=== PATIENT | female | born 1945 | race Caucasian/White ===

== ENCOUNTER 2017-06-02 13:30 | Inpatient (IN) | payer MEDICARE, MEDICAID ==
[2017-06-02] MEDS ORDERED: Sodium Chloride 0.9% 1,000 ML IV ONE (13:46)
[2017-06-02 13:47] VITALS: BMI 29.5
--- NOTE | 2017-06-02 13:52 | C.PDOC ---
History Of Present Illness 71 year old female brought in by ambulance for complaints of chest pain and abdominal pain, onset today. Also reports difficulty breathing. Vital signs on arrival are stable. Patient is also complaining of diarrhea. No nausea, vomiting , fever, or chills. Patient is cooperative, but moaning in pain. PMD: [place] Time Seen by Provider: 06/02/17 13:37 Chief Complaint (Nursing): Abdominal Pain History Per: Patient History/Exam Limitations: no limitations Onset/Duration Of Symptoms: Days (x1) Current Symptoms Are (Timing): Still Present Past Medical History Reviewed: Historical Data, Nursing Documentation, Vital Signs Vital Signs: Last Vital Signs Temp Pulse 78 06/02/17 17:21 Resp 16 06/02/17 17:21 BP 134/55 L 06/02/17 17:21 Pulse Ox 100 06/02/17 17:21 - Medical History PMH: Arthritis, Diabetes, HTN, Hypothyroidism, Kidney Stones Surgical History: Hernia Repair - [facility] CYSTOSCOPY NEC (05/10/14) URETERAL CATHETERIZATION (05/10/14) Family History: States: No Known Family Hx - Social History Hx Tobacco Use: No Hx Alcohol Use: No Hx Substance Use: No - Immunization History Hx Influenza Vaccination: Yes Hx Pneumococcal Vaccination: No Review Of Systems Except As Marked, All Systems Reviewed And Found Negative. Constitutional: Negative for: Fever, Chills Cardiovascular: Positive for: Chest Pain Respiratory: Positive for: Shortness of Breath Gastrointestinal: Positive for: Abdominal Pain, Diarrhea. Negative for: Nausea , Vomiting Physical Exam - Physical Exam Appears: In Acute Distress (mild painful distress) Skin: Normal Color, Warm, Dry Head: Atraumatic, Normacephalic Eye(s): bilateral: Normal Inspection, PERRL, EOMI Nose: Normal Neck: Normal ROM, Supple Chest: Symmetrical, No Tenderness Cardiovascular: Rhythm Regular, No Murmur Respiratory: Normal Breath Sounds, No Rales, No Rhonchi, No Wheezing Gastrointestinal/Abdominal: Soft, Tenderness (diffuse abdominal tenderness), Distention, Other (tympanitic) Extremity: Bilateral: Atraumatic, Normal Color And Temperature, Normal ROM Neurological/Psych: Oriented x3, Normal Speech ED Course And Treatment - Laboratory Results Result Diagrams: 06/02/17 14:09 06/02/17 14:09 Lab Interpretation: No Acute Changes ECG: Interpreted By Me ECG Rhythm: Sinus Rhythm, Nonspecific Changes ECG Interpretation: No Acute Changes Rate From EC - Other Rad obstructive series X-Ray: Viewed By Me, Read By Radiologist Interpretation: FINDINGS: CHEST: Lungs: Clear. Cardiovascular: Cardiomegaly. No pulmonary vascular congestion. Pleura: No pleural fluid. No pneumothorax. Other findings: None. ABDOMEN AND PELVIS: Bowel: Unremarkable bowel gas pattern. No evidence of mechanical obstruction. Moderate fecal loading seen at the ascending colon segment a lengthy at the distal rectosigmoid. Free air: None. Bones: Unremarkable. Other findings: None. IMPRESSION: Cardiomegaly. No infiltrate bilaterally. Nonobstructive bowel gas pattern. Moderate fecal loading seen at the ascending colon segment a lengthy at the distal rectosigmoid. - CT Scan/US CT abdomen/pelvis Other Rad Studies (CT/US): Read By Radiologist, Radiology Report Reviewed CT/US Interpretation: FINDINGS: LOWER THORAX: Cardiomegaly is reiterated as well as limited bilateral basilar dependent atelectasis. LIVER: Unremarkable. No gross lesion or ductal dilatation. GALLBLADDER AND BILE DUCTS: Distended gallbladder with cholelithiasis is minimally identified at the dependent portion. No pericholecystic fluid collection or mural thickening is grossly evident. PANCREAS: Unremarkable. No gross lesion or ductal dilatation. SPLEEN : Unremarkable. ADRENALS: Unremarkable. No mass. KIDNEYS AND URETERS: Resolution of prior right-sided obstructive uropathy. Bilateral kidneys otherwise unremarkable appearance. VASCULATURE: Unremarkable. No aortic aneurysm. BOWEL: The stomach is rather distended with fluid and air as well as the majority of small bowel although collapsed small bowel loops in the right lower quadrant. Is status post prior segmental bowel resection in the right lower quadrant. At the anastomotic site, as well as including a segment distal to it, stool appears sequestered with loops proximal this segment appearing distended. This segment appears to extend into the ascending colon and it is difficult to identify the relationship between the collapsed and distended small bowel loops. The overall pattern is felt to represent a distal small bowel obstruction likely related to the anastomotic site or medially distal to it. There is no free intraperitoneal gas or ascites. Sigmoid diverticulosis again seen without diverticulitis. APPENDIX: The appendix is felt to be normal appearing and images 86 through 95 series 3. PERITONEUM: Status post prior ventral abdominal hernia repair again evident. Mesentery remains unremarkable. . LYMPH NODES: Unremarkable. No enlarged lymph nodes. BLADDER: Unremarkable. REPRODUCTIVE: Prior hysterectomy again evident. BONES : No acute fracture. OTHER FINDINGS: None. IMPRESSION: Findings suggestive of distal small bowel obstruction likely at or just distal to the site of prior segmental small bowel resection at the right lower quadrant. The appendix appears unremarkable as discussed above. Other lesser findings as discussed above. Progress Note: Ordered labs, x-ray obstructive series, and CT abdomen/pelvis. Treated with IVF NSS and morphine [address] shows small bowel obstruction. Paged surgery on-call, Dr. Vazquez, and residential manager. Treated with additional morphine 4 mg IV Reassessment Condition: Unchanged - Physician Consult Information Physician Contacted: Krystian Spears Outcome Of Conversation: admit Medical Decision Making Medical Decision Making: Case discussed with Dr Vazquez who request residential manager evaluate patient Case discussed and patient evaluated by residential manager who request admission to medical service Case discussed with Dr pSears who agrees to admit Disposition Discussed With Dr.: Krystian Spears Doctor Will See Patient In The: Hospital - Disposition Disposition: HOSPITALIZED Disposition Time: 18:30 Condition: STABLE Forms: [facility] (Ukrainian) - POA Present On Arrival: None - Clinical Impression Clinical Impression: SBO (small bowel obstruction) - PA / MONITOR AND ST[employer]AGE BIN TENDER / Resident Statement MD/DO has reviewed & agrees with the documentation as recorded. - Scribe Statement The provider has reviewed the documentation as recorded by the Scribe (Katiuska Lutz) All medical record entries made by the Scribe were at my direction and personally dictated by me. I have reviewed the chart and agree that the record accurately reflects my personal performance of the history, physical exam, medical decision making, and the department course for this patient. I have also personally directed, reviewed, and agree with the discharge instructions and disposition. Decision To Admit - Pt Status Changed To: Hospital Disposition Of: Inpatient - Admit Certification Admit to Inpatient:: After my assessment, the patient will require hospitalization for at least two midnights. This is because of the severity of symptoms shown, intensity of services needed, and/or the medical risk in this patient being treated as an outpatient. - InPatient: Physician Admission Certification:: SBO - . Bed Request Type: Regular Admitting Physician: Krystian Spears Patient Diagnosis: SBO (small bowel obstruction)
[2017-06-02] MEDS ORDERED: Morphine 4 MG/ML VIAL ONE ×2 (14:09→18:24)
--- NOTE | 2017-06-02 14:12 | RAD ---
PROCEDURE: Radiographs of the chest and abdomen (obstructive series) HISTORY: Abd Pain COMPARISON: No prior. TECHNIQUE: AP radiograph of the chest, with upright and supine radiographs of the abdomen. FINDINGS: CHEST: Lungs: Clear. Cardiovascular: Cardiomegaly. No pulmonary vascular congestion. Pleura: No pleural fluid. No pneumothorax. Other findings: None. ABDOMEN AND PELVIS: Bowel: Unremarkable bowel gas pattern. No evidence of mechanical obstruction. Moderate fecal loading seen at the ascending colon segment a lengthy at the distal rectosigmoid. Free air: None. Bones: Unremarkable. Other findings: None. IMPRESSION: Cardiomegaly. No infiltrate bilaterally. Nonobstructive bowel gas pattern. Moderate fecal loading seen at the ascending colon segment a lengthy at the distal rectosigmoid.
[2017-06-02 14:15] LABS: BASO % 0.4 % (0.0-2.0); EOS # 0.1 K/uL (0.0-0.7); EOS % 0.9 % (0.0-4.0); HEMOGLOBIN 12.8 g/dL (11.0-16.0); LYMPH # 1.3 K/uL (1.0-4.3); LYMPH % 19.3 % (20.0-40.0); MEAN CELL VOLUME 71.8 fL (81.0-99.0); MEAN CORPUSCULAR HEMOGLOBIN 24.3 pg (27.0-31.0); MEAN CORPUSCULAR HGB CONC 33.9 g/dL (33.0-37.0); MEAN PLATELET VOLUME 8.8 fL (7.2-11.7); MONO # 0.5 K/uL (0.0-0.8); NEUT % 72.4 % (50.0-75.0); RBC 5.27 Mil/uL (3.80-5.20); RED CELL DISTRIBUTION WIDTH 15.8 % (11.5-14.5); WHITE BLOOD COUNT 6.9 K/uL (4.8-10.8)
[2017-06-02 14:33] LABS: ALB/GLOB RATIO 1.1 (1.0-2.1); ALBUMIN 4.3 g/dL (3.5-5.0); ALT/SGPT 17 U/L (9-52); AST/SGOT 21 U/L (14-36); BLOOD UREA NITROGEN 15 mg/dL (7-17); GFR AFRICAN-AMERICAN > 60; GFR NON-AFRICAN AMERICAN 55; LIPASE 63 U/L (23-300)
[2017-06-02 17:35] LABS: SQUAMOUS EPITHIAL 1 /hpf (0-5); URINE BILIRUBIN NEGATIVE (NEGATIVE); URINE BLOOD NEGATIVE (NEGATIVE); URINE CLARITY Clear (Clear); URINE COLOR Yellow (YELLOW); URINE GLUCOSE (UA) NORMAL (Normal); URINE LEUKOCYTE ESTERASE NEG Leu/uL (Negative); URINE PROTEIN NEGATIVE (NEGATIVE); URINE UROBILINOGEN NORMAL mg/dL (0.2-1.0)
--- NOTE | 2017-06-02 17:49 | CT ---
PROCEDURE: CT Abdomen and Pelvis without intravenous contrast HISTORY: Pain COMPARISON: Enhanced abdomen and pelvis CT examination 05/10/2014 TECHNIQUE: Helical CT of the abdomen and pelvis was performed without oral or intravenous contrast as per referring physician request.. Contrast Dose: None Radiation dose: Total exam DLP = 783.78 mGy-cm. This CT exam was performed using one or more of the following dose reduction techniques: Automated exposure control, adjustment of the mA and/or kV according to patient size, and/or use of iterative reconstruction technique. FINDINGS: LOWER THORAX: Cardiomegaly is reiterated as well as limited bilateral basilar dependent atelectasis. LIVER: Unremarkable. No gross lesion or ductal dilatation. GALLBLADDER AND BILE DUCTS: Distended gallbladder with cholelithiasis is minimally identified at the dependent portion. No pericholecystic fluid collection or mural thickening is grossly evident. PANCREAS: Unremarkable. No gross lesion or ductal dilatation. SPLEEN: Unremarkable. ADRENALS: Unremarkable. No mass. KIDNEYS AND URETERS: Resolution of prior right-sided obstructive uropathy. Bilateral kidneys otherwise unremarkable appearance. VASCULATURE: Unremarkable. No aortic aneurysm. BOWEL: The stomach is rather distended with fluid and air as well as the majority of small bowel although collapsed small bowel loops in the right lower quadrant. Is status post prior segmental bowel resection in the right lower quadrant. At the anastomotic site, as well as including a segment distal to it, stool appears sequestered with loops proximal this segment appearing distended. This segment appears to extend into the ascending colon and it is difficult to identify the relationship between the collapsed and distended small bowel loops. The overall pattern is felt to represent a distal small bowel obstruction likely related to the anastomotic site or medially distal to it. There is no free intraperitoneal gas or ascites. Sigmoid diverticulosis again seen without diverticulitis. APPENDIX: The appendix is felt to be normal appearing and images 86 through 95 series 3. PERITONEUM: Status post prior ventral abdominal hernia repair again evident. Mesentery remains unremarkable. . LYMPH NODES: Unremarkable. No enlarged lymph nodes. BLADDER: Unremarkable. REPRODUCTIVE: Prior hysterectomy again evident. BONES: No acute fracture. OTHER FINDINGS: None. IMPRESSION: Findings suggestive of distal small bowel obstruction likely at or just distal to the site of prior segmental small bowel resection at the right lower quadrant. The appendix appears unremarkable as discussed above. Other lesser findings as discussed above.
--- NOTE | 2017-06-02 18:56 | CP.PCM.CON ---
History of Present Illness - History of Present Illness History of Present Illness: Surgery Consult: Dr. Vazquez Pt is a 71F with PMHx of HTN, renal calculi and multiple abdominal surgeries who presents to with complaints of abdominal pain that has been waxing and waning for the last 2 weeks. Pt states her pain worsened this morning and she noticed that her abdomen was distended. She also admits to having non-bloody diarrhea yesterday and states she does not remember the last time she passed gas. She admits to poor oral intake for the last week due to on/off abdominal pain. Admits to nausea but denies vomiting. Pt denies F/C, chest pain or SOB. Does not remember the last time she had colonoscopy. PMHx: HTN, hypothyroidism, renal calculi PSHx: multiple abdominal surgeries including hernia repair & bowel resection but pt can't recall exactly what surgeries SocialHx: denies smoking/EtOH/drugs Review of Systems - Review of Systems All systems: reviewed and no additional remarkable complaints except (as per HPI ) Past Patient History - Infectious Disease Hx of Infectious Diseases: None - Past Medical History & Family History Past Medical History?: Yes - Past Social History Smoking Status: Never Smoked - CARDIAC Hx Hypertension: Yes - RENAL Hx Kidney Stones: Yes - ENDOCRINE/METABOLIC Hx Hypothyroidism: Yes - MUSCULOSKELETAL/RHEUMATOLOGICAL Hx Arthritis: Yes - PSYCHIATRIC Hx Substance Use: No - SURGICAL HISTORY Hx Herniorrhaphy: Yes - ANESTHESIA Hx Anesthesia: Yes Hx Anesthesia Reactions: No Hx Malignant Hyperthermia: No Meds Allergies/Adverse Reactions: Allergies Allergy/AdvReac Type Severity Reaction Status Date / Time No Known Allergies Allergy Verified 06/02/17 13:46 - Medications Medications: Current Medications Enoxaparin Sodium (Lovenox) 40 mg SC DAILY [facility] Home Med (Levothyroxine) 125 mcg PO DAILY [facility] Metronidazole (Flagyl) 500 mg in 100 mls @ 100 mls/hr IVPB Q8 [facility] PRN Reason: Protocol Ceftriaxone Sodium 1 gm/ (Sodium Chloride) 100 mls @ 100 mls/hr IVPB DAILY [facility] PRN Reason: Protocol Metoclopramide HCl (Reglan) 5 mg IVP Q8H [facility] Stop: 06/04/17 19:01 Morphine Sulfate (Morphine) 2 mg IVP Q4 PRN PRN Reason: Pain, moderate (4-7) Ondansetron HCl (Zofran Inj) 4 mg IVP Q6 PRN PRN Reason: Nausea/Vomiting Physical Exam - Constitutional Appears: No Acute Distress - Head Exam Head Exam: ATRAUMATIC, NORMOCEPHALIC - Eye Exam Eye Exam: Normal appearance - ENT Exam ENT Exam: Mucous Membranes Moist - Respiratory Exam Respiratory Exam: NORMAL BREATHING PATTERN - Cardiovascular Exam Cardiovascular Exam: RRR - GI/Abdominal Exam GI & Abdominal Exam: Distended, Hypoactive Bowel Sounds, Soft, Tenderness ( generalized) - Neurological Exam Neurological exam: Alert, Oriented x3 - Skin Skin Exam: Dry, Warm Results - Vital Signs Recent Vital Signs: Last Vital Signs Temp Pulse 78 06/02/17 17:21 Resp 16 06/02/17 17:21 BP 134/55 L 06/02/17 17:21 Pulse Ox 100 06/02/17 17:21 - Labs Result Diagrams: 06/02/17 14:09 06/02/17 14:09 Labs: Laboratory Results - last 24 hr 06/02/17 06/02/17 06/02/17 14:09 14:09 14:09 WBC 6.9 RBC 5.27 H Hgb 12.8 Hct 37.8 MCV 71.8 L D MCH 24.3 L MCHC 33.9 RDW 15.8 H Plt Count 256 MPV 8.8 Neut % (Auto) 72.4 Lymph % (Auto) 19.3 L [place] % (Auto) 7.0 Eos % (Auto) 0.9 Baso % (Auto) 0.4 Neut # (Auto) 5.0 Lymph # (Auto) 1.3 [place] # (Auto) 0.5 Eos # (Auto) 0.1 Baso # (Auto) 0.0 Sodium 137 Potassium 4.4 Chloride 95 L Carbon Dioxide 23 Anion Gap 23 H BUN 15 Creatinine 1.0 Est GFR ( Amer) > 60 Est GFR (Non-Af Amer) 55 Random Glucose 129 H Lactic Acid 0.9 Calcium 10.0 Total Bilirubin 0.8 AST 21 ALT 17 Alkaline Phosphatase 101 CK-MB (Mass) 1.20 Troponin I < 0.0120 Total Protein 8.1 Albumin 4.3 Globulin 3.9 Albumin/Globulin Ratio 1.1 Lipase 63 Urine Color Urine Clarity Urine pH Ur Specific [place] Urine Protein Urine Glucose (UA) Urine Ketones Urine Blood Urine Nitrate Urine Bilirubin Urine Urobilinogen Ur Leukocyte Esterase Urine WBC (Auto) Urine RBC (Auto) Ur Squamous Epith Cells 06/02/17 17:21 WBC RBC Hgb Hct MCV MCH MCHC RDW Plt Count MPV Neut % (Auto) Lymph % (Auto) [place] % (Auto) Eos % (Auto) Baso % (Auto) Neut # (Auto) Lymph # (Auto) [place] # (Auto) Eos # (Auto) Baso # (Auto) Sodium Potassium Chloride Carbon Dioxide Anion Gap BUN Creatinine Est GFR ( Amer) Est GFR (Non-Af Amer) Random Glucose Lactic Acid Calcium Total Bilirubin AST ALT Alkaline Phosphatase CK-MB (Mass) Troponin I Total Protein Albumin Globulin Albumin/Globulin Ratio Lipase Urine Color Yellow Urine Clarity Clear Urine pH 5.0 Ur Specific [place] 1.012 Urine Protein Negative Urine Glucose (UA) Normal Urine Ketones Negative Urine Blood Negative Urine Nitrate Negative Urine Bilirubin Negative Urine Urobilinogen Normal Ur Leukocyte Esterase Neg Urine WBC (Auto) < 1 Urine RBC (Auto) < 1 Ur Squamous Epith Cells 1 - Imaging and Cardiology CT scan - abdomen Status: Image reviewed by me, Report reviewed by me Assessment & Plan - Assessment and Plan (Free Text) Assessment: 71F with SBO Plan: - Keep NPO with IVF - Insert NGT for decompression; low intermittent suction - serial abdominal exams - monitor bowel function - d/w Dr. Vazquez who agrees with above Ling, PGY-3
[2017-06-02] MEDS: Dextrose 5%/0.45% NS 1,000 ML IV SCH (19:27)
[2017-06-02] MEDS: metroNIDAZOLE IV 500 mg/100 ml 500 MG/100 ML BAG IVPB SCH (21:48)
--- NOTE | 2017-06-02 23:13 | CP.PCM.HP ---
History of Present Illness - History of Present Illness History of Present Illness: CC: abdominal pain Pt is a 71F with PMHx of HTN, renal calculi and multiple abdominal surgeries who presents to with complaints of abdominal pain that has been waxing and waning for the last 2 weeks, lack of bowel movement and no flatus. Pt states her pain worsened this morning and she noticed that her abdomen was distended. She also admits to having non-bloody diarrhea yesterday and states she does not remember the last time she passed gas. She admits to poor oral intake for the last week due to on/off abdominal pain. Admits to nausea but denies vomiting. Pt denies F/C, chest pain or SOB. Does not remember the last time she had colonoscopy. PMHx: HTN, hypothyroidism, renal calculi PSHx: multiple abdominal surgeries including hernia repair & bowel resection but pt can't recall exactly what surgeries SocialHx: denies smoking/EtOH/drugs Present on Admission - Present on Admission Any Indicators Present on Admission: Yes Review of Systems - Review of Systems Systems not reviewed;Unavailable: Acuity of Condition - Constitutional Constitutional: Fatigue, Lethargy, Malaise - EENT Eyes: absent: As Per HPI, Blind Spots, Blurred Vision, Change in Vision, Decreased Night Vision, Diplopia, Discharge, Dry Eye, Exophthalmos, Floaters, Irritation, Itchy Eyes, Loss of Peripheral Vision, Pain, Photophobia, Requires Corrective Lenses, Sees Flashes, Spots in Vision, Tunnel Vision, Other Visual Disturbances, Loss of Vision, Other - Cardiovascular Cardiovascular: absent: As Per HPI, Acrocyanosis, Chest Pain, Chest Pain at Rest , Chest Pain with Activity, Claudication, Diaphoresis, Dyspnea, Dyspnea on Exertion, Edema, Irregular Heart Rhythm, Pain Radiating to Arm/Neck/Jaw, Leg Edema, Leg Ulcers, Lightheadedness, Orthopnea, Palpitations, Paroxysmal Nocturnal Dyspnea, Pedal Edema, Radiating Pain, Rapid Heart Rate, Slow Heart Rate, Syncope, Other - Respiratory Respiratory: absent: As Per HPI, Cough, Dyspnea, Hemoptysis, Dyspnea on Exertion , Wheezing, Snoring, Stridor, Pain on Inspiration, Chest Congestion, Excessive Mucous Production, Change in Mucous Color, Pain with Coughing, Other - Gastrointestinal Gastrointestinal: Abdominal Pain - Genitourinary Genitourinary: absent: As Per HPI, Change in Urinary Stream, Difficulty Urinating, Dysuria, Flank Pain, Hematuria, Pyuria, Nocturia, Urinary Incontinence, Urinary Frequency, Urinary Hesitance, Urinary Urgency, Voiding Freq/Small Amts, Freq UTI, Hx Renal/Bladder Calculi, Hx /Renal Surgery, Bladder Distension, Other Past Patient History - Infectious Disease Hx of Infectious Diseases: None - Past Medical History & Family History Past Medical History?: Yes - Past Social History Smoking Status: Never Smoked - CARDIAC Hx Hypertension: Yes - RENAL Hx Kidney Stones: Yes - ENDOCRINE/METABOLIC Hx Hypothyroidism: Yes - MUSCULOSKELETAL/RHEUMATOLOGICAL Hx Arthritis: Yes Hx Falls: No - PSYCHIATRIC Hx Substance Use: No - SURGICAL HISTORY Hx Herniorrhaphy: Yes - ANESTHESIA Hx Anesthesia: Yes Hx Anesthesia Reactions: No Hx Malignant Hyperthermia: No Meds Allergies/Adverse Reactions: Allergies Allergy/AdvReac Type Severity Reaction Status Date / Time No Known Allergies Allergy Verified 06/02/17 13:46 Physical Exam - Constitutional Appears: No Acute Distress - Head Exam Head Exam: ATRAUMATIC, NORMAL INSPECTION, NORMOCEPHALIC - Eye Exam Eye Exam: EOMI, Normal appearance, PERRL Pupil Exam: NORMAL ACCOMODATION, PERRL - Respiratory Exam Respiratory Exam: Clear to Auscultation Bilateral, NORMAL BREATHING PATTERN - Cardiovascular Exam Cardiovascular Exam: REGULAR RHYTHM - GI/Abdominal Exam GI & Abdominal Exam: Diminished Bowel Sounds, Distended, Tenderness. absent: Bruit, Firm, Guarding, Hernia, Hyperactive Bowel Sounds, Hypoactive Bowel Sounds , Mass, Normal Bowel Sounds, Organomegaly, Pulsatile Mass, Rebound, Rigid, Soft - Rectal Exam Additional comments: empty vault - Neurological Exam Neurological exam: Alert, CN II-XII Intact, Normal Gait, Oriented x3, Reflexes Normal - Psychiatric Exam Psychiatric exam: Anxious - Skin Skin Exam: Pallor Results - Vital Signs Recent Vital Signs: Last Vital Signs Temp 98.8 F 06/02/17 20:41 Pulse 70 06/02/17 20:41 Resp 20 06/02/17 20:41 BP 132/61 06/02/17 20:41 Pulse Ox 99 06/02/17 20:41 - Labs Result Diagrams: 06/02/17 14:09 06/02/17 14:09 Labs: Laboratory Results - last 24 hr 03/28/18 03/28/18 03/28/18 14:09 14:09 14:09 WBC 6.9 RBC 5.27 H Hgb 12.8 Hct 37.8 MCV 71.8 L D MCH 24.3 L MCHC 33.9 RDW 15.8 H Plt Count 256 MPV 8.8 Neut % (Auto) 72.4 Lymph % (Auto) 19.3 L [place] % (Auto) 7.0 Eos % (Auto) 0.9 Baso % (Auto) 0.4 Neut # (Auto) 5.0 Lymph # (Auto) 1.3 [place] # (Auto) 0.5 Eos # (Auto) 0.1 Baso # (Auto) 0.0 Sodium 137 Potassium 4.4 Chloride 95 L Carbon Dioxide 23 Anion Gap 23 H BUN 15 Creatinine 1.0 Est GFR ( Amer) > 60 Est GFR (Non-Af Amer) 55 POC Glucose (mg/dL) Random Glucose 129 H Lactic Acid 0.9 Calcium 10.0 Total Bilirubin 0.8 AST 21 ALT 17 Alkaline Phosphatase 101 CK-MB (Mass) 1.20 Troponin I < 0.0120 Total Protein 8.1 Albumin 4.3 Globulin 3.9 Albumin/Globulin Ratio 1.1 Lipase 63 Urine Color Urine Clarity Urine pH Ur Specific [place] Urine Protein Urine Glucose (UA) Urine Ketones Urine Blood Urine Nitrate Urine Bilirubin Urine Urobilinogen Ur Leukocyte Esterase Urine WBC (Auto) Urine RBC (Auto) Ur Squamous Epith Cells 06/02/17 06/02/17 17:21 21:00 WBC RBC Hgb Hct MCV MCH MCHC RDW Plt Count MPV Neut % (Auto) Lymph % (Auto) [place] % (Auto) Eos % (Auto) Baso % (Auto) Neut # (Auto) Lymph # (Auto) [place] # (Auto) Eos # (Auto) Baso # (Auto) Sodium Potassium Chloride Carbon Dioxide Anion Gap BUN Creatinine Est GFR ( Amer) Est GFR (Non-Af Amer) POC Glucose (mg/dL) 126 H Random Glucose Lactic Acid Calcium Total Bilirubin AST ALT Alkaline Phosphatase CK-MB (Mass) Troponin I Total Protein Albumin Globulin Albumin/Globulin Ratio Lipase Urine Color Yellow Urine Clarity Clear Urine pH 5.0 Ur Specific [place] 1.012 Urine Protein Negative Urine Glucose (UA) Normal Urine Ketones Negative Urine Blood Negative Urine Nitrate Negative Urine Bilirubin Negative Urine Urobilinogen Normal Ur Leukocyte Esterase Neg Urine WBC (Auto) < 1 Urine RBC (Auto) < 1 Ur Squamous Epith Cells 1 Assessment & Plan (1) HTN (hypertension) Status: Acute (2) H/O partial resection of colon Status: Acute (3) SBO (small bowel obstruction) Assessment and Plan: Admit Ng tube sction'surgical consult protonix flagyl rocephin Status: Acute (4) Abdominal pain Status: Acute
[2017-06-03] MEDS: metroNIDAZOLE IV 500 mg/100 ml 500 MG/100 ML BAG IVPB SCH (05:27)
[2017-06-03] MEDS: Levothyroxine 125 MCG TAB PO SCH (06:00)
[2017-06-03] MEDS: Morphine 4 MG/ML VIAL IVP PRN ×2 (06:01→23:52)
[2017-06-03] MEDS: Dextrose 5%/0.45% NS 1,000 ML IV SCH ×2 (07:05→21:25)
--- NOTE | 2017-06-03 09:14 | CP.PCM.PN ---
Subjective - Date & Time of Evaluation Date of Evaluation: 06/03/17 Time of Evaluation: 07:00 - Subjective Subjective: Surgery Progress note. Dr. Vazquez Pt seen and examined at bedside. No acute events overnight. Still reports diffuse abdominal pain. Denies Flatus or BMs. Last BM two days ago. NGT to suction with bilious output. Objective - Vital Signs/Intake and Output Vital Signs (last 24 hours): Temp Pulse Resp BP Pulse Ox 99.0 F 74 20 135/72 97 06/03/17 08:09 06/03/17 08:09 06/03/17 08:09 06/03/17 08:09 06/03/17 08:09 Intake and Output: 06/03/17 06/03/17 06:59 18:59 Intake Total 990 Output Total 350 Balance 640 - Medications Medications: Current Medications Enoxaparin Sodium (Lovenox) 40 mg SC DAILY [facility] Metronidazole (Flagyl) 500 mg in 100 mls @ 100 mls/hr IVPB Q8H [facility] PRN Reason: Protocol Last Admin: 06/03/17 05:27 Dose: 100 mls/hr Ceftriaxone Sodium 1 gm/ (Sodium Chloride) 100 mls @ 100 mls/hr IVPB DAILY [facility] PRN Reason: Protocol Dextrose/Sodium Chloride (Dextrose 5%/0.45% Ns 1000 Ml) 1,000 mls @ 90 mls/hr IV .Q11H7M [facility] Last Admin: 06/02/17 19:27 Dose: 90 mls/hr Levothyroxine Sodium (Synthroid) 125 mcg PO 0630 [facility] Last Admin: 06/03/17 06:00 Dose: 125 mcg Metoclopramide HCl (Reglan) 5 mg IVP Q8H [facility] Stop: 06/04/17 19:01 Last Admin: 06/03/17 02:32 Dose: 5 mg Morphine Sulfate (Morphine) 2 mg IVP Q4 PRN PRN Reason: Pain, moderate (4-7) Last Admin: 06/03/17 06:01 Dose: 2 mg Ondansetron HCl (Zofran Inj) 4 mg IVP Q6 PRN PRN Reason: Nausea/Vomiting Pneumococcal Polyvalent Vaccine (Pneumovax 23 Vaccine) 0.5 ml IM .ONCE ONE Stop: 06/04/17 10:01 - Labs Labs: 06/02/17 14:09 06/02/17 14:09 - Constitutional Appears: No Acute Distress - Head Exam Head Exam: ATRAUMATIC, NORMAL INSPECTION, NORMOCEPHALIC - Eye Exam Eye Exam: EOMI, Normal appearance. absent: Scleral icterus - ENT Exam ENT Exam: Mucous Membranes Moist - Respiratory Exam Respiratory Exam: NORMAL BREATHING PATTERN. absent: Accessory Muscle Use, Respiratory Distress - Cardiovascular Exam Cardiovascular Exam: RRR. absent: JVD - GI/Abdominal Exam GI & Abdominal Exam: Distended (mild distention), Guarding (voluntary guarding) . absent: Firm, Rebound Additional comments: Diffuse tenderness to palpation. - Extremities Exam Extremities Exam: Normal Inspection. absent: Calf Tenderness - Neurological Exam Neurological Exam: Alert, Awake, Oriented x3 - Skin Skin Exam: Dry, Intact, Warm Assessment and Plan - Assessment and Plan (Free Text) Assessment: 71yo F with possible SBO Plan: - Continue NGT to suction - IVF - NPO - Anti-emetics; Pain management - We will follow patient's clinical course Further recs as per Dr. George Ward PGY1 surgery pager: [phone]
[2017-06-03] MEDS: Enoxaparin 40 mg Syringe SC SCH (10:07)
--- NOTE | 2017-06-03 14:44 | CARD ---
APPROVED REPORT EKG Measurement Heart [id number] 160P63 [id number] <Conclusion> Normal sinus rhythm Cannot rule out Anterior infarct, age undetermined Abnormal ECG
--- NOTE | 2017-06-03 23:06 | CP.PCM.PN ---
Subjective - Date & Time of Evaluation Date of Evaluation: 06/03/17 Time of Evaluation: 09:10 - Subjective Subjective: Pt seen and examined at bedside Objective - Vital Signs/Intake and Output Vital Signs (last 24 hours): Temp Pulse Resp BP Pulse Ox 98.1 F 73 20 148/81 97 06/03/17 15:55 06/03/17 15:55 06/03/17 15:55 06/03/17 15:55 06/03/17 15:55 Intake and Output: 06/03/17 06/04/17 18:59 06:59 Intake Total 730 770 Output Total 450 600 Balance 280 170 - Medications Medications: Current Medications Acetaminophen (Tylenol 650 Mg Supp) 650 mg [place] Q6 PRN PRN Reason: Headache Last Admin: 06/03/17 16:33 Dose: 650 mg Enoxaparin Sodium (Lovenox) 40 mg SC DAILY [facility] Last Admin: 06/03/17 10:07 Dose: 40 mg Dextrose/Sodium Chloride (Dextrose 5%/0.45% Ns 1000 Ml) 1,000 mls @ 90 mls/hr IV .Q11H7M [facility] Last Admin: 06/03/17 21:25 Dose: 90 mls/hr Levothyroxine Sodium (Synthroid) 125 mcg PO 0630 [facility] Last Admin: 06/03/17 06:00 Dose: 125 mcg Metoclopramide HCl (Reglan) 5 mg IVP Q8H [facility] Stop: 06/04/17 19:01 Last Admin: 06/03/17 19:00 Dose: Not Given Morphine Sulfate (Morphine) 2 mg IVP Q4 PRN PRN Reason: Pain, moderate (4-7) Last Admin: 06/03/17 06:01 Dose: 2 mg Ondansetron HCl (Zofran Inj) 4 mg IVP Q6 PRN PRN Reason: Nausea/Vomiting Pneumococcal Polyvalent Vaccine (Pneumovax 23 Vaccine) 0.5 ml IM .ONCE ONE Stop: 06/04/17 10:01 - Labs Labs: 06/02/17 14:09 06/02/17 14:09 Assessment and Plan (1) HTN (hypertension) Status: Acute (2) H/O partial resection of colon Status: Acute (3) SBO (small bowel obstruction) Status: Acute (4) Abdominal pain Status: Acute
[2017-06-04] MEDS ORDERED: Phenol Topical 1.4% Throat Spray (180 ml) MT PRN (00:16)
[2017-06-04] MEDS: Dextrose 5%/0.45% NS 1,000 ML IV SCH ×3 (04:20→15:35)
[2017-06-04] MEDS: Levothyroxine 125 MCG TAB PO SCH (05:48)
[2017-06-04 07:44] LABS: HEMOGLOBIN 10.9 g/dL (11.0-16.0); MEAN CELL VOLUME 71.9 fL (81.0-99.0); MEAN CORPUSCULAR HEMOGLOBIN 24.1 pg (27.0-31.0); MEAN CORPUSCULAR HGB CONC 33.6 g/dL (33.0-37.0); MEAN PLATELET VOLUME 8.5 fL (7.2-11.7); RBC 4.5 Mil/uL (3.80-5.20); RED CELL DISTRIBUTION WIDTH 15.4 % (11.5-14.5); WHITE BLOOD COUNT 4.1 K/uL (4.8-10.8)
[2017-06-04 08:06] LABS: BLOOD UREA NITROGEN 8 mg/dL (7-17); GFR AFRICAN-AMERICAN > 60; GFR NON-AFRICAN AMERICAN > 60
[2017-06-04] MEDS ORDERED: Pneumococcal 23-Valent Vaccine IM ONE (10:00)
--- NOTE | 2017-06-04 10:15 | CP.PCM.PN ---
Subjective - Date & Time of Evaluation Date of Evaluation: 06/04/17 Time of Evaluation: 10:15 Objective - Vital Signs/Intake and Output Vital Signs (last 24 hours): Temp Pulse Resp BP Pulse Ox 97.8 F 65 20 135/64 97 06/04/17 08:13 06/04/17 08:13 06/04/17 08:13 06/04/17 08:13 06/04/17 08:13 Intake and Output: 06/04/17 06/04/17 06:59 18:59 Intake Total 1490 Output Total 820 Balance 670 - Medications Medications: Current Medications Acetaminophen (Tylenol 650 Mg Supp) 650 mg [place] Q6 PRN PRN Reason: Headache Last Admin: 06/03/17 16:33 Dose: 650 mg Enoxaparin Sodium (Lovenox) 40 mg SC DAILY [facility] Last Admin: 06/03/17 10:07 Dose: 40 mg Dextrose/Sodium Chloride (Dextrose 5%/0.45% Ns 1000 Ml) 1,000 mls @ 90 mls/hr IV .Q11H7M [facility] Last Admin: 06/04/17 06:28 Dose: 90 mls/hr Levothyroxine Sodium (Synthroid) 125 mcg PO 0630 [facility] Last Admin: 06/04/17 05:48 Dose: 125 mcg Metoclopramide HCl (Reglan) 5 mg IVP Q8H [facility] Stop: 06/04/17 19:01 Last Admin: 06/04/17 03:00 Dose: Not Given Morphine Sulfate (Morphine) 2 mg IVP Q4 PRN PRN Reason: Pain, moderate (4-7) Last Admin: 06/03/17 23:52 Dose: 2 mg Ondansetron HCl (Zofran Inj) 4 mg IVP Q6 PRN PRN Reason: Nausea/Vomiting Pantoprazole Sodium (Protonix Inj) 40 mg IVP DAILY [facility] Phenol/Menthol (Phenaseptic 1.4% Throat [place]) 2 ml MT Q2H PRN PRN Reason: Sore Throat - Labs Labs: 06/04/17 07:30 06/04/17 07:30
[2017-06-04] MEDS: Enoxaparin 40 mg Syringe SC SCH (10:20)
[2017-06-04] MEDS ORDERED: Piperacill/Tazo 3.375gm in Dex 3.375 GM/50 ML BAG IVPB SCH (13:30)
[2017-06-04] MEDS ORDERED: metroNIDAZOLE IV 500 mg/100 ml 500 MG/100 ML BAG IVPB SCH (14:00)
--- NOTE | 2017-06-04 15:54 | RAD ---
HISTORY: SBO COMPARISON: No prior. FINDINGS: BOWEL: No evidence of bowel obstruction. Nasogastric tube extends to left upper quadrant of abdomen. There are surgical sutures seen in the right lower quadrant of the abdomen. There are no masses or abnormal intra-abdominal calcifications. BONES: Normal. OTHER FINDINGS: None. IMPRESSION: No evidence of mechanical bowel obstruction.
[2017-06-04] MEDS: metroNIDAZOLE IV 500 mg/100 ml 500 MG/100 ML BAG IVPB SCH (17:05)
[2017-06-04] MEDS: Piperacillin/Tazobact 3.375 GM in Sodium Chloride 100 ML IVPB SCH (18:01)
--- NOTE | 2017-06-04 23:12 | CP.PCM.PN ---
Subjective - Date & Time of Evaluation Date of Evaluation: 06/04/17 Time of Evaluation: 18:40 - Subjective Subjective: Pt was seen and evaluated at bedside Objective - Vital Signs/Intake and Output Vital Signs (last 24 hours): Temp Pulse Resp BP Pulse Ox 98 F 69 20 139/73 98 06/04/17 16:00 06/04/17 16:00 06/04/17 16:00 06/04/17 16:00 06/04/17 16:00 Intake and Output: 06/04/17 06/05/17 18:59 06:59 Intake Total 760 630 Output Total 280 210 Balance 480 420 - Medications Medications: Current Medications Acetaminophen (Tylenol 650 Mg Supp) 650 mg [place] Q6 PRN PRN Reason: Headache Last Admin: 06/03/17 16:33 Dose: 650 mg Enoxaparin Sodium (Lovenox) 40 mg SC DAILY [facility] Last Admin: 06/04/17 10:20 Dose: Not Given Dextrose/Sodium Chloride (Dextrose 5%/0.45% Ns 1000 Ml) 1,000 mls @ 90 mls/hr IV .Q11H7M [facility] Last Admin: 06/04/17 15:35 Dose: Not Given Metronidazole (Flagyl) 500 mg in 100 mls @ 100 mls/hr IVPB Q8H [facility] PRN Reason: Protocol Last Admin: 06/04/17 17:05 Dose: 100 mls/hr Piperacillin Sod/Tazobactam (Sod 3.375 gm/ Sodium Chloride) 100 mls @ 100 mls/ hr IVPB Q6H [facility] PRN Reason: Protocol Last Admin: 06/04/17 18:01 Dose: 100 mls/hr Levothyroxine Sodium (Synthroid) 125 mcg PO 0630 [facility] Last Admin: 06/04/17 05:48 Dose: 125 mcg Morphine Sulfate (Morphine) 2 mg IVP Q4 PRN PRN Reason: Pain, moderate (4-7) Last Admin: 06/03/17 23:52 Dose: 2 mg Ondansetron HCl (Zofran Inj) 4 mg IVP Q6 PRN PRN Reason: Nausea/Vomiting Pantoprazole Sodium (Protonix Inj) 40 mg IVP DAILY [facility] Last Admin: 06/04/17 13:00 Dose: 40 mg Phenol/Menthol (Phenaseptic 1.4% Throat [place]) 2 ml MT Q2H PRN PRN Reason: Sore Throat Sodium Phosphate (Fleet Enema) 135 ml [place] Q6H [facility] Stop: 06/05/17 13:16 Last Admin: 06/04/17 19:09 Dose: 135 ml - Labs Labs: 06/04/17 07:30 06/04/17 07:30 Assessment and Plan (1) HTN (hypertension) Status: Acute (2) H/O partial resection of colon Status: Acute (3) SBO (small bowel obstruction) Status: Acute (4) Abdominal pain Status: Acute
[2017-06-05] MEDS: Piperacillin/Tazobact 3.375 GM in Sodium Chloride 100 ML IVPB SCH ×2 (00:08→06:18)
[2017-06-05] MEDS: Morphine 4 MG/ML VIAL IVP PRN (00:13)
[2017-06-05] MEDS: metroNIDAZOLE IV 500 mg/100 ml 500 MG/100 ML BAG IVPB SCH ×2 (01:41→09:32)
[2017-06-05] MEDS: Dextrose 5%/0.45% NS 1,000 ML IV SCH ×3 (02:30→16:29)
[2017-06-05] MEDS: Levothyroxine 125 MCG TAB PO SCH (06:18)
[2017-06-05 06:47] LABS: BASO % 0.5 % (0.0-2.0); EOS # 0.2 K/uL (0.0-0.7); EOS % 3.9 % (0.0-4.0); HEMOGLOBIN 10.7 g/dL (11.0-16.0); LYMPH # 1.5 K/uL (1.0-4.3); LYMPH % 30.2 % (20.0-40.0); MEAN CELL VOLUME 71.9 fL (81.0-99.0); MEAN CORPUSCULAR HEMOGLOBIN 24.7 pg (27.0-31.0); MEAN CORPUSCULAR HGB CONC 34.3 g/dL (33.0-37.0); MEAN PLATELET VOLUME 8.3 fL (7.2-11.7); MONO # 0.3 K/uL (0.0-0.8); MONO % 6.2 % (0.0-10.0); NEUT # 2.9 K/uL (1.8-7.0); NEUT % 59.2 % (50.0-75.0); NRBC % 0.2 % (0.0-2.0); RBC 4.33 Mil/uL (3.80-5.20); RED CELL DISTRIBUTION WIDTH 15.6 % (11.5-14.5); WHITE BLOOD COUNT 4.9 K/uL (4.8-10.8)
[2017-06-05 07:09] LABS: ALBUMIN 3.1 g/dL (3.5-5.0); BLOOD UREA NITROGEN 5 mg/dL (7-17); CALCIUM 8.2 mg/dl (8.6-10.4); GFR AFRICAN-AMERICAN > 60; GFR NON-AFRICAN AMERICAN > 60
[2017-06-05 07:10] LABS: ALT/SGPT 12 U/L (9-52); AST/SGOT 20 U/L (14-36)
--- NOTE | 2017-06-05 07:24 | CP.PCM.PN ---
Subjective - Date & Time of Evaluation Date of Evaluation: 06/05/17 Time of Evaluation: 07:21 - Subjective Subjective: Surgery: Dr. Vazquez Pt seen and examined. No acute overnight events. States she feels better but abdominal pain is still not completely resolved. Admits to having multiple bowel movements yesterday s/p enema. Denies N/V, F/C. Objective - Vital Signs/Intake and Output Vital Signs (last 24 hours): Temp Pulse Resp BP Pulse Ox 98.1 F 71 20 142/66 98 06/05/17 00:00 06/05/17 00:00 06/05/17 00:00 06/05/17 00:00 06/05/17 00:00 Intake and Output: 06/05/17 06/05/17 06:59 18:59 Intake Total 630 Output Total 210 Balance 420 - Medications Medications: Current Medications Acetaminophen (Tylenol 650 Mg Supp) 650 mg [place] Q6 PRN PRN Reason: Headache Last Admin: 06/03/17 16:33 Dose: 650 mg Enoxaparin Sodium (Lovenox) 40 mg SC DAILY [facility] Last Admin: 06/04/17 10:20 Dose: Not Given Dextrose/Sodium Chloride (Dextrose 5%/0.45% Ns 1000 Ml) 1,000 mls @ 90 mls/hr IV .Q11H7M [facility] Last Admin: 06/05/17 02:30 Dose: 90 mls/hr Metronidazole (Flagyl) 500 mg in 100 mls @ 100 mls/hr IVPB Q8H [facility] PRN Reason: Protocol Last Admin: 06/05/17 01:41 Dose: 100 mls/hr Piperacillin Sod/Tazobactam (Sod 3.375 gm/ Sodium Chloride) 100 mls @ 100 mls/ hr IVPB Q6H [facility] PRN Reason: Protocol Last Admin: 06/05/17 06:18 Dose: 100 mls/hr Levothyroxine Sodium (Synthroid) 125 mcg PO 0630 [facility] Last Admin: 06/05/17 06:18 Dose: 125 mcg Morphine Sulfate (Morphine) 2 mg IVP Q4 PRN PRN Reason: Pain, moderate (4-7) Last Admin: 06/05/17 00:13 Dose: 2 mg Ondansetron HCl (Zofran Inj) 4 mg IVP Q6 PRN PRN Reason: Nausea/Vomiting Pantoprazole Sodium (Protonix Inj) 40 mg IVP DAILY [facility] Last Admin: 06/04/17 13:00 Dose: 40 mg Phenol/Menthol (Phenaseptic 1.4% Throat [place]) 2 ml MT Q2H PRN PRN Reason: Sore Throat Sodium Phosphate (Fleet Enema) 135 ml [place] Q6H [facility] Stop: 06/05/17 13:16 Last Admin: 06/05/17 07:21 Dose: Not Given - Labs Labs: 06/05/17 06:37 06/05/17 06:37 - Constitutional Appears: Well, No Acute Distress - Head Exam Head Exam: ATRAUMATIC, NORMOCEPHALIC - Eye Exam Eye Exam: Normal appearance - ENT Exam ENT Exam: Mucous Membranes Moist - Respiratory Exam Respiratory Exam: NORMAL BREATHING PATTERN - Cardiovascular Exam Cardiovascular Exam: RRR - GI/Abdominal Exam GI & Abdominal Exam: Distended, Soft, Tenderness (around RLQ ) - Neurological Exam Neurological Exam: Alert, Awake, Oriented x3 - Skin Skin Exam: Dry, Warm Assessment and Plan - Assessment and Plan (Free Text) Assessment: 71F with SBO Plan: - clamp NGT with trial of PO liquids - encourage ambulation with help - monitor bowel function - if pt tolerates trial of PO intake will DC NGT and advance diet - d/w Dr. George Dubon, PGY-3
[2017-06-05] MEDS: Enoxaparin 40 mg Syringe SC SCH (09:31)
[2017-06-05] MEDS ORDERED: Levothyroxine 100 mcg (0.1 mg) Inj IVP SCH (10:00)
--- NOTE | 2017-06-05 22:51 | CP.PCM.PN ---
Subjective - Date & Time of Evaluation Date of Evaluation: 06/05/17 Time of Evaluation: 14:00 - Subjective Subjective: Pt seen and evaluated, SBO resolving, NG tube suction on hold, started on clear liquid diet Objective - Vital Signs/Intake and Output Vital Signs (last 24 hours): Temp Pulse Resp BP Pulse Ox 97.8 F 68 20 152/80 H 99 06/05/17 15:00 06/05/17 15:00 06/05/17 15:00 06/05/17 15:00 06/05/17 15:00 Intake and Output: 06/05/17 06/06/17 18:59 06:59 Intake Total 1070 Balance 1070 - Medications Medications: Current Medications Acetaminophen (Tylenol 650 Mg Supp) 650 mg [place] Q6 PRN PRN Reason: Headache Last Admin: 06/03/17 16:33 Dose: 650 mg Enoxaparin Sodium (Lovenox) 40 mg SC DAILY [facility] Last Admin: 06/05/17 09:31 Dose: 40 mg Levothyroxine Sodium (Synthroid) 75 mcg IVP DAILY [facility] Metoclopramide HCl (Reglan) 5 mg IVP Q8 [facility] Last Admin: 06/05/17 22:14 Dose: 5 mg Morphine Sulfate (Morphine) 2 mg IVP Q4 PRN PRN Reason: Pain, moderate (4-7) Last Admin: 06/05/17 00:13 Dose: 2 mg Ondansetron HCl (Zofran Inj) 4 mg IVP Q6 PRN PRN Reason: Nausea/Vomiting Pantoprazole Sodium (Protonix Inj) 40 mg IVP DAILY [facility] Last Admin: 06/05/17 09:32 Dose: 40 mg Phenol/Menthol (Phenaseptic 1.4% Throat [place]) 2 ml MT Q2H PRN PRN Reason: Sore Throat - Labs Labs: 06/05/17 06:37 06/05/17 06:37 - Constitutional Appears: No Acute Distress - Head Exam Head Exam: ATRAUMATIC, NORMAL INSPECTION, NORMOCEPHALIC - Eye Exam Eye Exam: EOMI, Normal appearance, PERRL Pupil Exam: NORMAL ACCOMODATION, PERRL - Respiratory Exam Respiratory Exam: Clear to Ausculation Bilateral, NORMAL BREATHING PATTERN - Cardiovascular Exam Cardiovascular Exam: REGULAR RHYTHM, +S1, +S2. absent: Murmur - GI/Abdominal Exam GI & Abdominal Exam: Soft, Normal Bowel Sounds. absent: Tenderness Assessment and Plan (1) HTN (hypertension) Status: Acute (2) H/O partial resection of colon Status: Acute (3) SBO (small bowel obstruction) Assessment & Plan: resolving Clear liquid diet hold NG tube Status: Resolved (4) Abdominal pain Status: Acute
--- NOTE | 2017-06-06 07:49 | CP.PCM.PN ---
Subjective - Date & Time of Evaluation Date of Evaluation: 06/06/17 Time of Evaluation: 07:44 - Subjective Subjective: Surgery: Dr. Vazquez Pt seen and examined. No acute overnight events. States she's feeling better this morning and admits to passing a lot of gas. States pain comes and goes but has improved. Denies N/V, F/C. Objective - Vital Signs/Intake and Output Vital Signs (last 24 hours): Temp Pulse Resp BP Pulse Ox 98.6 F 68 20 151/80 H 100 06/06/17 00:09 06/06/17 00:09 06/06/17 00:09 06/06/17 00:09 06/06/17 00:09 - Medications Medications: Current Medications Acetaminophen (Tylenol 650 Mg Supp) 650 mg [place] Q6 PRN PRN Reason: Headache Last Admin: 06/03/17 16:33 Dose: 650 mg Enoxaparin Sodium (Lovenox) 40 mg SC DAILY [facility] Last Admin: 06/05/17 09:31 Dose: 40 mg Levothyroxine Sodium (Synthroid) 75 mcg IVP DAILY [facility] Metoclopramide HCl (Reglan) 5 mg IVP Q8 [facility] Last Admin: 06/06/17 05:45 Dose: 5 mg Morphine Sulfate (Morphine) 2 mg IVP Q4 PRN PRN Reason: Pain, moderate (4-7) Last Admin: 06/05/17 00:13 Dose: 2 mg Ondansetron HCl (Zofran Inj) 4 mg IVP Q6 PRN PRN Reason: Nausea/Vomiting Pantoprazole Sodium (Protonix Inj) 40 mg IVP DAILY [facility] Last Admin: 06/05/17 09:32 Dose: 40 mg Phenol/Menthol (Phenaseptic 1.4% Throat [place]) 2 ml MT Q2H PRN PRN Reason: Sore Throat - Labs Labs: 06/05/17 06:37 06/05/17 06:37 - Constitutional Appears: Well, No Acute Distress - ENT Exam ENT Exam: Mucous Membranes Moist - Respiratory Exam Respiratory Exam: NORMAL BREATHING PATTERN - Cardiovascular Exam Cardiovascular Exam: RRR - GI/Abdominal Exam GI & Abdominal Exam: Distended (might be pt's baseline ), Soft, Tenderness ( generalized ) - Neurological Exam Neurological Exam: Alert, Awake, Oriented x3 - Skin Skin Exam: Dry, Warm Assessment and Plan - Assessment and Plan (Free Text) Assessment: 71F with SBO; resolving Plan: - DC NGT - advance to FLD; pt states she wants to take it slow with the diet - encourage ambulation with assistance - d/w Dr. George Dubon, PGY-3
[2017-06-06 08:20] LABS: BASO % 0.5 % (0.0-2.0); EOS # 0.2 K/uL (0.0-0.7); EOS % 3.7 % (0.0-4.0); HEMOGLOBIN 11.6 g/dL (11.0-16.0); LYMPH # 1.5 K/uL (1.0-4.3); LYMPH % 28.6 % (20.0-40.0); MEAN CELL VOLUME 72.4 fL (81.0-99.0); MEAN CORPUSCULAR HEMOGLOBIN 24.5 pg (27.0-31.0); MEAN CORPUSCULAR HGB CONC 33.8 g/dL (33.0-37.0); MEAN PLATELET VOLUME 8.6 fL (7.2-11.7); MONO # 0.4 K/uL (0.0-0.8); MONO % 7.3 % (0.0-10.0); NEUT # 3.2 K/uL (1.8-7.0); NEUT % 59.9 % (50.0-75.0); RBC 4.74 Mil/uL (3.80-5.20); RED CELL DISTRIBUTION WIDTH 15.5 % (11.5-14.5); WHITE BLOOD COUNT 5.4 K/uL (4.8-10.8)
[2017-06-06 08:59] LABS: ALBUMIN 3.5 g/dL (3.5-5.0); ALT/SGPT 21 U/L (9-52); AST/SGOT 33 U/L (14-36); BLOOD UREA NITROGEN 3 mg/dL (7-17); CALCIUM 8.4 mg/dl (8.6-10.4); GFR AFRICAN-AMERICAN > 60; GFR NON-AFRICAN AMERICAN > 60
[2017-06-06] MEDS ORDERED: Potassium Chloride 20 mEq ER Tab PO ONE (10:00)
[2017-06-06] MEDS: Enoxaparin 40 mg Syringe SC SCH (10:20)
[2017-06-06] MEDS: Levothyroxine 100 mcg (0.1 mg) Inj IVP SCH (10:22)
--- NOTE | 2017-06-06 12:27 | PN ---
DATE: 06/05/2017 LOCATION: 364, Bed A. SUBJECTIVE: This 71-year- old female seen and examined initially for GI consultation on 06/05/2017 at the request of admitting medical staff with NG tube in place. No suction reported, and the patient appeared to be awake, alert, oriented but with mid epigastric pain with slight abdominal distention, passed gas yesterday as well as moderate-sized bowel movement post enema yesterday. The most recent lab results showed hemoglobin 10.7, hematocrit 31.1 with low indices highly suspicious for hypochromic microcytic anemia with blood glucose level 111, calcium 8.2, albumin 3.1, total protein 6.2. The most recent abdominal x-ray report seen 2 days ago indicative of no evidence of mechanical bowel obstruction. It has to be mentioned that the patient had NG tube suction before, with subsequent drop of hemoglobin and hematocrit. PHYSICAL EXAMINATION: GENERAL: A 71-year-old female seen and examined with the staff in the floor. VITAL SIGNS: Afebrile with pulse of 70, reported blood pressure of 130/82 during my physical examination with respiratory rate of 20 to 22. HEENT: Showed pale, dry mucous membrane. Nonicteric sclerae. LUNGS: Few scattered crepitations. Decreased air entry at bases. HEART: Positive S1 and S2. ABDOMEN: Soft with mild distention. NG tube is in place with mid epigastric tenderness. No mass or organomegaly. No rebound tenderness or guarding. EXTREMITIES: Slight lower extremities edematous changes. NEUROLOGIC: No reported new neurological deficits, sensory or motor. IMPRESSION: 1. Intermittent partial bowel obstruction, gradually improving. 2. Hematemesis by recent history with re-exacerbation of peptic ulcer disease, rule out gastric versus duodenal ulcer. 3. Known history of, but not limited to, diabetes mellitus, hypothyroidism, hypertension, osteoarthritis with status post abdominal hernia repair. 4. Anemia most likely secondary to above. 5. Known history of renal stones. SUGGESTIONS: 1. Agree with your plan. 2. The patient is tolerating somewhat clear liquid diet to full liquid. We will advance the diet post upper endoscopy at a.m. due to the patient's reported hematemesis with fresh blood in the NG tube as per her statement. 3. Further recommendations to follow. It has to be mentioned that the patient had normal cancer marker as it was ordered by myself. MD Moira Christensen, MD58:29
--- NOTE | 2017-06-06 21:56 | CP.PCM.PN ---
Subjective - Date & Time of Evaluation Date of Evaluation: 06/06/17 Time of Evaluation: 18:40 - Subjective Subjective: Pt is seen and examined today Objective - Vital Signs/Intake and Output Vital Signs (last 24 hours): Temp Pulse Resp BP Pulse Ox 98.4 F 70 20 136/72 96 06/06/17 15:10 06/06/17 15:10 06/06/17 15:10 06/06/17 15:10 06/06/17 15:10 Intake and Output: 06/06/17 06/07/17 18:59 06:59 Intake Total 360 Output Total 0 Balance 360 - Medications Medications: Current Medications Acetaminophen (Tylenol 650 Mg Supp) 650 mg [place] Q6 PRN PRN Reason: Headache Last Admin: 06/03/17 16:33 Dose: 650 mg Enoxaparin Sodium (Lovenox) 40 mg SC DAILY [facility] Last Admin: 06/06/17 10:20 Dose: 40 mg Levothyroxine Sodium (Synthroid) 75 mcg IVP DAILY [facility] Last Admin: 06/06/17 10:22 Dose: 75 mcg Metoclopramide HCl (Reglan) 5 mg IVP Q8 [facility] Last Admin: 06/06/17 13:14 Dose: 5 mg Ondansetron HCl (Zofran Inj) 4 mg IVP Q6 PRN PRN Reason: Nausea/Vomiting Pantoprazole Sodium (Protonix Inj) 40 mg IVP DAILY [facility] Last Admin: 06/06/17 10:19 Dose: 40 mg Phenol/Menthol (Phenaseptic 1.4% Throat [place]) 2 ml MT Q2H PRN PRN Reason: Sore Throat - Labs Labs: 06/06/17 07:56 06/06/17 07:56 Assessment and Plan (1) HTN (hypertension) Status: Acute (2) H/O partial resection of colon Status: Acute (3) SBO (small bowel obstruction) Status: Resolved (4) Abdominal pain Status: Acute
[2017-06-07 06:17] LABS: EOS # 0.2 K/uL (0.0-0.7); EOS % 3.2 % (0.0-4.0); HEMOGLOBIN 10.9 g/dL (11.0-16.0); LYMPH # 1.8 K/uL (1.0-4.3); LYMPH % 35.1 % (20.0-40.0); MEAN CORPUSCULAR HEMOGLOBIN 24.5 pg (27.0-31.0); MEAN PLATELET VOLUME 8.2 fL (7.2-11.7); MONO # 0.5 K/uL (0.0-0.8); MONO % 9.1 % (0.0-10.0); NEUT # 2.6 K/uL (1.8-7.0); NEUT % 51.6 % (50.0-75.0); RBC 4.46 Mil/uL (3.80-5.20); RED CELL DISTRIBUTION WIDTH 15.7 % (11.5-14.5); WHITE BLOOD COUNT 5.1 K/uL (4.8-10.8)
--- NOTE | 2017-06-07 07:26 | CON ---
DATE: 06/05/[address] Moira Julio to Dr. Krystian Spears. I was called for GI consultation by the admitting MD. The patient is seen and fully examined initially on 06/05/2017 for GI consultation as requested by the admitting medical staff. The entire chart is reviewed including, but not limited to, the most recent lab and radiology study results, current and previous medication list, current and previous medical events, allergies to medication list as well as all the available current and previous medical record. Case discussed with the staff at length. This is a 71-year-old female, known case for me, who was admitted to the hospital initially with a main complaint of abdominal and lower midsternal pain, some shortness of breath, postprandial abdominal distention with nausea and dyspepsia but no actual vomiting, no chills or fever, and last reported bowel movement was a day before admission. After being admitted to the hospital, the patient had NG tube in place, reported to have fresh and old blood and blood contents through the NG tube with subsequent drop of her hemoglobin and hematocrit. No recent reported chills or fever. PAST MEDICAL HISTORY: Including, but not limited to, 1. Hypertension. 2. Diabetes mellitus. 3. Hypothyroidism. 4. Peptic ulcer disease. 5. Renal stones. 6. Osteoarthritis. 7. Recent history of abdominal hernia repair after which the patient had intermittent period of crampy, severe abdominal pain with postprandial abdominal distention. SOCIAL HISTORY: No reported recent history of alcohol intake or cigarette smoking. ALLERGIES TO MEDICATION: List is reviewed. CURRENT MEDICATION: Medication list post admission reviewed. LABORATORY DATA: Initial blood workup showed normal CBC with elevated blood glucose level. Abdominal and pelvic CAT scan recently showed possible small-bowel obstruction; however, repeat abdominal x-ray did not reveal any evidence of obstruction post admission. PHYSICAL EXAMINATION: GENERAL: A 71-year-old female, awake, alert, oriented, complaining of generalized weakness, postprandial abdominal distention. VITAL SIGNS: Afebrile with pulse of 74, respiratory rate 20 to 22, blood pressure of 128/64. HEENT: Showed mildly dry, slightly pale oral mucous membrane. Nonicteric sclerae. NG tube is in place with traces of old and fresh blood. HEART: Positive S1 and S2. LUNGS: A few scattered mild crepitation, decreased air entry at bases. ABDOMEN: [id number] distention and generalized tenderness, but mainly in the mid epigastric, mid abdominal line and left lower quadrant area. Bowel sounds are exquisitely hypoactive. No masses or organomegaly. No rebound tenderness or guarding. RECTAL: The patient refused. EXTREMITIES: Without significant clubbing, cyanosis, or edema. NEURO: No reported new neurological deficits, sensory or motor. IMPRESSION: 1. Reported small-bowel obstruction, initially by CAT scan of the abdomen and pelvis, most likely resolved with the patient passing gas at the time of my physical examination. 2. Upper gastrointestinal blood loss, rule out gastric versus duodenal ulcer. 3. Multiple past medical history as reported above. 4. To rule out occult gastrointestinal malignancy. SUGGESTION: 1. Agree with your plan. 2. Proton pump inhibitors. 3. Reglan IV. 4. Cancer markers. 5. Clamp NG tube on and off, then subsequently to be discontinued. 6. Upper endoscopy when the patient is more stable clinically. 7. Further recommendation to follow and peripheral hyperalimentation is advised. Thank you for letting me participate in your patient's case management. MD Moira Christensen MD:17:33
[2017-06-07 07:46] LABS: ALBUMIN 3.3 g/dL (3.5-5.0); ALT/SGPT 19 U/L (9-52); AST/SGOT 36 U/L (14-36); BLOOD UREA NITROGEN 3 mg/dL (7-17); CALCIUM 8.6 mg/dl (8.6-10.4); GFR AFRICAN-AMERICAN > 60; GFR NON-AFRICAN AMERICAN > 60
--- NOTE | 2017-06-07 09:19 | CP.PCM.PN ---
Subjective - Date & Time of Evaluation Date of Evaluation: 06/07/17 Time of Evaluation: 06:45 - Subjective Subjective: Patient seen and examined this AM. Patient had worsened abdominal distension and pain with the full liquid diet yesterday and was put back on CLD. Patient had a small bowel movement yeseterday evening and her NGT fell out early this AM. Patient has had no nausea or vomiting, abdominal pain and distention are improved. Patient NPO for EGD today with GI Objective - Vital Signs/Intake and Output Vital Signs (last 24 hours): Temp Pulse Resp BP Pulse Ox 98.0 F 69 20 132/72 97 06/07/17 07:57 06/07/17 07:57 06/07/17 07:57 06/07/17 07:57 06/07/17 07:57 Intake and Output: 06/07/17 06/07/17 06:59 18:59 Intake Total 350 Balance 350 - Medications Medications: Current Medications Acetaminophen (Tylenol 650 Mg Supp) 650 mg AL Q6 PRN PRN Reason: Headache Last Admin: 06/03/17 16:33 Dose: 650 mg Enoxaparin Sodium (Lovenox) 40 mg SC DAILY [facility] Last Admin: 06/06/17 10:20 Dose: 40 mg Levothyroxine Sodium (Synthroid) 75 mcg IVP DAILY [facility] Last Admin: 06/06/17 10:22 Dose: 75 mcg Metoclopramide HCl (Reglan) 5 mg IVP Q8 [facility] Last Admin: 06/07/17 05:54 Dose: 5 mg Ondansetron HCl (Zofran Inj) 4 mg IVP Q6 PRN PRN Reason: Nausea/Vomiting Pantoprazole Sodium (Protonix Inj) 40 mg IVP DAILY [facility] Last Admin: 06/06/17 10:19 Dose: 40 mg Phenol/Menthol (Phenaseptic 1.4% Throat [place]) 2 ml MT Q2H PRN PRN Reason: Sore Throat - Labs Labs: 06/07/17 06:02 06/07/17 06:02 - Constitutional Appears: Non-toxic, No Acute Distress - Head Exam Head Exam: ATRAUMATIC, NORMOCEPHALIC - Eye Exam Eye Exam: Normal appearance. absent: Conjunctival injection, Scleral icterus - ENT Exam ENT Exam: Mucous Membranes Moist, Normal Oropharynx - Cardiovascular Exam Cardiovascular Exam: RRR - GI/Abdominal Exam GI & Abdominal Exam: Distended (mild), Soft, Tenderness. absent: Rebound - Extremities Exam Extremities Exam: absent: Calf Tenderness, Pedal Edema, Tenderness - Neurological Exam Neurological Exam: Alert, Awake, Oriented x3 - Psychiatric Exam Psychiatric exam: Normal Affect, Normal Mood - Skin Skin Exam: Dry, Intact, Normal Color, Warm Assessment and Plan - Assessment and Plan (Free Text) Assessment: 71F with SBO Plan: F/U results of EGD and GI recs Advance diet as tolerated Serial abdominal exams Continue to monitor for further bowel function PNR pain medication and nausea medication No surgical intervention indicated or planned Discussed with Dr. George Zee, PGY2
[2017-06-07] MEDS: Enoxaparin 40 mg Syringe SC SCH (10:29)
[2017-06-07] MEDS: Levothyroxine 100 mcg (0.1 mg) Inj IVP SCH (10:37)
[2017-06-07] MEDS ORDERED: Propofol 10 mg/ml Inj (20 ML) ONE (13:02)
[2017-06-07] MEDS: Sucralfate 1 gm/10 ml Oral Susp UD PO SCH ×2 (14:36→17:50)
[2017-06-07 16:01] VITALS: BP 138/83; PULSE 84; RESP 20; TEMP 98.3; O2SAT 97
--- NOTE | 2017-06-07 16:51 | CP.PCM.PN ---
Subjective - Date & Time of Evaluation Date of Evaluation: 06/07/17 Time of Evaluation: 16:51 - Subjective Subjective: Alert, awake, no acute pain, NAD. Objective - Vital Signs/Intake and Output Vital Signs (last 24 hours): Temp Pulse Resp BP Pulse Ox 98.3 F 84 20 138/83 97 06/07/17 15:00 06/07/17 15:00 06/07/17 15:00 06/07/17 15:00 06/07/17 15:00 Intake and Output: 06/07/17 06/07/17 06:59 18:59 Intake Total 350 575 Balance 350 575 - Medications Medications: Current Medications Acetaminophen (Tylenol 650 Mg Supp) 650 mg [place] Q6 PRN PRN Reason: Headache Last Admin: 06/03/17 16:33 Dose: 650 mg Enoxaparin Sodium (Lovenox) 40 mg SC DAILY ON LICENSE OF [facility] Last Admin: 06/07/17 10:29 Dose: Not Given Levothyroxine Sodium (Synthroid) 75 mcg IVP DAILY ON [facility] OF [facility] Last Admin: 06/07/17 10:37 Dose: 75 mcg Metoclopramide HCl (Reglan) 5 mg IVP Q8 ON LICENSE OF [facility] Last Admin: 06/07/17 14:36 Dose: 5 mg Ondansetron HCl (Zofran Inj) 4 mg IVP Q6 PRN PRN Reason: Nausea/Vomiting Pantoprazole Sodium (Protonix Inj) 40 mg IVP DAILY ON [facility] OF [facility] Last Admin: 06/07/17 10:37 Dose: 40 mg Phenol/Menthol (Phenaseptic 1.4% Throat [place]) 2 ml MT Q2H PRN PRN Reason: Sore Throat Sucralfate (Carafate Oral Susp) 1 gm PO TID ON LICENSE OF [facility] Last Admin: 06/07/17 14:36 Dose: 1 gm - Labs Labs: 06/07/17 06:02 06/07/17 06:02 Assessment and Plan - Assessment and Plan (Free Text) Assessment: Patient is seen and examined after EGD today. Alert, orientedx3, tolerating diet. Discussed with DR Spears, plan to discharge home on protonix and carafate. Advised to follow up in the office in 1 week. Advised to avoid citrus and spicy foods.
--- NOTE | 2017-06-07 21:10 | CARD ---
APPROVED REPORT EKG Measurement Heart [id number] <Conclusion> Normal sinus rhythm Normal ECG
--- NOTE | 2017-06-08 11:58 | CP.PCM.DIS ---
Provider - Provider Date of Admission: 06/02/17 18:28 Attending physician: Krystian Spears MD Diagnosis - Discharge Diagnosis (1) HTN (hypertension) Status: Acute (2) H/O partial resection of colon Status: Acute (3) SBO (small bowel obstruction) Status: Resolved (4) Abdominal pain Status: Acute Hospital Course - Lab Results Lab Results: Micro Results 06/05/17 12:15 Blood Blood Culture - Preliminary NO GROWTH AFTER 48 HOURS 06/05/17 12:15 Blood Blood Culture - Preliminary NO GROWTH AFTER 48 HOURS Most Recent Lab Values WBC 5.1 K/uL (4.8-10.8) 06/07/17 06:02 RBC 4.46 Mil/uL (3.80-5.20) 06/07/17 06:02 Hgb 10.9 g/dL (11.0-16.0) L 06/07/17 06:02 Hct 32.2 % (34.0-47.0) L 06/07/17 06:02 MCV 72.0 fL (81.0-99.0) L 06/07/17 06:02 MCH 24.5 pg (27.0-31.0) L 06/07/17 06:02 MCHC 34.0 g/dL (33.0-37.0) 06/07/17 06:02 RDW 15.7 % (11.5-14.5) H 06/07/17 06:02 Plt Count 258 K/uL (130-400) 06/07/17 06:02 MPV 8.2 fL (7.2-11.7) 06/07/17 06:02 Neut % (Auto) 51.6 % (50.0-75.0) 06/07/17 06:02 Lymph % (Auto) 35.1 % (20.0-40.0) 06/07/17 06:02 [place] % (Auto) 9.1 % (0.0-10.0) 06/07/17 06:02 Eos % (Auto) 3.2 % (0.0-4.0) 06/07/17 06:02 Baso % (Auto) 1.0 % (0.0-2.0) 06/07/17 06:02 Neut # (Auto) 2.6 K/uL (1.8-7.0) 06/07/17 06:02 Lymph # (Auto) 1.8 K/uL (1.0-4.3) 06/07/17 06:02 [place] # (Auto) 0.5 K/uL (0.0-0.8) 06/07/17 06:02 Eos # (Auto) 0.2 K/uL (0.0-0.7) 06/07/17 06:02 Baso # (Auto) 0.0 K/uL (0.0-0.2) 06/07/17 06:02 Sodium 140 mmol/L (132-148) 06/07/17 06:02 Potassium 4.3 mmol/L (3.6-5.2) 06/07/17 06:02 Chloride 108 mmol/L (98-107) H 06/07/17 06:02 Carbon Dioxide 20 mmol/L (22-30) L 06/07/17 06:02 Anion Gap 17 (10-20) 06/07/17 06:02 BUN 3 mg/dL (7-17) L 06/07/17 06:02 Creatinine 0.8 mg/dL (0.7-1.2) 06/07/17 06:02 Est GFR ( Amer) > 60 06/07/17 06:02 Est GFR (Non-Af Amer) > 60 06/07/17 06:02 POC Glucose (mg/dL) 87 mg/dL (65-110) 06/05/17 21:03 Random Glucose 100 mg/dL (65-105) 06/07/17 06:02 Lactic Acid 0.9 mmol/L (0.7-2.1) 06/02/17 14:09 Calcium 8.6 mg/dl (8.6-10.4) 06/07/17 06:02 Total Bilirubin 0.5 mg/dL (0.2-1.3) 06/07/17 06:02 AST 36 U/L (14-36) 06/07/17 06:02 ALT 19 U/L (9-52) 06/07/17 06:02 Alkaline Phosphatase 64 U/L (38-126) 06/07/17 06:02 CK-MB (Mass) 1.20 ng/mL (0.0-3.38) 06/02/17 14:09 Troponin I < 0.0120 ng/mL (0.00-0.120) 06/02/17 14:09 Total Protein 6.6 g/dL (6.3-8.3) 06/07/17 06:02 Albumin 3.3 g/dL (3.5-5.0) L 06/07/17 06:02 Globulin 3.3 gm/dL (2.2-3.9) 06/07/17 06:02 Albumin/Globulin Ratio 1.0 (1.0-2.1) 06/07/17 06:02 Lipase 63 U/L (23-300) 06/02/17 14:09 Carcinoembryonic Ag 4.2 ng/mL (0-3.0) H 06/05/17 12:40 Procalcitonin < 0.05 NG/ML (0.19-0.49) L 06/04/17 07:30 Urine Color Yellow (YELLOW) 06/02/17 17:21 Urine Clarity Clear (Clear) 06/02/17 17:21 Urine pH 5.0 (5.0-8.0) 06/02/17 17:21 Ur Specific [place] 1.012 (1.003-1.030) 06/02/17 17:21 Urine Protein Negative mg/dL (NEGATIVE) 06/02/17 17:21 Urine Glucose (UA) Normal mg/dL (Normal) 06/02/17 17:21 Urine Ketones Negative mg/dL (NEGATIVE) 06/02/17 17:21 Urine Blood Negative (NEGATIVE) 06/02/17 17:21 Urine Nitrate Negative (NEGATIVE) 06/02/17 17:21 Urine Bilirubin Negative (NEGATIVE) 06/02/17 17:21 Urine Urobilinogen Normal mg/dL (0.2-1.0) 06/02/17 17:21 Ur Leukocyte Esterase Neg [place]/uL (Negative) 06/02/17 17:21 Urine WBC (Auto) < 1 /hpf (0-5) 06/02/17 17:21 Urine RBC (Auto) < 1 /hpf (0-3) 06/02/17 17:21 Ur Squamous Epith Cells 1 /hpf (0-5) 06/02/17 17:21 - Hospital Course Hospital Course: Patient is seen and examined after EGD today. Alert, orientedx3, tolerating diet. Discussed with DR Spears, plan to discharge home on protonix and carafate. Advised to follow up in the office in 1 week. Advised to avoid citrus and spicy foods. Discharge Exam - Head Exam Head Exam: ATRAUMATIC, NORMOCEPHALIC Discharge Plan - Discharge Medications Prescriptions: Sucralfate [Carafate] 1 gm PO ACTID #60 tab Pantoprazole Sodium [Protonix] 40 mg PO DAILY #30 ect Metoclopramide [Reglan] 5 mg PO BID PRN #10 tab PRN Reason: Nausea/Vomiting - Follow Up Plan Condition: STABLE Disposition: HOME/ ROUTINE Instructions: Small Bowel Obstruction (DC)
== END 2017-06-07 19:50 | disposition home or self-care (01) | DRG 389 ==
LOC: C.ER 13:30 → C.9E 18:28 → C.3T 19:55
PROVIDERS: ADMIT Internal Medicine; ATTEND Internal Medicine
PROC: 0DB68ZX Excision of Stomach, Via Natural or Artificial Opening Endoscopic, Diagnostic (ICD-10-PCS; principal; 2017-06-07 13:06)
DX: K56.609 Unspecified intestinal obstruction, unspecified as to partial versus complete obstruction (principal); K25.3 Acute gastric ulcer without hemorrhage or perforation; K92.0 Hematemesis; K44.9 Diaphragmatic hernia without obstruction or gangrene; K20.8 Other esophagitis; D50.0 Iron deficiency anemia secondary to blood loss (chronic); E03.9 Hypothyroidism, unspecified; E11.9 Type 2 diabetes mellitus without complications; I10 Essential (primary) hypertension; Z87.442 Personal history of urinary calculi; Z98.0 Intestinal bypass and anastomosis status; R53.1 Weakness

== ENCOUNTER 2017-06-22 18:57 | Inpatient (IN) | payer MEDICARE, MEDICAID ==
[2017-06-22 18:58] VITALS: BMI 29.5
--- NOTE | 2017-06-22 19:26 | C.PDOC ---
Chief Complaint (Nursing): Shortness Of Breath Past Medical History Vital Signs: Last Vital Signs Temp 98.4 F 06/22/17 19:08 Pulse 73 06/22/17 19:08 Resp 25 H 06/22/17 19:08 BP 141/50 L 06/22/17 19:08 Pulse Ox 100 06/22/17 19:08 - Medical History PMH: Arthritis, Diabetes, HTN, Hypothyroidism, Kidney Stones Surgical History: Hernia Repair - [facility] Procedures CYSTOSCOPY NEC (05/10/14) EXCISION OF STOMACH, ENDO, DIAGN (06/02/17) URETERAL CATHETERIZATION (05/10/14) - Social History Hx Tobacco Use: No Hx Alcohol Use: No Hx Substance Use: No - Immunization History Hx Tetanus Toxoid Vaccination: No Hx Influenza Vaccination: Yes Hx Pneumococcal Vaccination: No ED Course And Treatment O2 Sat by Pulse Oximetry: 100 Disposition - Disposition
--- NOTE | 2017-06-22 19:28 | C.PDOC ---
History Of Present Illness 72 y/o female with a PMHx significant for HTN and diabetes, presents complaining of feeling short of breath on and off for 6 weeks, worsening over the past several days. She saw her PMD who told patient she had pneumonia and referred her to the ER. Patient denies any fever, chills, sputum production, underlying lung disease. Time Seen by Provider: 06/22/17 19:14 Chief Complaint (Nursing): Shortness Of Breath History Per: Patient History/Exam Limitations: no limitations Onset/Duration Of Symptoms: Days Current Symptoms Are (Timing): Still Present Reports Recently: Treated By A Physician Past Medical History Reviewed: Historical Data, Nursing Documentation, Vital Signs Vital Signs: Last Vital Signs Temp 98.4 F 06/22/17 19:08 Pulse 73 06/22/17 19:08 Resp 25 H 06/22/17 19:08 BP 141/50 L 06/22/17 19:08 Pulse Ox 100 06/22/17 20:57 - Medical History PMH: Arthritis, Diabetes, HTN, Hypothyroidism, Kidney Stones Surgical History: Hernia Repair - [facility] Procedures CYSTOSCOPY NEC (05/10/14) EXCISION OF STOMACH, ENDO, DIAGN (06/02/17) URETERAL CATHETERIZATION (05/10/14) Family History: States: No Known Family Hx - Social History Hx Tobacco Use: No Hx Alcohol Use: No Hx Substance Use: No - Immunization History Hx Tetanus Toxoid Vaccination: No Hx Influenza Vaccination: Yes Hx Pneumococcal Vaccination: No Review Of Systems Except As Marked, All Systems Reviewed And Found Negative. Constitutional: Negative for: Fever, Chills Cardiovascular: Negative for: Chest Pain Respiratory: Positive for: Cough, Shortness of Breath. Negative for: Sputum Gastrointestinal: Negative for: Nausea, Vomiting Physical Exam - Physical Exam Appears: Non-toxic, No Acute Distress, Other (Morbidly obese female) Skin: Normal Color, Warm, Dry Head: Atraumatic, Normacephalic Eye(s): bilateral: Normal Inspection, PERRL, EOMI Nose: Normal Oral Mucosa: Moist Neck: Normal ROM, Supple (with no JVD) Chest: Symmetrical, No Tenderness Cardiovascular: Rhythm Regular, No Murmur, Other (S1, S2 are wnl) Respiratory: No Accessory Muscle Use, No Rales, No Rhonchi, No Wheezing, Other ( Lungs CTA bilaterally) Gastrointestinal/Abdominal: Soft, No Tenderness, No Guarding, No Rebound, Other (obese abdomen, with midline laparotomy scar that is well healed) Extremity: Normal ROM, No Calf Tenderness, No Deformity, Swelling (non-pitting 2 + edema to the knees) Pulses: Left Dorsalis Pedis: Normal, Right Dorsalis Pedis: Normal Neurological/Psych: Oriented x3, Normal Speech, No Other (focal deficits) ED Course And Treatment - Laboratory Results Result Diagrams: 06/22/17 19:39 06/22/17 19:39 ECG: Interpreted By Me, Viewed By Me ECG Rhythm: Sinus Rhythm (at 63 bpm, no ectopy, intervals all wnl, ST segments all wnl) ECG Interpretation: Normal O2 Sat by Pulse Oximetry: 100 (RA) Pulse Ox Interpretation: Normal - Radiology CXR: Interpreted by Me, Viewed By Me CXR Interpretation: Yes: No Acute Disease. No: Infiltrates Medical Decision Making Medical Decision Making: Impression: R/o Pneumonia O2 sat is 99% on room air Time: 19:18 Initial Plan: * EKG * Chest x-ray * Routine labs Progress/Updates: CXR, viewed by me, negative infiltrates. Labs reviewed, and are grossly normal. Counseled patient regarding dx of bronchitis. Patient is stable for d/c home with thro. Advised to follow up with the clinic for further evaluation. Patient also requesting referral for ortho for chronic knee pain not mentioned before, provided with referral for ortho on-call, Dr. Aguilar. 20:51 Upon discharge, patient is refusing to go home. States she still feels short of breath. On reevaluation, patient has no respiratory distress. O2 sat remains 99-100% on room air. Case discussed with Dr. Spears, patient will be admitted for observation for bronchitis. Disposition Counseled Patient/Family Regarding: Studies Performed, Diagnosis - Disposition Referrals: [facility] [Outside] Sweta Aguilar MD [Staff Provider] - Disposition: HOSPITALIZED Disposition Time: 20:51 Condition: STABLE Prescriptions: Azithromycin 250 mg PO DAILY #6 tablet Instructions: Acute Bronchitis Forms: [facility] (Maltese) Print Language: SOUTH AFRICAN - POA Present On Arrival: None - Clinical Impression Clinical Impression: Bronchitis - Scribe Statement The provider has reviewed the documentation as recorded by the Scribe (Katiuska Lutz) Provider Attestation: All medical record entries made by the Scribe were at my direction and personally dictated by me. I have reviewed the chart and agree that the record accurately reflects my personal performance of the history, physical exam, medical decision making, and the department course for this patient. I have also personally directed, reviewed, and agree with the discharge instructions and disposition.
[2017-06-22 19:42] LABS: BASO # 0.1 K/uL (0.0-0.2); BASO % 0.9 % (0.0-2.0); EOS # 0.1 K/uL (0.0-0.7); EOS % 2.5 % (0.0-4.0); HEMOGLOBIN 10.8 g/dL (11.0-16.0); LYMPH # 1.6 K/uL (1.0-4.3); LYMPH % 27.3 % (20.0-40.0); MEAN CELL VOLUME 73.2 fL (81.0-99.0); MEAN CORPUSCULAR HEMOGLOBIN 24.3 pg (27.0-31.0); MEAN CORPUSCULAR HGB CONC 33.2 g/dL (33.0-37.0); MEAN PLATELET VOLUME 8.6 fL (7.2-11.7); MONO # 0.4 K/uL (0.0-0.8); NEUT # 3.6 K/uL (1.8-7.0); NEUT % 62.3 % (50.0-75.0); NRBC % 0.1 % (0.0-2.0); RBC 4.43 Mil/uL (3.80-5.20); RED CELL DISTRIBUTION WIDTH 16.6 % (11.5-14.5); WHITE BLOOD COUNT 5.8 K/uL (4.8-10.8)
[2017-06-22 19:55] LABS: ALB/GLOB RATIO 1.1 (1.0-2.1); ALBUMIN 3.8 g/dL (3.5-5.0); ALT/SGPT 14 U/L (9-52); AST/SGOT 18 U/L (14-36); BLOOD UREA NITROGEN 14 mg/dL (7-17); CALCIUM 8.5 mg/dl (8.6-10.4); GFR AFRICAN-AMERICAN > 60; GFR NON-AFRICAN AMERICAN > 60
[2017-06-22 20:06] LABS: B-TYPE NATRIURETIC PEPTIDE 303 pg/mL (0-900)
[2017-06-22 20:24] LABS: SQUAMOUS EPITHIAL 4 /hpf (0-5); URINE BACTERIA FEW (<OCC); URINE BILIRUBIN NEGATIVE (NEGATIVE); URINE BLOOD NEGATIVE (NEGATIVE); URINE CLARITY Hazy (Clear); URINE COLOR Yellow (YELLOW); URINE GLUCOSE (UA) NORMAL (Normal); URINE LEUKOCYTE ESTERASE NEG Leu/uL (Negative); URINE PROTEIN NEGATIVE (NEGATIVE); URINE UROBILINOGEN NORMAL mg/dL (0.2-1.0)
[2017-06-22 21:22] VITALS: RESP 20
--- NOTE | 2017-06-22 23:22 | CP.PCM.HP ---
History of Present Illness - History of Present Illness History of Present Illness: CC: shortness of breath HPI: 72 y/o [place] female with a PMHx significant for HTN and diabetes, GI surgery with SBO, she is complaint with diet, medication and follow up presents complaining of feeling short of breath on and off for 6 weeks, worsening over the past several days. was referred to the ER to rule out possibility of pnemonia. Patient denies any fever, chills, sputum production, underlying lung disease. Present on Admission - Present on Admission Any Indicators Present on Admission: Yes Review of Systems - Review of Systems Systems not reviewed;Unavailable: Acuity of Condition - Constitutional Constitutional: Fatigue, Lethargy - EENT Eyes: absent: As Per HPI, Blind Spots, Blurred Vision, Change in Vision, Decreased Night Vision, Diplopia, Discharge, Dry Eye, Exophthalmos, Floaters, Irritation, Itchy Eyes, Loss of Peripheral Vision, Pain, Photophobia, Requires Corrective Lenses, Sees Flashes, Spots in Vision, Tunnel Vision, Other Visual Disturbances, Loss of Vision, Other Nose/Mouth/Throat: absent: As Per HPI, Epistaxis, Nasal Congestion, Nasal Discharge, Nasal Obstruction, Nasal Trauma, Nose Pain, Post Nasal Drip, Sinus Pain, Sinus Pressure, Bleeding Gums, Change in Voice, Dental Pain, Dry Mouth, Dysphagia, Halitosis, Hoarsness, Lip Swelling, Mouth Lesions, Mouth Pain, Odynophagia, Sore Throat, Throat Swelling, Tongue Swelling, Facial Pain, Neck Pain, Neck Mass, Other - Cardiovascular Cardiovascular: Dyspnea - Gastrointestinal Gastrointestinal: Abdominal Pain - Genitourinary Genitourinary: absent: As Per HPI, Change in Urinary Stream, Difficulty Urinating, Dysuria, Flank Pain, Hematuria, Pyuria, Nocturia, Urinary Incontinence, Urinary Frequency, Urinary Hesitance, Urinary Urgency, Voiding Freq/Small Amts, Freq UTI, Hx Renal/Bladder Calculi, Hx /Renal Surgery, Bladder Distension, Other Past Patient History - Infectious Disease Hx of Infectious Diseases: None - Past Medical History & Family History Past Medical History?: Yes - Past Social History Smoking Status: Never Smoked - CARDIAC Hx Hypertension: Yes - RENAL Hx Kidney Stones: Yes - ENDOCRINE/METABOLIC Hx Hypothyroidism: Yes - MUSCULOSKELETAL/RHEUMATOLOGICAL Hx Arthritis: Yes - PSYCHIATRIC Hx Substance Use: No - SURGICAL HISTORY Hx Herniorrhaphy: Yes - ANESTHESIA Hx Anesthesia: Yes Hx Anesthesia Reactions: No Hx Malignant Hyperthermia: No Meds Home Medications: Home Medication List Medication Instructions Recorded Confirmed Type Albuterol/Ipratropium [Duoneb 3 3 ml INH RQ6 PRN #25 neb 06/25/17 Rx mg/0.5 mg (3 ml) UD] predniSONE [Prednisone] 10 mg PO DAILY #7 tab 06/25/17 Rx Allergies/Adverse Reactions: Allergies Allergy/AdvReac Type Severity Reaction Status Date / Time No Known Allergies Allergy Verified 06/22/17 19:13 Physical Exam - Constitutional Appears: Well, No Acute Distress - Eye Exam Eye Exam: EOMI, Normal appearance, PERRL Pupil Exam: NORMAL ACCOMODATION, PERRL - Respiratory Exam Respiratory Exam: Clear to Auscultation Bilateral, NORMAL BREATHING PATTERN - Cardiovascular Exam Cardiovascular Exam: REGULAR RHYTHM - GI/Abdominal Exam GI & Abdominal Exam: Normal Bowel Sounds, Soft. absent: Tenderness Additional comments: cleaned healed wound of previous surgery - Rectal Exam Rectal Exam: Deferred Results - Vital Signs Recent Vital Signs: Last Vital Signs Temp 99.0 F 06/22/17 21:46 Pulse 72 06/22/17 21:00 Resp 20 06/22/17 21:00 BP 148/62 06/22/17 21:00 Pulse Ox 100 06/22/17 21:11 - Labs Result Diagrams: 06/25/17 08:45 06/25/17 08:45 Labs: Laboratory Results - last 24 hr 06/22/17 06/22/17 06/22/17 19:39 19:39 19:42 WBC 5.8 RBC 4.43 Hgb 10.8 L Hct 32.4 L MCV 73.2 L MCH 24.3 L MCHC 33.2 RDW 16.6 H Plt Count 250 MPV 8.6 Neut % (Auto) 62.3 Lymph % (Auto) 27.3 [place] % (Auto) 7.0 Eos % (Auto) 2.5 Baso % (Auto) 0.9 Neut # (Auto) 3.6 Lymph # (Auto) 1.6 [place] # (Auto) 0.4 Eos # (Auto) 0.1 Baso # (Auto) 0.1 Sodium 140 Potassium 3.9 Chloride 103 Carbon Dioxide 22 Anion Gap 19 BUN 14 Creatinine 0.9 Est GFR ( Amer) > 60 Est GFR (Non-Af Amer) > 60 POC Glucose (mg/dL) Random Glucose 116 H Calcium 8.5 L Total Bilirubin 0.5 AST 18 ALT 14 Alkaline Phosphatase 65 Troponin I < 0.0120 NT-Pro-B Natriuret Pep 303 Total Protein 7.3 Albumin 3.8 Globulin 3.5 Albumin/Globulin Ratio 1.1 Urine Color Urine Clarity Urine pH Ur Specific [place] Urine Protein Urine Glucose (UA) Urine Ketones Urine Blood Urine Nitrate Urine Bilirubin Urine Urobilinogen Ur Leukocyte Esterase Urine WBC (Auto) Urine RBC (Auto) Ur Squamous Epith Cells Urine Bacteria Influenza Typ A,B (EIA) Negative for flu a/b 06/22/17 06/22/17 20:10 22:46 WBC RBC Hgb Hct MCV MCH MCHC RDW Plt Count MPV Neut % (Auto) Lymph % (Auto) [place] % (Auto) Eos % (Auto) Baso % (Auto) Neut # (Auto) Lymph # (Auto) [place] # (Auto) Eos # (Auto) Baso # (Auto) Sodium Potassium Chloride Carbon Dioxide Anion Gap BUN Creatinine Est GFR ( Amer) Est GFR (Non-Af Amer) POC Glucose (mg/dL) 110 Random Glucose Calcium Total Bilirubin AST ALT Alkaline Phosphatase Troponin I NT-Pro-B Natriuret Pep Total Protein Albumin Globulin Albumin/Globulin Ratio Urine Color Yellow Urine Clarity Hazy Urine pH 5.0 Ur Specific [place] 1.016 Urine Protein Negative Urine Glucose (UA) Normal Urine Ketones Negative Urine Blood Negative Urine Nitrate Negative Urine Bilirubin Negative Urine Urobilinogen Normal Ur Leukocyte Esterase Neg Urine WBC (Auto) 3 Urine RBC (Auto) 1 Ur Squamous Epith Cells 4 Urine Bacteria Few H Influenza Typ A,B (EIA) Assessment & Plan (1) Bronchitis Status: Acute (2) HTN (hypertension) Status: Acute (3) SOB (shortness of breath) Status: Acute
[2017-06-22] MEDS: (Novolin R) Insulin Human Regular 100 units/ml vial SC SCH (23:30)
[2017-06-23] MEDS: Azithromycin 500 MG in Sodium Chloride 0.9% 250 ML IVPB SCH ×2 (00:18→22:38)
[2017-06-23] MEDS: Albuterol-Ipratrop 3 mg / 0.5 (3 ml) UD INH SCH ×4 (01:38→19:37)
[2017-06-23] MEDS: Levothyroxine 125 MCG TAB PO SCH (05:57)
[2017-06-23] MEDS: (Novolin R) Insulin Human Regular 100 units/ml vial SC SCH ×4 (08:03→21:50)
--- NOTE | 2017-06-23 08:17 | RAD ---
PROCEDURE: CHEST RADIOGRAPH, 1 VIEW HISTORY: SOB COMPARISON: Chest radiograph dated 05/10/2014. FINDINGS: LUNGS: Stable left upper lobe calcified granuloma. Clear. PLEURA: No pneumothorax or pleural fluid seen. CARDIOVASCULAR: Atherosclerotic aortic calcifications. Cardiomediastinal silhouette stably enlarged. OSSEOUS STRUCTURES: Are unchanged. VISUALIZED UPPER ABDOMEN: Normal. OTHER FINDINGS: None. IMPRESSION: No active disease.
[2017-06-23] MEDS: Enoxaparin 40 mg Syringe SC SCH (09:35)
[2017-06-23] MEDS: diltiaZEM 300 mg/24 Hours CD Cap PO SCH (09:35)
[2017-06-23] MEDS ORDERED: Pneumococcal 23-Valent Vaccine IM ONE (10:00)
--- NOTE | 2017-06-23 18:02 | CT ---
PROCEDURE: CT Chest without contrast HISTORY: severe s o b / ABNORMAL CXR O P. COMPARISON: None. TECHNIQUE: Contiguous axial images were obtained through the chest without intravenous contrast enhancement. Sagittal and coronal reconstructions were performed. Radiation dose (DLP): 535.11 mGy-cm. This CT exam was performed using one or more of the following dose reduction techniques: Automated exposure control, adjustment of the mA and/or kV according to patient size, and/or use of iterative reconstruction technique. FINDINGS: LUNGS: Mild bilateral lower lobe linear scar/ atelectasis. No infiltrate. No pulmonary mass. MEDIASTINUM: Unremarkable thoracic aorta. No aneurysm. Normal sized heart. Main pulmonary artery unremarkable. No vascular congestion. No lymphadenopathy. PLEURA: No pleural fluid. No pneumothorax. BONES: No fracture. No destructive lesion. UPPER ABDOMEN: Grossly unremarkable. OTHER FINDINGS: None. IMPRESSION: Unremarkable non-contrast enhanced CT of the chest.
--- NOTE | 2017-06-23 22:35 | CP.PCM.PN ---
Subjective - Date & Time of Evaluation Date of Evaluation: 06/23/17 Time of Evaluation: 19:00 - Subjective Subjective: Pt seen and examined, less short of breath CT angiogram is neg sob most likely anxiety pt is comfortably echo cardiogram peding Objective - Vital Signs/Intake and Output Vital Signs (last 24 hours): Temp Pulse Resp BP Pulse Ox 97.4 F L 61 20 124/68 98 06/23/17 15:00 06/23/17 15:00 06/23/17 15:00 06/23/17 15:20 06/23/17 15:20 Intake and Output: 06/23/17 06/24/17 18:59 06:59 Intake Total 300 Balance 300 - Medications Medications: Current Medications Albuterol/Ipratropium (Duoneb 3 Mg/0.5 Mg (3 Ml) Ud) 3 ml INH RQ6 [facility] Last Admin: 06/23/17 19:37 Dose: 3 ml Carbidopa/Levodopa (Sinemet 10/100) 1 tab PO TID [facility] Last Admin: 06/23/17 18:40 Dose: 1 tab Diltiazem HCl (Cardizem Cd) 300 mg PO DAILY [facility] Last Admin: 06/23/17 09:35 Dose: 300 mg Docusate Sodium (Colace) 100 mg PO BID [facility] Last Admin: 06/23/17 18:28 Dose: 100 mg Enoxaparin Sodium (Lovenox) 40 mg SC DAILY [facility] Last Admin: 06/23/17 09:35 Dose: 40 mg Entacapone (Comtan) 200 mg PO DAILY [facility] Last Admin: 06/23/17 09:35 Dose: 200 mg Ergocalciferol (Drisdol 50,000 Intl Units Cap) 1 cap PO QWK [facility] Gabapentin (Neurontin) 300 mg PO DAILY [facility] Last Admin: 06/23/17 09:34 Dose: 300 mg Ceftriaxone Sodium 1 gm/ (Sodium Chloride) 100 mls @ 100 mls/hr IVPB DAILY [facility] PRN Reason: Protocol Last Admin: 06/23/17 09:33 Dose: 100 mls/hr Azithromycin 500 mg/ Sodium (Chloride) 250 mls @ 167 mls/hr IVPB Q24H [facility] PRN Reason: Protocol Last Admin: 06/23/17 00:18 Dose: 167 mls/hr Insulin Human Regular (Novolin R) 0 unit SC ACHS [facility] PRN Reason: Protocol Last Admin: 06/23/17 21:50 Dose: Not Given Levothyroxine Sodium (Synthroid) 125 mcg PO 0630 [facility] Last Admin: 06/23/17 05:57 Dose: 125 mcg Losartan Potassium (Cozaar) 100 mg PO DAILY [facility] Last Admin: 06/23/17 09:34 Dose: 100 mg Metformin HCl (Glucophage Xr) 500 mg PO DAILY [facility] Last Admin: 06/23/17 09:35 Dose: 500 mg Pantoprazole Sodium (Protonix Inj) 40 mg IVP DAILY [facility] Last Admin: 06/23/17 13:42 Dose: 40 mg - Labs Labs: 06/22/17 19:39 06/22/17 19:39 - Constitutional Appears: No Acute Distress - Head Exam Head Exam: ATRAUMATIC, NORMAL INSPECTION, NORMOCEPHALIC - Eye Exam Eye Exam: EOMI, Normal appearance, PERRL Pupil Exam: NORMAL ACCOMODATION, PERRL - Respiratory Exam Respiratory Exam: Clear to Ausculation Bilateral, NORMAL BREATHING PATTERN - Cardiovascular Exam Cardiovascular Exam: REGULAR RHYTHM, +S1, +S2. absent: Murmur - GI/Abdominal Exam GI & Abdominal Exam: Soft, Normal Bowel Sounds. absent: Tenderness Assessment and Plan (1) Bronchitis Status: Acute (2) HTN (hypertension) Status: Acute (3) H/O partial resection of colon Status: Acute (4) SOB (shortness of breath) Status: Acute
[2017-06-24] MEDS: Albuterol-Ipratrop 3 mg / 0.5 (3 ml) UD INH SCH ×4 (01:35→20:04)
[2017-06-24] MEDS: Levothyroxine 125 MCG TAB PO SCH (05:54)
--- NOTE | 2017-06-24 07:08 | CON ---
DATE: 06/23/[address] Moira Julio to Dr. Krystian Spears. HISTORY OF PRESENT ILLNESS: I was called for GI consultation by the admitting MD. The patient is seen and fully examined on 06/23/2017 as requested by the admitting medical staff. The entire chart is reviewed including but not limited to most recent lab and radiology study results, current and the previous medication list, current and the previous medical events, allergy to medication list as well as also available current and the previous medical record. Case discussed with the staff at length in the floor. This is a 72-year-old female, known case for me, from previous admissions as well as office visits who was seen in my office about 2 days ago with accompanying of severe shortness of breath especially on exertion, was sent initially for chest x-ray as outpatient, with reported possible pneumonia for which the patient was advised admission through the emergency room. The patient also complained of generalized weakness and malaise, possible abdominal distention with some change of bowel movement habit but no actual chest pain or palpitation. No reported active bleeding. After being admitted to the hospital, the patient apparently had a chest x-ray which was reported to be surprisingly normal, despite the abnormal chest x-ray done two days ago as occasion. PAST MEDICAL HISTORY: Including but not limited to 1. Peptic ulcer disease due to gastric ulcer. 2. Renal stones. 3. Hypothyroidism. 4. Hypertension. 5. Diabetes mellitus. 6. Diabetes gastroparesis. 7. Osteoarthritis. 8. Status post hiatus hernia repair several years ago. The patient had recent upper endoscopy with negative pathology report for Helicobacter pylori infection as per the record. ALLERGIES: ALLERGIC TO MEDICATION, UNCLEAR. SOCIAL HISTORY: No known history of cigarette smoking or alcohol intake. FAMILY HISTORY: Noncontributory. After being admitted to hospital, the patient was found to have low hemoglobin of 10.8, hematocrit 32.1, blood glucose level 116. PHYSICAL EXAMINATION: GENERAL: A 72-year-old female, somewhat anxious, awake, alert, oriented, afebrile, complaining of significant shortness of breath again with chest pressure. VITAL SIGNS: Afebrile with pulse of 78, respiratory rate 24 to 26. HEENT: Showed dry pale oral mucoid membrane. Nonicteric sclerae. LYMPH NODES: No lymphadenitis or lymphadenopathy. LUNGS: Few scattered crepitation with decreased air entry at bases bilaterally with mild to moderate wheezing and crepitation. HEART: Positive S1 and S2. ABDOMEN: Soft, mildly obese with mild generalized tenderness. No mass or organomegaly. No rebound tenderness or guarding. RECTAL: The patient refused. EXTREMITIES: Without significant clubbing or cyanosis, but lower extremities, mild edematous changes. It has to be mentioned that the patient had been complaining of bilateral knee pain and tenderness. NEUROLOGIC: No reported new neurological deficits, sensory, or motor. No reported new focal deficits. Peripheral pulses are present but weak bilaterally. IMPRESSION: 1. Re-exacerbation of peptic ulcer disease with diabetic gastroparesis. 2. Anemia, rule out gastrointestinal blood loss upper versus lower versus occult gastrointestinal malignancy. 3. Shortness of breath of unclear etiology, with abnormal chest x-ray as outpatient to rule out possible pneumonia. 4. Multiple past medical history as mentioned above. 5. Severe anxiety syndrome by history. SUGGESTION: 1. Agree with your plan. 2. Upper GI with small bowel follow through. 3. Cancer marker including CEA, PSA, CA 19-9. 4. Guaiac all the stools daily x3. 5. Endoscopic evaluation of the GI tract only after a subsequent drop of hemoglobin and hematocrit. 6. The patient will need full cardiac and pulmonary workup and evaluation, starting from pulmonary function test. 7. Further recommendation to follow and chest CAT scan to be scheduled. Thank you for letting me participate in your patient's case management. Moira Julio MD
[2017-06-24] MEDS: (Novolin R) Insulin Human Regular 100 units/ml vial SC SCH ×4 (07:34→22:11)
[2017-06-24] MEDS: diltiaZEM 300 mg/24 Hours CD Cap PO SCH (09:50)
[2017-06-24] MEDS: Enoxaparin 40 mg Syringe SC SCH (09:55)
--- NOTE | 2017-06-24 12:04 | CARD ---
APPROVED REPORT EKG Measurement Heart [id number] <Conclusion> Junctional rhythm Abnormal ECG
--- NOTE | 2017-06-24 14:02 | PN ---
DATE: 06/23/2017 LOCATION: 359, bed A. SUBJECTIVE: This is a 72-year-old female seen for GI consultation yesterday. Reexamined again today with a complaint of intermittent periods of shortness of breath on and off with mid abdominal pain and dyspepsia with postprandial abdominal distention. The patient has no actual chest pain, palpitations, or evidence of active bleeding. Chest CAT scan was ordered yesterday, showed an unremarkable noncontrast enhanced CAT scan of the chest. Today's lab showed blood glucose level of 109 with increased CEA level of 5.2. PHYSICAL EXAMINATION: GENERAL: A 72-year-old female awake, alert, oriented. VITAL SIGNS: Afebrile, with pulse of 60, respiratory rate 20 to 22, and blood pressure 136/60. HEENT: Showed pale, dry oral mucous membrane. Nonicteric sclerae. LUNGS: Few scattered crepitations. Decreased air entry at bases. HEART: Positive S1 and S2. ABDOMEN: Soft with mild generalized tenderness. No mass or organomegaly. No rebound tenderness or guarding. EXTREMITIES: Without significant clubbing, cyanosis, or edema. NEUROLOGIC: No reported new neurological symptoms, neurological deficits, sensory or motor. IMPRESSION: 1. Acute bronchitis with possible pneumonia as official report of an outpatient chest x-ray done recently. 2. Re-exacerbation of peptic ulcer disease. 3. Known history of hypertension. 4. Hypothyroidism. 5. Diabetes mellitus with diabetic gastroparesis. 6. Osteoarthritis by history. 7. Severe anxiety syndrome. 8. Status post hiatus hernia repair before, by history. SUGGESTION: 1. Agree with your plan. 2. The patient may need Cardiology evaluation, possibly stress test. 3. Due to the elevated CEA, colonoscopy to be kept in mind. 4. Further recommendations and evaluation to follow as per Dr. Julio. Moira Julio MD
[2017-06-24 14:05] LABS: HEMOGLOBIN 10.9 g/dL (11.0-16.0); MEAN CELL VOLUME 73.6 fL (81.0-99.0); MEAN CORPUSCULAR HEMOGLOBIN 24.3 pg (27.0-31.0); RBC 4.51 Mil/uL (3.80-5.20); RED CELL DISTRIBUTION WIDTH 16.4 % (11.5-14.5); WHITE BLOOD COUNT 6.3 K/uL (4.8-10.8)
[2017-06-24 14:18] LABS: BLOOD UREA NITROGEN 12 mg/dL (7-17); CALCIUM 8.9 mg/dl (8.6-10.4); GFR AFRICAN-AMERICAN > 60; GFR NON-AFRICAN AMERICAN > 60
--- NOTE | 2017-06-24 15:20 | CARD ---
APPROVED REPORT EXAM: Two-dimensional and M-mode echocardiogram with Doppler and color Doppler. INDICATION Dyspnea RISK FACTORS Hypertension Diabetes 2D DIMENSIONS IVSd0.9 (0.7-1.1cm)LVDd5.4 (3.9-5.9cm) PWd0.8 (0.7-1.1cm)LVDs3.1 (2.5-4.0cm) FS (%) 42.3 %LVEF (%)72.9 (>50%) M-Mode DIMENSIONS RVDd1.50 (2.1-3.2cm)Left Atrium (MM)2.94 (2.5-4.0cm) IVSd1.14 (0.7-1.1cm)Aortic Root2.94 (2.2-3.7cm) LVDd5.34 (4.0-5.6cm)Aortic Cusp Exc.1.75 (1.5-2.0cm) PWd1.04 (0.7-1.1cm)FS (%) 39 % LVDs3.25 (2.0-3.8cm)LVEF (%)69 (>50%) Mitral Valve MV E Easuqhhk51.0cm/sMV A Dtsngdxh99.2cm/sE/A ratio1.4 TDI E/Lateral E'0.0E/Medial E'0.0 Tricuspid Valve TR Peak Deoqzsyd092qx/sTR Peak Gr.[id number] <Conclusion> normal size la,lv & ra rv. mild concentric lvh with normal lvef of 65-70%. normal lv diastolic filling. sclerotic trileaflet aortic valve. normal mitral,tv & pv.trace ai,mr & pi,tr with upper normal pulmonary systolic pressures of 34 mm of hg. trivial posterior pericardial effusion. normal size ivc. normal size sclerotic aortic root.
[2017-06-24] MEDS: Azithromycin 500 MG in Sodium Chloride 0.9% 250 ML IVPB SCH (22:05)
--- NOTE | 2017-06-24 23:22 | CP.PCM.PN ---
Subjective - Date & Time of Evaluation Date of Evaluation: 06/24/17 Time of Evaluation: 19:00 - Subjective Subjective: pt is not short of breath, feeling beetr CTA and ECHO neg Objective - Vital Signs/Intake and Output Vital Signs (last 24 hours): Temp Pulse Resp BP Pulse Ox 98.5 F 66 20 112/55 L 97 06/24/17 16:00 06/24/17 16:00 06/24/17 16:00 06/24/17 16:00 06/24/17 16:00 Intake and Output: 06/24/17 06/25/17 18:59 06:59 Intake Total 100 650 Balance 100 650 - Medications Medications: Current Medications Albuterol/Ipratropium (Duoneb 3 Mg/0.5 Mg (3 Ml) Ud) 3 ml INH RQ6 [facility] Last Admin: 06/24/17 20:04 Dose: 3 ml Carbidopa/Levodopa (Sinemet 10/100) 1 tab PO TID [facility] Last Admin: 06/24/17 17:36 Dose: 1 tab Diltiazem HCl (Cardizem Cd) 300 mg PO DAILY [facility] Last Admin: 06/24/17 09:50 Dose: 300 mg Docusate Sodium (Colace) 100 mg PO BID [facility] Last Admin: 06/24/17 17:35 Dose: 100 mg Enoxaparin Sodium (Lovenox) 40 mg SC DAILY [facility] Last Admin: 06/24/17 09:55 Dose: 40 mg Entacapone (Comtan) 200 mg PO DAILY [facility] Last Admin: 06/24/17 09:50 Dose: 200 mg Ergocalciferol (Drisdol 50,000 Intl Units Cap) 1 cap PO QWK [facility] Gabapentin (Neurontin) 300 mg PO DAILY [facility] Last Admin: 06/24/17 09:48 Dose: 300 mg Ceftriaxone Sodium 1 gm/ (Sodium Chloride) 100 mls @ 100 mls/hr IVPB DAILY [facility] PRN Reason: Protocol Last Admin: 06/24/17 09:57 Dose: 100 mls/hr Azithromycin 500 mg/ Sodium (Chloride) 250 mls @ 167 mls/hr IVPB Q24H [facility] PRN Reason: Protocol Last Admin: 06/24/17 22:05 Dose: 167 mls/hr Insulin Human Regular (Novolin R) 0 unit SC ACHS [facility] PRN Reason: Protocol Last Admin: 06/24/17 22:11 Dose: Not Given Levothyroxine Sodium (Synthroid) 125 mcg PO 0630 [facility] Last Admin: 06/24/17 05:54 Dose: 125 mcg Losartan Potassium (Cozaar) 100 mg PO DAILY [facility] Last Admin: 06/24/17 09:48 Dose: 100 mg Metformin HCl (Glucophage Xr) 500 mg PO DAILY [facility] Last Admin: 06/24/17 09:49 Dose: 500 mg Pantoprazole Sodium (Protonix Inj) 40 mg IVP DAILY [facility] Last Admin: 06/24/17 09:56 Dose: 40 mg - Labs Labs: 06/24/17 14:00 06/24/17 14:00 - Constitutional Appears: No Acute Distress - Head Exam Head Exam: ATRAUMATIC, NORMAL INSPECTION, NORMOCEPHALIC - Eye Exam Eye Exam: EOMI, Normal appearance, PERRL Pupil Exam: NORMAL ACCOMODATION, PERRL - Respiratory Exam Respiratory Exam: Clear to Ausculation Bilateral, NORMAL BREATHING PATTERN - Cardiovascular Exam Cardiovascular Exam: REGULAR RHYTHM, +S1, +S2. absent: Murmur - GI/Abdominal Exam GI & Abdominal Exam: Soft, Normal Bowel Sounds. absent: Tenderness - Rectal Exam Rectal Exam: Deferred Assessment and Plan (1) Bronchitis Status: Acute (2) HTN (hypertension) Status: Acute (3) H/O partial resection of colon Status: Acute (4) SOB (shortness of breath) Status: Acute
[2017-06-25] MEDS: Levothyroxine 125 MCG TAB PO SCH (06:29)
[2017-06-25] MEDS: Albuterol-Ipratrop 3 mg / 0.5 (3 ml) UD INH SCH ×2 (07:34→13:37)
[2017-06-25] MEDS: (Novolin R) Insulin Human Regular 100 units/ml vial SC SCH ×3 (08:27→16:45)
[2017-06-25 08:30] VITALS: O2SAT 95
[2017-06-25 08:49] LABS: HEMOGLOBIN 10.7 g/dL (11.0-16.0); MEAN CELL VOLUME 73.1 fL (81.0-99.0); MEAN CORPUSCULAR HEMOGLOBIN 24.2 pg (27.0-31.0); MEAN CORPUSCULAR HGB CONC 33.1 g/dL (33.0-37.0); MEAN PLATELET VOLUME 8.7 fL (7.2-11.7); RBC 4.42 Mil/uL (3.80-5.20); RED CELL DISTRIBUTION WIDTH 16.7 % (11.5-14.5); WHITE BLOOD COUNT 5.8 K/uL (4.8-10.8)
[2017-06-25 09:05] LABS: BLOOD UREA NITROGEN 12 mg/dL (7-17); CALCIUM 9.3 mg/dl (8.6-10.4); GFR AFRICAN-AMERICAN > 60; GFR NON-AFRICAN AMERICAN > 60
[2017-06-25] MEDS: Enoxaparin 40 mg Syringe SC SCH (09:50)
[2017-06-25] MEDS: diltiaZEM 300 mg/24 Hours CD Cap PO SCH (09:52)
[2017-06-25 15:38] VITALS: BP 125/69; PULSE 64; TEMP 98.3
--- NOTE | 2017-06-25 16:19 | CP.PCM.PN ---
Objective - Vital Signs/Intake and Output Vital Signs (last 24 hours): Temp Pulse Resp BP Pulse Ox 98.3 F 64 20 125/69 95 06/25/17 15:37 06/25/17 15:37 06/25/17 15:37 06/25/17 15:37 06/25/17 15:37 Intake and Output: 06/25/17 06/25/17 06:59 18:59 Intake Total 650 450 Balance 650 450 - Medications Medications: Current Medications Albuterol/Ipratropium (Duoneb 3 Mg/0.5 Mg (3 Ml) Ud) 3 ml INH RQ6 [facility] Last Admin: 06/25/17 13:37 Dose: 3 ml Carbidopa/Levodopa (Sinemet 10/100) 1 tab PO TID [facility] Last Admin: 06/25/17 14:00 Dose: 1 tab Diltiazem HCl (Cardizem Cd) 300 mg PO DAILY [facility] Last Admin: 06/25/17 09:52 Dose: 300 mg Docusate Sodium (Colace) 100 mg PO BID [facility] Last Admin: 06/25/17 09:50 Dose: 100 mg Enoxaparin Sodium (Lovenox) 40 mg SC DAILY [facility] Last Admin: 06/25/17 09:50 Dose: 40 mg Entacapone (Comtan) 200 mg PO DAILY [facility] Last Admin: 06/25/17 09:51 Dose: 200 mg Ergocalciferol (Drisdol 50,000 Intl Units Cap) 1 cap PO QWK [facility] Gabapentin (Neurontin) 300 mg PO DAILY [facility] Last Admin: 06/25/17 09:50 Dose: 300 mg Ceftriaxone Sodium 1 gm/ (Sodium Chloride) 100 mls @ 100 mls/hr IVPB DAILY [facility] PRN Reason: Protocol Last Admin: 06/25/17 09:54 Dose: 100 mls/hr Azithromycin 500 mg/ Sodium (Chloride) 250 mls @ 167 mls/hr IVPB Q24H [facility] PRN Reason: Protocol Last Admin: 06/24/17 22:05 Dose: 167 mls/hr Insulin Human Regular (Novolin R) 0 unit SC ACHS [facility] PRN Reason: Protocol Last Admin: 06/25/17 12:36 Dose: Not Given Levothyroxine Sodium (Synthroid) 125 mcg PO 0630 [facility] Last Admin: 06/25/17 06:29 Dose: 125 mcg Losartan Potassium (Cozaar) 100 mg PO DAILY [facility] Last Admin: 06/25/17 09:50 Dose: 100 mg Metformin HCl (Glucophage Xr) 500 mg PO DAILY [facility] Last Admin: 06/25/17 09:52 Dose: 500 mg Pantoprazole Sodium (Protonix Ec Tab) 40 mg PO DAILY [facility] Fluticasone/Salmeterol (Advair Diskus 250/50) 1 puff INH RQ12 [facility] - Labs Labs: 06/25/17 08:45 06/25/17 08:45 Assessment and Plan - Assessment and Plan (Free Text) Assessment: Patient admitted with sob, cough, seen and examined. Alert, awake,no sob or chest pains today. Seen by DR Menchaca, advised home nebulizer and low dose prednisone to take home. Discussed with Dr Spears, plan to discharge home today. Advised to follow up in the office in 1 week.
[2017-06-25] MEDS ORDERED: Fluticasone-Salmeterol 250-50mcg Diskus INH SCH (20:00)
--- NOTE | 2017-06-25 21:31 | PN ---
DATE: 06/25/2017 LOCATION: 360 bed A. SUBJECTIVE: This is a 72 years old female seen and examined in rounds, early today with again intermittent period of some shortness of breath without reported active bleeding. The entire chart is reviewed including but not limited to the most recent lab and radiology study results, current and the previous medication list, current and previous medical events. It has to be mentioned that due to the patient's complaint of shortness of breath, especially exertion, Cardiology evaluation should be kept in mind and the patient may need cardiac cath. Most recent lab results showed hemoglobin of 10.7, hematocrit 32.3, with low indices, highly suggestive of hypochromic microcytic anemia, but normal SMA-18 with increased CEA level to 5.2 for which the patient may need colonoscopy that could be done as outpatient. PHYSICAL EXAMINATION: GENERAL: A 72 years old female, appears to be somewhat anxious. VITAL SIGNS: Afebrile with pulse of 66, respiratory rate of 20 to 22, blood pressure of 134/72. HEENT: Showed pale, dry oral mucous membranes. Nonicteric sclerae. LUNGS: Few scattered crepitation. Decreased air entry at bases. HEART: Positive S1 and S2. ABDOMEN: Soft, bowel sounds are present, with mild generalized tenderness and slight distention. No mass or organomegaly. No rebound tenderness or guarding. EXTREMITIES: Without edema, clubbing or cyanosis. NEUROLOGIC: No reported new neurological deficits, sensory or motor. No reported focal deficits. Peripheral pulses are present bilaterally. IMPRESSION: 1. Acute bronchitis. 2. Peptic ulcer disease. 3. Known history of hypothyroidism, hypertension. 4. Diabetes mellitus with diabetic gastroparesis. 5. Osteoarthritis by history. 6. Status post hiatus hernia repair before. 7. Severe anxiety syndrome. SUGGESTIONS: 1. Continue current management. 2. Cardiology evaluation. 3. Ativan 0.5 mg 1 tablet p.o. twice a day p.r.n. 4. Rest as per the admitting MD and the patient will need colonoscopy that could be done as outpatient due to the elevated CEA level. Moira Julio MD
--- NOTE | 2017-06-25 22:55 | CP.PCM.DIS ---
Provider - Provider Date of Admission: 06/23/17 15:40 Attending physician: Krystian Spears MD Time Spent in preparation of Discharge (in minutes): 45 Diagnosis - Discharge Diagnosis (1) Bronchitis Status: Acute (2) HTN (hypertension) Status: Acute Hospital Course - Lab Results Lab Results: Most Recent Lab Values WBC 5.8 K/uL (4.8-10.8) 06/25/17 08:45 RBC 4.42 Mil/uL (3.80-5.20) 06/25/17 08:45 Hgb 10.7 g/dL (11.0-16.0) L 06/25/17 08:45 Hct 32.3 % (34.0-47.0) L 06/25/17 08:45 MCV 73.1 fL (81.0-99.0) L 06/25/17 08:45 MCH 24.2 pg (27.0-31.0) L 06/25/17 08:45 MCHC 33.1 g/dL (33.0-37.0) 06/25/17 08:45 RDW 16.7 % (11.5-14.5) H 06/25/17 08:45 Plt Count 243 K/uL (130-400) 06/25/17 08:45 MPV 8.7 fL (7.2-11.7) 06/25/17 08:45 Neut % (Auto) 62.3 % (50.0-75.0) 06/22/17 19:39 Lymph % (Auto) 27.3 % (20.0-40.0) 06/22/17 19:39 Walton % (Auto) 7.0 % (0.0-10.0) 06/22/17 19:39 Eos % (Auto) 2.5 % (0.0-4.0) 06/22/17 19:39 Baso % (Auto) 0.9 % (0.0-2.0) 06/22/17 19:39 Neut # (Auto) 3.6 K/uL (1.8-7.0) 06/22/17 19:39 Lymph # (Auto) 1.6 K/uL (1.0-4.3) 06/22/17 19:39 Walton # (Auto) 0.4 K/uL (0.0-0.8) 06/22/17 19:39 Eos # (Auto) 0.1 K/uL (0.0-0.7) 06/22/17 19:39 Baso # (Auto) 0.1 K/uL (0.0-0.2) 06/22/17 19:39 Sodium 140 mmol/L (132-148) 06/25/17 08:45 Potassium 4.1 mmol/L (3.6-5.2) 06/25/17 08:45 Chloride 103 mmol/L (98-107) 06/25/17 08:45 Carbon Dioxide 24 mmol/L (22-30) 06/25/17 08:45 Anion Gap 16 (10-20) 06/25/17 08:45 BUN 12 mg/dL (7-17) 06/25/17 08:45 Creatinine 0.8 mg/dL (0.7-1.2) 06/25/17 08:45 Est GFR ( Amer) > 60 06/25/17 08:45 Est GFR (Non-Af Amer) > 60 06/25/17 08:45 POC Glucose (mg/dL) 92 mg/dL (65-110) 06/25/17 16:05 Random Glucose 105 mg/dL (65-105) 06/25/17 08:45 Calcium 9.3 mg/dl (8.6-10.4) 06/25/17 08:45 Total Bilirubin 0.5 mg/dL (0.2-1.3) 06/22/17 19:39 AST 18 U/L (14-36) 06/22/17 19:39 ALT 14 U/L (9-52) 06/22/17 19:39 Alkaline Phosphatase 65 U/L (38-126) 06/22/17 19:39 Troponin I < 0.0120 ng/mL (0.00-0.120) 06/22/17 19:39 NT-Pro-B Natriuret Pep 303 pg/mL (0-900) 06/22/17 19:39 Total Protein 7.3 g/dL (6.3-8.3) 06/22/17 19:39 Albumin 3.8 g/dL (3.5-5.0) 06/22/17 19:39 Globulin 3.5 gm/dL (2.2-3.9) 18 19:39 Albumin/Globulin Ratio 1.1 (1.0-2.1) 18 19:39 Amylase 43 U/L (30-110) 18 19:56 Lipase 115 U/L (23-300) 06/23/17 19:56 Carcinoembryonic Ag 5.2 ng/mL (0-3.0) H 06/23/17 19:56 CA 19-9 Antigen 15.1 U/mL (0-37) 1818 19:56 CA 125 Antigen 10.5 U/mL (0-35) 18 19:56 Urine Color Yellow (YELLOW) 06/22/17 20:10 Urine Clarity Hazy (Clear) 06/22/17 20:10 Urine pH 5.0 (5.0-8.0) 06/22/17 20:10 Ur Specific Pierce 1.016 (1.003-1.030) 06/22/17 20:10 Urine Protein Negative mg/dL (NEGATIVE) 06/22/17 20:10 Urine Glucose (UA) Normal mg/dL (Normal) 06/22/17 20:10 Urine Ketones Negative mg/dL (NEGATIVE) 06/22/17 20:10 Urine Blood Negative (NEGATIVE) 06/22/17 20:10 Urine Nitrate Negative (NEGATIVE) 06/22/17 20:10 Urine Bilirubin Negative (NEGATIVE) 06/22/17 20:10 Urine Urobilinogen Normal mg/dL (0.2-1.0) 06/22/17 20:10 Ur Leukocyte Esterase Neg Dana/uL (Negative) 06/22/17 20:10 Urine WBC (Auto) 3 /hpf (0-5) 06/22/17 20:10 Urine RBC (Auto) 1 /hpf (0-3) 06/22/17 20:10 Ur Squamous Epith Cells 4 /hpf (0-5) 06/22/17 20:10 Urine Bacteria Few (<OCC) H 06/22/17 20:10 Influenza Typ A,B (EIA) Negative for flu a/b (NEGATIVE) 06/22/17 19:42 - Hospital Course Hospital Course: Patient admitted with sob, cough, seen and examined. Alert, awake,no sob or chest pains today, advised home nebulizer and low dose prednisone to take home. Discussed with DR Menchaca, plan to discharge home today. Advised to follow up in the office in 1 week. Discharge Exam - Eye Exam Eye Exam: Normal appearance - ENT Exam ENT Exam: Mucous Membranes Moist - Respiratory Exam Respiratory Exam: Clear to PA & Lateral, NORMAL BREATHING PATTERN - Cardiovascular Exam Cardiovascular Exam: REGULAR RHYTHM, +S1, +S2 - GI/Abdominal Exam GI & Abdominal Exam: Normal Bowel Sounds Discharge Plan - Discharge Medications Prescriptions: Albuterol/Ipratropium [Duoneb 3 mg/0.5 mg (3 ml) UD] 3 ml INH RQ6 PRN #25 neb PRN Reason: Wheezing predniSONE [Prednisone] 10 mg PO DAILY #7 tab - Follow Up Plan Condition: STABLE Disposition: HOME/ ROUTINE Instructions: Azithromycin (Systemic), Acute Bronchitis Referrals: [facility] [Outside] Sweta Aguilar MD [Staff Provider] -
[2017-06-26] MEDS ORDERED: Pantoprazole 40 mg EC Tab PO SCH (10:00)
--- NOTE | 2017-06-28 08:43 | CON ---
DATE: 06/25/2017. HISTORY OF PRESENT ILLNESS: Ms. Richey is a 72-year-old female, and also complaining of shortness of breath, wheezing, cough, pain and fatigue, tiredness for the last three weeks. The patient was given antibiotics, extensive treatment, no improvement, came to the hospital short of breath, wheezing and admitted to the hospital. PAST MEDICAL HISTORY: The patient has history of diabetes, hypertension, neuropathy. SOCIAL HISTORY: The patient does not smoke or drink. MEDICATIONS: Metformin, gabapentin, insulin and Levoxyl. PHYSICAL EXAMINATION: GENERAL: The patient is awake, alert, and oriented. VITAL SIGNS: Temperature 98, pulse 90. HEENT: Within normal limits. NECK: Supple. CHEST: Symmetrical. HEART: Regular. ABDOMEN: Soft. EXTREMITIES: No edema. CAT scan scarring. ASSESSMENT AND PLAN: The patient suffers from asthmatic bronchitis, diabetes. The patient getting bed rest, supportive care, bronchodilators, peak flow. The patient can be followed as an outpatient for further management, treatment. Pollo Menchaca MD
[2017-06-29] MEDS ORDERED: Ergocalciferol 50,000 Intl Units Cap PO SCH (10:00)
== END 2017-06-25 18:45 | disposition home or self-care (01) | DRG 202 ==
LOC: C.ER 18:57 → C.9E 21:06 → C.3T 21:06 → OBSVTOIN 06-23 15:40 → C.3T 06-25 05:34
PROVIDERS: ADMIT Internal Medicine; ATTEND Internal Medicine
DX: J20.9 Acute bronchitis, unspecified (principal); K25.3 Acute gastric ulcer without hemorrhage or perforation; D50.0 Iron deficiency anemia secondary to blood loss (chronic); E11.43 Type 2 diabetes mellitus with diabetic autonomic (poly)neuropathy; K31.84 Gastroparesis; Z79.4 Long term (current) use of insulin; D64.9 Anemia, unspecified; E03.9 Hypothyroidism, unspecified; F41.9 Anxiety disorder, unspecified; I10 Essential (primary) hypertension; J45.909 Unspecified asthma, uncomplicated; R97.0 Elevated carcinoembryonic antigen [CEA]

== ENCOUNTER 2017-08-01 15:19 | Emergency (ER) | payer MEDICARE, MEDICAID ==
[2017-08-01 15:20] VITALS: BMI 29.5
[2017-08-01 15:24] VITALS: O2SAT 97
--- NOTE | 2017-08-01 17:29 | CT ---
PROCEDURE: CT Lumbar Spine without contrast HISTORY: Lower back pain s/p fall yesterday COMPARISON: None. TECHNIQUE: Axial computed tomography images were obtained of the lumbar spine without the use of intravenous contrast. Coronal and sagittal reformatted images were created and reviewed. Radiation dose: Total exam DLP = 1526.06 mGy-cm. This CT exam was performed using one or more of the following dose reduction techniques: Automated exposure control, adjustment of the mA and/or kV according to patient size, and/or use of iterative reconstruction technique. FINDINGS: VERTEBRAE: A limited grade 1 spondylolisthesis at L4-5 is appreciated on the basis of degenerative facet arthropathy. No spondylolysis. Lumbar curvature is otherwise normal. The spondylolisthesis is unchanged compared to prior CT of the abdomen pelvis 06/02/2017. No destructive bony mass is appreciated. Vertebral body and intervertebral disc heights are normal. Diffuse facet joint arthropathy appreciated increasing from upper lower levels. Prevertebral paraspinal soft tissues appear grossly unremarkable. DISCS/SPINAL CANAL/NEURAL FORAMINA: L1-2: Minimal disc bulging without stenosis. L2-3: Minimal disc bulging without stenosis. L3-4: A [id number] generalized circumferential disc bulge appreciate combined with facet arthropathy to cause mild central canal stenosis and borderline bilateral neural foraminal stenoses. L4-5: The severe degenerative central stenosis identified at L4-5 due to spondylolisthesis combining with disc bulge and gross facet joint degenerative arthropathy. Moderate bilateral neural foraminal stenoses are identified. L5-S1: Moderate facet joint arthropathy without significant stenosis. PARASPINAL SOFT TISSUES: Unremarkable. OTHER FINDINGS: None. IMPRESSION: Limited grade 1 spondylolisthesis L4-5 combines with gross facet arthropathy and limited disc bulging results in severe spinal stenosis and moderate bilateral neural foraminal stenosis. Mild degenerative L3-4 central stenosis.
--- NOTE | 2017-08-01 18:11 | C.PDOC ---
History Of Present Illness Pt c/o low back pain s/p fall yesterday. She states she lost balance. Denies LOC or head injury. Time Seen by Provider: 08/01/17 15:36 Chief Complaint (Nursing): Back Pain History Per: Patient Onset/Duration Of Symptoms: Days (1) Current Symptoms Are (Timing): Still Present Quality Of Discomfort: "Pain" Description Of Injury (Context): Fell at home yesterday Severity: Moderate Associated Symptoms: None Exacerbating Factor(s): Movement Additional History Per: Prior Records Past Medical History Reviewed: Historical Data, Nursing Documentation, Vital Signs Vital Signs: Last Vital Signs Temp 98.9 F 08/01/17 15:23 Pulse 76 08/01/17 15:23 Resp 18 08/01/17 15:23 BP 155/73 H 08/01/17 15:23 Pulse Ox 97 08/01/17 15:23 - Medical History PMH: Arthritis, Diabetes, HTN, Hypothyroidism, Kidney Stones Surgical History: Hernia Repair - [facility] Procedures CYSTOSCOPY NEC (05/10/14) EXCISION OF STOMACH, ENDO, DIAGN (06/02/17) URETERAL CATHETERIZATION (05/10/14) Family History: States: Unknown Family Hx - Social History Hx Tobacco Use: No Hx Alcohol Use: No Hx Substance Use: No - Immunization History Hx Tetanus Toxoid Vaccination: No Hx Influenza Vaccination: Yes (12/2016) Hx Pneumococcal Vaccination: No Review Of Systems Except As Marked, All Systems Reviewed And Found Negative. Constitutional: Negative for: Fever, Weakness Cardiovascular: Negative for: Chest Pain Respiratory: Negative for: Shortness of Breath Gastrointestinal: Negative for: Vomiting, Abdominal Pain Genitourinary: Negative for: Dysuria, Incontinence Musculoskeletal: Positive for: Back Pain Skin: Negative for: Rash Neurological: Negative for: Weakness, Numbness, Seizures, Altered Mental Status , Headache Physical Exam - Physical Exam Appears: Non-toxic, No Acute Distress, Other (Uncomfortable in pain) Skin: Normal Color, Warm, Dry Head: Atraumatic, Normacephalic Eye(s): bilateral: PERRL, EOMI Neck: Normal ROM, No Midline Cervical Tenderness, No Step Off Deformity, Supple Chest: Symmetrical, No Deformity Cardiovascular: Rhythm Regular Respiratory: Normal Breath Sounds, No Accessory Muscle Use Gastrointestinal/Abdominal: Soft, No Tenderness Back: No Vertebral Tenderness, Paraspinal Tenderness Extremity: Normal ROM, No Tenderness, No Deformity Extremity: Bilateral: Hips Non-Tender, Pelvis-Stable Neurological/Psych: Oriented x3, Normal Motor, Normal Sensation ED Course And Treatment O2 Sat by Pulse Oximetry: 97 Pulse Ox Interpretation: Normal - CT Scan/US Lumbar spine CT Other Rad Studies (CT/US): Read By Radiologist, Radiology Report Reviewed CT/US Interpretation: IMPRESSION: Limited grade 1 spondylolisthesis L4-5 combines with gross facet arthropathy and limited disc bulging results in severe spinal stenosis and moderate bilateral neural foraminal stenosis. Mild degenerative L3-4 central stenosis. Reassessment Condition: Improved Disposition Counseled Patient/Family Regarding: Studies Performed, Diagnosis, Need For Followup, Rx Given - Disposition Referrals: Page Tellez MD [Non-Staff] - Disposition: HOME/ ROUTINE Disposition Time: 18:13 Condition: IMPROVED Additional Instructions: Follow up with your doctor. Return to the ER if you develop weakness, numbness, trouble urinating, worsening of symptoms or if you have any other concerns. Prescriptions: Cyclobenzaprine [Cyclobenzaprine HCl] 10 mg PO TID PRN #15 tab PRN Reason: Muscle Spasm Naproxen 375 mg PO BID PRN #20 tablet PRN Reason: Pain, Moderate (4-7) Instructions: Spinal Stenosis (DC) Forms: [facility] ([place]), General Discharge Instructions - Clinical Impression Clinical Impression: Low back pain, Fall, Spinal stenosis at L4-L5 level
[2017-08-01 18:20] VITALS: BP 145/75; PULSE 73; RESP 16; TEMP 98
== END 2017-08-01 19:15 | disposition home or self-care (01) ==
LOC: C.ER 15:19
DX: M54.5 Low back pain (principal); M48.061 Spinal stenosis, lumbar region without neurogenic claudication; W01.0XXA Fall on same level from slipping, tripping and stumbling without subsequent striking against object, initial encounter; Y92.9 Unspecified place or not applicable
CPT/HCPCS: 72131; 96372; 99284; J1885

== ENCOUNTER 2017-08-25 14:19 | Inpatient (IN) | payer MEDICARE, MEDICAID ==
[2017-08-25 14:19] VITALS: BMI 29.5
--- NOTE | 2017-08-25 15:02 | C.PDOC ---
History Of Present Illness 72yo female, comes to ER for evaluation of persistent lower back pain. Patient states 3 weeks ago, she fell and injured her back, was evaluated in this ER and had CT L-spine which showed degenerative changes. She was discharged home with Flexeril and Naproxen, which she has been taking along with Tramadol and Celebrex (rx'd by someone else), with no relief of pain. Patient states she has been unable to get around her house. She denies any new falls, trauma, fever, chills, chest pain, abdominal pain. No other complaints. Time Seen by Provider: 08/25/17 14:30 Chief Complaint (Nursing): Back Pain History Per: Patient History/Exam Limitations: no limitations Onset/Duration Of Symptoms: Persistent Current Symptoms Are (Timing): Still Present Quality Of Discomfort: "Pain" Previous Symptoms: Back Pain Associated Symptoms: denies: Incontinence, New Weakness, New Numbness Additional History Per: Patient Past Medical History Reviewed: Historical Data, Nursing Documentation, Vital Signs Vital Signs: Last Vital Signs Temp 99.2 F 08/25/17 14:25 Pulse 79 08/25/17 15:11 Resp 20 08/25/17 15:11 BP 132/54 L 08/25/17 15:11 Pulse Ox 99 08/25/17 17:03 - Medical History PMH: Arthritis, Diabetes, HTN, Hypothyroidism, Kidney Stones Surgical History: Hernia Repair - [facility] Procedures CYSTOSCOPY NEC (05/10/14) EXCISION OF STOMACH, ENDO, DIAGN (06/02/17) URETERAL CATHETERIZATION (05/10/14) Family History: States: Unknown Family Hx - Social History Hx Tobacco Use: No Hx Alcohol Use: No Hx Substance Use: No - Immunization History Hx Tetanus Toxoid Vaccination: No Hx Influenza Vaccination: Yes (12/2016) Hx Pneumococcal Vaccination: No Review Of Systems Except As Marked, All Systems Reviewed And Found Negative. Constitutional: Negative for: Fever, Chills Cardiovascular: Negative for: Chest Pain Respiratory: Negative for: Shortness of Breath Gastrointestinal: Negative for: Abdominal Pain Musculoskeletal: Positive for: Back Pain Neurological: Negative for: Weakness, Numbness Physical Exam - Physical Exam Appears: Non-toxic, Other (histrionic) Skin: Warm, Dry Head: Atraumatic, Normacephalic Eye(s): bilateral: Normal Inspection Oral Mucosa: Moist Neck: Normal ROM, Supple Chest: Symmetrical Cardiovascular: Rhythm Regular Respiratory: Normal Breath Sounds Gastrointestinal/Abdominal: Normal Exam, Soft, No Tenderness Back: Paraspinal Tenderness (mild paralumbar tenderness), No Straight Leg Raising Extremity: Normal ROM, No Pedal Edema, No Deformity Neurological/Psych: Oriented x3, Normal Motor, Normal Sensation ED Course And Treatment - Laboratory Results Result Diagrams: 08/25/17 15:08 08/25/17 15:08 Lab Interpretation: Normal O2 Sat by Pulse Oximetry: 99 (RA) Pulse Ox Interpretation: Normal - CT Scan/US No standard instances Other Rad Studies (CT/US): Read By Radiologist, Radiology Report Reviewed CT/US Interpretation: FINDINGS: LOWER THORAX: Unremarkable. LIVER: Mild hepatomegaly. Smooth contour. No mass. No biliary dilatation. GALLBLADDER AND BILE DUCTS: Cholelithiasis. No mural thickening or pericholecystic fluid. PANCREAS: Unremarkable. No gross lesion or ductal dilatation. SPLEEN: Borderline splenomegaly. No mass. ADRENALS: Unremarkable. No mass. KIDNEYS AND URETERS: Unremarkable. No hydronephrosis. No solid mass. VASCULATURE: Unremarkable. No aortic aneurysm. BOWEL: Sigmoid diverticulosis without evidence of diverticulitis. There is evidence of an ileal anastomosis. Please correlate with history. No bowel obstruction. No other abnormal bowel loops are identified. Possible prior right partial hemicolectomy. APPENDIX: Not identified. PERITONEUM: Unremarkable. No free fluid. No free air. LYMPH NODES : Unremarkable. No enlarged lymph nodes. BLADDER: Suboptimally distended. Grossly normal. REPRODUCTIVE: Status post hysterectomy. BONES: Compression fracture of the T12 vertebra new since prior examination of 05/28/2017. Likely new since CT L-spine of 08/01/2017. There is bony retropulsion with mild spinal stenosis. There is questionable small epidural hematoma anterior to the thecal sac. Please correlate with neurologic examination. Grade 1 anterolisthesis at L4 -5 without spondylolysis. Unchanged from prior CT of 08/01/2017. OTHER FINDINGS : None. IMPRESSION: New compression fracture of the T12 vertebra with bony retropulsion and possible small epidural hematoma. Additional nonacute findings as above. Progress Note: Treated with IVF NSS and morphine IV. CT Abd/Pelvis ordered. Case discussed with Dr Spears who agrees teofilo admit. CT Results (+) T12 compression Fx, epidural hematoma. Case discussed with Dr Spears regarding CT findings and he will order neurosurgical consult Reassessment Condition: Improved - Physician Consult Information Physician Contacted: Krystian Spears Outcome Of Conversation: admit Medical Decision Making Medical Decision Making: Plan: -- Morphine 4mg IV -- Labs -- Urinalysis Disposition Discussed With : Krystian Spears Doctor Will See Patient In The: Hospital - Disposition Disposition: HOSPITALIZED Disposition Time: 15:30 Condition: STABLE - POA Present On Arrival: None - Clinical Impression Clinical Impression: Intractable back pain - PA / COMPLIANCE PARALEGAL / Resident Statement MD/DO has reviewed & agrees with the documentation as recorded. - Scribe Statement The provider has reviewed the documentation as recorded by the Scribe (Radha Moreira) Provider Attestation: All medical record entries made by the Scribe were at my direction and personally dictated by me. I have reviewed the chart and agree that the record accurately reflects my personal performance of the history, physical exam, medical decision making, and the department course for this patient. I have also personally directed, reviewed, and agree with the discharge instructions and disposition. Decision To Admit - Pt Status Changed To: Hospital Disposition Of: Inpatient - Admit Certification Admit to Inpatient:: After my assessment, the patient will require hospitalization for at least two midnights. This is because of the severity of symptoms shown, intensity of services needed, and/or the medical risk in this patient being treated as an outpatient. - InPatient: Physician Admission Certification:: Intractable Back Pain. Unable to ambulate - . Bed Request Type: Regular Admitting Physician: Krystian Spears Patient Diagnosis: Intractable back pain
[2017-08-25] MEDS ORDERED: Morphine 4 MG/ML VIAL ONE (15:17)
[2017-08-25 15:19] LABS: BASO % 0.8 % (0.0-2.0); EOS # 0.1 K/uL (0.0-0.7); HEMOGLOBIN 12.1 g/dL (11.0-16.0); LYMPH # 1.5 K/uL (1.0-4.3); LYMPH % 27.6 % (20.0-40.0); MEAN CELL VOLUME 72.2 fL (81.0-99.0); MEAN CORPUSCULAR HEMOGLOBIN 23.9 pg (27.0-31.0); MEAN CORPUSCULAR HGB CONC 33.2 g/dL (33.0-37.0); MEAN PLATELET VOLUME 8.2 fL (7.2-11.7); MONO # 0.3 K/uL (0.0-0.8); MONO % 5.7 % (0.0-10.0); NEUT # 3.6 K/uL (1.8-7.0); NEUT % 63.9 % (50.0-75.0); NRBC % 0.1 % (0.0-2.0); RBC 5.06 Mil/uL (3.80-5.20); RED CELL DISTRIBUTION WIDTH 15.6 % (11.5-14.5); WHITE BLOOD COUNT 5.6 K/uL (4.8-10.8)
[2017-08-25 15:43] LABS: ALB/GLOB RATIO 1.3 (1.0-2.1); ALBUMIN 4.1 g/dL (3.5-5.0); ALT/SGPT 16 U/L (9-52); AST/SGOT 22 U/L (14-36); BLOOD UREA NITROGEN 17 mg/dL (7-17); CALCIUM 9.4 mg/dl (8.6-10.4); GFR AFRICAN-AMERICAN > 60; GFR NON-AFRICAN AMERICAN > 60
--- NOTE | 2017-08-25 17:02 | CT ---
PROCEDURE: CT Abdomen and Pelvis without intravenous contrast HISTORY: Pain COMPARISON: 05/28/2017 TECHNIQUE: Without contrast.. Contrast dose: 0 Radiation dose: Total exam DLP = 953.35 mGy-cm. This CT exam was performed using one or more of the following dose reduction techniques: Automated exposure control, adjustment of the mA and/or kV according to patient size, and/or use of iterative reconstruction technique. FINDINGS: LOWER THORAX: Unremarkable. LIVER: Mild hepatomegaly. Smooth contour. No mass. No biliary dilatation. GALLBLADDER AND BILE DUCTS: Cholelithiasis. No mural thickening or pericholecystic fluid. PANCREAS: Unremarkable. No gross lesion or ductal dilatation. SPLEEN: Borderline splenomegaly. No mass. ADRENALS: Unremarkable. No mass. KIDNEYS AND URETERS: Unremarkable. No hydronephrosis. No solid mass. VASCULATURE: Unremarkable. No aortic aneurysm. BOWEL: Sigmoid diverticulosis without evidence of diverticulitis. There is evidence of an ileal anastomosis. Please correlate with history. No bowel obstruction. No other abnormal bowel loops are identified. Possible prior right partial hemicolectomy. APPENDIX: Not identified PERITONEUM: Unremarkable. No free fluid. No free air. LYMPH NODES: Unremarkable. No enlarged lymph nodes. BLADDER: Suboptimally distended. Grossly normal. REPRODUCTIVE: Status post hysterectomy. BONES: Compression fracture of the T12 vertebra new since prior examination of 05/28/2017. Likely new since CT L-spine of 08/01/2017. There is bony retropulsion with mild spinal stenosis. There is questionable small epidural hematoma anterior to the thecal sac. Please correlate with neurologic examination. Grade 1 anterolisthesis at L4-5 without spondylolysis. Unchanged from prior CT of 08/01/2017. OTHER FINDINGS: None. IMPRESSION: New compression fracture of the T12 vertebra with bony retropulsion and possible small epidural hematoma. Additional nonacute findings as above. Findings discussed by telephone with GOMEZ Ortiz, at 5 p.m. on 08/25/2017.
[2017-08-25] MEDS ORDERED: Oxycodone/Acetaminophen 5/325 mg Tab PO PRN (19:24)
[2017-08-25] MEDS: (Novolin R) Insulin Human Regular 100 units/ml vial SC SCH (21:13)
--- NOTE | 2017-08-25 23:49 | CP.PCM.HP ---
History of Present Illness - History of Present Illness History of Present Illness: History Of Present Illness 72yo female, comes to ER for evaluation of persistent lower back pain. Patient states 3 weeks ago, she fell and injured her back, was evaluated in this ER and had CT L-spine which showed degenerative changes. She was discharged home with Flexeril and Naproxen, which she has been taking along with Tramadol and Celebrex (rx'd by someone else), with no relief of pain. Patient states she has been unable to get around her house. She denies any new falls, trauma, fever, chills, chest pain, abdominal pain. No other complaints Past Patient History - Infectious Disease Hx of Infectious Diseases: None - Past Medical History & Family History Past Medical History?: Yes - Past Social History Smoking Status: Unknown If Ever Smoked - CARDIAC Hx Hypertension: Yes - RENAL Hx Kidney Stones: Yes - ENDOCRINE/METABOLIC Hx Hypothyroidism: Yes - MUSCULOSKELETAL/RHEUMATOLOGICAL Hx Arthritis: Yes - PSYCHIATRIC Hx Substance Use: No - SURGICAL HISTORY Hx Herniorrhaphy: Yes Hx Thyroidectomy: Yes - ANESTHESIA Hx Anesthesia: Yes Hx Anesthesia Reactions: No Hx Malignant Hyperthermia: No Has any member of the family had a problem w/ anesthesia?: No Meds Allergies/Adverse Reactions: Allergies Allergy/AdvReac Type Severity Reaction Status Date / Time No Known Allergies Allergy Verified 08/25/17 14:35 Results - Vital Signs Recent Vital Signs: Last Vital Signs Temp 97.9 F 08/25/17 16:55 Pulse 68 08/25/17 16:55 Resp 20 08/25/17 16:55 BP 120/73 08/25/17 16:55 Pulse Ox 99 08/25/17 17:16 - Labs Result Diagrams: 08/25/17 15:08 08/25/17 15:08 Labs: Laboratory Results - last 24 hr 08/25/17 08/25/17 08/25/17 15:08 15:08 18:06 WBC 5.6 RBC 5.06 Hgb 12.1 Hct 36.5 MCV 72.2 L MCH 23.9 L MCHC 33.2 RDW 15.6 H Plt Count 296 MPV 8.2 Neut % (Auto) 63.9 Lymph % (Auto) 27.6 [place] % (Auto) 5.7 Eos % (Auto) 2.0 Baso % (Auto) 0.8 Neut # (Auto) 3.6 Lymph # (Auto) 1.5 [place] # (Auto) 0.3 Eos # (Auto) 0.1 Baso # (Auto) 0.0 Sodium 141 Potassium 4.1 Chloride 106 Carbon Dioxide 25 Anion Gap 15 BUN 17 Creatinine 0.9 Est GFR ( Amer) > 60 Est GFR (Non-Af Amer) > 60 POC Glucose (mg/dL) 101 Random Glucose 108 H Calcium 9.4 Total Bilirubin 0.7 AST 22 ALT 16 Alkaline Phosphatase 79 Total Protein 7.1 Albumin 4.1 Globulin 3.1 Albumin/Globulin Ratio 1.3 08/25/17 21:24 WBC RBC Hgb Hct MCV MCH MCHC RDW Plt Count MPV Neut % (Auto) Lymph % (Auto) [place] % (Auto) Eos % (Auto) Baso % (Auto) Neut # (Auto) Lymph # (Auto) [place] # (Auto) Eos # (Auto) Baso # (Auto) Sodium Potassium Chloride Carbon Dioxide Anion Gap BUN Creatinine Est GFR ( Amer) Est GFR (Non-Af Amer) POC Glucose (mg/dL) 107 Random Glucose Calcium Total Bilirubin AST ALT Alkaline Phosphatase Total Protein Albumin Globulin Albumin/Globulin Ratio Assessment & Plan (1) Compression fracture of body of thoracic vertebra Assessment and Plan: neurosurgical consult Status: Acute (2) Intractable back pain Status: Acute (3) Fall Status: Acute (4) HTN (hypertension) Status: Acute (5) Spinal stenosis at L4-L5 level Status: Acute
[2017-08-26] MEDS: (Novolin R) Insulin Human Regular 100 units/ml vial SC SCH ×4 (08:05→21:21)
[2017-08-26] MEDS: Enoxaparin 40 mg Syringe SC SCH (10:05)
[2017-08-26] MEDS: diltiaZEM 300 mg/24 Hours CD Cap PO SCH (10:05)
[2017-08-26] MEDS ORDERED: Gadodiamide 287 mg/ml 20 ml IV ONE (12:52)
--- NOTE | 2017-08-26 16:17 | MRI ---
PROCEDURE: MRI lumbar spine HISTORY: Intractable back pain COMPARISON: Comparison made with CT scan and MRI of the lumbar spine dated 08/25/2017 and 08/01/2017. TECHNIQUE: Multi-echo multiplanar sequences were performed through the lumbar spine with and without the use of intravenous contrast. . 17 cc Omniscan injected for this exam FINDINGS: Re- demonstrated is a acute compression fracture of the T12 segment (presumably representing a osteoporotic compression fracture in the absence of a history of trauma). No evidence to suggest underlying lesion within this vertebral body segment. . There is resultant mild retropulsion of the posterior superior corner of this segment that results in very minor flattening of the ventral surface of the thecal sac. Central canal is quite capacious at this level. Facet joints are mildly hypertrophic. Exit foramina appear adequate. The remaining vertebral bodies exhibit normal stature with a normal. Marrow in the remaining segments. Multilevel degenerative spondylosis. At the L4-L5 level, there is minor anterior subluxation of L4 over L5 with mild posterior disc space narrowing. . There is slight uncovering of the posterior superior surface of the disc due to the aforementioned slight anterior subluxation. The facets are quite hypertrophic and flavum buckled at this level of. There is resultant very severe exit foramina appear adequate. Bilateral lateral recess and central canal stenosis. Additionally, there is a right-sided synovial cyst that compresses the right-sided post rule lateral margin of the thecal sac as well as the right L5 foraminal nerve root within the lateral recess. At the L5-S1 level, there is disc desiccation. Disc space height is relatively maintained. No disc herniation or significant disc bulge. The facets are hypertrophic. Central canal appears adequate. Exit foramina are also adequate. Mild disc desiccation changes and posterior disc space narrowing seen at the remaining levels. . Some minimal broad-based bulges of the posterior annulus seen at the L2-L3 and L1-L2 levels however the overall central canal adequate. Facets are mildly overgrown. Exit foramina are also adequate. Conus terminates at approximately L1 level. T12-L1 IMPRESSION: There is a acute and anterior wedge compression fracture of the T12 segment likely representing an osteoporotic compression deformity at in the absence of a history of trauma. No underlying lesion is seen. Minimal of retropulsion of the posterior superior corner with slight flattening the ventral surface of the thecal sac however the overall central canal is quite capacious. Multilevel degenerative spondylosis most severely affecting L4-L5 level where there is significant bilateral lateral recess and central canal stenosis as detailed above.
--- NOTE | 2017-08-26 23:09 | CP.PCM.CON ---
History of Present Illness - History of Present Illness History of Present Illness: 72yo female, comes to ER for evaluation of persistent lower back pain. Patient states 3 weeks ago, she fell and injured her back, was evaluated in this ER and had CT L-spine which showed degenerative changes. Patient states 3 weeks ago, she fell and injured her back, was evaluated in this ER and had CT L-spine which showed degenerative changes. She was discharged home with Flexeril and Naproxen, which she has been taking along with Tramadol and Celebrex (rx'd by someone else), with no relief of pain. Patient states she has been unable to get around her house. She denies any new falls, trauma, fever, chills, chest pain, abdominal pain. No other complaints She was discharged home with Flexeril and Naproxen, which she has been taking along with Tramadol and Celebrex (rx'd by someone else), with no relief of pain. Patient states she has been unable to get around her house. She denies any new falls, trauma, fever, chills, chest pain, abdominal pain. No other complaints. History Per: Patient History/Exam Limitations: no limitations Onset/Duration Of Symptoms: Persistent Current Symptoms Are (Timing): Still Present Quality Of Discomfort: "Pain" Previous Symptoms: Back Pain Associated Symptoms: denies: Incontinence, New Weakness, New Numbness Additional History Per: Patient Past Medical History Reviewed: Historical Data, Nursing Documentation, Vital Signs Vital Signs: Last Vital Signs Temp 99.2 F 08/25/17 14:25 Pulse 79 08/25/17 15:11 Resp 20 08/25/17 15:11 BP 132/54 L 08/25/17 15:11 Pulse Ox 99 08/25/17 17:03 - Medical History PMH: Arthritis, Diabetes, HTN, Hypothyroidism, Kidney Stones Surgical History: Hernia Repair - [facility] Procedures CYSTOSCOPY NEC (05/10/14) EXCISION OF STOMACH, ENDO, DIAGN (06/02/17) URETERAL CATHETERIZATION (05/10/14) - Infectious Disease Hx of Infectious Diseases: None - Past Medical History & Family History Past Medical History?: Yes - Past Social History Smoking Status: Unknown If Ever Smoked - CARDIAC Hx Hypertension: Yes - RENAL Hx Kidney Stones: Yes - ENDOCRINE/METABOLIC Hx Hypothyroidism: Yes - MUSCULOSKELETAL/RHEUMATOLOGICAL Hx Arthritis: Yes - PSYCHIATRIC Hx Substance Use: No - SURGICAL HISTORY Hx Herniorrhaphy: Yes Hx Thyroidectomy: Yes - ANESTHESIA Hx Anesthesia: Yes Hx Anesthesia Reactions: No Hx Malignant Hyperthermia: No Has any member of the family had a problem w/ anesthesia?: No Meds Allergies/Adverse Reactions: Allergies Allergy/AdvReac Type Severity Reaction Status Date / Time No Known Allergies Allergy Verified 08/25/17 14:35 Family History: States: Unknown Family Hx - Social History Hx Tobacco Use: No Hx Alcohol Use: No Hx Substance Use: No - Immunization History Hx Tetanus Toxoid Vaccination: No Hx Influenza Vaccination: Yes (12/2016) Hx Pneumococcal Vaccination: No Review Of Systems Except As Marked, All Systems Reviewed And Found Negative. Constitutional: Negative for: Fever, Chills Cardiovascular: Negative for: Chest Pain Respiratory: Negative for: Shortness of Breath Gastrointestinal: Negative for: Abdominal Pain Musculoskeletal: Positive for: Back Pain Neurological: Negative for: Weakness, Numbness - Infectious Disease Hx of Infectious Diseases: None - Past Medical History & Family History Past Medical History?: Yes - Past Social History Smoking Status: Unknown If Ever Smoked - CARDIAC Hx Hypertension: Yes - RENAL Hx Kidney Stones: Yes - ENDOCRINE/METABOLIC Hx Hypothyroidism: Yes - MUSCULOSKELETAL/RHEUMATOLOGICAL Hx Arthritis: Yes - PSYCHIATRIC Hx Substance Use: No - SURGICAL HISTORY Hx Herniorrhaphy: Yes Hx Thyroidectomy: Yes - ANESTHESIA Hx Anesthesia: Yes Hx Anesthesia Reactions: No Hx Malignant Hyperthermia: No Has any member of the family had a problem w/ anesthesia?: No Meds Allergies/Adverse Reactions: Allergies Allergy/AdvReac Type Severity Reaction Status Date / Time No Known Allergies Allergy Verified 08/25/17 14:35 Physical Exam - Physical Exam Appears: Non-toxic, Other (histrionic) Skin: Warm, Dry Head: Atraumatic, Normacephalic Eye(s): bilateral: Normal Inspection Oral Mucosa: Moist Neck: Normal ROM, Supple Chest: Symmetrical Cardiovascular: Rhythm Regular Respiratory: Normal Breath Sounds Gastrointestinal/Abdominal: Normal Exam, Soft, No Tenderness Back: Paraspinal Tenderness (mild paralumbar tenderness), No Straight Leg Raising Extremity: Normal ROM, No Pedal Edema, No Deformity Neurological/Psych: Oriented x3, Normal Motor, Normal Sensation Lab Interpretation: Normal O2 Sat by Pulse Oximetry: 99 (RA) Pulse Ox Interpretation: Normal IMPRESSION CT Abdomen and Pelvis without intravenous contrast: New compression fracture of the T12 vertebra with bony retropulsion and possible small epidural hematoma. Additional nonacute findings as above. Findings discussed by telephone with GOMEZ Ortiz, at 5 p.m. on 08/25/2017. IMPRESSION PROCEDURE: MRI lumbar spine HISTORY: Intractable back pain COMPARISON: Comparison made with CT scan and MRI of the lumbar spine dated 08/25/2017 and . : There is a acute and anterior wedge compression fracture of the T12 segment likely representing an osteoporotic compression deformity at in the absence of a history of trauma. No underlying lesion is seen. Minimal of retropulsion of the posterior superior corner with slight flattening the ventral surface of the thecal sac however the overall central canal is quite capacious. Multilevel degenerative spondylosis most severely affecting L4-L5 level where there is significant bilateral lateral recess and central canal stenosis as detailed above. Medical Decision Making Medical Decision Making: Plan: -- Morphine 4mg IV -- Labs -- Urinalysis Disposition Discussed With .: Krystian Spears Doctor Will See Patient In The: Hospital - Disposition Disposition: HOSPITALIZED Disposition Time: 15:30 Condition: STABLE - POA Present On Arrival: None - Clinical Impression Clinical Impression: Intractable back pain - PA / [employer] / Resident Statement MD/DO has reviewed & agrees with the documentation as recorded. - Scribe Statement The provider has reviewed the documentation as recorded by the Scribe (Radha Moreira) Provider Attestation: All medical record entries made by the Scribe were at my direction and personally dictated by me. I have reviewed the chart and agree that the record accurately reflects my personal performance of the history, physical exam, medical decision making, and the department course for this patient. I have also personally directed, reviewed, and agree with the discharge instructions and disposition. Decision To Admit - Pt Status Changed To: Hospital Disposition Of: Inpatient - Admit Certification Admit to Inpatient:: After my assessment, the patient will require hospitalization for at least two midnights. This is because of the severity of symptoms shown, intensity of services needed, and/or the medical risk in this patient being treated as an outpatient. - InPatient: Physician Admission Certification:: Intractable Back Pain. Unable to ambulate - . Bed Request Type: Regular Admitting Physician: Krystian Spears Patient Diagnosis: Intractable back pain Assessment & Plan (1) Compression fracture of body of thoracic vertebra Assessment and Plan: neurosurgical consult Status: Acute (2) Intractable back pain Status: Acute (3) Fall Status: Acute (4) HTN (hypertension) Status: Acute (5) Spinal stenosis at L4-L5 level Status: Acute Past Patient History - Infectious Disease Hx of Infectious Diseases: None - Past Medical History & Family History Past Medical History?: Yes - Past Social History Smoking Status: Unknown If Ever Smoked - CARDIAC Hx Hypertension: Yes - RENAL Hx Kidney Stones: Yes - ENDOCRINE/METABOLIC Hx Hypothyroidism: Yes - MUSCULOSKELETAL/RHEUMATOLOGICAL Hx Arthritis: Yes - PSYCHIATRIC Hx Substance Use: No - SURGICAL HISTORY Hx Herniorrhaphy: Yes Hx Thyroidectomy: Yes - ANESTHESIA Hx Anesthesia: Yes Hx Anesthesia Reactions: No Hx Malignant Hyperthermia: No Has any member of the family had a problem w/ anesthesia?: No Meds Allergies/Adverse Reactions: Allergies Allergy/AdvReac Type Severity Reaction Status Date / Time No Known Allergies Allergy Verified 08/25/17 14:35 - Medications Medications: Current Medications Cyclobenzaprine HCl (Flexeril) 10 mg PO TID [facility] Diltiazem HCl (Cardizem Cd) 300 mg PO DAILY [facility] Last Admin: 08/26/17 10:05 Dose: 300 mg Enoxaparin Sodium (Lovenox) 40 mg SC DAILY [facility] Last Admin: 08/26/17 10:05 Dose: 40 mg Insulin Human Regular (Novolin R) 0 unit SC ACHS [facility] PRN Reason: Protocol Last Admin: 08/26/17 21:21 Dose: Not Given Ketorolac Tromethamine (Toradol) 30 mg IVP Q6 PRN PRN Reason: Pain, moderate (4-7) Lidocaine (Lidoderm) 2 ea TD DAILY [facility] Losartan Potassium (Cozaar) 50 mg PO DAILY [facility] Oxycodone/Acetaminophen (Percocet 5/325 Mg Tab) 2 tab PO Q4H PRN PRN Reason: Pain, severe (8-10) Stop: 08/28/17 19:25 Last Admin: 08/25/17 21:09 Dose: 2 tab Pneumococcal Polyvalent Vaccine (Pneumovax 23 Vaccine) 0.5 ml SC .ONCE ONE Stop: 08/27/17 10:01 Physical Exam - Neurological Exam Additional comments: Mental Status: Awake, Alert , Oriented X 3, fluent coherent speech Normal cognition Cranial nerves II to XII: no deficits Motor: Normal Tone Normal Power in the UEs weakness of the LEs bilaterally due to her Pain and her Fracture T 12 DTR 0 to 1/4 in the UEs 0/4 in the LEs Toes are down going by plantar stimulation bilaterally tenderness of the middle back and of the Lower back which is limiting her movements. Sensory: Tenderness of the lower back, thoracic area and LEs Cerebellar: Normal FNT Unable to perform the HST and and Tandem walking Unable to stand up and walk. Results - Vital Signs Recent Vital Signs: Last Vital Signs Temp 98.6 F 08/26/17 15:11 Pulse 67 08/26/17 15:11 Resp 20 08/26/17 15:11 BP 107/61 08/26/17 15:11 Pulse Ox 98 08/26/17 15:11 - Labs Result Diagrams: 08/25/17 15:08 08/25/17 15:08 Labs: Laboratory Results - last 24 hr 08/26/17 08/26/17 08/26/17 07:16 10:50 16:11 POC Glucose (mg/dL) 101 121 H 112 H 08/26/17 21:16 POC Glucose (mg/dL) 110 Assessment & Plan (1) Compression fracture of body of thoracic vertebra Status: Acute Comment: Neurosurgery consult to repair her Thoracic Vertebral Fracture by special bone cement. and assess her L4-5 central spinal stenosis (2) Intractable back pain Assessment and Plan: Might need Pain management service and narcotics. Status: Acute (3) Abdominal pain Assessment and Plan: Due to her Fracture vertebra and her L4-5 central spinal stenosis Status: Acute (4) Bronchitis Assessment and Plan: needs care by Dr Spears Status: Acute (5) Fall Assessment and Plan: It caused her many problems of Fracture T 12 vertebra and L4-5 disc central spinal stenosis Status: Acute (6) H/O partial resection of colon Assessment and Plan: this problem is currently stable Status: Chronic (7) HTN (hypertension) Status: Chronic (8) Hydronephrosis of right kidney Status: Chronic
[2017-08-27] MEDS: (Novolin R) Insulin Human Regular 100 units/ml vial SC SCH ×4 (07:58→21:19)
--- NOTE | 2017-08-27 09:27 | CP.PCM.PN ---
Subjective - Date & Time of Evaluation Date of Evaluation: 08/27/17 Time of Evaluation: 09:25 - Subjective Subjective: 72 yo female fell 3 weeks ago c/o lbp came to ER after fall had CT but it did not go to t12 and fx was missed Would recommend TLSO brace(ordered) and analgsics Refer to office for follow up Objective - Vital Signs/Intake and Output Vital Signs (last 24 hours): Temp Pulse Resp BP Pulse Ox 98.1 F 78 20 151/65 H 97 08/27/17 08:00 08/27/17 08:00 08/27/17 08:00 08/27/17 08:00 08/27/17 08:00 Intake and Output: 08/27/17 08/27/17 06:59 18:59 Intake Total 600 Balance 600 - Medications Medications: Current Medications Cyclobenzaprine HCl (Flexeril) 10 mg PO TID [facility] Diltiazem HCl (Cardizem Cd) 300 mg PO DAILY [facility] Last Admin: 08/26/17 10:05 Dose: 300 mg Enoxaparin Sodium (Lovenox) 40 mg SC DAILY [facility] Last Admin: 08/26/17 10:05 Dose: 40 mg Insulin Human Regular (Novolin R) 0 unit SC ACHS [facility] PRN Reason: Protocol Last Admin: 08/27/17 07:58 Dose: Not Given Ketorolac Tromethamine (Toradol) 30 mg IVP Q6 PRN PRN Reason: Pain, moderate (4-7) Lidocaine (Lidoderm) 2 ea TD DAILY [facility] Losartan Potassium (Cozaar) 50 mg PO DAILY [facility] Oxycodone/Acetaminophen (Percocet 5/325 Mg Tab) 2 tab PO Q4H PRN PRN Reason: Pain, severe (8-10) Stop: 08/28/17 19:25 Last Admin: 08/25/17 21:09 Dose: 2 tab Pneumococcal Polyvalent Vaccine (Pneumovax 23 Vaccine) 0.5 ml SC .ONCE ONE Stop: 08/27/17 10:01 - Labs Labs: 08/25/17 15:08 08/25/17 15:08
[2017-08-27] MEDS ORDERED: Pneumococcal 23-Valent Vaccine SC ONE (10:00)
[2017-08-27] MEDS: diltiaZEM 300 mg/24 Hours CD Cap PO SCH (10:05)
[2017-08-27] MEDS ORDERED: Home Med 1 UNIT (Alendronate Sodium [Binosto] 1 TAB) PO SCH (10:15)
[2017-08-27] MEDS ORDERED: Levothyroxine 125 MCG TAB PO SCH (10:15)
--- NOTE | 2017-08-27 10:41 | CP.PCM.PN ---
Subjective - Date & Time of Evaluation Date of Evaluation: 08/26/17 Time of Evaluation: 19:35 - Subjective Subjective: Pt seen & evalauted at bedside, Objective - Vital Signs/Intake and Output Vital Signs (last 24 hours): Temp Pulse Resp BP Pulse Ox 98.1 F 78 20 151/65 H 97 08/27/17 08:00 08/27/17 08:00 08/27/17 08:00 08/27/17 08:00 08/27/17 08:00 Intake and Output: 08/27/17 08/27/17 06:59 18:59 Intake Total 600 Balance 600 - Medications Medications: Current Medications Carbidopa/Levodopa (Sinemet 10/100) 1 tab PO DAILY [facility] Cyclobenzaprine HCl (Flexeril) 10 mg PO TID [facility] Diltiazem HCl (Cardizem Cd) 300 mg PO DAILY [facility] Last Admin: 08/26/17 10:05 Dose: 300 mg Enoxaparin Sodium (Lovenox) 40 mg SC DAILY [facility] Last Admin: 08/26/17 10:05 Dose: 40 mg Home Med (Alendronate Sodium [Binosto]) 1 tab PO QD7 [facility] Insulin Human Regular (Novolin R) 0 unit SC ACHS [facility] PRN Reason: Protocol Last Admin: 08/27/17 07:58 Dose: Not Given Ketorolac Tromethamine (Toradol) 30 mg IVP Q6 PRN PRN Reason: Pain, moderate (4-7) Levothyroxine Sodium (Synthroid) 125 mcg PO DAILY [facility] Lidocaine (Lidoderm) 2 ea TD DAILY [facility] Losartan Potassium (Cozaar) 50 mg PO DAILY [facility] Oxycodone/Acetaminophen (Percocet 5/325 Mg Tab) 2 tab PO Q4H PRN PRN Reason: Pain, severe (8-10) Stop: 08/28/17 19:25 Last Admin: 08/25/17 21:09 Dose: 2 tab - Labs Labs: 08/25/17 15:08 08/25/17 15:08 Assessment and Plan (1) Compression fracture of body of thoracic vertebra Status: Acute (2) Intractable back pain Status: Acute (3) Fall Status: Acute (4) HTN (hypertension) Status: Chronic (5) Spinal stenosis at L4-L5 level Status: Acute
[2017-08-27] MEDS: Enoxaparin 40 mg Syringe SC SCH (10:57)
[2017-08-27] MEDS: Lidocaine 5% Patch TD SCH (10:58)
[2017-08-27] MEDS ORDERED: Bisacodyl 5mg EC Tab PO ONE (11:02)
--- NOTE | 2017-08-27 18:09 | CP.PCM.PN ---
Subjective - Date & Time of Evaluation Date of Evaluation: 08/27/17 Time of Evaluation: 19:00 - Subjective Subjective: Pt is seen and examined at bedside Objective - Vital Signs/Intake and Output Vital Signs (last 24 hours): Temp Pulse Resp BP Pulse Ox 98.5 F 73 18 102/56 L 95 08/27/17 16:00 08/27/17 16:00 08/27/17 16:00 08/27/17 16:00 08/27/17 16:00 Intake and Output: 08/27/17 08/27/17 06:59 18:59 Intake Total 600 300 Balance 600 300 - Medications Medications: Current Medications Carbidopa/Levodopa (Sinemet 10/100) 1 tab PO DAILY [facility] Last Admin: 08/27/17 11:08 Dose: Not Given Cyclobenzaprine HCl (Flexeril) 10 mg PO TID [facility] Last Admin: 08/27/17 17:29 Dose: 10 mg Diltiazem HCl (Cardizem Cd) 300 mg PO DAILY [facility] Last Admin: 08/27/17 10:05 Dose: 300 mg Docusate Sodium (Colace) 100 mg PO BID [facility] Last Admin: 08/27/17 17:29 Dose: 100 mg Enoxaparin Sodium (Lovenox) 40 mg SC DAILY [facility] Last Admin: 08/27/17 10:57 Dose: 40 mg Home Med (Alendronate Sodium [Binosto]) 1 tab PO QD7 [facility] Insulin Human Regular (Novolin R) 0 unit SC ACHS [facility] PRN Reason: Protocol Last Admin: 08/27/17 17:30 Dose: Not Given Ketorolac Tromethamine (Toradol) 30 mg IVP Q6 PRN PRN Reason: Pain, moderate (4-7) Last Admin: 08/27/17 15:48 Dose: 30 mg Levothyroxine Sodium (Synthroid) 125 mcg PO DAILY [facility] Lidocaine (Lidoderm) 2 ea TD DAILY [facility] Last Admin: 08/27/17 10:58 Dose: 2 ea Losartan Potassium (Cozaar) 50 mg PO DAILY [facility] Last Admin: 08/27/17 10:56 Dose: 50 mg Oxycodone/Acetaminophen (Percocet 5/325 Mg Tab) 2 tab PO Q4H PRN PRN Reason: Pain, severe (8-10) Stop: 08/28/17 19:25 Last Admin: 08/25/17 21:09 Dose: 2 tab - Labs Labs: 08/25/17 15:08 08/25/17 15:08 Assessment and Plan (1) Compression fracture of body of thoracic vertebra Status: Acute (2) Intractable back pain Status: Acute (3) Fall Status: Acute (4) HTN (hypertension) Status: Chronic (5) Spinal stenosis at L4-L5 level Status: Acute
[2017-08-28] MEDS: Levothyroxine 125 MCG TAB PO SCH ×2 (07:15→09:41)
[2017-08-28] MEDS: (Novolin R) Insulin Human Regular 100 units/ml vial SC SCH ×4 (07:30→21:22)
[2017-08-28] MEDS: Enoxaparin 40 mg Syringe SC SCH (09:40)
[2017-08-28] MEDS: diltiaZEM 300 mg/24 Hours CD Cap PO SCH (09:41)
[2017-08-28] MEDS: Lidocaine 5% Patch TD SCH (09:41)
[2017-08-28] MEDS ORDERED: Home Med 1 UNIT (Alendronate Sodium [Binosto] 1 TAB) PO SCH (10:00)
[2017-08-28 14:24] LABS: BASO # 0.1 K/uL (0.0-0.2); BASO % 1.2 % (0.0-2.0); EOS # 0.2 K/uL (0.0-0.7); EOS % 2.8 % (0.0-4.0); HEMOGLOBIN 12.2 g/dL (11.0-16.0); LYMPH # 1.6 K/uL (1.0-4.3); LYMPH % 26.9 % (20.0-40.0); MEAN CELL VOLUME 71.5 fL (81.0-99.0); MEAN CORPUSCULAR HEMOGLOBIN 23.6 pg (27.0-31.0); MEAN CORPUSCULAR HGB CONC 33.1 g/dL (33.0-37.0); MEAN PLATELET VOLUME 8.4 fL (7.2-11.7); MONO # 0.4 K/uL (0.0-0.8); MONO % 6.5 % (0.0-10.0); NEUT # 3.7 K/uL (1.8-7.0); NEUT % 62.6 % (50.0-75.0); RBC 5.17 Mil/uL (3.80-5.20)
[2017-08-28 15:16] LABS: BLOOD UREA NITROGEN 22 mg/dL (7-17); CALCIUM 9.4 mg/dl (8.6-10.4); GFR AFRICAN-AMERICAN > 60; GFR NON-AFRICAN AMERICAN 55
[2017-08-28 16:03] VITALS: RESP 20
--- NOTE | 2017-08-28 23:45 | CP.PCM.PN ---
Subjective - Date & Time of Evaluation Date of Evaluation: 08/28/17 Time of Evaluation: 21:00 - Subjective Subjective: She is doing the same, with thoracic back pain, low back pain, left loin pain left thigh pain and leg pain. She mentioned today that she is suffering from hypothyroidism due to thyroidectomy indicated at that time for hyperthyroidism 25 years ago.. She is receiving thyroid replacement 125 ug/day. and she has coarse tremor in her Right Upper Extremity more than the Left Upper Extremity and mild rigidity on both sides. She was diagnosed having Parkinsonism and was receiving medicine for Parkinsonism. She has a history of falling many stairs at her daughter's house in [place] 7 years ago and she hurt her lower back significantly at that time. She has L4-5 Lumbar stenosis seen on MRI Lumbar spine. She has a T12 compression Fracture of her Thoracic Vertebra. Neurosurgery was consulted by Dr Diez who ordered a TSLO Brace and Analgesics for her back and ruled out any surgical intervention. She will receive her brace on 08/30/2017 and will be discharged once she tries the brace and check if it is comfortable. Will adjust her medicine for Parkinsonism. Objective - Vital Signs/Intake and Output Vital Signs (last 24 hours): Temp Pulse Resp BP Pulse Ox 98.2 F 87 20 102/51 L 94 L 08/28/17 15:00 08/28/17 15:00 08/28/17 15:00 08/28/17 15:00 08/28/17 15:00 Intake and Output: 08/28/17 08/29/17 18:59 06:59 Intake Total 120 300 Balance 120 300 - Medications Medications: Current Medications Carbidopa/Levodopa (Sinemet 10/100) 1 tab PO DAILY [facility] Last Admin: 08/28/17 09:41 Dose: 1 tab Cyclobenzaprine HCl (Flexeril) 10 mg PO TID [facility] Last Admin: 08/28/17 17:40 Dose: 10 mg Diltiazem HCl (Cardizem Cd) 300 mg PO DAILY [facility] Last Admin: 08/28/17 09:41 Dose: 300 mg Docusate Sodium (Colace) 100 mg PO BID [facility] Last Admin: 08/28/17 17:40 Dose: 100 mg Enoxaparin Sodium (Lovenox) 40 mg SC DAILY [facility] Last Admin: 08/28/17 09:40 Dose: 40 mg Insulin Human Regular (Novolin R) 0 unit SC ACHS [facility] PRN Reason: Protocol Last Admin: 08/28/17 21:22 Dose: Not Given Levothyroxine Sodium (Synthroid) 125 mcg PO DAILY [facility] Last Admin: 08/28/17 09:41 Dose: 125 mcg Lidocaine (Lidoderm) 2 ea TD DAILY [facility] Last Admin: 08/28/17 09:41 Dose: 2 ea Losartan Potassium (Cozaar) 50 mg PO DAILY [facility] Last Admin: 08/28/17 09:40 Dose: 50 mg - Labs Labs: 08/28/17 14:17 08/28/17 14:17 Assessment and Plan (1) Compression fracture of body of thoracic vertebra Assessment & Plan: Surgical intervention is ruled out by Neurosurgery and she will have analgesics and TSLO Brace. Status: Acute (2) Intractable back pain Status: Acute (3) Abdominal pain Status: Acute (4) Bronchitis Status: Acute (5) Fall Status: Acute (6) H/O partial resection of colon Status: Chronic (7) HTN (hypertension) Status: Chronic (8) Hydronephrosis of right kidney Status: Chronic (9) Parkinsonism Assessment & Plan: Give Carbidopa-Levodopa 25-100 mg Q 8 Hours, 1 hour before meals or 2 hours after meals. Status: Chronic (10) H/O thyroidectomy Assessment & Plan: She is on Thyroxine Replacement 125 ug/day Status: Chronic (11) Hypoglycemia associated with diabetes Status: Chronic (12) Low back pain Assessment & Plan: L4-5 Stenosis She feels low back pain and will have a TSLO Brace, and analgesics as per Neurosurgery which will help her T12 fracture and L4-5 Stenosis. Her Low back Pain is acute on top of chronic. Status: Acute
[2017-08-29] MEDS: (Novolin R) Insulin Human Regular 100 units/ml vial SC SCH ×4 (07:32→21:13)
[2017-08-29] MEDS: Levothyroxine 125 MCG TAB PO SCH (09:00)
[2017-08-29] MEDS: Lidocaine 5% Patch TD SCH (10:26)
[2017-08-29] MEDS: diltiaZEM 300 mg/24 Hours CD Cap PO SCH (10:26)
[2017-08-29] MEDS: Enoxaparin 40 mg Syringe SC SCH (10:29)
--- NOTE | 2017-08-29 18:54 | CP.PCM.PN ---
Subjective - Date & Time of Evaluation Date of Evaluation: 08/29/17 Time of Evaluation: 18:44 - Subjective Subjective: She is ambulating going to the bathroom, but cries from pain on her way. She is more stable when walking and has less pain than before. She will have her back brace in AM and might go home if she feels comfortable with the brace. Her Parkinsonism is more stable after adjusting her dose of Anti Parkinson medicine. Her tone has improved and her tremors are not seen as before. Her serum Uric acid is normal and the Rheumatoid Factor and FERNANDO levels are pending, as she mentioned that she has rheumatism since she was younger. Objective - Vital Signs/Intake and Output Vital Signs (last 24 hours): Temp Pulse Resp BP Pulse Ox 98.2 F 79 20 114/67 96 08/29/17 15:30 08/29/17 15:30 08/29/17 15:30 08/29/17 15:30 08/29/17 15:30 Intake and Output: 08/29/17 08/29/17 06:59 18:59 Intake Total 300 700 Balance 300 700 - Medications Medications: Current Medications Carbidopa/Levodopa (Sinemet) 1 tab PO TID [facility] Last Admin: 08/29/17 17:34 Dose: 1 tab Cyclobenzaprine HCl (Flexeril) 10 mg PO TID [facility] Last Admin: 08/29/17 17:33 Dose: 10 mg Diltiazem HCl (Cardizem Cd) 300 mg PO DAILY [facility] Last Admin: 08/29/17 10:26 Dose: 300 mg Docusate Sodium (Colace) 100 mg PO BID [facility] Last Admin: 08/29/17 17:34 Dose: 100 mg Enoxaparin Sodium (Lovenox) 40 mg SC DAILY [facility] Last Admin: 08/29/17 10:29 Dose: 40 mg Insulin Human Regular (Novolin R) 0 unit SC [facility] PRN Reason: Protocol Last Admin: 08/29/17 17:34 Dose: Not Given Levothyroxine Sodium (Synthroid) 125 mcg PO DAILY [facility] Last Admin: 08/29/17 09:00 Dose: 125 mcg Lidocaine (Lidoderm) 2 ea TD DAILY [facility] Last Admin: 08/29/17 10:26 Dose: 2 ea Losartan Potassium (Cozaar) 50 mg PO DAILY [facility] Last Admin: 08/29/17 10:26 Dose: 50 mg - Labs Labs: 08/28/17 14:17 08/28/17 14:17 Assessment and Plan (1) Compression fracture of body of thoracic vertebra Status: Acute (2) Intractable back pain Status: Acute (3) Abdominal pain Status: Acute (4) Bronchitis Status: Acute (5) Fall Status: Acute (6) H/O partial resection of colon Status: Chronic (7) HTN (hypertension) Status: Chronic (8) Hydronephrosis of right kidney Status: Chronic (9) Parkinsonism Status: Chronic (10) H/O thyroidectomy Status: Chronic (11) Hypoglycemia associated with diabetes Status: Chronic (12) Low back pain Status: Chronic
--- NOTE | 2017-08-29 22:51 | CP.PCM.PN ---
Subjective - Date & Time of Evaluation Date of Evaluation: 08/28/17 Time of Evaluation: 18:35 - Subjective Subjective: She is doing the same, with thoracic back pain, low back pain, left loin pain left thigh pain and leg pain. She mentioned today that she is suffering from hypothyroidism due to thyroidectomy indicated at that time for hyperthyroidism 25 years ago.. She is receiving thyroid replacement 125 ug/day. and she has coarse tremor in her Right Upper Extremity more than the Left Upper Extremity and mild rigidity on both sides. She was diagnosed having Parkinsonism and was receiving medicine for Parkinsonism. She has a history of falling many stairs at her daughter's house in [place] 7 years ago and she hurt her lower back significantly at that time. She has L4-5 Lumbar stenosis seen on MRI Lumbar spine. She has a T12 compression Fracture of her Thoracic Vertebra. Neurosurgery was consulted by Dr Diez who ordered a TSLO Brace and Analgesics for her back and ruled out any surgical intervention. She will receive her brace on 08/30/2017 and will be discharged once she tries the brace and check if it is comfortable. Will adjust her medicine for Parkinsonism. Objective - Vital Signs/Intake and Output Vital Signs (last 24 hours): Temp Pulse Resp BP Pulse Ox 98.2 F 79 20 114/67 96 08/29/17 15:30 08/29/17 15:30 08/29/17 15:30 08/29/17 15:30 08/29/17 15:30 Intake and Output: 08/29/17 08/30/17 18:59 06:59 Intake Total 700 300 Balance 700 300 - Medications Medications: Current Medications Carbidopa/Levodopa (Sinemet) 1 tab PO 0800,1530,2200 [facility] Last Admin: 08/29/17 21:13 Dose: Not Given Cyclobenzaprine HCl (Flexeril) 10 mg PO TID [facility] Last Admin: 08/29/17 17:33 Dose: 10 mg Diltiazem HCl (Cardizem Cd) 300 mg PO DAILY [facility] Last Admin: 08/29/17 10:26 Dose: 300 mg Docusate Sodium (Colace) 100 mg PO BID [facility] Last Admin: 08/29/17 17:34 Dose: 100 mg Enoxaparin Sodium (Lovenox) 40 mg SC DAILY [facility] Last Admin: 08/29/17 10:29 Dose: 40 mg Insulin Human Regular (Novolin R) 0 unit SC ACHS [facility] PRN Reason: Protocol Last Admin: 08/29/17 21:13 Dose: Not Given Levothyroxine Sodium (Synthroid) 125 mcg PO DAILY [facility] Last Admin: 08/29/17 09:00 Dose: 125 mcg Lidocaine (Lidoderm) 2 ea TD DAILY [facility] Last Admin: 08/29/17 10:26 Dose: 2 ea Losartan Potassium (Cozaar) 50 mg PO DAILY [facility] Last Admin: 08/29/17 10:26 Dose: 50 mg - Labs Labs: 08/28/17 14:17 08/28/17 14:17 Assessment and Plan (1) Compression fracture of body of thoracic vertebra Status: Acute (2) Intractable back pain Status: Acute (3) Fall Status: Acute (4) HTN (hypertension) Status: Chronic (5) Spinal stenosis at L4-L5 level Status: Acute
--- NOTE | 2017-08-29 22:52 | CP.PCM.PN ---
Subjective - Date & Time of Evaluation Date of Evaluation: 08/29/17 Time of Evaluation: 18:40 - Subjective Subjective: She is ambulating going to the bathroom, but cries from pain on her way. She is more stable when walking and has less pain than before. She will have her back brace in AM and might go home if she feels comfortable with the brace. Her Parkinsonism is more stable after adjusting her dose of Anti Parkinson medicine. Her tone has improved and her tremors are not seen as before. Her serum Uric acid is normal and the Rheumatoid Factor and FERNANDO levels are pending, as she mentioned that she has rheumatism since she was younger. Objective - Vital Signs/Intake and Output Vital Signs (last 24 hours): Temp Pulse Resp BP Pulse Ox 98.2 F 79 20 114/67 96 08/29/17 15:30 08/29/17 15:30 08/29/17 15:30 08/29/17 15:30 08/29/17 15:30 Intake and Output: 08/29/17 08/30/17 18:59 06:59 Intake Total 700 300 Balance 700 300 - Medications Medications: Current Medications Carbidopa/Levodopa (Sinemet) 1 tab PO 0800,1530,2200 [facility] Last Admin: 08/29/17 21:13 Dose: Not Given Cyclobenzaprine HCl (Flexeril) 10 mg PO TID [facility] Last Admin: 08/29/17 17:33 Dose: 10 mg Diltiazem HCl (Cardizem Cd) 300 mg PO DAILY [facility] Last Admin: 08/29/17 10:26 Dose: 300 mg Docusate Sodium (Colace) 100 mg PO BID [facility] Last Admin: 08/29/17 17:34 Dose: 100 mg Enoxaparin Sodium (Lovenox) 40 mg SC DAILY [facility] Last Admin: 08/29/17 10:29 Dose: 40 mg Insulin Human Regular (Novolin R) 0 unit SC ACHS [facility] PRN Reason: Protocol Last Admin: 08/29/17 21:13 Dose: Not Given Levothyroxine Sodium (Synthroid) 125 mcg PO DAILY [facility] Last Admin: 08/29/17 09:00 Dose: 125 mcg Lidocaine (Lidoderm) 2 ea TD DAILY [facility] Last Admin: 08/29/17 10:26 Dose: 2 ea Losartan Potassium (Cozaar) 50 mg PO DAILY [facility] Last Admin: 08/29/17 10:26 Dose: 50 mg - Labs Labs: 08/28/17 14:17 08/28/17 14:17 Assessment and Plan (1) Compression fracture of body of thoracic vertebra Status: Acute (2) Intractable back pain Status: Acute (3) Fall Status: Acute (4) HTN (hypertension) Status: Chronic (5) Spinal stenosis at L4-L5 level Status: Acute
[2017-08-30] MEDS: (Novolin R) Insulin Human Regular 100 units/ml vial SC SCH ×4 (08:17→22:14)
[2017-08-30 08:38] LABS: FOLATE 13.5 ng/mL
[2017-08-30] MEDS: Levothyroxine 125 MCG TAB PO SCH (10:59)
[2017-08-30] MEDS: diltiaZEM 300 mg/24 Hours CD Cap PO SCH (10:59)
[2017-08-30] MEDS: Lidocaine 5% Patch TD SCH (11:00)
[2017-08-30] MEDS: Enoxaparin 40 mg Syringe SC SCH (11:00)
[2017-08-30 15:39] LABS: ANA PATTERN SPECKLED
--- NOTE | 2017-08-31 05:57 | CP.PCM.PN ---
Subjective - Date & Time of Evaluation Date of Evaluation: 08/30/17 Time of Evaluation: 20:00 - Subjective Subjective: Pt seen and examined at bedside Objective - Vital Signs/Intake and Output Vital Signs (last 24 hours): Temp Pulse Resp BP Pulse Ox 98.8 F 75 20 125/57 L 98 08/31/17 00:00 08/31/17 00:00 08/31/17 00:00 08/31/17 00:00 08/31/17 00:00 Intake and Output: 08/30/17 08/31/17 18:59 06:59 Intake Total 500 300 Balance 500 300 - Medications Medications: Current Medications Carbidopa/Levodopa (Sinemet) 1 tab PO 0800,1530,2200 [facility] Last Admin: 08/30/17 22:13 Dose: 1 tab Cyclobenzaprine HCl (Flexeril) 10 mg PO TID [facility] Last Admin: 08/30/17 17:52 Dose: 10 mg Diltiazem HCl (Cardizem Cd) 300 mg PO DAILY [facility] Last Admin: 08/30/17 10:59 Dose: 300 mg Docusate Sodium (Colace) 100 mg PO BID [facility] Last Admin: 08/30/17 17:51 Dose: 100 mg Enoxaparin Sodium (Lovenox) 40 mg SC DAILY [facility] Last Admin: 08/30/17 11:00 Dose: 40 mg Insulin Human Regular (Novolin R) 0 unit SC [facility] PRN Reason: Protocol Last Admin: 08/30/17 22:14 Dose: Not Given Levothyroxine Sodium (Synthroid) 125 mcg PO DAILY [facility] Last Admin: 08/30/17 10:59 Dose: 125 mcg Lidocaine (Lidoderm) 2 ea TD DAILY [facility] Last Admin: 08/30/17 11:00 Dose: 2 ea Losartan Potassium (Cozaar) 50 mg PO DAILY [facility] Last Admin: 08/30/17 10:58 Dose: 50 mg - Labs Labs: 08/28/17 14:17 08/28/17 14:17 Assessment and Plan (1) Compression fracture of body of thoracic vertebra Status: Acute (2) Intractable back pain Status: Acute (3) Fall Status: Acute (4) HTN (hypertension) Status: Chronic (5) Spinal stenosis at L4-L5 level Status: Acute
[2017-08-31] MEDS: (Novolin R) Insulin Human Regular 100 units/ml vial SC SCH ×4 (08:01→21:36)
[2017-08-31] MEDS: Levothyroxine 125 MCG TAB PO SCH (09:11)
[2017-08-31] MEDS: diltiaZEM 300 mg/24 Hours CD Cap PO SCH (09:12)
[2017-08-31] MEDS: Enoxaparin 40 mg Syringe SC SCH (09:12)
[2017-08-31] MEDS: Lidocaine 5% Patch TD SCH (09:13)
[2017-08-31] MEDS ORDERED: Oxycodone/Acetaminophen 5/325 mg Tab PO STA (14:45)
[2017-08-31] MEDS: Naproxen 550 mg Tab PO SCH (21:00)
--- NOTE | 2017-08-31 22:01 | CP.PCM.PN ---
Subjective - Date & Time of Evaluation Date of Evaluation: 08/31/17 Time of Evaluation: 17:00 - Subjective Subjective: Pt seen and examined at bedside, She is more stable when walking and has less pain than before. She will have her back brace in AM and might go home if she feels comfortable with the brace. Her Parkinsonism is more stable after adjusting her dose of Anti Parkinson medicine. Her tone has improved and her tremors are not seen as before. Objective - Vital Signs/Intake and Output Vital Signs (last 24 hours): Temp Pulse Resp BP Pulse Ox 97.8 F 89 20 180/70 H 97 08/31/17 15:30 08/31/17 15:30 08/31/17 15:30 08/31/17 15:30 08/31/17 15:30 Intake and Output: 08/31/17 09/01/17 18:59 06:59 Intake Total 500 250 Balance 500 250 - Medications Medications: Current Medications Carbidopa/Levodopa (Sinemet) 1 tab PO 0800,1530,2200 [facility] Last Admin: 08/31/17 21:00 Dose: 1 tab Cyclobenzaprine HCl (Flexeril) 10 mg PO TID [facility] Last Admin: 08/31/17 17:20 Dose: 10 mg Diltiazem HCl (Cardizem Cd) 300 mg PO DAILY [facility] Last Admin: 08/31/17 09:12 Dose: 300 mg Docusate Sodium (Colace) 100 mg PO BID [facility] Last Admin: 08/31/17 17:20 Dose: 100 mg Enoxaparin Sodium (Lovenox) 40 mg SC DAILY [facility] Last Admin: 08/31/17 09:12 Dose: 40 mg Insulin Human Regular (Novolin R) 0 unit SC [facility] PRN Reason: Protocol Last Admin: 08/31/17 21:36 Dose: Not Given Levothyroxine Sodium (Synthroid) 125 mcg PO 0630 [facility] Lidocaine (Lidoderm) 2 ea TD DAILY [facility] Last Admin: 08/31/17 09:13 Dose: 2 ea Losartan Potassium (Cozaar) 50 mg PO DAILY [facility] Last Admin: 08/31/17 09:11 Dose: 50 mg Naproxen (Anaprox Ds) 550 mg PO BID [facility] Last Admin: 08/31/17 21:00 Dose: 550 mg - Labs Labs: 08/28/17 14:17 08/28/17 14:17 - Constitutional Appears: No Acute Distress - Eye Exam Eye Exam: EOMI, Normal appearance, PERRL Pupil Exam: NORMAL ACCOMODATION, PERRL - Cardiovascular Exam Cardiovascular Exam: REGULAR RHYTHM, +S1, +S2. absent: Murmur - GI/Abdominal Exam GI & Abdominal Exam: Soft, Normal Bowel Sounds. absent: Tenderness Assessment and Plan (1) Compression fracture of body of thoracic vertebra Status: Acute (2) Intractable back pain Status: Acute (3) Fall Status: Acute (4) HTN (hypertension) Status: Chronic (5) Spinal stenosis at L4-L5 level Status: Acute
[2017-09-01 01:35] VITALS: O2SAT 96
[2017-09-01] MEDS ORDERED: Levothyroxine 125 MCG TAB PO SCH (06:30)
[2017-09-01] MEDS: (Novolin R) Insulin Human Regular 100 units/ml vial SC SCH ×2 (07:30→12:13)
[2017-09-01 09:48] VITALS: BP 129/71; PULSE 74; TEMP 98.2
[2017-09-01] MEDS: Enoxaparin 40 mg Syringe SC SCH (09:52)
[2017-09-01] MEDS: Naproxen 550 mg Tab PO SCH (09:52)
[2017-09-01] MEDS: Lidocaine 5% Patch TD SCH (09:52)
[2017-09-01] MEDS: diltiaZEM 300 mg/24 Hours CD Cap PO SCH (10:20)
--- NOTE | 2017-09-01 16:00 | CP.PCM.PN ---
Subjective - Date & Time of Evaluation Date of Evaluation: 09/01/17 Time of Evaluation: 19:00 - Subjective Subjective: Pt is for sub acute rehab, persistent low back pain, no fever, chills, seen by neurology, neuro surgery Objective - Vital Signs/Intake and Output Vital Signs (last 24 hours): Temp Pulse Resp BP Pulse Ox 98.2 F 74 20 129/71 96 09/01/17 09:00 09/01/17 09:00 09/01/17 09:00 09/01/17 09:00 09/01/17 09:00 Intake and Output: 09/01/17 09/01/17 06:59 18:59 Intake Total 490 300 Balance 490 300 - Medications Medications: Current Medications Carbidopa/Levodopa (Sinemet) 1 tab PO 0800,1530,2200 [facility] Last Admin: 09/01/17 14:32 Dose: 1 tab Cyclobenzaprine HCl (Flexeril) 10 mg PO TID [facility] Last Admin: 09/01/17 14:32 Dose: 10 mg Diltiazem HCl (Cardizem Cd) 300 mg PO DAILY [facility] Last Admin: 09/01/17 10:20 Dose: 300 mg Docusate Sodium (Colace) 100 mg PO BID [facility] Last Admin: 09/01/17 09:52 Dose: 100 mg Enoxaparin Sodium (Lovenox) 40 mg SC DAILY [facility] Last Admin: 09/01/17 09:52 Dose: 40 mg Insulin Human Regular (Novolin R) 0 unit SC ACHS [facility] PRN Reason: Protocol Last Admin: 09/01/17 12:13 Dose: Not Given Levothyroxine Sodium (Synthroid) 125 mcg PO 0630 [facility] Last Admin: 09/01/17 06:25 Dose: 125 mcg Lidocaine (Lidoderm) 2 ea TD DAILY [facility] Last Admin: 09/01/17 09:52 Dose: 2 ea Losartan Potassium (Cozaar) 50 mg PO DAILY [facility] Last Admin: 09/01/17 09:52 Dose: 50 mg Naproxen (Anaprox Ds) 550 mg PO BID [facility] Last Admin: 09/01/17 09:52 Dose: 550 mg - Labs Labs: 08/28/17 14:17 08/28/17 14:17 - Constitutional Appears: No Acute Distress - Head Exam Head Exam: ATRAUMATIC, NORMAL INSPECTION, NORMOCEPHALIC - Eye Exam Eye Exam: EOMI, Normal appearance, PERRL Pupil Exam: NORMAL ACCOMODATION, PERRL - Respiratory Exam Respiratory Exam: Clear to Ausculation Bilateral, NORMAL BREATHING PATTERN - Cardiovascular Exam Cardiovascular Exam: REGULAR RHYTHM, +S1, +S2. absent: Murmur - GI/Abdominal Exam GI & Abdominal Exam: Soft, Normal Bowel Sounds. absent: Tenderness - Back Exam Back Exam: paraspinal tenderness, vertebral tenderness - Neurological Exam Neurological Exam: Abnormal Gait Assessment and Plan (1) Compression fracture of body of thoracic vertebra Status: Acute (2) Intractable back pain Status: Acute (3) Fall Status: Acute (4) HTN (hypertension) Status: Chronic (5) Spinal stenosis at L4-L5 level Status: Acute
--- NOTE | 2017-09-01 17:43 | CP.PCM.PN ---
Subjective - Date & Time of Evaluation Date of Evaluation: 09/01/17 Time of Evaluation: 17:43 - Subjective Subjective: Alert and oriented x3, no acute pain or distress. Objective - Vital Signs/Intake and Output Vital Signs (last 24 hours): Temp Pulse Resp BP Pulse Ox 98.2 F 74 20 129/71 96 09/01/17 09:00 09/01/17 09:00 09/01/17 09:00 09/01/17 09:00 09/01/17 09:00 Intake and Output: 09/01/17 09/01/17 06:59 18:59 Intake Total 490 300 Balance 490 300 - Labs Labs: 08/28/17 14:17 08/28/17 14:17 Assessment and Plan - Assessment and Plan (Free Text) Assessment: 72 year old female admitted with back pain, compression fracture seen and examined. Alert and orientedx3, no acute pain. PT trained with TLSO brace, plan to discharge home on home PT. Discussed with DR Spears, advised to follow up with PMD in 1 week.
--- NOTE | 2017-09-16 16:33 | CP.PCM.DIS ---
Provider - Provider Date of Admission: 08/25/17 15:25 Attending physician: Krystian Spears MD Time Spent in preparation of Discharge (in minutes): 45 Diagnosis - Discharge Diagnosis (1) Compression fracture of body of thoracic vertebra Status: Acute (2) Intractable back pain Status: Acute (3) Fall Status: Acute (4) HTN (hypertension) Status: Chronic (5) Spinal stenosis at L4-L5 level Status: Acute Hospital Course - Lab Results Lab Results: Most Recent Lab Values WBC 6.0 K/uL (4.8-10.8) 08/28/17 14:17 RBC 5.17 Mil/uL (3.80-5.20) 08/28/17 14:17 Hgb 12.2 g/dL (11.0-16.0) 08/28/17 14:17 Hct 37.0 % (34.0-47.0) 08/28/17 14:17 MCV 71.5 fL (81.0-99.0) L 08/28/17 14:17 MCH 23.6 pg (27.0-31.0) L 08/28/17 14:17 MCHC 33.1 g/dL (33.0-37.0) 08/28/17 14:17 RDW 16.0 % (11.5-14.5) H 08/28/17 14:17 Plt Count 283 K/uL (130-400) 08/28/17 14:17 MPV 8.4 fL (7.2-11.7) 08/28/17 14:17 Neut % (Auto) 62.6 % (50.0-75.0) 08/28/17 14:17 Lymph % (Auto) 26.9 % (20.0-40.0) 08/28/17 14:17 [place] % (Auto) 6.5 % (0.0-10.0) 08/28/17 14:17 Eos % (Auto) 2.8 % (0.0-4.0) 08/28/17 14:17 Baso % (Auto) 1.2 % (0.0-2.0) 08/28/17 14:17 Neut # (Auto) 3.7 K/uL (1.8-7.0) 08/28/17 14:17 Lymph # (Auto) 1.6 K/uL (1.0-4.3) 08/28/17 14:17 [place] # (Auto) 0.4 K/uL (0.0-0.8) 08/28/17 14:17 Eos # (Auto) 0.2 K/uL (0.0-0.7) 08/28/17 14:17 Baso # (Auto) 0.1 K/uL (0.0-0.2) 08/28/17 14:17 Sodium 139 mmol/L (132-148) 08/28/17 14:17 Potassium 4.2 mmol/L (3.6-5.2) 08/28/17 14:17 Chloride 105 mmol/L (98-107) 08/28/17 14:17 Carbon Dioxide 25 mmol/L (22-30) 08/28/17 14:17 Anion Gap 14 (10-20) 08/28/17 14:17 BUN 22 mg/dL (7-17) H 08/28/17 14:17 Creatinine 1.0 mg/dL (0.7-1.2) 08/28/17 14:17 Est GFR ( Amer) > 60 08/28/17 14:17 Est GFR (Non-Af Amer) 55 08/28/17 14:17 POC Glucose (mg/dL) 119 mg/dL (65-110) H 09/01/17 11:19 Random Glucose 105 mg/dL (65-105) 08/28/17 14:17 Uric Acid 6.8 mg/dL (2.2-7.5) 08/29/17 08:40 Calcium 9.4 mg/dl (8.6-10.4) 08/28/17 14:17 Total Bilirubin 0.7 mg/dL (0.2-1.3) 08/25/17 15:08 AST 22 U/L (14-36) 08/25/17 15:08 ALT 16 U/L (9-52) 08/25/17 15:08 Alkaline Phosphatase 79 U/L (38-126) 08/25/17 15:08 Total Protein 7.1 g/dL (6.3-8.3) 08/25/17 15:08 Albumin 4.1 g/dL (3.5-5.0) 06/20/18 15:08 Globulin 3.1 gm/dL (2.2-3.9) 08/25/17 15:08 Albumin/Globulin Ratio 1.3 (1.0-2.1) 08/25/17 15:08 Vitamin B12 402 pg/mL (239-931) 08/30/17 06:35 25-OH Vitamin D Total 46.1 NG/ML (30.0-100.0) 08/30/17 06:35 Folate 13.5 ng/mL 08/30/17 06:35 Rheumatoid Factor IgG <5 U (<=6) 08/29/17 08:40 Rheumatoid Factor IgA <5 U (<=6) 08/29/17 08:40 Rheumatoid Factor IgM 5 U (<=6) 08/29/17 08:40 FERNANDO 6 Profile Positive (NEGATIVE) H 08/29/17 08:40 FERNANDO Titer 1:40 H 08/29/17 08:40 FERNANDO Pattern Speckled H 08/29/17 08:40 - Hospital Course Hospital Course: 72 year old female admitted with back pain, compression fracture seen and examined. Alert and orientedx3, no acute pain. PT trained with TLSO brace, plan to discharge home on home PT. Discharge Exam - Head Exam Head Exam: ATRAUMATIC, NORMAL INSPECTION, NORMOCEPHALIC - Eye Exam Eye Exam: EOMI, Normal appearance, PERRL Pupil Exam: NORMAL ACCOMODATION, PERRL - ENT Exam ENT Exam: Mucous Membranes Moist - Respiratory Exam Respiratory Exam: Decreased Breath Sounds, Rales, Rhonchi - Cardiovascular Exam Cardiovascular Exam: REGULAR RHYTHM, +S1, +S2 - GI/Abdominal Exam GI & Abdominal Exam: Normal Bowel Sounds - Back Exam Back exam: muscle spasm, paraspinal tenderness - Neurological Exam Neurological exam: CN II-XII Intact, Oriented x3 Discharge Plan - Discharge Medications Prescriptions: Gabapentin 300 mg PO BID #60 capsule Baclofen [Lioresal] 10 mg PO BID #60 tab oxyCODONE/Acetaminophen [Percocet 5/325 mg Tab] 1 ea PO Q6H PRN #60 tab PRN Reason: Pain, Severe (8-10) - Follow Up Plan Condition: STABLE Disposition: HOME/ ROUTINE Instructions: Upper Back Pain (DC), Baclofen, Gabapentin, Oxycodone and Acetaminophen, TLSO and LSO Additional Instructions: Follow-up visit w/ Jack Rogers to set appointment Follow up with Dr. Spears in the office in 1 week TLSO Brace to use on for 2 hours then off for 2 hours, also to use with activities and walking. Home PT/home care arranged for back pain and unsteady gait. Referrals: Jack Diez MD [Staff Provider] - Krystian Spears MD [Staff Provider] -
== END 2017-09-01 16:12 | disposition home or self-care (01) | DRG 543 ==
LOC: C.ER 14:19 → C.9E 15:25 → C.3T 16:26
PROVIDERS: ADMIT Internal Medicine; ATTEND Internal Medicine
DX: M80.08XA Age-related osteoporosis with current pathological fracture, vertebra(e), initial encounter for fracture (principal); N13.30 Unspecified hydronephrosis; M51.36 Other intervertebral disc degeneration, lumbar region; M48.061 Spinal stenosis, lumbar region without neurogenic claudication; G20 Parkinson's disease; E89.0 Postprocedural hypothyroidism; E11.649 Type 2 diabetes mellitus with hypoglycemia without coma; I10 Essential (primary) hypertension; J40 Bronchitis, not specified as acute or chronic; M79.0 Rheumatism, unspecified; Z87.442 Personal history of urinary calculi; Z91.81 History of falling

== ENCOUNTER 2018-02-08 19:34 | Inpatient (IN) | payer MEDICARE, MEDICAID ==
[2018-02-08 19:35] VITALS: BMI 29.5
[2018-02-08 21:58] LABS: BASO # 0.1 K/uL (0.0-0.2); BASO % 1.1 % (0.0-2.0); EOS # 0.2 K/uL (0.0-0.7); EOS % 2.8 % (0.0-4.0); HEMOGLOBIN 12.2 g/dL (11.0-16.0); LYMPH # 2.6 K/uL (1.0-4.3); LYMPH % 32.2 % (20.0-40.0); MEAN CELL VOLUME 70.4 fL (81.0-99.0); MEAN CORPUSCULAR HEMOGLOBIN 22.9 pg (27.0-31.0); MEAN CORPUSCULAR HGB CONC 32.6 g/dL (33.0-37.0); MEAN PLATELET VOLUME 8.5 fL (7.2-11.7); MONO # 0.4 K/uL (0.0-0.8); MONO % 5.2 % (0.0-10.0); NEUT # 4.7 K/uL (1.8-7.0); NEUT % 58.7 % (50.0-75.0); RBC 5.32 Mil/uL (3.80-5.20); WHITE BLOOD COUNT 8.1 K/uL (4.8-10.8)
[2018-02-08 22:11] LABS: ALB/GLOB RATIO 1.3 (1.0-2.1); ALBUMIN 4.2 g/dL (3.5-5.0); ALT/SGPT 16 U/L (9-52); AST/SGOT 21 U/L (14-36); BLOOD UREA NITROGEN 16 mg/dL (7-17); CALCIUM 9.5 mg/dl (8.6-10.4); GFR NON-AFRICAN AMERICAN > 60
--- NOTE | 2018-02-08 23:08 | C.PDOC ---
History Of Present Illness 72 year old female with a Hx of osteoporosis, past T12 fracture, and diabetes presents to the ER with a complaint of generalized back, neck, and leg pain after she fell 4 days ago. Patient states she has been unable to ambulate secon jt to the pain, she takes gabapentin normally but states it does not help. She has not gone to see her PMD because she "cannot walk". Denies weakness, numbness, incontinence of dysuria, or hematuria. Time Seen by Provider: 02/08/18 19:52 Chief Complaint (Nursing): Back Pain History Per: Patient History/Exam Limitations: no limitations Onset/Duration Of Symptoms: Days (4) Current Symptoms Are (Timing): Still Present Quality Of Discomfort: Unable To Describe Associated Symptoms: None Recent travel outside of the [place]: No Past Medical History Reviewed: Historical Data, Nursing Documentation, Vital Signs Vital Signs: Last Vital Signs Temp 98.1 F 02/08/18 22:55 Pulse 62 02/08/18 22:55 Resp 16 02/08/18 22:55 BP 150/81 02/08/18 22:55 Pulse Ox 100 02/08/18 22:55 - Medical History PMH: Arthritis, Diabetes, HTN, Hypothyroidism, Kidney Stones Surgical History: Hernia Repair - [facility] Procedures CYSTOSCOPY NEC (05/10/14) EXCISION OF STOMACH, ENDO, DIAGN (06/02/17) URETERAL CATHETERIZATION (05/10/14) Family History: States: Unknown Family Hx - Social History Hx Tobacco Use: No Hx Alcohol Use: No Hx Substance Use: No - Immunization History Hx Tetanus Toxoid Vaccination: No Hx Influenza Vaccination: Yes (12/2016) Hx Pneumococcal Vaccination: No Review Of Systems Constitutional: Negative for: Fever, Chills Gastrointestinal: Negative for: Nausea, Vomiting, Abdominal Pain Genitourinary: Negative for: Dysuria, Incontinence, Hematuria Musculoskeletal: Positive for: Back Pain Neurological: Negative for: Weakness, Numbness Physical Exam - Physical Exam Appears: Non-toxic Skin: Normal Color, Warm, Dry Head: Atraumatic, Normacephalic Eye(s): bilateral: Normal Inspection Oral Mucosa: Moist Neck: No Midline Cervical Tenderness, Paracervical Tenderness, Supple Chest: Symmetrical, No Tenderness Cardiovascular: Rhythm Regular Respiratory: Normal Breath Sounds, No Rales, No Rhonchi, No Wheezing Gastrointestinal/Abdominal: Soft, No Tenderness Back: Other (Diffuse tenderness from upper to lower back) Extremity: Other (Chronic pedel edema, boggy knees, no erythema or warmth, normal ROMx4) Pulses: Left Dorsalis Pedis: Normal, Right Dorsalis Pedis: Normal Neurological/Psych: Oriented x3, Normal Speech, Normal Motor, Normal Sensation Gait: Unable To Assess ED Course And Treatment - Laboratory Results Result Diagrams: 02/08/18 21:53 02/08/18 21:53 O2 Sat by Pulse Oximetry: 100 (room air) Pulse Ox Interpretation: Normal Progress Note: Tramadol administered. Patient offered T spine and LS spine CT but refuses, states she wants to be admitted and have MRI done. Case discussed with Dr. Spears who will place patient for observation admission for pain management and will see pt in AM for possible MRI. Disposition - Disposition Disposition: HOSPITALIZED Disposition Time: 22:31 Condition: STABLE - Clinical Impression Clinical Impression: Low back pain, Thoracic back pain, Fall - PA / MUSEUM ATTENDANT / Resident Statement MD/DO has reviewed & agrees with the documentation as recorded. - Scribe Statement The provider has reviewed the documentation as recorded by the Scribjamee Nunn All medical record entries made by the Arthuribjamee were at my direction and personally dictated by me. I have reviewed the chart and agree that the record accurately reflects my personal performance of the history, physical exam, medical decision making, and the department course for this patient. I have also personally directed, reviewed, and agree with the discharge instructions and disposition.
[2018-02-09] MEDS ORDERED: Oxycodone/Acetaminophen 5/325 mg Tab PO PRN (00:11)
[2018-02-09 00:54] VITALS: RESP 20
[2018-02-09] MEDS: (Novolin R) Insulin Human Regular 100 units/ml vial SC SCH ×4 (07:32→22:15)
[2018-02-09] MEDS ORDERED: Levothyroxine 125 MCG TAB PO SCH (10:00)
[2018-02-09] MEDS: diltiaZEM 300 mg/24 Hours CD Cap PO SCH (10:19)
[2018-02-09] MEDS: Enoxaparin 40 mg Syringe SC SCH (10:34)
[2018-02-09] MEDS: Aluminum Hydroxide/Magnesium Hydroxide Susp (30 mL) PO SCH ×2 (18:22→22:14)
[2018-02-09] MEDS: Pantoprazole 40 mg EC Tab PO SCH (18:23)
--- NOTE | 2018-02-09 21:47 | CP.PCM.HP ---
Past Patient History - Infectious Disease Hx of Infectious Diseases: None - Past Medical History & Family History Past Medical History?: Yes - Past Social History Smoking Status: Unknown If Ever Smoked - CARDIAC Hx Hypertension: Yes - RENAL Hx Kidney Stones: Yes - ENDOCRINE/METABOLIC Hx Hypothyroidism: Yes - MUSCULOSKELETAL/RHEUMATOLOGICAL Hx Arthritis: Yes - PSYCHIATRIC Hx Substance Use: No - SURGICAL HISTORY Hx Herniorrhaphy: Yes Hx Thyroidectomy: Yes - ANESTHESIA Hx Anesthesia: Yes Hx Anesthesia Reactions: No Hx Malignant Hyperthermia: No Meds Allergies/Adverse Reactions: Allergies Allergy/AdvReac Type Severity Reaction Status Date / Time No Known Allergies Allergy Verified 08/25/17 14:35 Results - Vital Signs Recent Vital Signs: Last Vital Signs Temp 98 F 02/09/18 16:00 Pulse 64 02/09/18 16:00 Resp 20 02/09/18 16:00 BP 128/71 02/09/18 16:00 Pulse Ox 96 02/09/18 16:00 - Labs Result Diagrams: 02/08/18 21:53 02/08/18 21:53 Labs: Laboratory Results - last 24 hr 02/08/18 02/08/18 02/09/18 21:53 21:53 07:13 WBC 8.1 RBC 5.32 H Hgb 12.2 Hct 37.5 MCV 70.4 L MCH 22.9 L MCHC 32.6 L RDW 16.0 H Plt Count 272 MPV 8.5 Neut % (Auto) 58.7 Lymph % (Auto) 32.2 [place] % (Auto) 5.2 Eos % (Auto) 2.8 Baso % (Auto) 1.1 Neut # (Auto) 4.7 Lymph # (Auto) 2.6 [place] # (Auto) 0.4 Eos # (Auto) 0.2 Baso # (Auto) 0.1 Sodium 136 Potassium 3.9 Chloride 98 Carbon Dioxide 25 Anion Gap 17 BUN 16 Creatinine 0.8 Est GFR ( Amer) > 60 Est GFR (Non-Af Amer) > 60 POC Glucose (mg/dL) 96 Random Glucose 127 H Calcium 9.5 Total Bilirubin 0.5 AST 21 ALT 16 Alkaline Phosphatase 81 Total Protein 7.6 Albumin 4.2 Globulin 3.4 Albumin/Globulin Ratio 1.3 02/09/18 02/09/18 02/09/18 11:08 16:22 21:20 WBC RBC Hgb Hct MCV MCH MCHC RDW Plt Count MPV Neut % (Auto) Lymph % (Auto) [place] % (Auto) Eos % (Auto) Baso % (Auto) Neut # (Auto) Lymph # (Auto) [place] # (Auto) Eos # (Auto) Baso # (Auto) Sodium Potassium Chloride Carbon Dioxide Anion Gap BUN Creatinine Est GFR ( Amer) Est GFR (Non-Af Amer) POC Glucose (mg/dL) 98 99 128 H Random Glucose Calcium Total Bilirubin AST ALT Alkaline Phosphatase Total Protein Albumin Globulin Albumin/Globulin Ratio
[2018-02-10] MEDS ORDERED: Gadodiamide 287 mg/ml 20 ml IV ONE (01:39)
--- NOTE | 2018-02-10 06:23 | HP ---
CHIEF COMPLAINT: Fall. HISTORY OF PRESENT ILLNESS: The patient is a 72-year-old [place] female with a history of osteoporosis, and in the past, she has T4 fracture,diabetes, hypertension, anxiety, depression, osteoarthritis, and osteoporosis. The patient is compliant with her diet, medications, and followup, and she has a history of hospitalization in the past and she came because 3 days ago, she had a fall at home, and as a result of that, she has back pain, and back pain starts from the neck all the way down to the low back, and the patient is not able to ambulate due to pain. She took some gabapentin at home, which did not help. According to her, she did not seek any medical attention until the day of admission. She is having difficulty walking. She denies any tingling, numbness, or paresthesia of her legs. She denies any polyuria, polydipsia, or polyphagia. She denies any hematuria or pyuria. She denies any sneezing, itchy eyes, or itchy nose. There is back pain, and she also has chronic joint pain, knee pain, and hip pain. There is incontinence of urine at times. She denies any polyuria, polydipsia, or polyphagia. PAST MEDICAL HISTORY: Hypertension, osteoarthritis, diabetes, hyperthyroidism, kidney disease, and hernia repair. SOCIAL HISTORY: Nonsmoker, non-EtOH user. CURRENT MEDICATIONS: At home are Percocet, Cardizem, Diovan, Glucophage XR, Synthroid, gabapentin, Sinemet, multivitamin, and Binosto. FAMILY HISTORY: Not obtainable. PHYSICAL EXAMINATION: GENERAL: An elderly female who is anxious and somewhat worried and restless. VITAL SIGNS: Blood pressure 123/61, pulse 67, respiratory rate 20, and temperature 98.1. SKIN: Warm. Senile turgor. No bruises. No purpura. No petechia. HEENT: Atraumatic and normocephalic. Negative pallor. Negative jaundice. Extraocular moments are intact. NECK: Supple. Flat neck veins. No JVD. No lymph node. No thyromegaly. CHEST: Chest wall, bilateral symmetrical expansion. LUNGS: Bilaterally clear. No rales. No rhonchi. CARDIOVASCULAR SYSTEM: . ABDOMEN: Soft and nontender. Bowel sounds are positive. RECTAL: Refused. PELVIC: Refused. EXTREMITIES: No clubbing, cyanosis, or edema. CENTRAL NERVOUS SYSTEM: Awake, alert, and oriented x3. Cranial nerves II through XII are normal. Power 5/5 x4. Plantars are downgoing. The patient has limited range of movement and unable to check due to nonambulatory. ASSESSMENT: 1. Back pain due to fall, unlikely to be any new fracture, however, we will obtain an MRI, physical therapy, pain medications. 2. Anxiety. 3. Gastritis. 4. Osteoporosis. PLAN: Medical management. Krystian Spears MD
[2018-02-10] MEDS: (Novolin R) Insulin Human Regular 100 units/ml vial SC SCH ×4 (07:35→21:37)
[2018-02-10] MEDS ORDERED: Pneumococcal 23-Valent Vaccine IM ONE (10:00)
[2018-02-10] MEDS: Pantoprazole 40 mg EC Tab PO SCH (10:48)
[2018-02-10] MEDS: Levothyroxine 100 MCG TAB PO SCH (10:48)
[2018-02-10] MEDS: Enoxaparin 40 mg Syringe SC SCH (10:49)
[2018-02-10] MEDS: Aluminum Hydroxide/Magnesium Hydroxide Susp (30 mL) PO SCH ×4 (10:49→21:37)
[2018-02-10] MEDS: diltiaZEM 300 mg/24 Hours CD Cap PO SCH (10:49)
[2018-02-10] MEDS: Belladonna-Phenobarbital PO SCH ×2 (14:08→17:31)
--- NOTE | 2018-02-10 14:18 | PN ---
DATE: 02/10/2018 LOCATION: 350, Bed B. SUBJECTIVE: This is a 72-year-old female seen initially for GI consultation on 02/09/2018, reexamined again today with intermittent period of abdominal pain, generalized weakness and malaise, walking with a walker with less oral intake. The entire chart is reviewed including but not limited to the most recent lab and radiology study results, current and the previous medication list, current and the previous medical events. The patient still has intermittent period of lower back pain, neck pain with bilateral lower extremities weakness and pain again. Most recent lab results showed initially normal CBC and today's blood glucose level of 100. PHYSICAL EXAMINATION: GENERAL: A 72-year-old female, appeared to be awake, alert, oriented. VITAL SIGNS: Respiratory rate of 20 to 22, blood pressure of 132/60, pulse of 64. HEENT: Showed mildly dry oral mucous membrane. Nonicteric sclerae. LUNGS: Mild crepitation bilaterally. Breathing sounds are present. HEART: Positive S1 and S2. ABDOMEN: Soft with mild generalized tenderness. No mass or organomegaly. No rebound tenderness or guarding. RECTAL: The patient refused. EXTREMITIES: Without significant clubbing, cyanosis or edema, but joint tenderness. NEUROLOGICAL: No reported new neurological deficit, sensory or motor. No focal deficits. IMPRESSION: 1. Re-exacerbation of peptic ulcer disease. 2. Osteoarthritis. 3. Known history of but not limited to hypertension, diabetes mellitus, renal stone with hypothyroidism as well as status post abdominal hernia repair. SUGGESTIONS: 1. Agree with your plan. 2. Cancer markers. 3. Proton pump inhibitors. 4. Repeat CBC with serum lipase, amylase level. 5. Keeping in mind that the patient is to have colonoscopy, never had it before and was initially scheduled before, but never performed as per the patient's history and statement. We will follow up closely with you Moira Julio MD
--- NOTE | 2018-02-10 16:14 | MRI ---
Date of service: 02/10/2018 PROCEDURE: MR LUMBAR SPINE WITH AND WITHOUT CONTRAST HISTORY: s/p fall COMPARISON: 08/26/2017. TECHNIQUE: Multiecho multiplanar sequences were performed through the lumbar spine with and without the use of intravenous contrast. 20 mL Omniscan was injected intravenously. FINDINGS: There is degenerative 3 mm anterior listhesis of L4 on L5. There is exaggerated lumbar lordosis. There is an old severe compression deformity (vertebra plana) at T12 with mild retropulsion of the posterior superior segment which indents the ventral thecal sac without central spinal canal stenosis. There is mild enhancement and residual edema in the T12 vertebral body. There is no acute fracture in the lumbar spine or spondylolysis. There is mild endplate marrow changes in the anterior inferior T11 vertebral body with corresponding enhancement. Otherwise, bone marrow signal is within normal limits. The conus medullaris terminates at a normal level. There undulation of the nerve roots of cauda equina at L4-5 due to spinal canal stenosis. There is no abnormal intramedullary or leptomeningeal enhancement. T12-L1: No disc herniation, spinal canal stenosis or neural foraminal narrowing. L1-2: Mild posterior disc bulge. No disc herniation, spinal canal stenosis or neural foraminal narrowing. L2-3: Mild posterior disc bulge. No disc herniation, spinal canal stenosis or neural foraminal narrowing. L3-4: Mild posterior disc bulge. No disc herniation, spinal canal stenosis or neural foraminal narrowing. Mild bilateral facet arthropathy. L4-5: Diffuse posterior disc bulge in conjunction with moderate ligamentum flavum infolding result in moderate spinal canal stenosis. Severe bilateral facet arthropathy contribute to moderate neural foraminal narrowing, worse on the right. L5-S1: No disc herniation, spinal canal stenosis or neural foraminal narrowing. Moderate bilateral facet arthropathy. OTHER FINDINGS: There is fatty atrophy of the paraspinous muscles. Imaged portion of the retroperitoneum is within normal limits. IMPRESSION: 1. No acute fracture. 2. Old severe compression fracture deformity (vertebra plana) at T12 with mild retropulsion of posterior superior fragment without spinal canal stenosis. 3. Mild multilevel degenerative disc disease, worse at L4-5 with moderate spinal canal stenosis and moderate neural foraminal narrowing, worse on the right. Exaggerated lumbar lordosis and degenerative 3 mm anterior listhesis of L4 on L5.
[2018-02-10 16:35] LABS: BASO # 0.1 K/uL (0.0-0.2); BASO % 1.3 % (0.0-2.0); EOS # 0.1 K/uL (0.0-0.7); EOS % 2.6 % (0.0-4.0); LYMPH # 1.9 K/uL (1.0-4.3); LYMPH % 34.6 % (20.0-40.0); MEAN CELL VOLUME 70.8 fL (81.0-99.0); MEAN CORPUSCULAR HEMOGLOBIN 22.8 pg (27.0-31.0); MEAN CORPUSCULAR HGB CONC 32.3 g/dL (33.0-37.0); MEAN PLATELET VOLUME 8.3 fL (7.2-11.7); MONO # 0.3 K/uL (0.0-0.8); NEUT % 55.5 % (50.0-75.0); RBC 5.24 Mil/uL (3.80-5.20); RED CELL DISTRIBUTION WIDTH 16.1 % (11.5-14.5); WHITE BLOOD COUNT 5.5 K/uL (4.8-10.8)
--- NOTE | 2018-02-10 23:43 | CP.PCM.PN ---
Subjective - Subjective Subjective: DICTATED Objective - Vital Signs/Intake and Output Vital Signs (last 24 hours): Temp Pulse Resp BP Pulse Ox 98.1 F 71 20 136/67 97 02/10/18 15:00 02/10/18 15:00 02/10/18 15:00 02/10/18 15:00 02/10/18 15:00 - Medications Medications: Current Medications Al Hydrox/Mg Hydrox/Simethicone (Maalox 30 Ml) 30 ml PO QID [facility] Last Admin: 02/10/18 21:37 Dose: 30 ml Baclofen (Lioresal) 10 mg PO BID [facility] Last Admin: 02/10/18 17:31 Dose: 10 mg Belladonna/Phenobarbital () 1 tab PO TID [facility] Last Admin: 02/10/18 17:31 Dose: 1 tab Diltiazem HCl (Cardizem Cd) 300 mg PO DAILY [facility] Last Admin: 02/10/18 10:49 Dose: 300 mg Enoxaparin Sodium (Lovenox) 40 mg SC DAILY [facility] Last Admin: 02/10/18 10:49 Dose: 40 mg Gabapentin (Neurontin) 300 mg PO BID [facility] Last Admin: 02/10/18 17:31 Dose: 300 mg Insulin Human Regular (Novolin R) 0 unit SC [facility]; Protocol Last Admin: 02/10/18 21:37 Dose: Not Given Levothyroxine Sodium (Synthroid) 100 mcg PO DAILY@0630 [facility] Last Admin: 02/10/18 10:48 Dose: 100 mcg Losartan Potassium (Cozaar) 100 mg PO DAILY [facility] Metformin HCl (Glucophage Xr) 500 mg PO DAILY [facility] Last Admin: 02/10/18 10:49 Dose: 500 mg Oxycodone/Acetaminophen (Percocet 5/325 Mg Tab) 1 tab PO Q6H PRN PRN Reason: Pain, severe (8-10) Stop: 02/12/18 00:12 Pantoprazole Sodium (Protonix Ec Tab) 40 mg PO DAILY [facility] Last Admin: 02/10/18 10:48 Dose: 40 mg - Labs Labs: 02/10/18 16:28 02/08/18 21:53
--- NOTE | 2018-02-11 01:38 | DS ---
LOCATION: 350, bed B. SUBJECTIVE: I was called for GI consultation by the admitting medical team. The patient is seen and fully examined on 02/09/2018 as requested by the admitting medical staff. A short handwritten consultation sheet left in the chart at the time of my consultation on 02/09/2018. The entire chart is reviewed including but not limited to the most recent lab and radiology study results, current and the previous medication list, current and the previous medical events. Case discussed with the staff and the family at length. This 72-year-old female, known case for me from previous office visit, was admitted to the hospital through the emergency room with a main complaint of abdominal pain, severe lower back pain with generalized weakness and malaise, unable to walk steady with loss of appetite and change of bowel movement as per the patient's statement recently. No reported actual chest pain, palpitation, significant shortness of breath, chills or fever. No reported active GI bleeding. After being admitted to the hospital, initial blood workup showed normal CBC with low indices, normal white blood cells and platelet, but blood glucose level initially was 127. PAST MEDICAL HISTORY: Including, but not limited to, 1. Peptic ulcer disease with acute gastritis, diagnosed by upper endoscopy in May 2017. 2. Osteoarthritis. 3. Poorly controlled diabetes mellitus. 4. Renal stone. 5. Hypertension. 6. Hypothyroidism. 7. Chronic lower back pain syndrome. 8. Abdominal hernia repair. FAMILY HISTORY: Unknown. SOCIAL HISTORY: No known history of cigarette smoking or alcohol intake. CURRENT MEDICATIONS: Post-admission medication lists were reviewed. ALLERGY TO MEDICATION: UNCLEAR. PHYSICAL EXAMINATION: GENERAL: A 72-year-old female, awake, alert, oriented. VITAL SIGNS: Afebrile with pulse of 60, respiratory rate 18 to 20, blood pressure 146/80. HEENT: Pale dry oral mucoid membrane mildly, nonicteric sclerae. LYMPH NODES: No lymphadenitis or lymphadenopathy. LUNGS: Few scattered mild crepitation. Decreased air entry at bases. HEART: Positive S1 and S2. ABDOMEN: Soft, mildly obese with slight distention. No mass or organomegaly. No rebound tenderness or guarding. RECTAL: The patient refused. EXTREMITIES: Slight lower extremity edematous changes and joint tenderness. No cyanosis or clubbing. NEUROLOGIC: No reported new neurological deficits, sensory or motor. BACK: Tenderness of the C-spine as well as the LS spine. IMPRESSION: 1. Re-exacerbation of peptic ulcer disease. 2. Osteoarthritis. 3. Chronic lower back pain syndrome. 4. Multiple past medical history including mainly but not limited to hypertension, hypothyroidism, poorly controlled diabetes mellitus as well as status post abdominal hernia repair recently with renal stone. SUGGESTIONS: 1. Continue current management. 2. Cancer markers. 3. Pain management consultation. 4. Abdominal and pelvic CAT scan. 5. Guaiac all the stools everyday x3. 6. On record, the patient was to be scheduled for colonoscopy, never had one before according to her statement, never followed up as outpatient. 7. Further recommendation to follow. Moira Julio MD
[2018-02-11] MEDS: Levothyroxine 100 MCG TAB PO SCH (06:16)
[2018-02-11] MEDS: (Novolin R) Insulin Human Regular 100 units/ml vial SC SCH ×4 (07:43→21:44)
[2018-02-11] MEDS: Aluminum Hydroxide/Magnesium Hydroxide Susp (30 mL) PO SCH ×4 (09:37→21:43)
[2018-02-11] MEDS: Enoxaparin 40 mg Syringe SC SCH (09:38)
[2018-02-11] MEDS: Pantoprazole 40 mg EC Tab PO SCH (09:38)
[2018-02-11] MEDS: diltiaZEM 300 mg/24 Hours CD Cap PO SCH (09:39)
[2018-02-11] MEDS: Belladonna-Phenobarbital PO SCH ×3 (10:13→18:19)
--- NOTE | 2018-02-11 16:27 | PN ---
DATE: 02/11/2018 LOCATION: Room 350, bed B. SUBJECTIVE: This is a 72-year-old female seen and examined early in rounds without significant clinical changes with persistent complaint of post fall lower back pain and cervical spine pain with intermittent period of midepigastric and left lower quadrant abdominal pain. The entire chart is reviewed including but not limited to the most recent lab and radiology study results, current and the previous medication list, current and the previous medical events. Case discussed with the staff at length. Today's lab results showed blood glucose level of 100. However, the patient's CEA level reported to be elevated to 5.8 with periods of diarrhea recently. Lumbar spine MRI ordered by myself yesterday; official report is seen indicative of no acute fracture but old severe compression fracture deformity, official report was reviewed. PHYSICAL EXAMINATION: GENERAL: A 72-year-old female, awake, alert and oriented. VITAL SIGNS: Afebrile with heart rate of 62, respiratory rate 20 to 22 with blood pressure 132/64. HEENT: Showed pale, dry oral mucous membrane. Nonicteric sclerae. LUNGS: Few scattered crepitation. Decreased air entry at bases. HEART: Positive S1 and S2. ABDOMEN: Soft with mild generalized tenderness. No mass or organomegaly. No rebound tenderness or guarding. EXTREMITIES: Lower extremities mild edematous changes. 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 IMPRESSION: 1. Diarrhea with re-exacerbation of diverticulosis with possible diverticulitis. 2. Chronic lower back pain syndrome. 3. Re-exacerbation of peptic ulcer disease. 4. Known history of hypertension, hypothyroidism, diabetes mellitus, renal stone with status post abdominal hernia repair. 5. Abnormal MRI of the spine. SUGGESTIONS: 1. Continue current management. 2. Orthopedic evaluation. Moira Julio MD
--- NOTE | 2018-02-11 22:35 | CP.PCM.PN ---
Subjective - Subjective Subjective: dictated Objective - Vital Signs/Intake and Output Vital Signs (last 24 hours): Temp Pulse Resp BP Pulse Ox 98.6 F 62 20 133/63 98 02/11/18 16:00 02/11/18 16:00 02/11/18 16:00 18 16:00 02/11/18 16:00 - Medications Medications: Current Medications Al Hydrox/Mg Hydrox/Simethicone (Maalox 30 Ml) 30 ml PO QID [facility] Last Admin: 02/11/18 21:43 Dose: 30 ml Baclofen (Lioresal) 10 mg PO BID [facility] Last Admin: 02/11/18 18:20 Dose: 10 mg Belladonna/Phenobarbital () 1 tab PO TID [facility] Last Admin: 02/11/18 18:19 Dose: 1 tab Diltiazem HCl (Cardizem Cd) 300 mg PO DAILY [facility] Last Admin: 02/11/18 09:39 Dose: 300 mg Enoxaparin Sodium (Lovenox) 40 mg SC DAILY [facility] Last Admin: 02/11/18 09:38 Dose: 40 mg Gabapentin (Neurontin) 300 mg PO BID [facility] Last Admin: 02/11/18 18:20 Dose: 300 mg Insulin Human Regular (Novolin R) 0 unit SC [facility]; Protocol Last Admin: 02/11/18 21:44 Dose: Not Given Levothyroxine Sodium (Synthroid) 100 mcg PO DAILY@0630 [facility] Last Admin: 02/11/18 06:16 Dose: 100 mcg Losartan Potassium (Cozaar) 100 mg PO DAILY [facility] Last Admin: 02/11/18 09:38 Dose: 100 mg Metformin HCl (Glucophage Xr) 500 mg PO DAILY [facility] Last Admin: 02/11/18 09:39 Dose: 500 mg Oxycodone/Acetaminophen (Percocet 5/325 Mg Tab) 1 tab PO Q6H PRN PRN Reason: Pain, severe (8-10) Stop: 02/12/18 00:12 Pantoprazole Sodium (Protonix Ec Tab) 40 mg PO DAILY [facility] Last Admin: 02/11/18 09:38 Dose: 40 mg - Labs Labs: 02/10/18 16:28 02/08/18 21:53
--- NOTE | 2018-02-12 03:20 | PN ---
DATE: 02/11/2018 SUBJECTIVE: Maurisio Richey still has back pain. She is on physiotherapy. She has been accepted for subacute rehab. She is anxious. She denies any fever or chills. She has back pain. PHYSICAL EXAMINATION: VITAL SIGNS: Blood pressure 133/63, pulse 62, respiratory rate 20, and temperature 98.6. LUNGS: Clear. CARDIOVASCULAR SYSTEM: S1 and S2 regular. ABDOMEN: Soft. ASSESSMENT: 1. Fall with back pain. 2. Hypertension. 3. Anxiety. 4. Diabetes. PLAN: Continue current medication. Monitor the patient. Krystian Spears MD
[2018-02-12] MEDS: Levothyroxine 100 MCG TAB PO SCH (06:25)
--- NOTE | 2018-02-12 08:00 | PN ---
DATE: 02/12/2018 LOCATION: 350, bed B. SUBJECTIVE: This is a 72-year-old female, seen and examined early in rounds, with a complaint of lower abdominal pain as well as lower back pain, on rehab program due to lower extremities weakness. The patient still has intermittent period of mild nausea and dyspepsia with looser bowel movement but no reported active bleeding, chest pain, palpitation or significant shortness of breath. The entire chart is reviewed including but not limited to the most recent lab and radiology study results, current and the previous medication list, current and the previous medical events. He is still awaiting for orthopaedic evaluation. Lab results today is still pending. However, the latest blood glucose level is 104, normal. PHYSICAL EXAMINATION: GENERAL: A 72-year-old female, appeared to be awake, alert, oriented. VITAL SIGNS: Temperature 99.4, pulse 82, respiratory rate 20 to 22, blood pressure 130/62. HEENT: Dry oral mucoid membrane. Nonicteric sclerae. LUNGS: Few scattered crepitation. Decreased air entry at bases. HEART: Positive S1 and S2. ABDOMEN: Soft with [id number] distention and mild generalized tenderness. No mass or organomegaly. No rebound tenderness or guarding. EXTREMITIES: Lower extremities mild edematous changes. No clubbing or cyanosis. NEUROLOGIC: No reported new neurological deficits, sensory or motor. BACK: LS spine [id number] tenderness. IMPRESSION: 1. Diarrhea with known history of diverticulosis, most likely secondary to an early acute episode of diverticulitis. The possibility of infectious diarrhea was raised. 2. Re-exacerbation of peptic ulcer disease. 3. Chronic lower pain syndrome with reported old fracture of the lower spine by MRI. 4. Known history of but not limited to hypothyroidism, diabetes mellitus, hypertension with renal stones. 5. Status post abdominal hernia repair by history. 6. Abnormal MRI of the spine. SUGGESTIONS: 1. Continue current management. 2. Repeat stool for C. diff and C and S. 3. Orthopedic reevaluation. 4. It has to be mentioned that due to the patient's elevated CEA level, colonoscopy to be scheduled when the patient is more stable clinically. Further recommendation to follow. Moira Julio MD [facility] # [id number]
[2018-02-12] MEDS: (Novolin R) Insulin Human Regular 100 units/ml vial SC SCH ×4 (08:25→22:08)
[2018-02-12] MEDS: Pantoprazole 40 mg EC Tab PO SCH (09:38)
[2018-02-12] MEDS: Enoxaparin 40 mg Syringe SC SCH (09:38)
[2018-02-12] MEDS: Belladonna-Phenobarbital PO SCH ×3 (09:39→17:47)
[2018-02-12] MEDS: diltiaZEM 300 mg/24 Hours CD Cap PO SCH (09:39)
[2018-02-12] MEDS: Aluminum Hydroxide/Magnesium Hydroxide Susp (30 mL) PO SCH ×4 (09:40→22:08)
--- NOTE | 2018-02-12 22:46 | CP.PCM.PN ---
Subjective - Subjective Subjective: dictated Objective - Vital Signs/Intake and Output Vital Signs (last 24 hours): Temp Pulse Resp BP Pulse Ox 97.7 F 78 20 125/64 99 02/12/18 16:00 02/12/18 16:00 02/12/18 16:00 02/12/18 16:00 02/12/18 16:00 Intake and Output: 02/12/18 02/13/18 18:59 06:59 Intake Total 800 Balance 800 - Medications Medications: Current Medications Al Hydrox/Mg Hydrox/Simethicone (Maalox 30 Ml) 30 ml PO QID [facility] Last Admin: 02/12/18 22:08 Dose: Not Given Baclofen (Lioresal) 10 mg PO BID [facility] Last Admin: 02/12/18 17:47 Dose: 10 mg Belladonna/Phenobarbital () 1 tab PO TID [facility] Last Admin: 02/12/18 17:47 Dose: 1 tab Diltiazem HCl (Cardizem Cd) 300 mg PO DAILY [facility] Last Admin: 02/12/18 09:39 Dose: 300 mg Enoxaparin Sodium (Lovenox) 40 mg SC DAILY [facility] Last Admin: 02/12/18 09:38 Dose: 40 mg Gabapentin (Neurontin) 300 mg PO BID [facility] Last Admin: 02/12/18 17:47 Dose: 300 mg Insulin Human Regular (Novolin R) 0 unit SC [facility]; Protocol Last Admin: 02/12/18 22:08 Dose: Not Given Levothyroxine Sodium (Synthroid) 100 mcg PO DAILY@0630 [facility] Last Admin: 02/12/18 06:25 Dose: 100 mcg Losartan Potassium (Cozaar) 100 mg PO DAILY [facility] Last Admin: 02/12/18 09:38 Dose: 100 mg Pantoprazole Sodium (Protonix Ec Tab) 40 mg PO DAILY [facility] Last Admin: 02/12/18 09:38 Dose: 40 mg Pneumococcal Polyvalent Vaccine (Pneumovax 23 Vaccine) 0.5 ml IM .ONCE ONE Stop: 02/15/18 10:01 - Labs Labs: 02/10/18 16:28 02/08/18 21:53
--- NOTE | 2018-02-13 00:13 | CP.PCM.CON ---
History of Present Illness - History of Present Illness History of Present Illness: 72 year old female is admitted for neck pain, back pain and low back pain with a Hx of osteoporosis,she has a past history of T12 fracture, and diabetes. She presents to the ER with a complaint of generalized back, neck, and leg pain after she fell 4 days ago. Patient states she has been unable to ambulate secondary to the pain, she takes Gabapentin normally but states it does not help. She has not gone to see her PMD because she "cannot walk". Denies weakness, numbness, incontinence of dysuria, or hematuria. H/O Irregular bowel movements, diarrhea, diverticulosis. H/O Abdominal pain and Dr Shepard is following her. A colonoscopy is planned after improvement of her general condition. Orthopedic consult is requested. Last Vital Signs Temp 98.1 F 02/08/18 22:55 Pulse 62 02/08/18 22:55 Resp 16 02/08/18 22:55 BP 150/81 02/08/18 22:55 Pulse Ox 100 02/08/18 22:55 - Medical History PMH: Arthritis, Diabetes, HTN, Hypothyroidism, Kidney Stones, Diverticulosis. Surgical History: Hernia Repair - [facility] Procedures CYSTOSCOPY NEC (05/10/14) EXCISION OF STOMACH, ENDO, DIAGN (06/02/17) URETERAL CATHETERIZATION (05/10/14) Family History: States: Unknown Family Hx - Social History Hx Tobacco Use: No Hx Alcohol Use: No Hx Substance Use: No - Immunization History Hx Tetanus Toxoid Vaccination: No Hx Influenza Vaccination: Yes (12/2016) Hx Pneumococcal Vaccination: No Review Of Systems Constitutional: Negative for: Fever, Chills Gastrointestinal: Negative for: Nausea, Vomiting, Abdominal Pain Genitourinary: Negative for: Dysuria, Incontinence, Hematuria Musculoskeletal: Positive for: Back Pain Neurological: Negative for: Weakness, Numbness NKDA Physical Exam - Physical Exam Appears: Non-toxic Skin: Normal Color, Warm, Dry Head: Atraumatic, Normacephalic Eye(s): bilateral: Normal Inspection Oral Mucosa: Moist Neck: No Midline Cervical Tenderness, Paracervical Tenderness, Supple Chest: Symmetrical, No Tenderness Cardiovascular: Rhythm Regular Respiratory: Normal Breath Sounds, No Rales, No Rhonchi, No Wheezing Gastrointestinal/Abdominal: Soft, No Tenderness Back: Other (Diffuse tenderness from upper to lower back) Extremity: Other (Chronic pedel edema, boggy knees, no erythema or warmth, normal ROMx4) Pulses: Left Dorsalis Pedis: Normal, Right Dorsalis Pedis: Normal Neurological/Psych: Oriented x3, Normal Speech, Normal Motor, Normal Sensation Gait: Unable To Assess MRI LS Spine without Contrast shows: Old severe T12 Body Fracture. multiple disc degeneration more seen at L4-5, with spinal Canal stenosis and with Neural foraminal stenosis. She has significant microcytic hypochromic anemia. She has a high CEA and negative CA 19.9 and CA 125 Antigens. O2 Sat by Pulse Oximetry: 100 (room air) Pulse Ox Interpretation: Normal Progress Note: Tramadol administered. Patient offered T spine and LS spine CT but refuses, states she wants to be admitted and have MRI done. Dr. Spears placed the patient for observation admission for pain management and ordered MRI LS Spine Disposition: HOSPITALIZED - Clinical Impression Clinical Impression: Low back pain, Thoracic back pain, Fall Past Patient History - Infectious Disease Hx of Infectious Diseases: None - Past Medical History & Family History Past Medical History?: Yes - Past Social History Smoking Status: Never Smoked - CARDIAC Hx Hypertension: Yes - RENAL Hx Kidney Stones: Yes - ENDOCRINE/METABOLIC Hx Hypothyroidism: Yes - MUSCULOSKELETAL/RHEUMATOLOGICAL Hx Falls: Yes - PSYCHIATRIC Hx Substance Use: No - SURGICAL HISTORY Hx Herniorrhaphy: Yes Hx Thyroidectomy: Yes - ANESTHESIA Hx Anesthesia: Yes Hx Anesthesia Reactions: No Hx Malignant Hyperthermia: No Has any member of the family had a problem w/ anesthesia?: No Meds Home Medications: Home Medication List Medication Instructions Recorded Confirmed Type Aluminum Hydroxide/Magnesium H 30 ml PO BID PRN #10 udc 02/11/18 Rx [Maalox 30 ml] Baclofen [Lioresal] 10 mg PO BID tab 02/11/18 Rx Carbidopa/Levodopa 10 [Sinemet 1 tab PO TID tab 02/11/18 Rx 10] Gabapentin [Neurontin] 300 mg PO BID cap 02/11/18 Rx Insulin Human Regular [Novolin R] 0 unit SC ACHS unit 02/11/18 Rx Levothyroxine [Synthroid] 100 mcg PO DAILY@0630 tab 02/11/18 Rx Losartan [Cozaar] 100 mg PO DAILY tab 02/11/18 Rx Pantoprazole [Protonix EC Tab] 40 mg PO DAILY ect 02/11/18 Rx diltiaZEM CD [Cardizem CD] 300 mg PO DAILY cap 02/11/18 Rx metFORMIN ER [glucoPHAGE XR] [address] 02/11/18 Rx traMADol [Ultram] 25 mg PO BID PRN #10 tab 02/11/18 Rx Allergies/Adverse Reactions: Allergies Allergy/AdvReac Type Severity Reaction Status Date / Time No Known Allergies Allergy Verified 08/25/17 14:35 - Medications Medications: Current Medications Al Hydrox/Mg Hydrox/Simethicone (Maalox 30 Ml) 30 ml PO QID [facility] Last Admin: 02/12/18 22:08 Dose: Not Given Baclofen (Lioresal) 10 mg PO BID [facility] Last Admin: 02/12/18 17:47 Dose: 10 mg Belladonna/Phenobarbital () 1 tab PO TID [facility] Last Admin: 02/12/18 17:47 Dose: 1 tab Diltiazem HCl (Cardizem Cd) 300 mg PO DAILY [facility] Last Admin: 02/12/18 09:39 Dose: 300 mg Enoxaparin Sodium (Lovenox) 40 mg SC DAILY [facility] Last Admin: 02/12/18 09:38 Dose: 40 mg Gabapentin (Neurontin) 300 mg PO BID [facility] Last Admin: 02/12/18 17:47 Dose: 300 mg Insulin Human Regular (Novolin R) 0 unit SC [facility]; Protocol Last Admin: 02/12/18 22:08 Dose: Not Given Levothyroxine Sodium (Synthroid) 100 mcg PO DAILY@0630 [facility] Last Admin: 02/12/18 06:25 Dose: 100 mcg Losartan Potassium (Cozaar) 100 mg PO DAILY [facility] Last Admin: 02/12/18 09:38 Dose: 100 mg Pantoprazole Sodium (Protonix Ec Tab) 40 mg PO DAILY [facility] Last Admin: 02/12/18 09:38 Dose: 40 mg Pneumococcal Polyvalent Vaccine (Pneumovax 23 Vaccine) 0.5 ml IM .ONCE ONE Stop: 02/15/18 10:01 Physical Exam - Neurological Exam Additional comments: Slightly over weight . Contusions in the lower extremities and varicose veins. Right knee swelling and tenderness and bluish discoloration from her falling Positive Lasegue test on Right and Left Lower extremities with tenderness. Right Lower extremity is more limited in Lasegue test. Limited and painful neck movement. Mental Status: Awake, alert oriented X 3 Fluent coherent speech Very pleasant to talk to and explains her problems clearly. Cranial II to XII; No deficits Motor: normal tone, normal power in the upper extremities, but the power of the Lower extremities is affected by her contusion and trauma. DTR 0/4 Toes are down going by plantar stimulation, but this is limited due to the fact that she is ticklish in her feet and does not cooperate well. Sensory : Glove and stoke sensory deficit in Lower extremities peripheral Cerebellar: Normal FNT and unable to perform HST due to her pain. Stature and Gait: Unable to stand or walk and unable to tandem walk as a result. Results - Vital Signs Recent Vital Signs: Last Vital Signs Temp 97.7 F 02/12/18 16:00 Pulse 78 02/12/18 16:00 Resp 20 02/12/18 16:00 BP 125/64 02/12/18 16:00 Pulse Ox 99 02/12/18 16:00 - Labs Result Diagrams: 02/10/18 16:28 02/08/18 21:53 Labs: Laboratory Results - last 24 hr 02/12/18 02/12/18 02/12/18 07:43 11:33 16:27 POC Glucose (mg/dL) 98 124 H 108 02/12/18 21:12 POC Glucose (mg/dL) 97 Assessment & Plan (1) Radiculopathy Assessment and Plan: Involving the Cervical, Thoracic and L S spine. This could have been exacerbated by her fall Cervical and LS Radiculopathy. She needs observation and PT Status: Acute (2) Fall Status: Acute (3) Thoracic back pain Assessment and Plan: History of Thoracic spine fracture at T12 Status: Acute (4) Low back pain Status: Chronic (5) Abdominal pain Assessment and Plan: It might be related to her Fracture vertebra, Radiculopathy, Trauma or due to miscellaneous causes. She has a high CEA and this has to be worked up to rule out GI Malignancy. She will have a colonoscopy by Dr Jonathan Pelletier. Status: Acute (6) Bronchitis Assessment and Plan: This might cause her abdominal pain due to coughing. Status: Acute (7) Compression fracture of body of thoracic vertebra Status: Acute (8) Intractable back pain Status: Acute (9) Nephrolithiasis Status: Acute
[2018-02-13] MEDS: Levothyroxine 100 MCG TAB PO SCH (06:40)
[2018-02-13] MEDS: (Novolin R) Insulin Human Regular 100 units/ml vial SC SCH ×4 (08:26→21:49)
[2018-02-13 08:45] LABS: HDL CHOLESTEROL 42 mg/dL (30-70)
[2018-02-13 08:53] LABS: LDL CHOLESTEROL 111 mg/dL (0-129)
[2018-02-13] MEDS: Aluminum Hydroxide/Magnesium Hydroxide Susp (30 mL) PO SCH ×4 (10:00→21:46)
[2018-02-13] MEDS: Belladonna-Phenobarbital PO SCH ×3 (10:00→17:17)
[2018-02-13] MEDS: Enoxaparin 40 mg Syringe SC SCH (11:00)
[2018-02-13] MEDS: Pantoprazole 40 mg EC Tab PO SCH (11:00)
[2018-02-13] MEDS: diltiaZEM 300 mg/24 Hours CD Cap PO SCH (11:32)
--- NOTE | 2018-02-13 11:58 | PN ---
DATE: 02/13/2016 LOCATION: 350, bed B. SUBJECTIVE: This 72-year-old female is seen and examined without significant clinical changes but lower back pain with intermittent complaint of lower abdominal pain but no reported active bleeding, chest pain, palpitation or significant shortness of breath. The patient is states that she still had on occasion very soft and then watery bowel movement which subsequently improved. The periods of nausea and dyspepsia also with reported associated with her lower abdominal pain. The entire chart is reviewed including but not limited to most recent lab and radiology study results, current and the previous medication list, current and the previous medical events and today's blood glucose level reported to be 102. PHYSICAL EXAMINATION: GENERAL: A 72-year-old female, afebrile with pulse of 62, respiratory 20-22, blood pressure of 140/60. HEENT: Showed pale dry oral mucous membrane. Nonicteric sclerae. LUNGS: Few scattered crepitation. Decreased air entry at bases. HEART: Positive S1 and S2. ABDOMEN: Soft with mild generalized tenderness. No mass or organomegaly. No rebound tenderness or guarding. Lower abdominal tenderness in the right and the left lower quadrant noted. EXTREMITIES: With lower extremities mild edematous changes. No clubbing or cyanosis. NEUROLOGIC: No reported new neurological deficits, sensory or motor. IMPRESSION: 1. Peptic ulcer disease. 2. Diverticulosis with periods of mild diverticulitis. 3. Chronic lower back pain syndrome with abnormal MRI of the spine, the patient is seen by neurology philatelic consultant. 4. Known history of diabetes mellitus, hypothyroidism, renal stone with hypertension. SUGGESTIONS: 1. Continue current treatment. 2. Orthopedic consultation requested, 3. Stool for C. diff, ova and parasite, and C and S. 4. No aggressive GI workup in the meantime until the patient is more stable clinically. We will follow up closely with you. Moira Julio MD
--- NOTE | 2018-02-13 20:15 | CP.PCM.PN ---
Subjective - Subjective Subjective: dictated Objective - Vital Signs/Intake and Output Vital Signs (last 24 hours): Temp Pulse Resp BP Pulse Ox 98.2 F 56 L 20 149/69 98 02/13/18 16:00 02/13/18 16:00 02/13/18 16:00 02/13/18 16:00 02/13/18 16:00 Intake and Output: 02/13/18 02/14/18 18:59 06:59 Intake Total 500 Balance 500 - Medications Medications: Current Medications Al Hydrox/Mg Hydrox/Simethicone (Maalox 30 Ml) 30 ml PO QID [facility] Last Admin: 02/13/18 17:17 Dose: 30 ml Baclofen (Lioresal) 10 mg PO BID [facility] Last Admin: 02/13/18 17:17 Dose: 10 mg Belladonna/Phenobarbital () 1 tab PO TID [facility] Last Admin: 02/13/18 17:17 Dose: 1 tab Diltiazem HCl (Cardizem Cd) 300 mg PO DAILY [facility] Last Admin: 02/13/18 11:32 Dose: Not Given Enoxaparin Sodium (Lovenox) 40 mg SC DAILY [facility] Last Admin: 02/13/18 11:00 Dose: 40 mg Gabapentin (Neurontin) 300 mg PO BID [facility] Last Admin: 02/13/18 17:18 Dose: 300 mg Insulin Human Regular (Novolin R) [address] [facility]; Protocol Last Admin: 02/13/18 17:18 Dose: Not Given Levothyroxine Sodium (Synthroid) 100 mcg PO DAILY@0630 [facility] Last Admin: 02/13/18 06:40 Dose: 100 mcg Losartan Potassium (Cozaar) 100 mg PO DAILY [facility] Last Admin: 02/13/18 11:35 Dose: 100 mg Pantoprazole Sodium (Protonix Ec Tab) 40 mg PO DAILY [facility] Last Admin: 02/13/18 11:00 Dose: 40 mg Pneumococcal Polyvalent Vaccine (Pneumovax 23 Vaccine) 0.5 ml IM .ONCE ONE Stop: 02/15/18 10:01 - Labs Labs: 02/10/18 16:28 02/08/18 21:53
--- NOTE | 2018-02-13 23:11 | CP.PCM.PN ---
Subjective - Date & Time of Evaluation Date of Evaluation: 02/13/18 Time of Evaluation: 21:45 - Subjective Subjective: She still has the same neurological problems of low back pain and difficulty standing and walking. She is going soon to rehab for further management. Objective - Vital Signs/Intake and Output Vital Signs (last 24 hours): Temp Pulse Resp BP Pulse Ox 98.2 F 56 L 20 149/69 98 02/13/18 16:00 02/13/18 16:00 02/13/18 16:00 02/13/18 16:00 02/13/18 16:00 Intake and Output: 02/13/18 02/14/18 18:59 06:59 Intake Total 500 450 Balance 500 450 - Medications Medications: Current Medications Al Hydrox/Mg Hydrox/Simethicone (Maalox 30 Ml) 30 ml PO QID [facility] Last Admin: 02/13/18 21:46 Dose: Not Given Baclofen (Lioresal) 10 mg PO BID [facility] Last Admin: 02/13/18 17:17 Dose: 10 mg Belladonna/Phenobarbital () 1 tab PO TID [facility] Last Admin: 02/13/18 17:17 Dose: 1 tab Diltiazem HCl (Cardizem Cd) 300 mg PO DAILY [facility] Last Admin: 02/13/18 11:32 Dose: Not Given Enoxaparin Sodium (Lovenox) 40 mg SC DAILY [facility] Last Admin: 02/13/18 11:00 Dose: 40 mg Gabapentin (Neurontin) 300 mg PO BID [facility] Last Admin: 02/13/18 17:18 Dose: 300 mg Insulin Human Regular (Novolin R) 0 unit SC [facility]; Protocol Last Admin: 02/13/18 21:49 Dose: Not Given Levothyroxine Sodium (Synthroid) 100 mcg PO DAILY@0630 [facility] Last Admin: 02/13/18 06:40 Dose: 100 mcg Losartan Potassium (Cozaar) 100 mg PO DAILY [facility] Last Admin: 02/13/18 11:35 Dose: 100 mg Pantoprazole Sodium (Protonix Ec Tab) 40 mg PO DAILY [facility] Last Admin: 02/13/18 11:00 Dose: 40 mg Pneumococcal Polyvalent Vaccine (Pneumovax 23 Vaccine) 0.5 ml IM .ONCE ONE Stop: 02/15/18 10:01 - Labs Labs: 02/10/18 16:28 02/08/18 21:53 Assessment and Plan (1) Radiculopathy Assessment & Plan: Acute Radiculopathy on top of chronic low back pain and is receiving appropriate medicine to help her Low Back Pain. Status: Acute (2) Fall Status: Acute (3) Thoracic back pain Status: Acute (4) Low back pain Status: Chronic (5) Abdominal pain Status: Acute (6) Bronchitis Status: Acute (7) Compression fracture of body of thoracic vertebra Status: Acute (8) Intractable back pain Status: Acute (9) Nephrolithiasis Status: Acute
--- NOTE | 2018-02-14 02:51 | PN ---
DATE: 02/13/2018 SUBJECTIVE: Rosis is afebrile. She is for physical therapy rehab. No nausea or vomiting. PHYSICAL EXAMINATION: VITAL SIGNS: Blood pressure is 149/69, pulse 56, respiratory rate 20, temperature 98.2. LUNGS: Clear. CARDIOVASCULAR SYSTEM: S1, S2 regular. ABDOMEN: Soft, nontender. Bowel sounds are positive. ASSESSMENT: 1. Fall with back pain, old back pressure. 2. Hypertension. 3. Diabetes. 4. Anxiety. PLAN: Rehab, physical therapy. Monitor the patient. Krystian Spears MD
[2018-02-14] MEDS: Levothyroxine 100 MCG TAB PO SCH (06:30)
[2018-02-14] MEDS: (Novolin R) Insulin Human Regular 100 units/ml vial SC SCH ×2 (08:28→11:53)
[2018-02-14 08:47] VITALS: BP 137/70; PULSE 61; TEMP 97.6; O2SAT 97
[2018-02-14] MEDS: Belladonna-Phenobarbital PO SCH ×2 (10:29→14:23)
[2018-02-14] MEDS: diltiaZEM 300 mg/24 Hours CD Cap PO SCH (10:29)
[2018-02-14] MEDS: Enoxaparin 40 mg Syringe SC SCH (10:29)
[2018-02-14] MEDS: Aluminum Hydroxide/Magnesium Hydroxide Susp (30 mL) PO SCH ×2 (10:29→14:23)
[2018-02-14] MEDS: Pantoprazole 40 mg EC Tab PO SCH (10:29)
--- NOTE | 2018-02-14 16:31 | CP.PCM.PN ---
Subjective - Date & Time of Evaluation Date of Evaluation: 02/14/18 Time of Evaluation: 10:00 - Subjective Subjective: alert, awake, ambulatory with walker, NAD. Objective - Vital Signs/Intake and Output Vital Signs (last 24 hours): Temp Pulse Resp BP Pulse Ox 97.6 F 61 20 137/70 97 02/14/18 08:00 02/14/18 08:00 02/14/18 08:00 02/14/18 08:00 02/14/18 08:00 Intake and Output: 02/14/18 02/14/18 06:59 18:59 Intake Total 850 500 Balance 850 500 - Labs Labs: 02/10/18 16:28 02/08/18 21:53 Assessment and Plan - Assessment and Plan (Free Text) Assessment: 72 year old female with low back pain, seen and examined. Alert and orientedx3, denies sob or chest pains, able to ambulate with walker.Discussed with DR Spears, plan to discharge to rehab today on present medications. Patient verbalized understanding of the plan to transfer today.
--- NOTE | 2018-02-14 22:28 | CP.PCM.DIS ---
Provider - Provider Date of Admission: 02/11/18 22:35 Attending physician: Krystian Spears MD Consults: 02/09/18 19:49 Gastroenterology Consult Routine Comment: Consulting Provider: Moira Shepard Consulting Physician: Moira Shepard Reason for Consult: PUD 02/11/18 19:08 Neurology Consult Routine Comment: Consulting Provider: Chas Richey Consulting Physician: Chas Richey Reason for Consult: LBP Hospital Course - Lab Results Lab Results: Most Recent Lab Values WBC 5.5 K/uL (4.8-10.8) 02/10/18 16:28 RBC 5.24 Mil/uL (3.80-5.20) H 02/10/18 16:28 Hgb 12.0 g/dL (11.0-16.0) 02/10/18 16:28 Hct 37.0 % (34.0-47.0) 02/10/18 16:28 MCV 70.8 fL (81.0-99.0) L 02/10/18 16:28 MCH 22.8 pg (27.0-31.0) L 02/10/18 16:28 MCHC 32.3 g/dL (33.0-37.0) L 02/10/18 16:28 RDW 16.1 % (11.5-14.5) H 02/10/18 16:28 Plt Count 262 K/uL (130-400) 02/10/18 16:28 MPV 8.3 fL (7.2-11.7) 02/10/18 16:28 Neut % (Auto) 55.5 % (50.0-75.0) 02/10/18 16:28 Lymph % (Auto) 34.6 % (20.0-40.0) 02/10/18 16:28 [place] % (Auto) 6.0 % (0.0-10.0) 02/10/18 16:28 Eos % (Auto) 2.6 % (0.0-4.0) 02/10/18 16:28 Baso % (Auto) 1.3 % (0.0-2.0) 02/10/18 16:28 Neut # (Auto) 3.0 K/uL (1.8-7.0) 02/10/18 16:28 Lymph # (Auto) 1.9 K/uL (1.0-4.3) 02/10/18 16:28 [place] # (Auto) 0.3 K/uL (0.0-0.8) 02/10/18 16:28 Eos # (Auto) 0.1 K/uL (0.0-0.7) 02/10/18 16:28 Baso # (Auto) 0.1 K/uL (0.0-0.2) 02/10/18 16:28 ESR 52 mm/hr (0-20) H 02/13/18 08:07 Sodium 136 mmol/L (132-148) 02/08/18 21:53 Potassium 3.9 mmol/L (3.6-5.2) 02/08/18 21:53 Chloride 98 mmol/L (98-107) 02/08/18 21:53 Carbon Dioxide 25 mmol/L (22-30) 02/08/18 21:53 Anion Gap 17 (10-20) 02/08/18 21:53 BUN 16 mg/dL (7-17) 02/08/18 21:53 Creatinine 0.8 mg/dL (0.7-1.2) 02/08/18 21:53 Est GFR ( Amer) > 60 02/08/18 21:53 Est GFR (Non-Af Amer) > 60 02/08/18 21:53 POC Glucose (mg/dL) 98 mg/dL (65-110) 02/14/18 11:20 Random Glucose 127 mg/dL (65-105) H 02/08/18 21:53 Calcium 9.5 mg/dl (8.6-10.4) 02/08/18 21:53 Total Bilirubin 0.5 mg/dL (0.2-1.3) 02/08/18 21:53 AST 21 U/L (14-36) 02/08/18 21:53 ALT 16 U/L (9-52) 02/08/18 21:53 Alkaline Phosphatase 81 U/L (38-126) 02/08/18 21:53 C-Reactive Protein < 5.00 mg/L (0.0-9.9) 02/13/18 08:07 Total Protein 7.6 g/dL (6.3-8.3) 02/08/18 21:53 Albumin 4.2 g/dL (3.5-5.0) 02/08/18 21:53 Globulin 3.4 gm/dL (2.2-3.9) 02/08/18 21:53 Albumin/Globulin Ratio 1.3 (1.0-2.1) 02/08/18 21:53 Triglycerides 101 mg/dL (0-149) D 02/13/18 08:07 Cholesterol 169 mg/dL (0-199) 02/13/18 08:07 LDL Cholesterol Direct 111 mg/dL (0-129) 02/13/18 08:07 HDL Cholesterol 42 mg/dL (30-70) 02/13/18 08:07 Carcinoembryonic Ag 5.8 ng/mL (0-3.0) H 02/10/18 16:28 CA 19-9 Antigen 14.0 U/mL (0-37) 02/10/18 16:28 CA 125 Antigen 6.6 U/mL (0-35) 02/10/18 16:28 FERNANDO 6 Profile Negative (NEGATIVE) 02/13/18 08:07 Discharge Plan - Discharge Medications Prescriptions: traMADol [Ultram] 25 mg PO BID PRN #10 tab PRN Reason: Pain, Severe (8-10) - Follow Up Plan Condition: STABLE Disposition: REHAB FACILITY/REHAB UNIT Instructions: Preventing Falls in the Older Adult, Low Back Pain (DC), Upper Back Pain (DC), Tramadol Additional Instructions: PLEASE ADMIT PATIETN UNDER DR. SPEARS SERVICE- CALL DR. SPEARS UPON PATIENT ARRIVAL TO THE FACILITY CONTINUE MEDICATION PER MED. REC. Referrals: Krystian Spears MD [Staff Provider] -
--- NOTE | 2018-02-14 23:05 | PN ---
DATE: 02/14/2018 LOCATION: 371, bed A. SUBJECTIVE: This is a 72-year-old female, seen and examined in rounds early today with chief complaint of abdominal pain and/or diarrhea, mild nausea and dyspepsia with lower extremities weakness. No reported actual chest pain, palpitation, or significant shortness of breath. Entire chart is reviewed including but not limited to the most recent lab and radiology study results, current and the previous medication lists, current and the previous medical events. Case discussed with the staff at length. Today's lab results showed blood glucose level of 98. Rest of the blood workup results still pending. PHYSICAL EXAMINATION: GENERAL: A 72-year-old female, awake, alert, oriented. Tolerated oral intake well. VITAL SIGNS: Afebrile with pulse of 64, blood pressure of 140/72, respiratory rate 18 to 20. HEENT: Showed pale dry, oral mucous membrane. Nonicteric sclerae. LUNGS: Few scattered crepitation. Decreased air entry at bases. HEART: Positive S1 and S1. ABDOMEN: Soft with mild generalized tenderness. No mass or organomegaly. No rebound tenderness or guarding. Abdominal distention noticed. EXTREMITIES: With lower extremities mild edematous changes associated with lower back pain. NEUROLOGIC: No reported new neurological deficits, sensory or motor. IMPRESSION: 1. Chronic lower back pain syndrome with abnormal MRI of the spine. 2. Re-exacerbation of peptic ulcer disease. 3. Diverticulosis with period of mild diverticulitis. 4. Known history of hypothyroidism, diabetes mellitus, nephrolithiasis, and hypertension. SUGGESTIONS: 1. Continue current management. 2. The patient may transfer to rehab center and to be followed up as outpatient. Discussed with the staff at length. Moira Julio MD
--- NOTE | 2018-02-15 08:26 | DS ---
DISCHARGE DIAGNOSES: 1. Fall with back injury. 2. Old spinal fracture. 3. Hypertension. 4. Anxiety. 5. Osteoarthritis. 6. Obesity. HISTORY OF PRESENT ILLNESS: This is a 72-year-old [place] female with history of diabetes, hypertension, obesity, anxiety disorder with prior history of falls. She had a fall at home and subsequently she developed pain in the lower back area. The patient was admitted to the floor, started on physical therapy, fall, seizure precaution. MRI of lumbosacral spine showed old fracture of the spine with no new fracture. The patient did well. The patient was given physiotherapy. The patient feels better. She is being discharged. PHYSICAL EXAMINATION: VITAL SIGNS: Blood pressure 137/70, pulse 61, respiratory rate 20, temperature 99.6. LABORATORY DATA: Glucose 115 and 112. WBC 8.51, hemoglobin 12.2, hematocrit 37.5, platelets 272,000. Chemistry: Sodium 137, potassium is 3.9, chloride 98, bicarb 21, BUN 16, and creatinine 0.8. ASSESSMENT AND PLAN: The patient was referred to subacute rehab. She was accepted and she was referred to rehab for physiotherapy and rehab. Krystian Spears MD
[2018-02-15] MEDS ORDERED: Pneumococcal 23-Valent Vaccine IM ONE (10:00)
== END 2018-02-14 16:20 | DRG 914 ==
LOC: C.ER 19:34 → C.9E 22:34 → C.3T 22:57 → OBSVTOIN 02-11 22:35 → C.3T 02-13 14:41
PROVIDERS: ADMIT Internal Medicine; ATTEND Internal Medicine
DX: S39.92XA Unspecified injury of lower back, initial encounter (principal); W19.XXXA Unspecified fall, initial encounter; M48.54XS Collapsed vertebra, not elsewhere classified, thoracic region, sequela of fracture; E11.65 Type 2 diabetes mellitus with hyperglycemia; K57.92 Diverticulitis of intestine, part unspecified, without perforation or abscess without bleeding; G89.4 Chronic pain syndrome; E89.0 Postprocedural hypothyroidism; I10 Essential (primary) hypertension; K27.9 Peptic ulcer, site unspecified, unspecified as acute or chronic, without hemorrhage or perforation; J40 Bronchitis, not specified as acute or chronic; F41.9 Anxiety disorder, unspecified; K29.70 Gastritis, unspecified, without bleeding; M19.90 Unspecified osteoarthritis, unspecified site; M54.17 Radiculopathy, lumbosacral region; M81.0 Age-related osteoporosis without current pathological fracture; N20.0 Calculus of kidney; E66.9 Obesity, unspecified; R32 Unspecified urinary incontinence; Y92.009 Unspecified place in unspecified non-institutional (private) residence as the place of occurrence of the external cause; Z91.81 History of falling; Z79.4 Long term (current) use of insulin; Z79.890 Hormone replacement therapy; Z79.899 Other long term (current) drug therapy; Z87.11 Personal history of peptic ulcer disease; Z87.442 Personal history of urinary calculi; Z68.39 Body mass index [BMI] 39.0-39.9, adult

== ENCOUNTER 2018-06-14 19:04 | Inpatient (IN) | payer MEDICARE, MEDICAID ==
--- NOTE | 2018-06-14 19:36 | C.PDOC ---
History Of Present Illness Patient presents with worsening shortness of breath. Pt has a history of hiatal hernia. Speaking in complete sentences.Does feel, sob, and some chest discomfort worsening over the last few days. Time Seen by Provider: 06/14/18 19:36 Chief Complaint (Nursing): Shortness Of Breath History Per: Patient, EMS History/Exam Limitations: no limitations Onset/Duration Of Symptoms: Days Current Symptoms Are (Timing): Still Present Initiating Event: Other Quality: Dull, Burning, Tightness Exacerbating Factor(s): Exertion Current Respiratory Medications: See Home Med List Severity: Moderate Pain Scale Rating Of: 4 Associated Symptoms: Chest Pain. denies: Fever, Chills Reports Recently: Seen In ED, Treated By A Physician Recent travel outside of the [place]: No Additional History Per: Patient, EMS Past Medical History Reviewed: Historical Data, Nursing Documentation, Vital Signs Vital Signs: Last Vital Signs Temp 98.3 F 06/14/18 19:17 Pulse 75 06/14/18 19:17 Resp 18 06/14/18 19:17 BP 147/55 L 06/14/18 19:17 Pulse Ox 95 06/14/18 19:17 - Medical History PMH: Arthritis, Diabetes, HTN, Hypothyroidism, Kidney Stones Surgical History: Hernia Repair - [facility] CYSTOSCOPY NEC (05/10/14) EXCISION OF STOMACH, ENDO, DIAGN (06/02/17) URETERAL CATHETERIZATION (05/10/14) Family History: States: No Known Family Hx - Social History Hx Tobacco Use: No Hx Alcohol Use: No Hx Substance Use: No - Immunization History Hx Tetanus Toxoid Vaccination: No Hx Influenza Vaccination: Yes (12/2016) Hx Pneumococcal Vaccination: No Review Of Systems Constitutional: Negative for: Fever, Chills Eyes: Negative for: Vision Change ENT: Negative for: Throat Pain Cardiovascular: Positive for: Chest Pain Respiratory: Negative for: Shortness of Breath Gastrointestinal: Positive for: Abdominal Pain. Negative for: Nausea Genitourinary: Negative for: Dysuria Musculoskeletal: Negative for: Back Pain Skin: Negative for: Rash Neurological: Negative for: Weakness Psych: Negative for: Anxiety Physical Exam - Physical Exam Appears: Non-toxic, No Acute Distress Skin: Warm, Dry Head: Normacephalic Eye(s): bilateral: Normal Inspection Oral Mucosa: Moist Neck: Trachea Midline, Supple Chest: Symmetrical, Other (pacemaker on left chest wall) Cardiovascular: Rhythm Regular Respiratory: No Rales, No Rhonchi, No Wheezing Gastrointestinal/Abdominal: Soft, No Tenderness, No Distention Back: No CVA Tenderness Extremity: No Tenderness, Pedal Edema (b/l), Swelling Extremity: Bilateral: Atraumatic, Normal Color And Temperature Pulses: Left Dorsalis Pedis: Normal, Right Dorsalis Pedis: Normal Neurological/Psych: Oriented x3 Gait: Steady ED Course And Treatment - Laboratory Results Result Diagrams: 06/14/18 19:47 06/14/18 19:47 ECG: Interpreted By Me, Viewed By Me ECG Rhythm: Nonspecific Changes O2 Sat by Pulse Oximetry: 95 (on RA) Pulse Ox Interpretation: Normal - Radiology CXR: Interpreted by Me, Viewed By Me CXR Interpretation: Yes: Other (left effusion). No: Infiltrates, Fracture, Cardiomegaly Progress Note: Plan: EKG. Labs. CXR. VBG. Blood Culture. Urinalysis Disposition Discussed With .: Pollo Menchaca Comment: accepted the pt on his service and took over the care at 9 PM Doctor Will See Patient In The: Hospital Counseled Patient/Family Regarding: Studies Performed, Diagnosis - Disposition Disposition: HOSPITALIZED Disposition Time: 19:36 Condition: FAIR Forms: [facility] (Estonian) - POA Present On Arrival: None - Clinical Impression Clinical Impression: Dyspnea, Chest pain, Hiatal hernia - Scribe Statement The provider has reviewed the documentation as recorded by the Arthuribjamee Lamas All medical record entries made by the Scribe were at my direction and personally dictated by me. I have reviewed the chart and agree that the record accurately reflects my personal performance of the history, physical exam, medical decision making, and the department course for this patient. I have also personally directed, reviewed, and agree with the discharge instructions and disposition. Decision To Admit - Pt Status Changed To: Hospital Disposition Of: Observation - . Bed Request Type: Telemetry Admitting Physician: Pollo Menchaca Patient Diagnosis: Dyspnea, Chest pain, Hiatal hernia
[2018-06-14 19:55] LABS: VENOUS BLOOD GAS BASE EXCESS 1.5 mmol/L (0.0-2.0); VENOUS BLOOD GAS PCO2 43 mmHg (40-60); VENOUS BLOOD GAS PO2 36 mm/Hg (30-55)
[2018-06-14 19:59] LABS: BASO % 0.6 % (0.0-2.0); EOS # 0.1 K/uL (0.0-0.7); EOS % 2.8 % (0.0-4.0); HEMOGLOBIN 12.7 g/dL (11.0-16.0); LYMPH # 1.7 K/uL (1.0-4.3); LYMPH % 32.4 % (20.0-40.0); MEAN CELL VOLUME 71.8 fL (81.0-99.0); MEAN CORPUSCULAR HGB CONC 32.1 g/dL (33.0-37.0); MEAN PLATELET VOLUME 8.9 fL (7.2-11.7); MONO # 0.3 K/uL (0.0-0.8); MONO % 6.5 % (0.0-10.0); NEUT % 57.7 % (50.0-75.0); RBC 5.5 Mil/uL (3.80-5.20); RED CELL DISTRIBUTION WIDTH 16.5 % (11.5-14.5); WHITE BLOOD COUNT 5.2 K/uL (4.8-10.8)
[2018-06-14 20:07] LABS: ALB/GLOB RATIO 1.4 (1.0-2.1); ALBUMIN 4.3 g/dL (3.5-5.0); ALT/SGPT 8 U/L (9-52); AST/SGOT 19 U/L (14-36); BLOOD UREA NITROGEN 19 mg/dL (7-17); CALCIUM 9.5 mg/dl (8.6-10.4); GFR NON-AFRICAN AMERICAN 55; INR 1.1; PROTHROMBIN TIME 11.8 SECONDS (9.7-12.2)
[2018-06-14 20:17] LABS: B-TYPE NATRIURETIC PEPTIDE 152 pg/mL (0-900)
--- NOTE | 2018-06-15 08:39 | RAD ---
Date of service: 06/14/2018 HISTORY: SOB COMPARISON: Portable chest 06/22/2017. TECHNIQUE: 1 view obtained. FINDINGS: LUNGS: No active pulmonary disease. PLEURA: No significant pleural effusion identified, no pneumothorax apparent. CARDIOVASCULAR: Calcific atherosclerotic changes are seen related to the thoracic aorta. Normal cardiac size. No pulmonary vascular congestion. OSSEOUS STRUCTURES: No significant abnormalities. VISUALIZED UPPER ABDOMEN: Normal. OTHER FINDINGS: None. IMPRESSION: No active disease.
[2018-06-15] MEDS ORDERED: Glucagon Recombinant 1 mg Inj IM PRN (09:09)
[2018-06-15] MEDS ORDERED: Dextrose 50% SYRINGE Inj (50 ml) IV PRN (09:09)
[2018-06-15 09:57] LABS: BASO % 0.8 % (0.0-2.0); EOS # 0.2 K/uL (0.0-0.7); EOS % 3.5 % (0.0-4.0); HEMOGLOBIN 11.5 g/dL (11.0-16.0); LYMPH # 1.6 K/uL (1.0-4.3); LYMPH % 34.1 % (20.0-40.0); MEAN CELL VOLUME 72.4 fL (81.0-99.0); MEAN CORPUSCULAR HEMOGLOBIN 23.4 pg (27.0-31.0); MEAN CORPUSCULAR HGB CONC 32.3 g/dL (33.0-37.0); MEAN PLATELET VOLUME 9.4 fL (7.2-11.7); MONO # 0.4 K/uL (0.0-0.8); MONO % 8.2 % (0.0-10.0); NEUT # 2.5 K/uL (1.8-7.0); NEUT % 53.4 % (50.0-75.0); NRBC % 0.1 % (0.0-2.0); RBC 4.9 Mil/uL (3.80-5.20); RED CELL DISTRIBUTION WIDTH 16.3 % (11.5-14.5); WHITE BLOOD COUNT 4.7 K/uL (4.8-10.8)
[2018-06-15] MEDS ORDERED: Ergocalciferol 50,000 Intl Units Cap PO SCH (10:00)
[2018-06-15] MEDS: Enoxaparin 40 mg Syringe SC SCH (10:02)
[2018-06-15 10:12] LABS: ALB/GLOB RATIO 1.4 (1.0-2.1); ALBUMIN 3.7 g/dL (3.5-5.0); ALT/SGPT 10 U/L (9-52); AST/SGOT 30 U/L (14-36); BLOOD UREA NITROGEN 21 mg/dL (7-17); CALCIUM 9.2 mg/dl (8.6-10.4); GFR NON-AFRICAN AMERICAN 55
[2018-06-15] MEDS: diltiaZEM 300 mg/24 Hours CD Cap PO SCH (10:33)
[2018-06-15] MEDS: Sucralfate 1 gm/10 ml Oral Susp UD PO SCH ×2 (12:20→18:05)
[2018-06-15] MEDS: (Novolog) Insulin Aspart, Recombinant 100 u/ml 10 ml vial SC SCH ×3 (12:46→21:51)
[2018-06-15] MEDS: Belladonna-Phenobarbital PO SCH ×2 (13:01→18:05)
[2018-06-15 13:06] LABS: AMYLASE 46 U/L (30-110); LIPASE 50 U/L (23-300)
--- NOTE | 2018-06-15 16:52 | CARD ---
APPROVED REPORT Date of service: 06/14/2018 EKG Measurement Heart [id number] <Conclusion> Normal sinus rhythm Nonspecific ST and T wave abnormality Abnormal ECG
--- NOTE | 2018-06-15 17:30 | PN ---
DATE: 06/15/2018 LOCATION: 650, bed A. SUBJECTIVE: This is a 73-year-old female seen and examined initially for GI consultation on 06/14/2018, reexamined again today with a complaint of lower extremities pain with edematous changes in addition to hyper-erythematous changes with redness with postprandial abdominal distention, mild shortness of breath, but no actual chest pain or palpitation. The entire chart is reviewed including but not limited to the most recent lab and radiology study results, current and the previous medication list, current and the previous medical events. Today's CBC showed normal value with low indices with BUN of 21, normal creatinine. Most recently done chest x-ray yesterday showed no active disease. PHYSICAL EXAMINATION: GENERAL: A 73-year-old female awake, alert, oriented. VITAL SIGNS: Afebrile with pulse 64, respiratory rate 20-22, and blood pressure 130/72. HEENT: Showed dry oral mucous membrane. Nonicteric sclerae. LUNGS: Few scattered crepitation. Decreased air entry at bases. HEART: Positive S1 and S2. ABDOMEN: Soft with [id number] distention with generalized tenderness. No mass or organomegaly. EXTREMITIES: With edematous changes as well as hyper-erythematous changes bilaterally, but mainly in the left lower extremities with bilateral knee tenderness. NEUROLOGICAL: No other reported new neurological deficits, sensory or motor. IMPRESSION: 1. Re-exacerbation of peptic ulcer disease. 2. Lower extremity cellulitis. 3. Rule out gastric versus duodenal ulcer. 4. Obesity, by history. 5. Past medical history as mentioned initially in the gastroenterology consultation. SUGGESTIONS: 1. Agree with your plan. 2. ID consultation. 3. Pulmonary consultation. 4. Orthopedic consultation. 5. p.o. Serum lipase, amylase level. 6. Further recommendations to follow. Moira Julio MD
[2018-06-16] MEDS: Sucralfate 1 gm/10 ml Oral Susp UD PO SCH ×4 (01:07→17:23)
--- NOTE | 2018-06-16 03:22 | HP ---
CHIEF COMPLAINT: Shortness of breath and bilateral knee pain. HISTORY OF PRESENT ILLNESS: This is a 73-year-old Haitian female with history of bronchial asthma, gastroesophageal reflux disease with multiple surgeries for GERD, hypertension, osteoarthritis, anxiety, stress. She is compliant with her diet, medication and followup. The patient has not been feeling well for last few days. She is having chest pain which is epigastric in nature, back pain, dyspepsia, nausea. No vomiting. The patient denies any history of hematemesis, melena, or hematochezia. She denies any history of fever or chills. She has cough. She has occasional wheezing. There is no history of trauma, fall, or loss of consciousness. She denies any history of seizure-like activity. She is also having bilateral knee pain, difficulty walking, difficulty ambulating. She has been seen by Orthopedics in the past, and she was advised orthopedic surgery with total knee replacement. The patient also is borderline diabetic and hypothyroid. She denies any vertigo. She denies any history of tingling, numbness, or paraesthesia. There is no history of trauma or fall. ALLERGIES: UNKNOWN ALLERGIES. PAST MEDICAL HISTORY: Diabetes, hypertension, hyperlipidemia, osteoarthritis, renal stones, unknown allergies. CURRENT MEDICATIONS: Vitamin D3, Sinemet, Binosto, Synthroid, metformin ER, Cardizem CD, Protonix, losartan. PHYSICAL EXAMINATION: GENERAL: An elderly female, in respiratory distress. VITAL SIGNS: Blood pressure 133/73, pulse 76, respiratory rate 18, temperature 97.7. SKIN: No bruises. No purpura. No petechiae. HEENT: Atraumatic and normocephalic. Negative pallor. Negative jaundice. Extraocular movements are intact. NECK: Supple. No JVD. No lymph nodes. LUNGS: Bilateral inspiratory and expiratory rhonchi. Decreased air entry. CARDIOVASCULAR SYSTEM: S1 and S2, regular. No heave. No thrill. ABDOMEN: Soft. Nontender. Bowel sounds are positive. RECTAL: No masses. No bleed. EXTREMITIES: No clubbing, cyanosis, or edema. CENTRAL NERVOUS SYSTEM: Awake, alert, and oriented x3. Cranial nerves II through XII are normal. Power 5/5 x4. Plantars are downgoing. ASSESSMENT: 1. Acute exacerbation of asthma, could be severe anxiety. 2. Osteoarthritis of bilateral knees. 3. Gastroesophageal reflux disease. 4. Type 2 diabetes. PLAN: Admit. Detailed orders are written. Seen and examined. Krystian Spears MD
[2018-06-16 06:15] LABS: SQUAMOUS EPITHIAL < 1 /hpf (0-5); URINE BACTERIA MANY (<OCC); URINE BILIRUBIN NEGATIVE (NEGATIVE); URINE BLOOD NEGATIVE (NEGATIVE); URINE CLARITY Clear (Clear); URINE COLOR Straw (YELLOW); URINE GLUCOSE (UA) NORMAL (Normal); URINE LEUKOCYTE ESTERASE NEG Leu/uL (Negative); URINE PROTEIN NEGATIVE (NEGATIVE); URINE UROBILINOGEN NORMAL mg/dL (0.2-1.0)
[2018-06-16] MEDS: Levothyroxine 125 MCG TAB PO SCH (06:22)
[2018-06-16] MEDS: (Novolog) Insulin Aspart, Recombinant 100 u/ml 10 ml vial SC SCH ×4 (07:26→22:00)
--- NOTE | 2018-06-16 07:57 | CP.PCM.CON ---
History of Present Illness - History of Present Illness History of Present Illness: Orthopedic consultation Dr. Farrell 73F complains of B knee pain R>L for many years. She also complains of swelling in her knees. She says she saw Dr. Alvarez for same complaints and her gave her medication per patient. She says it is too much pain to walk. She is admitted for worsening shortness of breath. Review of Systems - Review of Systems All systems: reviewed and no additional remarkable complaints except - Musculoskeletal Musculoskeletal: As Per HPI Past Patient History - Infectious Disease Hx of Infectious Diseases: None - Past Medical History & Family History Past Medical History?: Yes Past Family History: Reviewed and not pertinent - Past Social History Smoking Status: Unknown If Ever Smoked - CARDIAC Hx Hypertension: Yes - PULMONARY Hx Respiratory Disorders: No - NEUROLOGICAL Hx Neurological Disorder: No - RENAL Hx Kidney Stones: Yes - ENDOCRINE/METABOLIC Hx Hypothyroidism: Yes - MUSCULOSKELETAL/RHEUMATOLOGICAL Hx Arthritis: Yes - PSYCHIATRIC Hx Substance Use: No - SURGICAL HISTORY Hx Herniorrhaphy: Yes Hx Thyroidectomy: Yes - ANESTHESIA Hx Anesthesia: Yes Hx Anesthesia Reactions: No Hx Malignant Hyperthermia: No Meds Allergies/Adverse Reactions: Allergies Allergy/AdvReac Type Severity Reaction Status Date / Time No Known Allergies Allergy Verified 06/14/18 19:24 - Medications Medications: Current Medications Belladonna/Phenobarbital () 1 tab PO TID [facility] Last Admin: 06/15/18 18:05 Dose: 1 tab Carbidopa/Levodopa (Sinemet 10/100) 1 tab PO TID [facility] Last Admin: 06/15/18 18:05 Dose: 1 tab Dextrose (Dextrose 50% Inj) 0 ml IV STAT PRN; Protocol PRN Reason: Hypoglycemia Protocol Dextrose (Glutose 15) 0 gm PO ONCE PRN; Protocol PRN Reason: Hypoglycemia Protocol Diltiazem HCl (Cardizem Cd) 300 mg PO DAILY [facility] Last Admin: 06/15/18 10:33 Dose: 300 mg Enoxaparin Sodium (Lovenox) 40 mg SC DAILY [facility] Last Admin: 06/15/18 10:02 Dose: 40 mg Ergocalciferol (Drisdol 50,000 Intl Units Cap) 1 cap PO QWK [facility] Last Admin: 06/15/18 10:13 Dose: 1 cap Gabapentin (Neurontin) 300 mg PO BID [facility] Last Admin: 06/15/18 18:05 Dose: 300 mg Glucagon (Glucagen Diagnostic Kit) 0 mg IM STAT PRN; Protocol PRN Reason: Hypoglycemia Protocol Dextrose (Dextrose 5% In Water 1000 Ml) 1,000 mls @ 0 mls/hr IV .Q0M PRN; Protocol PRN Reason: Hypoglycemia Protocol Insulin Aspart (Novolog) 0 unit SC ACHS [facility]; Protocol Last Admin: 06/16/18 07:26 Dose: Not Given Levothyroxine Sodium (Synthroid) 125 mcg PO DAILY@0630 [facility] Last Admin: 06/16/18 06:22 Dose: 125 mcg Losartan Potassium (Cozaar) 100 mg PO DAILY [facility] Last Admin: 06/15/18 10:03 Dose: 100 mg Ondansetron HCl (Zofran Inj) 4 mg IVP Q6 PRN PRN Reason: Nausea/Vomiting Pantoprazole Sodium (Protonix Inj) 40 mg IVP DAILY [facility] Last Admin: 06/15/18 10:02 Dose: 40 mg Sucralfate (Carafate Oral Susp) 1 gm PO Q6 [facility] Last Admin: 06/16/18 06:22 Dose: 1 gm Physical Exam - Constitutional Appears: Well, No Acute Distress - Head Exam Head Exam: ATRAUMATIC - Respiratory Exam Respiratory Exam: NORMAL BREATHING PATTERN - Expanded Lower Extremities Exam Right Ankle exam: FULL ROM Neuro vacular tendon exam: no vascular compromise (generalized tenderness to knee, lower leg, calf bilaterally, no gross joint effusion, no gross instability, no erythema) - Neurological Exam Neurological exam: Alert, Oriented x3 - Psychiatric Exam Psychiatric exam: Normal Affect, Normal Mood - Skin Skin Exam: Dry, Intact, Normal Color, Warm Results - Vital Signs Recent Vital Signs: Last Vital Signs Temp 98 F 06/15/18 23:00 Pulse 101 H 06/16/18 04:40 Resp 20 06/15/18 23:00 BP 147/73 06/15/18 23:00 Pulse Ox 96 06/15/18 23:00 - Labs Result Diagrams: 06/15/18 09:47 06/15/18 09:47 Labs: Laboratory Results - last 24 hr 06/15/18 06/15/18 06/15/18 09:47 09:47 12:45 WBC 4.7 L RBC 4.90 Hgb 11.5 Hct 35.4 MCV 72.4 L MCH 23.4 L MCHC 32.3 L RDW 16.3 H Plt Count 190 MPV 9.4 Neut % (Auto) 53.4 Lymph % (Auto) 34.1 [place] % (Auto) 8.2 Eos % (Auto) 3.5 Baso % (Auto) 0.8 Neut # (Auto) 2.5 Lymph # (Auto) 1.6 [place] # (Auto) 0.4 Eos # (Auto) 0.2 Baso # (Auto) 0.0 Sodium 137 Potassium 4.4 Chloride 102 Carbon Dioxide 27 Anion Gap 12 BUN 21 H Creatinine 1.0 Est GFR ( Amer) > 60 Est GFR (Non-Af Amer) 55 POC Glucose (mg/dL) 139 H Random Glucose 87 Calcium 9.2 Phosphorus 3.5 Magnesium 1.9 Total Bilirubin 0.5 AST 30 ALT 10 Alkaline Phosphatase 89 Total Protein 6.4 Albumin 3.7 Globulin 2.7 Albumin/Globulin Ratio 1.4 Amylase 46 Lipase 50 CA 19-9 Antigen 13.7 CA 125 Antigen < 5.5 Urine Color Urine Clarity Urine pH Ur Specific [place] Urine Protein Urine Glucose (UA) Urine Ketones Urine Blood Urine Nitrate Urine Bilirubin Urine Urobilinogen Ur Leukocyte Esterase Urine WBC (Auto) Ur Squamous Epith Cells Urine Bacteria 06/15/18 06/15/18 06/16/18 16:34 21:03 05:55 WBC RBC Hgb Hct MCV MCH MCHC RDW Plt Count MPV Neut % (Auto) Lymph % (Auto) [place] % (Auto) Eos % (Auto) Baso % (Auto) Neut # (Auto) Lymph # (Auto) [place] # (Auto) Eos # (Auto) Baso # (Auto) Sodium Potassium Chloride Carbon Dioxide Anion Gap BUN Creatinine Est GFR ( Amer) Est GFR (Non-Af Amer) POC Glucose (mg/dL) 106 103 Random Glucose Calcium Phosphorus Magnesium Total Bilirubin AST ALT Alkaline Phosphatase Total Protein Albumin Globulin Albumin/Globulin Ratio Amylase Lipase CA 19-9 Antigen CA 125 Antigen Urine Color Straw Urine Clarity Clear Urine pH 7.0 Ur Specific [place] 1.006 Urine Protein Negative Urine Glucose (UA) Normal Urine Ketones Negative Urine Blood Negative Urine Nitrate Negative Urine Bilirubin Negative Urine Urobilinogen Normal Ur Leukocyte Esterase Neg Urine WBC (Auto) < 1 Ur Squamous Epith Cells < 1 Urine Bacteria Many H 06/16/18 06:04 WBC RBC Hgb Hct MCV MCH MCHC RDW Plt Count MPV Neut % (Auto) Lymph % (Auto) [place] % (Auto) Eos % (Auto) Baso % (Auto) Neut # (Auto) Lymph # (Auto) [place] # (Auto) Eos # (Auto) Baso # (Auto) Sodium Potassium Chloride Carbon Dioxide Anion Gap BUN Creatinine Est GFR ( Amer) Est GFR (Non-Af Amer) POC Glucose (mg/dL) 118 H Random Glucose Calcium Phosphorus Magnesium Total Bilirubin AST ALT Alkaline Phosphatase Total Protein Albumin Globulin Albumin/Globulin Ratio Amylase Lipase CA 19-9 Antigen CA 125 Antigen Urine Color Urine Clarity Urine pH Ur Specific [place]erry Urine Protein Urine Glucose (UA) Urine Ketones Urine Blood Urine Nitrate Urine Bilirubin Urine Urobilinogen Ur Leukocyte Esterase Urine WBC (Auto) Ur Squamous Epith Cells Urine Bacteria - Impressions Impression: atient Name / ID : ALMAS JORDAN R / [id number] Exam Date : 06/16/2018 11:59:08 ( Approved ) Study Comment : Sex / Age : F / 73Y Creator : Perlita Casillas Dictator : Maicol Coyle MD Head Of Research & Insights : Taffy Puller : Maicol Coyle MD Approver2 : Report Date : 06/16/2018 12:35:59 My Comment : CT right knee HISTORY: Knee pain. Injury. COMPARISON: X-ray dated 06/16/2018 Technique: Multiple contiguous axial images were performed through the right knee without the use of intravenous contrast. Subsequently, sagittal and coronal reformatted images were obtained. This CT exam was performed using one or more of the following dose reduction techniques: Automated exposure control, adjustment of the mA and/or kV according to patient size, and/or use of iterative reconstruction technique. Findings: Severe medial compartment joint space narrowing with subchondral sclerosis as well as some articular surface remodeling of the medial femoral condyle and adjacent prominent osteophytosis. Prominent osteophyte and or small bony exostosis emanating from the posterior medial femoral condyle as demonstrated on series 2, image 41 measuring 1.1 centimeters. At the posterior medial proximal tibia, at the articular surface, demonstrated on series 601, image 75 as well as series 602, image 89, there is a small vertically oriented linear lucency which is nonspecific. This may be related to adjacent osteophytosis however subtle osseous injury at this level cannot entirely be excluded. Correlation with MRI may be helpful if clinically indicated. Moderate lateral compartment joint space narrowing of the femorotibial joint space. At the articular surface of the medial aspect of the lateral posterior proximal tibia, there is a transverse obliquely oriented linear lucency best demonstrated on series 602, images 65 and 66 with adjacent productive change. This may be the sequelae of osteochondral change and or osteophytosis; however, subtle osseous injury at this level cannot entirely be excluded. Clinical correlation. Correlation with MRI may be helpful if clinically indicated. Prominent 1.6 centimeter loose osteochondral body at the posterior aspect of the femorotibial joint space. Small to moderate suprapatellar joint effusion. Moderate patellofemoral compartment joint space narrowing with subchondral sclerosis. Prominent varicosities noted within the medial subcutaneous soft tissues. Impression: 1. Severe medial compartment joint space narrowing with subchondral sclerosis as well as some articular surface remodeling of the medial femoral condyle and adjacent prominent osteophytosis. Prominent osteophyte and or small bony exostosis emanating from the posterior medial femoral condyle as demonstrated on series 2, image 41 measuring 1.1 centimeters. 2. At the posterior medial proximal tibia, at the articular surface, demonstrated on series 601, image 75 as well as series 602, image 89, there is a small vertically oriented linear lucency which is nonspecific. This may be related to adjacent osteophytosis however subtle osseous injury at this level cannot entirely be excluded. Correlation with MRI may be helpful if clinically indicated. 3. Moderate lateral compartment joint space narrowing of the femorotibial joint space. At the articular surface of the medial aspect of the lateral posterior proximal tibia, there is a transverse obliquely oriented linear lucency best demonstrated on series 602, images 65 and 66 with adjacent productive change. This may be the sequelae of osteochondral change and or osteophytosis; however, subtle osseous injury at this level cannot entirely be excluded. Clinical correlation. Correlation with MRI may be helpful if clinically indicated. 4. Prominent 1.6 centimeter loose osteochondral body at the posterior aspect of the femorotibial joint space. 5. Small to moderate suprapatellar joint effusion. 6. Moderate patellofemoral compartment joint space narrowing with subchondral sclerosis. 7. Prominent varicosities noted within the medial subcutaneous soft tissues. If pain persists, consider correlation with MRI. atient Name / ID : ALMAS JORDAN R / [id number] Exam Date : 06/16/2018 08:47:21 ( Approved ) Study Comment : Sex / Age : F / 73Y Creator : Aleyda Gustafson Dictator : Aleyda Gustafson Head Of Research & Insights : Taffy Puller : Aleyda Gustafson Approver2 : Report Date : 06/16/2018 11:23:00 My Comment : Date of service: 06/16/2018 PROCEDURE: Bilateral Knee Radiographs. HISTORY: B knee pain COMPARISON: None. TECHNIQUE: 4 views obtained. FINDINGS: BONES: Right Knee: No fracture appreciated Left Knee: No fracture appreciated. JOINTS: Right Knee: Arthrosis the tricompartmental osteoarthrosis of the right knee is much more advanced than the left. Right varus orientation. Left knee: Arthrosis SOFT TISSUES: Right Knee: Overall body habitus is prominent Left Knee: Overall body habitus is prominent there is perceived slight increased density to the left prepatellar soft tissues here a possible bursitis is question. The appearance could also be due to technique. Clinical correlation here with physical exam is advised. JOINT EFFUSION: Right Knee: None. Left Knee: None. OTHER FINDINGS: The left patellar height is more superior than the right a mild left patellar Leigha is a consideration. IMPRESSION: No fracture or lytic lesion. Bilateral arthrosis-right knee greater than left. Other findings as above. Assessment & Plan (1) Knee pain, bilateral Assessment and Plan: knee xrays dopplers BLE r/o DVT PT/OT VTE proph d/w Dr. Farrell, agrees with above dopplers neg for DVT xrays show extensive tricompartmental DJD CT scan report reviewed, clinically no acute fracture, just degenerative changes indicated for total knee replacement translation device used. Discussed with patient at length regarding risks/benefits/alt of TKR. She has failed conservative measures including PT and injecitons. Patient agrees to procedure, she is unsure if she is ready at this time. will schedule for Wednesday if patient still in house, if patient to be discharged, then she can follow up in office as outpatient to schedule knee replacment. Status: Acute
[2018-06-16 07:58] VITALS: BMI 34.0
--- NOTE | 2018-06-16 09:47 | PN ---
DATE: 06/16/2018 LOCATION: 670, bed A SUBJECTIVE: This is a 73-year-old female seen and examined in rounds with intermittent period of abdominal pain as well as lower extremities and lower back severe pain with still evidence of hypererythematous changes of the lower extremities, especially the left lower, indicative of cellulitis. No reported actual chest pain or palpitation, but intermittent period of shortness of breath. No reported active GI bleeding, but persistent nausea with dyspepsia with a complaint of mid epigastric and mid abdominal pain. The entire chart is reviewed including the most recent lab and radiologic study results and today's lab results showed blood glucose level of 116. Rest of the lab results still pending. PHYSICAL EXAMINATION: GENERAL: A 73-year-old female. VITAL SIGNS: Afebrile with pulse of 98, respiratory rate 20-22, blood pressure 140/70. HEENT: Showed pale, dry, oral mucous membrane, nonicteric sclerae. LUNGS: Few scattered crepitation. Decreased air entry at bases. HEART: Positive S1 and S2. ABDOMEN: Soft with mild generalized tenderness mainly in the mid epigastric and mid abdominal line. No mass or organomegaly. No rebound tenderness or guarding. EXTREMITIES: With edematous changes as well as hypererythematous changes. The patient's left lower extremity is indicative of cellulitis with bilateral knee tenderness. No clubbing or cyanosis. NEUROLOGICAL: No reported new neurological deficits, sensory or motor. IMPRESSION: 1. Lower extremity cellulitis, especially the left side. 2. The patient with peptic ulcer disease, rule out gastric versus duodenal ulcer. 3. Obesity by history. 4. Past medical history including, but not limited to severe anxiety syndrome, hypertension with hypothyroidism as well as renal stones with osteoarthritis. 5. Poorly-controlled diabetes mellitus. SUGGESTIONS: 1. Continue current management. The patient will need orthopedic evaluation. 2. IV antibiotics with possible p.o. vancomycin. 3. tab p.o. with . 4. PPI IV. 5. The patient may need endoscopic evaluation of the upper GI tract only when she is more stable clinically. Otherwise, close observation to follow. Moira Julio MD
[2018-06-16] MEDS: diltiaZEM 300 mg/24 Hours CD Cap PO SCH (11:00)
[2018-06-16] MEDS: Enoxaparin 40 mg Syringe SC SCH (11:00)
--- NOTE | 2018-06-16 11:28 | RAD ---
Date of service: 06/16/2018 PROCEDURE: Bilateral Knee Radiographs. HISTORY: B knee pain COMPARISON: None. TECHNIQUE: 4 views obtained. FINDINGS: BONES: Right Knee: No fracture appreciated Left Knee: No fracture appreciated. JOINTS: Right Knee: Arthrosis the tricompartmental osteoarthrosis of the right knee is much more advanced than the left. Right varus orientation. Left knee: Arthrosis SOFT TISSUES: Right Knee: Overall body habitus is prominent Left Knee: Overall body habitus is prominent there is perceived slight increased density to the left prepatellar soft tissues here a possible bursitis is question. The appearance could also be due to technique. Clinical correlation here with physical exam is advised. JOINT EFFUSION: Right Knee: None. Left Knee: None. OTHER FINDINGS: The left patellar height is more superior than the right a mild left patellar [place] is a consideration. IMPRESSION: No fracture or lytic lesion. Bilateral arthrosis-right knee greater than left. Other findings as above.
[2018-06-16] MEDS: Belladonna-Phenobarbital PO SCH ×3 (12:00→17:24)
--- NOTE | 2018-06-16 13:50 | CT ---
CT right knee HISTORY: Knee pain. Injury. COMPARISON: X-ray dated 06/16/2018 Technique: Multiple contiguous axial images were performed through the right knee without the use of intravenous contrast. Subsequently, sagittal and coronal reformatted images were obtained. This CT exam was performed using one or more of the following dose reduction techniques: Automated exposure control, adjustment of the mA and/or kV according to patient size, and/or use of iterative reconstruction technique. Findings: Severe medial compartment joint space narrowing with subchondral sclerosis as well as some articular surface remodeling of the medial femoral condyle and adjacent prominent osteophytosis. Prominent osteophyte and or small bony exostosis emanating from the posterior medial femoral condyle as demonstrated on series 2, image 41 measuring 1.1 centimeters. At the posterior medial proximal tibia, at the articular surface, demonstrated on series 601, image 75 as well as series 602, image 89, there is a small vertically oriented linear lucency which is nonspecific. This may be related to adjacent osteophytosis however subtle osseous injury at this level cannot entirely be excluded. Correlation with MRI may be helpful if clinically indicated. Moderate lateral compartment joint space narrowing of the femorotibial joint space. At the articular surface of the medial aspect of the lateral posterior proximal tibia, there is a transverse obliquely oriented linear lucency best demonstrated on series 602, images 65 and 66 with adjacent productive change. This may be the sequelae of osteochondral change and or osteophytosis; however, subtle osseous injury at this level cannot entirely be excluded. Clinical correlation. Correlation with MRI may be helpful if clinically indicated. Prominent 1.6 centimeter loose osteochondral body at the posterior aspect of the femorotibial joint space. Small to moderate suprapatellar joint effusion. Moderate patellofemoral compartment joint space narrowing with subchondral sclerosis. Prominent varicosities noted within the medial subcutaneous soft tissues. Impression: 1. Severe medial compartment joint space narrowing with subchondral sclerosis as well as some articular surface remodeling of the medial femoral condyle and adjacent prominent osteophytosis. Prominent osteophyte and or small bony exostosis emanating from the posterior medial femoral condyle as demonstrated on series 2, image 41 measuring 1.1 centimeters. 2. At the posterior medial proximal tibia, at the articular surface, demonstrated on series 601, image 75 as well as series 602, image 89, there is a small vertically oriented linear lucency which is nonspecific. This may be related to adjacent osteophytosis however subtle osseous injury at this level cannot entirely be excluded. Correlation with MRI may be helpful if clinically indicated. 3. Moderate lateral compartment joint space narrowing of the femorotibial joint space. At the articular surface of the medial aspect of the lateral posterior proximal tibia, there is a transverse obliquely oriented linear lucency best demonstrated on series 602, images 65 and 66 with adjacent productive change. This may be the sequelae of osteochondral change and or osteophytosis; however, subtle osseous injury at this level cannot entirely be excluded. Clinical correlation. Correlation with MRI may be helpful if clinically indicated. 4. Prominent 1.6 centimeter loose osteochondral body at the posterior aspect of the femorotibial joint space. 5. Small to moderate suprapatellar joint effusion. 6. Moderate patellofemoral compartment joint space narrowing with subchondral sclerosis. 7. Prominent varicosities noted within the medial subcutaneous soft tissues. If pain persists, consider correlation with MRI.
--- NOTE | 2018-06-16 14:03 | VASCLAB ---
Date of service: 06/16/2018 PROCEDURE: Lower Extremity Venous Duplex Exam. HISTORY: B leg swelling PRIORS: None. TECHNIQUE: Bilateral common femoral, femoral, popliteal and posterior tibial, peroneal and great saphenous veins were evaluated. Flow was assessed with color Doppler, compressibility, assessment of phasic flow and augmentation response. Report prepared by [employer] FINDINGS: RIGHT: 1. Common Femoral Vein: 1.1. Compressibility - Fully compressible: Thrombus - None : Flow - Phasic: Augmentation -Normal: Reflux - None. 2. Femoral Vein: 2.1. Compressibility - Fully compressible: Thrombus - None : Flow - Phasic: Augmentation -Normal: Reflux - None. 3. Popliteal Vein: 3.1. Compressibility - Fully compressible: Thrombus - None : Flow - Phasic: Augmentation -Normal: Reflux - None. 4. Posterior Tibial Vein: 4.1. Compressibility - Fully compressible: Thrombus - None: Flow - Phasic: Augmentation -Normal: Reflux - None. 5. Peroneal Vein: 5.1. Compressibility - Fully compressible: Thrombus - None: Flow - Phasic: Augmentation -Normal: Reflux - None. 6. Great Saphenous Vein: 6.1. Compressibility - Fully compressible: Thrombus - None: Flow - Phasic: Augmentation - Normal: Reflux - None. LEFT: 1. Common Femoral Vein: 1.1. Compressibility - Fully compressible: Thrombus - None: Flow - Phasic: Augmentation -Normal: Reflux - None. 2. Femoral Vein: 2.1. Compressibility - Fully compressible: Thrombus - None: Flow - Phasic: Augmentation -Normal: Reflux - None. 3. Popliteal Vein: 3.1. Compressibility - Fully compressible: Thrombus - None : Flow - Phasic: Augmentation -Normal: Reflux - None. 4. Posterior Tibial Vein: 4.1. Compressibility - Fully compressible: Thrombus - None: Flow - Phasic: Augmentation -Normal: Reflux - None. 5. Peroneal Vein: 5.1. Unable to visualize due to swelling. 6. Great Saphenous Vein: 6.1. Compressibility - Fully compressible: Thrombus - None: Flow - Phasic: Augmentation - Normal: Reflux - None. OTHER FINDINGS: None significant. IMPRESSION: Right: No evidence of deep or superficial vein thrombosis of the right lower extremity. Normal valve function noted of the right side. Left: No evidence of deep or superficial vein thrombosis of the left lower extremity, as visualized. Normal valve function noted of the left side.
--- NOTE | 2018-06-16 16:53 | CP.PCM.PN ---
Subjective - Date & Time of Evaluation Date of Evaluation: 06/16/18 Time of Evaluation: 16:00 Objective - Vital Signs/Intake and Output Vital Signs (last 24 hours): Temp Pulse Resp BP Pulse Ox 98 F 80 18 124/79 97 06/16/18 15:40 06/16/18 15:40 06/16/18 15:40 06/16/18 15:40 06/16/18 15:40 Intake and Output: 06/16/18 06/16/18 06:59 18:59 Intake Total 420 450 Balance 420 450 - Medications Medications: Current Medications Belladonna/Phenobarbital () 1 tab PO TID [facility] Last Admin: 06/16/18 14:56 Dose: 1 tab Carbidopa/Levodopa (Sinemet ) 1 tab PO TID [facility] Last Admin: 06/16/18 13:05 Dose: 1 tab Dextrose (Dextrose 50% Inj) 0 ml IV STAT PRN; Protocol PRN Reason: Hypoglycemia Protocol Dextrose (Glutose 15) 0 gm PO ONCE PRN; Protocol PRN Reason: Hypoglycemia Protocol Diltiazem HCl (Cardizem Cd) 300 mg PO DAILY [facility] Last Admin: 06/16/18 11:00 Dose: 300 mg Enoxaparin Sodium (Lovenox) 40 mg SC DAILY [facility] Last Admin: 06/16/18 11:00 Dose: 40 mg Ergocalciferol (Drisdol 50,000 Intl Units Cap) 1 cap PO QWK [facility] Last Admin: 06/15/18 10:13 Dose: 1 cap Gabapentin (Neurontin) 300 mg PO BID [facility] Last Admin: 06/16/18 11:00 Dose: 300 mg Glucagon (Glucagen Diagnostic Kit) 0 mg IM STAT PRN; Protocol PRN Reason: Hypoglycemia Protocol Dextrose (Dextrose 5% In Water 1000 Ml) 1,000 mls @ 0 mls/hr IV .Q0M PRN; Protocol PRN Reason: Hypoglycemia Protocol Cefepime HCl 1 gm/ Dextrose 50 mls @ 100 mls/hr IVPB Q12H [facility]; Protocol Insulin Aspart (Novolog) 0 unit SC ACHS [facility]; Protocol Last Admin: 06/16/18 12:00 Dose: Not Given Levothyroxine Sodium (Synthroid) 125 mcg PO DAILY@0630 [facility] Last Admin: 06/16/18 06:22 Dose: 125 mcg Losartan Potassium (Cozaar) 100 mg PO DAILY [facility] Last Admin: 06/16/18 11:00 Dose: 100 mg Ondansetron HCl (Zofran Inj) 4 mg IVP Q6 PRN PRN Reason: Nausea/Vomiting Pantoprazole Sodium (Protonix Inj) 40 mg IVP DAILY [facility] Last Admin: 06/16/18 11:00 Dose: 40 mg Sucralfate (Carafate Oral Susp) 1 gm PO Q6 [facility] Last Admin: 06/16/18 11:00 Dose: 1 gm - Labs Labs: 06/15/18 09:47 06/15/18 09:47 PT 11.8 SECONDS (9.7-12.2) 06/14/18 19:47 INR 1.1 06/14/18 19:47 APTT 33 SECONDS (21-34) 06/14/18 19:47
--- NOTE | 2018-06-16 22:31 | CP.PCM.PN ---
Subjective - Date & Time of Evaluation Date of Evaluation: 06/16/18 Time of Evaluation: 07:20 - Subjective Subjective: dictated Objective - Vital Signs/Intake and Output Vital Signs (last 24 hours): Temp Pulse Resp BP Pulse Ox 98 F 80 18 124/79 97 06/16/18 15:40 06/16/18 15:40 06/16/18 15:40 06/16/18 15:40 06/16/18 15:40 Intake and Output: 06/16/18 06/17/18 18:59 06:59 Intake Total 450 500 Balance 450 500 - Medications Medications: Current Medications Belladonna/Phenobarbital () 1 tab PO TID [facility] Last Admin: 06/16/18 17:24 Dose: 1 tab Carbidopa/Levodopa (Sinemet ) 1 tab PO TID [facility] Last Admin: 06/16/18 17:24 Dose: 1 tab Dextrose (Dextrose 50% Inj) 0 ml IV STAT PRN; Protocol PRN Reason: Hypoglycemia Protocol Dextrose (Glutose 15) 0 gm PO ONCE PRN; Protocol PRN Reason: Hypoglycemia Protocol Diltiazem HCl (Cardizem Cd) 300 mg PO DAILY [facility] Last Admin: 06/16/18 11:00 Dose: 300 mg Enoxaparin Sodium (Lovenox) 40 mg SC DAILY [facility] Last Admin: 06/16/18 11:00 Dose: 40 mg Ergocalciferol (Drisdol 50,000 Intl Units Cap) 1 cap PO QWK [facility] Last Admin: 06/15/18 10:13 Dose: 1 cap Gabapentin (Neurontin) 300 mg PO BID [facility] Last Admin: 06/16/18 17:23 Dose: 300 mg Glucagon (Glucagen Diagnostic Kit) 0 mg IM STAT PRN; Protocol PRN Reason: Hypoglycemia Protocol Dextrose (Dextrose 5% In Water 1000 Ml) 1,000 mls @ 0 mls/hr IV .Q0M PRN; Protocol PRN Reason: Hypoglycemia Protocol Cefepime HCl 1 gm/ Dextrose 50 mls @ 100 mls/hr IVPB Q12H [facility]; Protocol Last Admin: 06/16/18 18:47 Dose: 100 mls/hr Insulin Aspart (Novolog) 0 unit SC ACHS [facility]; Protocol Last Admin: 06/16/18 22:00 Dose: Not Given Levothyroxine Sodium (Synthroid) 125 mcg PO DAILY@0630 [facility] Last Admin: 06/16/18 06:22 Dose: 125 mcg Losartan Potassium (Cozaar) 100 mg PO DAILY [facility] Last Admin: 06/16/18 11:00 Dose: 100 mg Ondansetron HCl (Zofran Inj) 4 mg IVP Q6 PRN PRN Reason: Nausea/Vomiting Pantoprazole Sodium (Protonix Inj) 40 mg IVP DAILY [facility] Last Admin: 06/16/18 11:00 Dose: 40 mg Sucralfate (Carafate Oral Susp) 1 gm PO Q6 [facility] Last Admin: 06/16/18 17:23 Dose: 1 gm - Labs Labs: 06/15/18 09:47 06/15/18 09:47 PT 11.8 SECONDS (9.7-12.2) 06/14/18 19:47 INR 1.1 06/14/18 19:47 APTT 33 SECONDS (21-34) 06/14/18 19:47
[2018-06-17 00:57] VITALS: BP 126/88; PULSE 60; RESP 20; TEMP 98.2; O2SAT 99
[2018-06-17] MEDS: Sucralfate 1 gm/10 ml Oral Susp UD PO SCH ×4 (01:13→17:37)
--- NOTE | 2018-06-17 02:42 | PN ---
DATE: 06/16/2018 SUBJECTIVE: The patient has bilateral leg pain, redness and swelling of the leg, difficulty walking. She is limping. redness and swelling is in bilateral calf area. No fever, no chills. She had body aches and malaise. There is no nausea or vomiting. She is anxious. PHYSICAL EXAMINATION: VITAL SIGNS: Blood pressure 124/79, pulse 80, respiratory rate 18, and temperature 98. LUNGS: Clear. Decreased air entry. CARDIOVASCULAR SYSTEM: S1 and S2. Regular. ABDOMEN: Soft. EXTREMITIES: Legs, bilateral erythema on the calf area with redness, tenderness. ASSESSMENT: 1. Cellulitis of bilateral lower extremities. 2. Osteoarthritis. 3. Hypertension. 4. Dyspnea. PLAN: Start the patient on for cellulitis of leg. Continue to monitor leg for infection. Cardiac eval. Monitor the patient. Krystian Spears MD
[2018-06-17] MEDS: Levothyroxine 125 MCG TAB PO SCH (05:36)
[2018-06-17] MEDS: (Novolog) Insulin Aspart, Recombinant 100 u/ml 10 ml vial SC SCH ×3 (07:30→17:00)
--- NOTE | 2018-06-17 08:10 | CP.PCM.PN ---
Subjective - Date & Time of Evaluation Date of Evaluation: 06/17/18 Time of Evaluation: 08:10 - Subjective Subjective: Patient with continued knee pain. No new complaints. Objective - Vital Signs/Intake and Output Vital Signs (last 24 hours): Temp Pulse Resp BP Pulse Ox 98.2 F 60 20 126/88 99 06/16/18 23:25 06/16/18 23:25 06/16/18 23:25 06/16/18 23:25 06/16/18 23:25 Intake and Output: 06/17/18 06/17/18 06:59 18:59 Intake Total 500 Balance 500 - Medications Medications: Current Medications Belladonna/Phenobarbital () 1 tab PO TID [facility] Last Admin: 06/16/18 17:24 Dose: 1 tab Carbidopa/Levodopa (Sinemet ) 1 tab PO TID [facility] Last Admin: 06/16/18 17:24 Dose: 1 tab Dextrose (Dextrose 50% Inj) 0 ml IV STAT PRN; Protocol PRN Reason: Hypoglycemia Protocol Dextrose (Glutose 15) 0 gm PO ONCE PRN; Protocol PRN Reason: Hypoglycemia Protocol Diltiazem HCl (Cardizem Cd) 300 mg PO DAILY [facility] Last Admin: 06/16/18 11:00 Dose: 300 mg Enoxaparin Sodium (Lovenox) 40 mg SC DAILY [facility] Last Admin: 06/16/18 11:00 Dose: 40 mg Ergocalciferol (Drisdol 50,000 Intl Units Cap) 1 cap PO QWK [facility] Last Admin: 06/15/18 10:13 Dose: 1 cap Gabapentin (Neurontin) 300 mg PO BID [facility] Last Admin: 06/16/18 17:23 Dose: 300 mg Glucagon (Glucagen Diagnostic Kit) 0 mg IM STAT PRN; Protocol PRN Reason: Hypoglycemia Protocol Dextrose (Dextrose 5% In Water 1000 Ml) 1,000 mls @ 0 mls/hr IV .Q0M PRN; Protocol PRN Reason: Hypoglycemia Protocol Cefepime HCl 1 gm/ Dextrose 50 mls @ 100 mls/hr IVPB Q12H [facility]; Protocol Last Admin: 06/17/18 05:30 Dose: 100 mls/hr Insulin Aspart (Novolog) 0 unit SC ACHS [facility]; Protocol Last Admin: 06/16/18 22:00 Dose: Not Given Levothyroxine Sodium (Synthroid) 125 mcg PO DAILY@0630 [facility] Last Admin: 06/17/18 05:36 Dose: 125 mcg Losartan Potassium (Cozaar) 100 mg PO DAILY [facility] Last Admin: 06/16/18 11:00 Dose: 100 mg Ondansetron HCl (Zofran Inj) 4 mg IVP Q6 PRN PRN Reason: Nausea/Vomiting Pantoprazole Sodium (Protonix Inj) 40 mg IVP DAILY [facility] Last Admin: 06/16/18 11:00 Dose: 40 mg Sucralfate (Carafate Oral Susp) 1 gm PO Q6 [facility] Last Admin: 06/17/18 05:31 Dose: 1 gm - Labs Labs: 06/15/18 09:47 06/15/18 09:47 PT 11.8 SECONDS (9.7-12.2) 06/14/18 19:47 INR 1.1 06/14/18 19:47 APTT 33 SECONDS (21-34) 06/14/18 19:47 - Extremities Exam Additional comments: RLE+ROM ankle/toes, sensation intact +DP/PT pulses, noted hyperpigmented area 1cm round to anterior leg, no erythema, calves soft NT neg homans Assessment and Plan (1) Degenerative arthritis of right knee Assessment & Plan: dopplers neg for DVT xrays show extensive tricompartmental DJD CT scan report reviewed, clinically no acute fracture, just degenerative changes indicated for total knee replacement She has failed conservative measures including PT and injecitons. Patient agrees to procedure, she is unsure if she is ready at this time. will schedule for Wednesday if patient still in house, if patient to be discharged, then she can follow up in office as outpatient to schedule knee replacement. Status: Acute
[2018-06-17] MEDS: Belladonna-Phenobarbital PO SCH ×3 (09:15→17:37)
[2018-06-17] MEDS: diltiaZEM 300 mg/24 Hours CD Cap PO SCH (09:15)
[2018-06-17] MEDS: Enoxaparin 40 mg Syringe SC SCH (09:16)
[2018-06-17 11:11] LABS: HEMOGLOBIN 12.7 g/dL (11.0-16.0); MEAN CELL VOLUME 72.1 fL (81.0-99.0); MEAN CORPUSCULAR HEMOGLOBIN 23.5 pg (27.0-31.0); MEAN CORPUSCULAR HGB CONC 32.6 g/dL (33.0-37.0); MEAN PLATELET VOLUME 8.6 fL (7.2-11.7); RBC 5.4 Mil/uL (3.80-5.20); RED CELL DISTRIBUTION WIDTH 16.5 % (11.5-14.5); WHITE BLOOD COUNT 5.2 K/uL (4.8-10.8)
[2018-06-17 11:24] LABS: ALB/GLOB RATIO 1.4 (1.0-2.1); ALBUMIN 4.4 g/dL (3.5-5.0); ALT/SGPT < 6 U/L (9-52); AST/SGOT 25 U/L (14-36); BLOOD UREA NITROGEN 21 mg/dL (7-17); CALCIUM 9.5 mg/dl (8.6-10.4); GFR NON-AFRICAN AMERICAN 44
--- NOTE | 2018-06-17 13:52 | CP.PCM.PN ---
Subjective - Date & Time of Evaluation Date of Evaluation: 06/17/18 Time of Evaluation: 12:00 - Subjective Subjective: patient seen today c/o knee pain and back pain vss and labs reviewed Objective - Vital Signs/Intake and Output Vital Signs (last 24 hours): Temp Pulse Resp BP Pulse Ox 98.2 F 60 20 126/88 99 06/16/18 23:25 06/16/18 23:25 06/16/18 23:25 06/16/18 23:25 06/16/18 23:25 Intake and Output: 06/17/18 06/17/18 06:59 18:59 Intake Total 500 Balance 500 - Medications Medications: Current Medications Atenolol (Tenormin) 12.5 mg PO DAILY [facility] Belladonna/Phenobarbital () 1 tab PO TID [facility] Last Admin: 06/17/18 13:25 Dose: 1 tab Carbidopa/Levodopa (Sinemet 10/100) 1 tab PO TID [facility] Last Admin: 06/17/18 13:25 Dose: 1 tab Dextrose (Dextrose 50% Inj) 0 ml IV STAT PRN; Protocol PRN Reason: Hypoglycemia Protocol Dextrose (Glutose 15) 0 gm PO ONCE PRN; Protocol PRN Reason: Hypoglycemia Protocol Diltiazem HCl (Cardizem Cd) 300 mg PO DAILY [facility] Last Admin: 06/17/18 09:15 Dose: 300 mg Enoxaparin Sodium (Lovenox) 40 mg SC DAILY [facility] Last Admin: 06/17/18 09:16 Dose: 40 mg Ergocalciferol (Drisdol 50,000 Intl Units Cap) 1 cap PO QWK [facility] Last Admin: 06/15/18 10:13 Dose: 1 cap Gabapentin (Neurontin) 300 mg PO BID [facility] Last Admin: 06/17/18 09:22 Dose: 300 mg Glucagon (Glucagen Diagnostic Kit) 0 mg IM STAT PRN; Protocol PRN Reason: Hypoglycemia Protocol Dextrose (Dextrose 5% In Water 1000 Ml) 1,000 mls @ 0 mls/hr IV .Q0M PRN; Protocol PRN Reason: Hypoglycemia Protocol Cefepime HCl 1 gm/ Dextrose 50 mls @ 100 mls/hr IVPB Q12H [facility]; Protocol Last Admin: 06/17/18 05:30 Dose: 100 mls/hr Insulin Aspart (Novolog) 0 unit SC ACHS [facility]; Protocol Last Admin: 06/17/18 11:27 Dose: Not Given Levothyroxine Sodium (Synthroid) 125 mcg PO DAILY@0630 [facility] Last Admin: 06/17/18 05:36 Dose: 125 mcg Losartan Potassium (Cozaar) 100 mg PO DAILY [facility] Last Admin: 06/17/18 09:15 Dose: 100 mg Ondansetron HCl (Zofran Inj) 4 mg IVP Q6 PRN PRN Reason: Nausea/Vomiting Pantoprazole Sodium (Protonix Inj) 40 mg IVP DAILY [facility] Last Admin: 06/17/18 09:14 Dose: 40 mg Sucralfate (Carafate Oral Susp) 1 gm PO Q6 [facility] Last Admin: 06/17/18 12:00 Dose: 1 gm - Labs Labs: 06/17/18 10:59 06/17/18 10:59 PT 11.8 SECONDS (9.7-12.2) 06/14/18 19:47 INR 1.1 06/14/18 19:47 APTT 33 SECONDS (21-34) 06/14/18 19:47 Assessment and Plan - Assessment and Plan (Free Text) Assessment: 73 yr old female with Arthritis, Diabetes, HTN, Hypothyroidism, Kidney Stones degenerative joint diseases and b/l knee admitted with sob ,Dyspnea, Chest pain, Hiatal hernia Patient c/o severe b/l knee pain and difficulty walking secondary to pain and multipl brittney at home Orthopedics Dr. Lacey consulted CT - LE DONE - Severe medial compartment joint space narrowing with subchondral sclerosis as well as some articular surface remodeling of the medial femoral con dyle and adjacent prominent osteophytosis. Prominent osteophyte and or small bony exostosis emanating from the posterior medial femoral condyle as demonstrated on series 2, image 41 measuring 1.1 centimeters. 2. At the posterior medial proximal tibia, at the articular surface, demonstrated on series 601, image 75 as well as series 602, image 89, there is a small vertically oriented linear lucency which is nonspecific. This may be related to adjacent osteophytosis however subtle osseous injury at this level cannot entirely be excluded. Correlation with MRI may be helpful if clinically indicated. 3. Moderate lateral compartment joint space narrowing of the femorotibial joint space. At the articular surface of the medial aspect of the lateral posterior proximal tibia, there is a transverse obliquely oriented linear lucency best demonstrated on series 602, images 65 and 66 with adjacent productive change. This may be the sequelae of osteochondral change and or osteophytosis; however, subtle osseous injury at this level cannot entirely be excluded. Clinical correlation. Correlation with MRI may be helpful if clinically indicated. 4. Prominent 1.6 centimeter loose osteochondral body at the posterior aspect of the femorotibial joint space. 5. Small to moderate suprapatellar joint effusion. 6. Moderate patellofemoral compartment joint space narrowing with subchondral sclerosis. D/w Sabrina URIARTE , can be discharge home today and f/u with Dr. Lacey office for outpatient f/u for elctive surgery D/w Dr. Spears , cleared fro discharge home today and f/u with Dr. Spears office in 1 week discharge plan discussed with patient via transilator, who understands and agrees with plan RX for rolling walker given
--- NOTE | 2018-06-17 14:33 | CARD ---
APPROVED REPORT Date of service: 06/17/2018 EXAM: Two-dimensional and M-mode echocardiogram with Doppler and color Doppler. Other Information Quality : AverageRhythm : NSR INDICATION Fatigue Pre-Op Chest Pain RISK FACTORS Hypertension Hyperlipidemia 2D DIMENSIONS LA [id number] (18-58mL) M-Mode DIMENSIONS RVDd1.53 (2.1-3.2cm)Left Atrium (MM)3.61 (2.5-4.0cm) IVSd0.81 (0.7-1.1cm)Aortic Root3.29 (2.2-3.7cm) LVDd6.08 (4.0-5.6cm)Aortic Cusp Exc.1.89 (1.5-2.0cm) PWd0.88 (0.7-1.1cm)FS (%) 36 % LVDs3.87 (2.0-3.8cm)LVEF (%)65 (>50%) Aortic Valve AoV Peak Tdevqhnp805.2cm/Charlie Peak GR.9mmHg Mitral Valve MV E Hrkohwoa52.5cm/sMV A Xijuklyy71.9cm/sE/A ratio0.8 TDI Lateral E' Peak V6.67cm/sMedial E' Peak V7.84cm/sE/Lateral E'9.1 E/Medial E'7.7 Tricuspid Valve TR Peak Revoogkk904zp/sTR Peak Gr.75blXrPEQW97ixTy LEFT VENTRICLE The left ventricle is normal size. There is normal left ventricular wall thickness. The left ventricular function is normal. The left ventricular ejection fraction is within the normal range. No regional wall motion abnormalities noted. The left ventricular diastolic function is normal. No left ventricle thrombus noted on this study. There is no ventricular septal defect visualized. There is no left ventricular aneurysm. There is no mass noted in the left ventricle. RIGHT VENTRICLE The right ventricle is normal size. There is normal right ventricular wall thickness. The right ventricular systolic function is normal. ATRIA The left atrium size is normal. The right atrium size is normal. The interatrial septum is intact with no evidence for an atrial septal defect. AORTIC VALVE The aortic valve is normal in structure and function. No aortic regurgitation is present. There is no aortic valvular stenosis. There is no aortic valvular vegetation. MITRAL VALVE The mitral valve is normal in structure and function. There is no evidence of mitral valve prolapse. There is no mitral valve stenosis. There is no mitral valve regurgitation noted. TRICUSPID VALVE The tricuspid valve is normal in structure and function. There is no tricuspid valve regurgitation noted. There is no tricuspid valve prolapse or vegetation. There is no tricuspid valve stenosis. PULMONIC VALVE The pulmonary valve is normal in structure and function. There is no pulmonic valvular regurgitation. There is no pulmonic valvular stenosis. GREAT VESSELS The aortic root is normal in size. The ascending aorta is normal in size. The pulmonary artery is normal. The IVC is normal in size and collapses >50% with inspiration. PERICARDIAL EFFUSION The pericardium appears normal. There is no pleural effusion. <Conclusion> The left ventricular function is normal. The left ventricular ejection fraction is within the normal range. No regional wall motion abnormalities noted.
--- NOTE | 2018-06-17 14:59 | CP.PCM.PCO ---
Physician Communication Note - Physician Communication Note Physician Communication Note: Acceptable Cardiac risk for Knee surgery.Pulmonary clearence is needed
--- NOTE | 2018-06-17 21:31 | CP.PCM.DIS ---
Provider - Provider Date of Admission: 06/16/18 16:20 Attending physician: Krysitan Spears MD Consults: 06/14/18 20:59 Gastroenterology Consult Stat Comment: sergo samaniego Consulting Provider: Moira Shepard Consulting Physician: Moira Shepard Reason for Consult: sergo samaniego 06/15/18 16:29 Orthopedic Consult Routine Comment: Consulting Provider: Abhijit Farrell III Consulting Physician: Abhijit Farrell III Reason for Consult: knee pain/ for total knee replacement 06/16/18 16:21 Cardiology Consult Routine Comment: notified by SHAFT [employer]MAN Consulting Provider: Mario Ventura Consulting Physician: Mario Ventura Reason for Consult: pre op clearance Time Spent in preparation of Discharge (in minutes): 30 Hospital Course - Lab Results Lab Results: Micro Results 06/14/18 19:45 Blood Blood Culture - Preliminary NO GROWTH AFTER 3 DAYS 06/14/18 19:10 Blood Blood Culture - Preliminary NO GROWTH AFTER 3 DAYS Most Recent Lab Values WBC 5.2 K/uL (4.8-10.8) 06/17/18 10:59 RBC 5.40 Mil/uL (3.80-5.20) H 06/17/18 10:59 Hgb 12.7 g/dL (11.0-16.0) 06/17/18 10:59 Hct 39.0 % (34.0-47.0) 06/17/18 10:59 MCV 72.1 fL (81.0-99.0) L 06/17/18 10:59 MCH 23.5 pg (27.0-31.0) L 06/17/18 10:59 MCHC 32.6 g/dL (33.0-37.0) L 06/17/18 10:59 RDW 16.5 % (11.5-14.5) H 06/17/18 10:59 Plt Count 245 K/uL (130-400) 06/17/18 10:59 MPV 8.6 fL (7.2-11.7) 06/17/18 10:59 Neut % (Auto) 53.4 % (50.0-75.0) 06/15/18 09:47 Lymph % (Auto) 34.1 % (20.0-40.0) 06/15/18 09:47 Rhea % (Auto) 8.2 % (0.0-10.0) 06/15/18 09:47 Eos % (Auto) 3.5 % (0.0-4.0) 06/15/18 09:47 Baso % (Auto) 0.8 % (0.0-2.0) 06/15/18 09:47 Neut # (Auto) 2.5 K/uL (1.8-7.0) 06/15/18 09:47 Lymph # (Auto) 1.6 K/uL (1.0-4.3) 06/15/18 09:47 Rhea # (Auto) 0.4 K/uL (0.0-0.8) 06/15/18 09:47 Eos # (Auto) 0.2 K/uL (0.0-0.7) 06/15/18 09:47 Baso # (Auto) 0.0 K/uL (0.0-0.2) 06/15/18 09:47 PT 11.8 SECONDS (9.7-12.2) 06/14/18 19:47 INR 1.1 06/14/18 19:47 APTT 33 SECONDS (21-34) 06/14/18 19:47 pO2 36 mm/Hg (30-55) 06/14/18 19:51 VBG pH 7.40 (7.32-7.43) 06/14/18 19:51 VBG pCO2 43 mmHg (40-60) 06/14/18 19:51 VBG HCO3 25.3 mmol/L 06/14/18 19:51 VBG Total CO2 27.9 mmol/L (22-28) 06/14/18 19:51 VBG O2 Sat (Calc) 73.7 % (40-65) H 06/14/18 19:51 VBG Base Excess 1.5 mmol/L (0.0-2.0) 06/14/18 19:51 VBG Potassium 3.4 mmol/L (3.6-5.2) L 06/14/18 19:51 Sodium 140.0 mmol/l (132-148) 06/14/18 19:51 Chloride 106.0 mmol/L (98-107) 06/14/18 19:51 Glucose 95 mg/dl (65-105) 06/14/18 19:51 Lactate 1.4 mmol/L (0.7-2.1) 06/14/18 19:51 Sodium 135 mmol/L (132-148) 06/17/18 10:59 Potassium 4.1 mmol/L (3.6-5.2) 06/17/18 10:59 Chloride 100 mmol/L (98-107) 06/17/18 10:59 Carbon Dioxide 28 mmol/L (22-30) 06/17/18 10:59 Anion Gap 12 (10-20) 06/17/18 10:59 BUN 21 mg/dL (7-17) H 06/17/18 10:59 Creatinine 1.2 mg/dL (0.7-1.2) 06/17/18 10:59 Est GFR ( Amer) 53 06/17/18 10:59 Est GFR (Non-Af Amer) 44 06/17/18 10:59 POC Glucose (mg/dL) 129 mg/dL (65-110) H 06/17/18 06:04 Random Glucose 95 mg/dL (65-105) 06/17/18 10:59 Calcium 9.5 mg/dl (8.6-10.4) 06/17/18 10:59 Phosphorus 3.5 mg/dL (2.5-4.5) 06/15/18 09:47 Magnesium 1.9 mg/dL (1.6-2.3) 06/15/18 09:47 Total Bilirubin 0.6 mg/dL (0.2-1.3) 06/17/18 10:59 AST 25 U/L (14-36) 06/17/18 10:59 ALT < 6 U/L (9-52) L D 06/17/18 10:59 Alkaline Phosphatase 105 U/L (38-126) 06/17/18 10:59 Troponin I < 0.0120 ng/mL (0.00-0.120) 06/14/18 19:47 NT-Pro-B Natriuret Pep 152 pg/mL (0-900) 06/14/18 19:47 Total Protein 7.5 g/dL (6.3-8.3) 06/17/18 10:59 Albumin 4.4 g/dL (3.5-5.0) 06/17/18 10:59 Globulin 3.1 gm/dL (2.2-3.9) 06/17/18 10:59 Albumin/Globulin Ratio 1.4 (1.0-2.1) 06/17/18 10:59 Amylase 46 U/L (30-110) 06/15/18 09:47 Lipase 50 U/L (23-300) 06/15/18 09:47 CA 19-9 Antigen 13.7 U/mL (0-37) 06/15/18 09:47 CA 125 Antigen < 5.5 U/mL (0-35) 06/15/18 09:47 25-OH Vitamin D Total 55.2 NG/ML (30.0-100.0) 06/16/18 13:34 Venous Blood Potassium 3.4 mmol/L (3.6-5.2) L 06/14/18 19:51 Urine Color Straw (YELLOW) 06/16/18 05:55 Urine Clarity Clear (Clear) 06/16/18 05:55 Urine pH 7.0 (5.0-8.0) 06/16/18 05:55 Ur Specific Wickes 1.006 (1.003-1.030) 06/16/18 05:55 Urine Protein Negative mg/dL (NEGATIVE) 06/16/18 05:55 Urine Glucose (UA) Normal mg/dL (Normal) 06/16/18 05:55 Urine Ketones Negative mg/dL (NEGATIVE) 06/16/18 05:55 Urine Blood Negative (NEGATIVE) 06/16/18 05:55 Urine Nitrate Negative (NEGATIVE) 06/16/18 05:55 Urine Bilirubin Negative (NEGATIVE) 06/16/18 05:55 Urine Urobilinogen Normal mg/dL (0.2-1.0) 06/16/18 05:55 Ur Leukocyte Esterase Neg Dana/uL (Negative) 06/16/18 05:55 Urine WBC (Auto) < 1 /hpf (0-5) 06/16/18 05:55 Ur Squamous Epith Cells < 1 /hpf (0-5) 06/16/18 05:55 Urine Bacteria Many (<OCC) H 06/16/18 05:55 Discharge Exam - Head Exam Head Exam: ATRAUMATIC Discharge Plan - Discharge Medications Prescriptions: Walker [Rolling Walker] 1 dev XX PRN #1 dev - Follow Up Plan Condition: FAIR Disposition: HOME/ ROUTINE Instructions: Heart Healthy Diet, Shortness of Breath (Dyspnea) (DC), Chest Pain (DC) Additional Instructions: Please follow up with Dr. Spears office in 1 week Please continue medication as per med. rec. Referrals: Moira Shepard [Staff Provider] - Krystian Spears MD [Staff Provider] -
--- NOTE | 2018-06-18 00:03 | PN ---
DATE: 06/17/2018 LOCATION: Room 650, bed A. SUBJECTIVE: This is a 73-year-old female, seen early in rounds today without significant clinical changes, with lower extremity edematous changes, with some hypererythematous changes. The most recently done CAT scan of the lower extremities, done yesterday, report is seen for which the patient may need a knee replacement that to be discussed with orthopedic surgeon. The patient still has mild intermittent period of shortness of breath with generalized weakness and malaise, was asked to be discharged and to follow up with orthopedic surgeon as outpatient as per patient's statement to me. Today's lab showed normal CBC with low indices with BUN 21, normal creatinine, sugar 95 with normal liver function test. PHYSICAL EXAMINATION: GENERAL: A 73-year-old female, complaining of midepigastric pain with dyspepsia on and off associated with nausea, afebrile with pulse of 68, respiratory rate 20-22, blood pressure 130/84. HEENT: Pale, dry oral mucous membrane. Nonicteric sclerae. LUNGS: Few scattered crepitation. Decreased air entry at bases. HEART: Positive S1 and S2. ABDOMEN: Soft with mild generalized tenderness. No mass or organomegaly. No rebound tenderness or guarding. EXTREMITIES: With lower extremities edematous changes with some hypererythematous changes with persistent bilateral knee tenderness as well as lower back pain complaints. NEUROLOGIC: No reported new neurological deficits, sensory or motor. IMPRESSION: 1. Re-exacerbation of peptic ulcer disease. 2. Bilateral knee osteoarthritis, needs replacement. 3. Obesity. 4. Lower extremity cellulitis. 5. Past medical history including severe anxiety syndrome, hypertension with hypothyroidism as well as a renal stone. 6. Poorly controlled diabetes mellitus. SUGGESTIONS: 1. Continue current management. 2. ID consultation and evaluation. 3. Antireflux measures. 4. Further recommendation to follow. Moira Julio MD
--- NOTE | 2018-06-18 00:04 | CON ---
DATE: 06/17/2018 REASON FOR CONSULTATION: Preoperative evaluation. HISTORY OF PRESENT ILLNESS: The patient is a 73-year-old [place] female who has history of hypertension, diabetes mellitus, obesity, osteoarthritis, hiatus hernia, presented because of worsening shortness of breath as well as leg swelling. The patient is unaware of any prior cardiac history in the past. The patient underwent right lower extremity CT scan, which revealed severe medial compartment joint space narrowing with subchondral sclerosis as well as some articular surface remodelling of the medial femoral condyle and adjacent prominent osteophytosis. The posterior medial proximal tibia at the articular surface demonstrated a small vertically oriented linear lucency, which is nonspecific. This may be related to adjacent osteophytosis. Moderate lateral compartment joint space narrowing of the femorotibial space. The patient is being considered for total right knee replacement. SOCIAL HISTORY: Nonsmoker, nondrinker. MEDICATIONS: Carafate 1 g every 6 hours, Cardizem 300 mg daily, cefepime 1 g intravenously every 12 hours, Cozaar 100 mg once a day, Lovenox 40 mg subcutaneously daily, Neurontin 300 mg twice a day, Protonix 40 mL intravenously daily, and Synthroid 125 mcg once a day. REVIEW OF SYSTEMS: No nausea or vomiting, no retrosternal chest pain at this time. No history of OH or CVA in the past. PHYSICAL EXAMINATION: GENERAL: The patient is an elderly female who does not appear to be in any distress at this time. VITAL SIGNS: Blood pressure 126/88, heart rate 60, temperature 98.2, respirations 20. HEENT: Normocephalic. CHEST: Clear. HEART: S1 and S2 regular. ABDOMEN: Soft. EXTREMITIES: 1+ nonpitting edema. LABORATORY DATA: SMA-7 today entirely is within normal limits except for BUN of 21. Today's hemoglobin, hematocrit, white count, and platelet count are within normal limits. Admitting PT, PTT and INR are within normal limits. EKG revealed normal sinus rhythm with nonspecific T-wave changes at the rate of 67. An echocardiography study performed in June of 2017 revealed normal left ventricular size with mild concentric LVH and normal ejection fraction, borderline pulmonary hypertension. Venous Doppler of lower extremity performed yesterday, no evidence of DVT. ASSESSMENT: 1. Hypertension. 2. Diabetes mellitus. 3. Osteoarthritis. 4. Borderline pulmonary hypertension. 5. Hypothyroidism. RECOMMENDATION: Continue Cardizem 300 mg daily, Cozaar 100 mg daily, Synthroid 125 mcg daily, Sinemet 1 tablet t.i.d. Start atenolol 12.5 mg daily. The patient can undergo total right knee replacement from the cardiac point of view with close preoperative blood pressure and rate monitoring and postoperative telemetry monitoring. Mario Ventura MD
--- NOTE | 2018-06-18 06:05 | DS ---
DISCHARGE DIAGNOSES: 1. Dyspnea. 2. Osteoarthritis of the knees. 3. Gastroesophageal reflux disease with hiatal hernia. 4. Hypertension. HISTORY OF PRESENT ILLNESS AND HOSPITAL COURSE: This is a 73-year-old [place] female with history of obesity, osteoarthritis of the knees, anxiety, prior falls. She came in because of shortness of breath, cough, and congestion. The patient was admitted to the observation. The patient was seen for a few days for bilateral knee pain and the patient did well. The patient is discharged and she will be readmitted for knee replacement surgery. PHYSICAL EXAMINATION: VITAL SIGNS: Blood pressure is 126/88, pulse 60, respiratory rate 20, temperature 98.2. LUNGS: Decreased air entry. CARDIOVASCULAR: S1 and S2, regular. PLAN: Discharge the patient with outpatient followup. Krystian Spears MD
--- NOTE | 2018-06-20 07:29 | CON ---
DATE: 06/14/[address] Moira Julio to Dr. Krystian Spears. I was called for GI consultation by the admitting MD. The patient is seen and fully examined on 06/14/2018 as requested by the admitting medical staff. The entire chart is reviewed including but not limited to the most recent lab and radiology study results, current and the previous medication list, current and the previous medical events. Case discussed with the staff at length at the time of my GI consultation on 06/14/2018 and a short handwritten consultation sheet left in the chart at the time of my physical examination. HISTORY OF PRESENT ILLNESS: This is a 73-year-old female, very well-known case for me, was admitted to the hospital through the emergency room with recurrent episodes of shortness of breath, lower extremities edema with redness of the left lower extremities for which the patient was unable to move with intermittent periods of nausea and dyspepsia with reported intermittent period of shortness of breath with reported periods of mild chest discomfort and postprandial abdominal distention with recent change of bowel movement habits. PAST MEDICAL HISTORY: Including but not limited to, 1. Severe osteoarthritis with persistent bilateral knee pain. 2. Hypertension. 3. Poorly controlled diabetes mellitus. 4. Hypothyroidism. 5. Peptic ulcer disease with hiatus hernia. 6. Status post hernia repair. 7. Renal stones. FAMILY HISTORY: Unknown. SOCIAL HISTORY: No known history of cigarette smoking or alcohol intake. CURRENT MEDICATIONS: Post admission medication lists were reviewed. ALLERGIES: ALLERGIES TO MEDICATION LIST WERE REVIEWED. LABORATORY DATA: Initial blood workup post admission showed normal SMA-7 as well as normal CBC. PHYSICAL EXAMINATION: GENERAL: A 73-year-old female complaining of abdominal pain as well as bilateral severe knee pains, especially persistent pain of the left lower extremities. VITAL SIGNS: The patient is afebrile with pulse of 78, respiratory rate 20 to 22, blood pressure 142/64. HEENT: Showed pale, dry, oral mucoid membrane. Nonicteric sclerae. LYMPH NODES: No lymphadenitis or lymphadenopathy. LUNGS: Few scattered crepitation with decreased air entry at bases. HEART: Positive S1 and S2. ABDOMEN: Soft with mild generalized tenderness. No mass or organomegaly. No rebound tenderness or guarding. Abdomen is obese. Bowel sounds are hypoactive. RECTAL: The patient refused. EXTREMITIES: With lower extremity edematous changes, severe, with left lower extremities evidence of cellulitis, and the bilateral knee tenderness. NEUROLOGIC: No reported new neurological deficits, sensory or motor. No reported focal deficits. IMPRESSION: 1. Re-exacerbation of peptic ulcer disease. 2. Severe bilateral lower extremities, also arthritis, especially in knees. 3. Left lower extremity cellulitis. 4. Multiple past medical history as mentioned above. SUGGESTIONS: 1. Agree with your plan. 2. IV antibiotics with ID consultation. 3. Orthopedic consultation. 4. Proton pump inhibitors. 5. p.o. 6. Antireflux measures. 7. Guaiac all the stools daily x3. 8. Cancer markers. 9. No need for aggressive GI workup in the meantime until the patient is more stable clinically. 10. Cancer markers to includes CA-125 as well as CEA Further recommendations to follow. Moira Julio MD
== END 2018-06-17 18:12 | disposition home or self-care (01) | DRG 202 ==
LOC: C.ER 19:04 → C.9E 20:58 → C.6T 22:29 → OBSVTOIN 06-16 16:20
PROVIDERS: ADMIT Internal Medicine; ATTEND Internal Medicine
DX: J45.901 Unspecified asthma with (acute) exacerbation (principal); L03.115 Cellulitis of right lower limb; L03.116 Cellulitis of left lower limb; I10 Essential (primary) hypertension; K27.9 Peptic ulcer, site unspecified, unspecified as acute or chronic, without hemorrhage or perforation; E11.65 Type 2 diabetes mellitus with hyperglycemia; K21.9 Gastro-esophageal reflux disease without esophagitis; M17.0 Bilateral primary osteoarthritis of knee; F41.9 Anxiety disorder, unspecified; F43.9 Reaction to severe stress, unspecified; E03.9 Hypothyroidism, unspecified; E66.9 Obesity, unspecified; I27.20 Pulmonary hypertension, unspecified; K44.9 Diaphragmatic hernia without obstruction or gangrene

== ENCOUNTER 2018-07-25 09:00 | Inpatient (IN) | payer MEDICARE, MEDICAID ==
[2018-07-25 09:11] VITALS: BMI 54.0
--- NOTE | 2018-07-25 09:19 | C.PDOC ---
History Of Present Illness 73 y/o female, with history of arthritis, diabetes, hypertension, hyperthyroid, and CKD, presents to ED with right knee pain for the past 10+ years. Patient notes that the pain is a throbbing pain worsening over the past couple of m onths. Denies fever, erythema, or redness to the right knee joint. Patient has chronic bilateral lower extremity edema and R knee pain and was sent in today by Dr. Krystian Spears for evaluation by ortho and probable surgery. She denies any other complaints. Has not taken any medications for the pain. No fall or trauma. Chief Complaint (Nursing): Medical Clearance History Per: Patient History/Exam Limitations: no limitations Onset/Duration Of Symptoms: Days Current Symptoms Are (Timing): Still Present Past Medical History Reviewed: Historical Data, Nursing Documentation, Vital Signs Vital Signs: Last Vital Signs Temp 98 F 07/25/18 09:11 Pulse 66 07/25/18 09:11 Resp 18 07/25/18 09:11 BP 141/75 07/25/18 09:11 Pulse Ox 98 07/25/18 09:11 Primary Care Provider: Krystian Spears - Medical History PMH: Arthritis, Diabetes, HTN, Hypothyroidism, Kidney Stones, Chronic Kidney Disease Surgical History: Hernia Repair - [facility] Procedures CYSTOSCOPY NEC (05/10/14) EXCISION OF STOMACH, ENDO, DIAGN (06/02/17) URETERAL CATHETERIZATION (05/10/14) Family History: States: No Known Family Hx - Social History Hx Tobacco Use: No Hx Alcohol Use: No Hx Substance Use: No - Immunization History Hx Tetanus Toxoid Vaccination: No Hx Influenza Vaccination: Yes Hx Pneumococcal Vaccination: Yes Review Of Systems Except As Marked, All Systems Reviewed And Found Negative. Constitutional: Negative for: Fever, Chills, Weakness, Malaise Eyes: Negative for: Pain, Vision Change ENT: Negative for: Ear Pain, Ear Discharge, Nose Pain, Nose Congestion, Mouth Pain, Mouth Swelling Cardiovascular: Negative for: Chest Pain, Palpitations, Orthopnea Respiratory: Negative for: Cough, Shortness of Breath, Hemoptysis, SOB with Excertion, Pleuritic Pain Gastrointestinal: Negative for: Nausea, Vomiting, Abdominal Pain, Diarrhea, Constipation, Hematochezia, Hematemesis Genitourinary: Negative for: Dysuria, Frequency, Incontinence, Hematuria Musculoskeletal: Positive for: Other (chronic right knee pain). Negative for: Neck Pain, Shoulder Pain, Arm Pain, Back Pain, Hand Pain, Foot Pain Skin: Negative for: Rash, Lesions, Jaundice Neurological: Negative for: Weakness, Numbness, Headache Psych: Negative for: Suicidal ideation Physical Exam - Physical Exam Appears: Well, Non-toxic, No Acute Distress Skin: Warm, Dry Head: Atraumatic, Normacephalic Eye(s): bilateral: Normal Inspection, PERRL, EOMI Nose: Normal Oral Mucosa: Moist Tongue: Normal Appearing Lips: Normal Appearing Throat: Normal, No Erythema, No Exudate Neck: No Midline Cervical Tenderness, No Paracervical Tenderness, Supple, Other (no meningeal signs) Lymphatic: No Adenopathy Cardiovascular: Rhythm Regular, No Friction Rub, No Murmur, No JVD Respiratory: Normal Breath Sounds, No Rales, No Rhonchi, No Stridor, No Wheezing Gastrointestinal/Abdominal: Normal Exam, Soft, No Tenderness, No Mass, No Distention, No Guarding Back: Normal Inspection, No CVA Tenderness, No Vertebral Tenderness Extremity: Normal ROM, Tenderness (right knee tender to palpation along anterior portion, good neurovascular status distally), Capillary Refill (normal) Extremity: Bilateral: Atraumatic, Normal Color And Temperature Pulses: Left Dorsalis Pedis: Normal, Right Dorsalis Pedis: Normal Neurological/Psych: Oriented x3, Normal Speech, Normal Cognition, Normal Motor, Normal Sensation ED Course And Treatment - Laboratory Results Result Diagrams: 07/25/18 10:14 07/25/18 10:14 ECG: Interpreted By Me, Viewed By Me ECG Rhythm: Sinus Bradycardia Interpretation Of ECG: No stemi. Rate From EC O2 Sat by Pulse Oximetry: 98 (RA) Pulse Ox Interpretation: Normal Medical Decision Making Medical Decision Makin73 y/o female, with history of arthritis, diabetes, hypertension, hyperthyroid, and CKD, presents to ED with right knee pain for the past 10+ years. No signs of septic join on exam. No recent trauma or fall. No signs of trauma. N/v intact distally to RLE. No hip pain or ankle / foot pain. Likely chronic knee pain. Sent in by PMD for further eval. Plan: --EKG --Labs --Chest XR --Right Knee XR 09:55 - Spoke to Dr. Spears, will accept patient to his service. --- Chest XR Findings IMPRESSION: No active disease. No significant interval change compared to the prior examination(s). --- Right Knee XR Findings IMPRESSION: Chronic degenerative change, no acute findings. --- 1050 labs reviewed, xray reviewed, largely unremarkable remains n/v intact to b/l LE. admitted to Dr. Wolf service pt in [facility], agreeable to plan Disposition - Disposition Disposition: HOSPITALIZED Disposition Time: 10:51 Condition: STABLE - Clinical Impression Clinical Impression: Knee pain, right - Scribe Statement The provider has reviewed the documentation as recorded by the Fang De Santiago Provider Attestation: All medical record entries made by the Fang were at my direction and personally dictated by me. I have reviewed the chart and agree that the record accurately reflects my personal performance of the history, physical exam, medical decision making, and the department course for this patient. I have also personally directed, reviewed, and agree with the discharge instructions and disposition.
[2018-07-25 10:18] LABS: BASO # 0.1 K/uL (0.0-0.2); BASO % 0.9 % (0.0-2.0); EOS # 0.1 K/uL (0.0-0.7); EOS % 2.3 % (0.0-4.0); HEMOGLOBIN 11.4 g/dL (11.0-16.0); LYMPH # 1.6 K/uL (1.0-4.3); LYMPH % 28.3 % (20.0-40.0); MEAN CELL VOLUME 71.6 fL (81.0-99.0); MEAN CORPUSCULAR HEMOGLOBIN 23.5 pg (27.0-31.0); MEAN CORPUSCULAR HGB CONC 32.8 g/dL (33.0-37.0); MEAN PLATELET VOLUME 8.4 fL (7.2-11.7); MONO # 0.5 K/uL (0.0-0.8); MONO % 8.1 % (0.0-10.0); NEUT # 3.4 K/uL (1.8-7.0); NEUT % 60.4 % (50.0-75.0); RBC 4.86 Mil/uL (3.80-5.20); RED CELL DISTRIBUTION WIDTH 16.5 % (11.5-14.5); WHITE BLOOD COUNT 5.7 K/uL (4.8-10.8)
[2018-07-25 10:28] LABS: INR 1.1; PARTIAL THROMBOPLASTIN TIME 30.7 SECONDS (21-34); PROTHROMBIN TIME 11.8 SECONDS (9.7-12.2)
[2018-07-25 10:33] LABS: ALB/GLOB RATIO 1.2 (1.0-2.1); ALBUMIN 4.1 g/dL (3.5-5.0); ALT/SGPT 13 U/L (9-52); AST/SGOT 18 U/L (14-36); BLOOD UREA NITROGEN 16 mg/dL (7-17); CALCIUM 9.2 mg/dl (8.6-10.4); GFR NON-AFRICAN AMERICAN > 60
[2018-07-25 10:43] LABS: B-TYPE NATRIURETIC PEPTIDE 340 pg/mL (0-900)
--- NOTE | 2018-07-25 13:06 | RAD ---
Date of service: 07/25/2018 HISTORY: preop COMPARISON: 06/14/2018 FINDINGS: LUNGS: No active pulmonary disease. PLEURA: No significant pleural effusion identified, no pneumothorax apparent. CARDIOVASCULAR: Atherosclerotic calcifications identified primarily aortic arch. Cardiomegaly. No evidence of acute, significant cardiovascular disease. OSSEOUS STRUCTURES: No significant abnormalities. VISUALIZED UPPER ABDOMEN: Normal. OTHER FINDINGS: None. IMPRESSION: No active disease. No significant interval change compared to the prior examination(s).
--- NOTE | 2018-07-25 13:07 | RAD ---
Date of service: 07/25/2018 PROCEDURE: Right Knee Radiographs. HISTORY: Chronic right knee pain. No recent history of trauma. COMPARISON: None TECHNIQUE: 2 views obtained. FINDINGS: BONES: No acute fracture. Proliferative hypertrophic changes emanating from the femoral condyle and tibial plateau regions. JOINTS: Medial compartment narrowing with relative sparing of the lateral compartment. Moderate patellofemoral degenerative change. JOINT EFFUSION: Small suprapatellar effusion. OTHER FINDINGS: None. IMPRESSION: Chronic degenerative change, no acute findings.
[2018-07-25 15:01] VITALS: RESP 20
--- NOTE | 2018-07-25 23:56 | CP.PCM.HP ---
Present on Admission - Present on Admission Any Indicators Present on Admission: No Past Patient History - Infectious Disease Hx of Infectious Diseases: None - Past Medical History & Family History Past Medical History?: Yes - Past Social History Smoking Status: Never Smoked - CARDIAC Hx Hypertension: Yes - PULMONARY Hx Respiratory Disorders: No - NEUROLOGICAL Hx Neurological Disorder: No - RENAL Hx Chronic Kidney Disease: Yes Hx Kidney Stones: Yes - ENDOCRINE/METABOLIC Hx Hypothyroidism: Yes - MUSCULOSKELETAL/RHEUMATOLOGICAL Hx Arthritis: Yes Hx Falls: No - PSYCHIATRIC Hx Substance Use: No - SURGICAL HISTORY Hx Surgeries: Yes Hx Herniorrhaphy: Yes Hx Thyroidectomy: Yes Other/Comment: abdl surgery. breast surgery for lump - ANESTHESIA Hx Anesthesia: Yes Hx Anesthesia Reactions: No Hx Malignant Hyperthermia: No Meds Allergies/Adverse Reactions: Allergies Allergy/AdvReac Type Severity Reaction Status Date / Time No Known Allergies Allergy Verified 07/25/18 09:10 Results - Vital Signs Recent Vital Signs: Last Vital Signs Temp 97.9 F 07/25/18 15:00 Pulse 62 07/25/18 15:00 Resp 20 07/25/18 15:00 BP 142/65 07/25/18 15:00 Pulse Ox 98 07/25/18 16:38 - Labs Result Diagrams: 07/25/18 10:14 07/25/18 10:14 Labs: Laboratory Results - last 24 hr 07/25/18 07/25/18 07/25/18 10:14 10:14 10:14 WBC 5.7 RBC 4.86 Hgb 11.4 Hct 34.8 MCV 71.6 L MCH 23.5 L MCHC 32.8 L RDW 16.5 H Plt Count 212 MPV 8.4 Neut % (Auto) 60.4 Lymph % (Auto) 28.3 [place] % (Auto) 8.1 Eos % (Auto) 2.3 Baso % (Auto) 0.9 Neut # (Auto) 3.4 Lymph # (Auto) 1.6 [place] # (Auto) 0.5 Eos # (Auto) 0.1 Baso # (Auto) 0.1 PT 11.8 INR 1.1 APTT 30.7 Sodium 139 Potassium 4.7 Chloride 104 Carbon Dioxide 26 Anion Gap 14 BUN 16 Creatinine 0.9 Est GFR ( Amer) > 60 Est GFR (Non-Af Amer) > 60 POC Glucose (mg/dL) Random Glucose 117 H D Calcium 9.2 Magnesium 1.9 Total Bilirubin 0.8 AST 18 ALT 13 Alkaline Phosphatase 90 NT-Pro-B Natriuret Pep 340 Total Protein 7.5 Albumin 4.1 Globulin 3.4 Albumin/Globulin Ratio 1.2 Blood Type Antibody Screen 07/25/18 07/25/18 07/25/18 10:23 16:46 21:07 WBC RBC Hgb Hct MCV MCH MCHC RDW Plt Count MPV Neut % (Auto) Lymph % (Auto) [place] % (Auto) Eos % (Auto) Baso % (Auto) Neut # (Auto) Lymph # (Auto) [place] # (Auto) Eos # (Auto) Baso # (Auto) PT INR APTT Sodium Potassium Chloride Carbon Dioxide Anion Gap BUN Creatinine Est GFR ( Amer) Est GFR (Non-Af Amer) POC Glucose (mg/dL) 105 104 Random Glucose Calcium Magnesium Total Bilirubin AST ALT Alkaline Phosphatase NT-Pro-B Natriuret Pep Total Protein Albumin Globulin Albumin/Globulin Ratio Blood Type A POSITIVE Antibody Screen Negative
[2018-07-26] MEDS: Levothyroxine 100 MCG TAB PO SCH (05:30)
[2018-07-26] MEDS: diltiaZEM 300 mg/24 Hours CD Cap PO SCH (09:55)
[2018-07-26] MEDS: Pantoprazole 40 mg EC Tab PO SCH (09:55)
[2018-07-26] MEDS ORDERED: Ergocalciferol 50,000 Intl Units Cap PO SCH (10:00)
[2018-07-26] MEDS ORDERED: Enoxaparin 40 mg Syringe SC SCH (10:00)
--- NOTE | 2018-07-26 11:06 | HP ---
CHIEF COMPLAINT: Intractable bilateral knee pain. HISTORY OF PRESENT ILLNESS: This is a 73-year-old [place] female with history of obesity, hypertension, osteoarthritis, thyroid disease. She is compliant with her diet, medication, and followup. In her usual status of health. The patient is minimally ambulatory, and she came in because of intractable throbbing pain and pain has been there for a longtime, but for the last couple of months it got worse. During last day or two, she really could not walk. She has intractable swelling and redness in the left knee, difficulty walking, and the patient came to emergency room to control intractable pain. The patient is admitted. The patient denies any fever or chills. No coughing. No sore throat. No runny nose. She denies any nausea, vomiting, or diarrhea. She denies any polyuria, polydipsia or polyphagia. She denies any history of sneezing, itchy eyes, itchy nose. There is no history of trauma, fall, loss of consciousness. No history of seizure like activity. There is no history of tingling, numbness, or paresthesias. PAST MEDICAL HISTORY: Osteoarthritis, diabetes, hypertension, and hypothyroidism. SOCIAL HISTORY: History of nonsmoker and non-ETOH user. CURRENT MEDICATIONS: At home, she takes metformin, diltiazem, Protonix, Cozaar, Synthroid, Neurontin, and Sinemet. PHYSICAL EXAMINATION: GENERAL: An elderly female in distress with pain, difficulty walking. She is minimally ambulatory. VITAL SIGNS: Blood pressure 147/65, pulse 60, respiratory rate 18, and temperature 98.1. SKIN: Senile turgor. No bruises. No purpura. No petechiae. No ecchymosis. HEENT: Atraumatic and normocephalic. Negative pallor. Negative jaundice. Extraocular movements are intact. NECK: Supple. No JVD. No lymph node. No thyromegaly. CHEST WALL: Bilateral symmetrical expansion. LUNGS: Clear. No rales. No rhonchi. CARDIOVASCULAR: S1 and S2, regular. No heave. No thrill. ABDOMEN: Soft, nontender. Bowel sounds are positive. EXTREMITIES: No clubbing, cyanosis, or edema. Left knee swelling. Diffuse range of movement. CENTRAL NERVOUS SYSTEM: Awake, alert, oriented x3. Cranial nerves II through XII are normal. Power 5/5 x4. Plantars are downgoing. ASSESSMENT: 1. Acute intractable left knee pain, difficulty walking. 2. Hypertension. 3. Borderline diabetes. 4. Peptic ulcer disease. PLAN: Admit. Detailed orders written. Seen and examined. Krystian Spears MD
--- NOTE | 2018-07-26 15:19 | CP.PCM.CON ---
History of Present Illness - History of Present Illness History of Present Illness: Orthopedic Consult: Dr. Jami ORANTES [facility] interpretation #[id number] Patient is a 73 y/o female c/o of severe right knee pain. The patient has had chronic knee pain for many years which has progressively worsened over the past few months. Over the last week, the pain has severely hindered her daily activities such as walking and sleeping. She has tried conservative management in the past with PT, oral medications and steroid injections without relief of symptoms. She has required the use of a rolling walker to ambulate. The pain is dull, sometimes sharp and constant. The pain is worsened with WB activities and alleviated with rest. The pain is associated with swelling. She denies any radiation of pain/numbness/tingling. She denies CP/SOB/N/V/D/fever/dysuria/melena. PMH: DM, HTN PSH: Hysterectomy, ventral hernia repair x 3, meds: as per med rec NKDA SH: Denies tobacco/ETOH/drug use. Lives at home with who unable to care for her due to illness, she climbs 4 steps into home which has elevator to her floor Review of Systems - Review of Systems All systems: reviewed and no additional remarkable complaints except Review of Systems: as per HPI Past Patient History - Infectious Disease Hx of Infectious Diseases: None - Past Medical History & Family History Past Medical History?: Yes Past Family History: Reviewed and not pertinent - Past Social History Smoking Status: Never Smoked - CARDIAC Hx Hypertension: Yes - PULMONARY Hx Respiratory Disorders: No - NEUROLOGICAL Hx Neurological Disorder: No - RENAL Hx Chronic Kidney Disease: Yes Hx Kidney Stones: Yes - ENDOCRINE/METABOLIC Hx Hypothyroidism: Yes - MUSCULOSKELETAL/RHEUMATOLOGICAL Hx Arthritis: Yes Hx Falls: No - PSYCHIATRIC Hx Substance Use: No - SURGICAL HISTORY Hx Surgeries: Yes Hx Herniorrhaphy: Yes Hx Thyroidectomy: Yes Other/Comment: abdl surgery. breast surgery for lump - ANESTHESIA Hx Anesthesia: Yes Hx Anesthesia Reactions: No Hx Malignant Hyperthermia: No Meds Allergies/Adverse Reactions: Allergies Allergy/AdvReac Type Severity Reaction Status Date / Time No Known Allergies Allergy Verified 07/25/18 09:10 - Medications Medications: Current Medications Carbidopa/Levodopa (Sinemet 10/100) 1 tab PO TID [facility] Last Admin: 07/26/18 13:53 Dose: 1 tab Diltiazem HCl (Cardizem Cd) 300 mg PO DAILY [facility] Last Admin: 07/26/18 09:55 Dose: 300 mg Enoxaparin Sodium (Lovenox) 40 mg SC DAILY [facility] Last Admin: 07/26/18 09:55 Dose: 40 mg Ergocalciferol (Drisdol 50,000 Intl Units Cap) 1 cap PO QWK [facility] Last Admin: 07/26/18 09:55 Dose: 1 cap Gabapentin (Neurontin) 300 mg PO BID [facility] Last Admin: 07/26/18 09:54 Dose: 300 mg Levothyroxine Sodium (Synthroid) 125 mcg PO DAILY@0630 [facility] Last Admin: 07/26/18 05:30 Dose: 125 mcg Losartan Potassium (Cozaar) 100 mg PO DAILY [facility] Last Admin: 07/26/18 09:55 Dose: 100 mg Metformin HCl (Glucophage Xr) 500 mg PO DAILY [facility] Last Admin: 07/26/18 09:55 Dose: 500 mg Pantoprazole Sodium (Protonix Ec Tab) 40 mg PO DAILY [facility] Last Admin: 07/26/18 09:55 Dose: 40 mg Physical Exam - Constitutional Appears: Well, No Acute Distress - Head Exam Head Exam: ATRAUMATIC, NORMOCEPHALIC - Eye Exam Eye Exam: EOMI, Normal appearance - ENT Exam ENT Exam: Mucous Membranes Moist - Respiratory Exam Respiratory Exam: NORMAL BREATHING PATTERN - Extremities Exam Additional comments: RLE: moderate swelling, moderate effusion no lesions/masses/erythema ROM: 5-90 deg sensation intact SP/DP/TN motor intact EHL/FHL/TA/G pedal pulse intact calves soft NT b/l - Neurological Exam Neurological exam: Alert, Oriented x3 - Psychiatric Exam Psychiatric exam: Normal Affect, Normal Mood - Skin Skin Exam: Normal Color, Warm Results - Vital Signs Recent Vital Signs: Last Vital Signs Temp 98 F 07/26/18 08:00 Pulse 66 07/26/18 08:00 Resp 20 07/26/18 08:00 BP 136/62 07/26/18 08:00 Pulse Ox 95 07/26/18 08:00 - Labs Result Diagrams: 07/25/18 10:14 07/25/18 10:14 Labs: Laboratory Results - last 24 hr 07/25/18 07/25/18 07/26/18 16:46 21:07 10:03 POC Glucose (mg/dL) 105 104 147 H 07/26/18 11:08 POC Glucose (mg/dL) 136 H - Impressions Impression: Accession No. : [id number] Patient Name / ID : ALMAS JORDAN R / [id number] Exam Date : 07/25/2018 10:36:35 ( Approved ) Study Comment : Sex / Age : F / 73Y Creator : Blayne Mcintyre MD Dictator : Blayne Mcintyre MD Mortgage Consultant : Woodenware Assembler : Blayne Mcintyre MD Approver2 : Report Date : 07/25/2018 13:03:58 My Comment : Date of service: 07/25/2018 PROCEDURE: Right Knee Radiographs. HISTORY: Chronic right knee pain. No recent history of trauma. COMPARISON: None TECHNIQUE: 2 views obtained. FINDINGS: BONES: No acute fracture. Proliferative hypertrophic changes emanating from the femoral condyle and tibial plateau regions. JOINTS: Medial compartment narrowing with relative sparing of the lateral compartment. Moderate patellofemoral degenerative change. JOINT EFFUSION: Small suprapatellar effusion. OTHER FINDINGS: None. IMPRESSION: Chronic degenerative change, no acute findings. Assessment & Plan (1) Tricompartment osteoarthritis of right knee Assessment and Plan: Dr. Farrell has reviewed the patient's imaging and recommend R TKA due to failing conservative management Risks/benefits/alternatives were explained to patient who understands and agrees to proceed with above Awaiting medical clearance Plan for OR on afternoon NPO pMN above d/w Dr. Farrell who agrees Status: Acute - Date & Time Date: 07/26/18 Time: 15:00
--- NOTE | 2018-07-26 21:08 | CARD ---
APPROVED REPORT Date of service: 07/25/2018 EKG Measurement Heart [id number] <Conclusion> Sinus bradycardia Abnormal ECG
[2018-07-26 22:46] LABS: SQUAMOUS EPITHIAL 1 /hpf (0-5); URINE BACTERIA RARE (<OCC); URINE BILIRUBIN NEGATIVE (NEGATIVE); URINE BLOOD 1+ (NEGATIVE); URINE CLARITY Clear (Clear); URINE COLOR Yellow (YELLOW); URINE GLUCOSE (UA) NORMAL (Normal); URINE LEUKOCYTE ESTERASE NEG Leu/uL (Negative); URINE PROTEIN NEGATIVE (NEGATIVE); URINE UROBILINOGEN NORMAL mg/dL (0.2-1.0)
--- NOTE | 2018-07-27 00:30 | CP.PCM.PN ---
Subjective - Date & Time of Evaluation Date of Evaluation: 07/26/18 Time of Evaluation: 07:20 - Subjective Subjective: dict Objective - Vital Signs/Intake and Output Vital Signs (last 24 hours): Temp Pulse Resp BP Pulse Ox 98.1 F 60 20 102/63 97 07/26/18 16:00 07/26/18 16:00 07/26/18 16:00 07/26/18 16:00 07/26/18 16:00 Intake and Output: 07/26/18 07/27/18 18:59 06:59 Intake Total 480 Balance 480 - Medications Medications: Current Medications Carbidopa/Levodopa (Sinemet ) 1 tab PO TID [facility] Last Admin: 07/26/18 17:21 Dose: 1 tab Diltiazem HCl (Cardizem Cd) 300 mg PO DAILY [facility] Last Admin: 07/26/18 09:55 Dose: 300 mg Ergocalciferol (Drisdol 50,000 Intl Units Cap) 1 cap PO QWK [facility] Last Admin: 07/26/18 09:55 Dose: 1 cap Ferrous Sulfate (Feosol) 325 mg PO BID [facility] Last Admin: 07/26/18 17:21 Dose: 325 mg Folic Acid (Folic Acid) 1 mg PO DAILY [facility] Gabapentin (Neurontin) 300 mg PO BID [facility] Last Admin: 07/26/18 17:21 Dose: 300 mg Levothyroxine Sodium (Synthroid) 125 mcg PO DAILY@0630 [facility] Last Admin: 07/26/18 05:30 Dose: 125 mcg Losartan Potassium (Cozaar) 100 mg PO DAILY [facility] Last Admin: 07/26/18 09:55 Dose: 100 mg Metformin HCl (Glucophage Xr) 500 mg PO DAILY [facility] Last Admin: 07/26/18 09:55 Dose: 500 mg Pantoprazole Sodium (Protonix Ec Tab) 40 mg PO DAILY [facility] Last Admin: 07/26/18 09:55 Dose: 40 mg - Labs Labs: 07/25/18 10:14 07/25/18 10:14 PT 11.8 SECONDS (9.7-12.2) 07/25/18 10:14 INR 1.1 07/25/18 10:14 APTT 30.7 SECONDS (21-34) 07/25/18 10:14
[2018-07-27] MEDS: Levothyroxine 100 MCG TAB PO SCH (07:08)
[2018-07-27] MEDS: Pantoprazole 40 mg EC Tab PO SCH (10:13)
[2018-07-27] MEDS: diltiaZEM 300 mg/24 Hours CD Cap PO SCH (10:14)
--- NOTE | 2018-07-27 10:50 | PN ---
DATE: 07/27/2018 SUBJECTIVE: The patient is for OR on . She has bilateral knee pain. She has difficulty walking. She is nonambulatory. PHYSICAL EXAMINATION: VITAL SIGNS: Blood pressure 136/62, pulse 66, respiratory rate 20, and temperature 98. LUNGS: Clear. CARDIOVASCULAR SYSTEM: S1 and S2. Regular. ABDOMEN: Soft. ASSESSMENT: 1. Osteoarthritis of bilateral knee. 2. Hypertension. 3. Diabetes. The patient is medically cleared for OR. The patient is on pain medication as she is for OR on . Krystian Spears MD
--- NOTE | 2018-07-27 13:24 | CP.PCM.PN ---
Subjective - Date & Time of Evaluation Date of Evaluation: 07/27/18 Time of Evaluation: 13:20 - Subjective Subjective: Patient complains of knee pain. Using walker to get to rest room. No new complaints. Denies CP/SOb/dizziness. Objective - Vital Signs/Intake and Output Vital Signs (last 24 hours): Temp Pulse Resp BP Pulse Ox 98.1 F 60 20 135/65 98 07/27/18 07:00 07/27/18 07:00 07/27/18 07:00 07/27/18 07:00 07/27/18 07:00 - Medications Medications: Current Medications Carbidopa/Levodopa (Sinemet ) 1 tab PO TID [facility] Last Admin: 07/27/18 10:13 Dose: 1 tab Diltiazem HCl (Cardizem Cd) 300 mg PO DAILY [facility] Last Admin: 07/27/18 10:14 Dose: 300 mg Ergocalciferol (Drisdol 50,000 Intl Units Cap) 1 cap PO QWK [facility] Last Admin: 07/26/18 09:55 Dose: 1 cap Ferrous Sulfate (Feosol) 325 mg PO BID [facility] Last Admin: 07/27/18 10:13 Dose: 325 mg Folic Acid (Folic Acid) 1 mg PO DAILY [facility] Last Admin: 07/27/18 10:13 Dose: 1 mg Gabapentin (Neurontin) 300 mg PO BID [facility] Last Admin: 07/27/18 10:13 Dose: 300 mg Levothyroxine Sodium (Synthroid) 125 mcg PO DAILY@0630 [facility] Last Admin: 07/27/18 07:08 Dose: 125 mcg Losartan Potassium (Cozaar) 100 mg PO DAILY [facility] Last Admin: 07/27/18 10:13 Dose: 100 mg Metformin HCl (Glucophage Xr) 500 mg PO DAILY [facility] Last Admin: 07/27/18 10:13 Dose: 500 mg Pantoprazole Sodium (Protonix Ec Tab) 40 mg PO DAILY [facility] Last Admin: 07/27/18 10:13 Dose: 40 mg - Labs Labs: 07/25/18 10:14 07/25/18 10:14 PT 11.8 SECONDS (9.7-12.2) 07/25/18 10:14 INR 1.1 07/25/18 10:14 APTT 30.7 SECONDS (21-34) 07/25/18 10:14 Assessment and Plan (1) Tricompartment osteoarthritis of right knee Assessment & Plan: patient indicated for TKR, elects for procedure, failed conservative mgmt check A1c t&C NPO p MN for OR patient seen by Dr. Ventura 06/17 and at that time states patient optimzed for procedure, no cardiac events since that evaluation d/w Dr. Farrell, agrees with above Status: Acute
--- NOTE | 2018-07-27 23:44 | CP.PCM.PN ---
Subjective - Date & Time of Evaluation Date of Evaluation: 07/27/18 Time of Evaluation: 07:00 - Subjective Subjective: dict Objective - Vital Signs/Intake and Output Vital Signs (last 24 hours): Temp Pulse Resp BP Pulse Ox 98 F 62 20 118/65 97 07/27/18 16:00 07/27/18 16:00 07/27/18 16:00 07/27/18 16:00 07/27/18 16:00 Intake and Output: 07/27/18 07/28/18 18:59 06:59 Intake Total 480 400 Balance 480 400 - Medications Medications: Current Medications Carbidopa/Levodopa (Sinemet ) 1 tab PO TID [facility] Last Admin: 07/27/18 17:03 Dose: 1 tab Diltiazem HCl (Cardizem Cd) 300 mg PO DAILY [facility] Last Admin: 07/27/18 10:14 Dose: 300 mg Ergocalciferol (Drisdol 50,000 Intl Units Cap) 1 cap PO QWK [facility] Last Admin: 07/26/18 09:55 Dose: 1 cap Ferrous Sulfate (Feosol) 325 mg PO BID [facility] Last Admin: 07/27/18 17:03 Dose: 325 mg Folic Acid (Folic Acid) 1 mg PO DAILY [facility] Last Admin: 07/27/18 10:13 Dose: 1 mg Gabapentin (Neurontin) 300 mg PO BID [facility] Last Admin: 07/27/18 17:03 Dose: 300 mg Levothyroxine Sodium (Synthroid) 125 mcg PO DAILY@0630 [facility] Last Admin: 07/27/18 07:08 Dose: 125 mcg Losartan Potassium (Cozaar) 100 mg PO DAILY [facility] Last Admin: 07/27/18 10:13 Dose: 100 mg Metformin HCl (Glucophage Xr) 500 mg PO DAILY [facility] Last Admin: 07/27/18 10:13 Dose: 500 mg Pantoprazole Sodium (Protonix Ec Tab) 40 mg PO DAILY [facility] Last Admin: 07/27/18 10:13 Dose: 40 mg - Labs Labs: 07/25/18 10:14 07/25/18 10:14 PT 11.8 SECONDS (9.7-12.2) 07/25/18 10:14 INR 1.1 07/25/18 10:14 APTT 30.7 SECONDS (21-34) 07/25/18 10:14
--- NOTE | 2018-07-28 03:46 | PN ---
DATE: 07/28/2018 SUBJECTIVE: The patient is for total knee replacement, afebrile. No shortness of breath. No chest pain. No nausea, vomiting. PHYSICAL EXAMINATION: VITAL SIGNS: Blood pressure 135/65, pulse 60, respiratory rate 20, temperature 98.1. LUNGS: Clear. CARDIOVASCULAR SYSTEM: S1, S2. Regular. ABDOMEN: Soft. EXTREMITIES: Bilateral knee swelling. ASSESSMENT: 1. Osteoarthritis of knee, difficulty walking. 2. Hypertension. 3. Diabetes. 4. Anxiety. PLAN: Discharge the patient, outpatient followup. Krystian Spears MD
[2018-07-28] MEDS: Levothyroxine 100 MCG TAB PO SCH (06:42)
[2018-07-28 07:26] LABS: HEMOGLOBIN 12.3 g/dL (11.0-16.0)
[2018-07-28 07:42] VITALS: PULSE 60
--- NOTE | 2018-07-28 08:03 | CP.PCM.PCO ---
Physician Communication Note - Physician Communication Note Physician Communication Note: Patient medically cleared with moderate risks as per Dr. Spears
[2018-07-28 08:16] LABS: BLOOD UREA NITROGEN 21 mg/dL (7-17); CALCIUM 9.3 mg/dl (8.6-10.4); GFR NON-AFRICAN AMERICAN > 60
[2018-07-28] MEDS: Pantoprazole 40 mg EC Tab PO SCH ×2 (10:00→13:37)
[2018-07-28] MEDS: diltiaZEM 300 mg/24 Hours CD Cap PO SCH ×2 (10:01→13:38)
--- NOTE | 2018-07-28 14:33 | CP.PCM.PN ---
Subjective - Date & Time of Evaluation Date of Evaluation: 07/28/18 Time of Evaluation: 13:00 - Subjective Subjective: Patient seen and examined with Dr. Farrell at bedside. Pain is unchanged. Much difficulty ambulating due to pain. No other complaints. Objective - Vital Signs/Intake and Output Vital Signs (last 24 hours): Temp Pulse Resp BP Pulse Ox 98.2 F 60 20 134/69 20 L 07/28/18 07:00 07/28/18 07:00 07/28/18 07:00 07/28/18 07:00 07/28/18 07:00 Intake and Output: 07/28/18 07/28/18 06:59 18:59 Intake Total 400 Balance 400 - Medications Medications: Current Medications Carbidopa/Levodopa (Sinemet 10) 1 tab PO TID [facility] Last Admin: 07/28/18 13:37 Dose: 1 tab Diltiazem HCl (Cardizem Cd) 300 mg PO DAILY [facility] Last Admin: 07/28/18 13:38 Dose: 300 mg Ergocalciferol (Drisdol 50,000 Intl Units Cap) 1 cap PO QWK [facility] Last Admin: 07/26/18 09:55 Dose: 1 cap Ferrous Sulfate (Feosol) 325 mg PO BID [facility] Last Admin: 07/28/18 13:37 Dose: 325 mg Folic Acid (Folic Acid) 1 mg PO DAILY [facility] Last Admin: 07/28/18 13:37 Dose: 1 mg Gabapentin (Neurontin) 300 mg PO BID [facility] Last Admin: 07/28/18 13:36 Dose: 300 mg Levothyroxine Sodium (Synthroid) 125 mcg PO DAILY@0630 [facility] Last Admin: 07/28/18 06:42 Dose: Not Given Losartan Potassium (Cozaar) 100 mg PO DAILY [facility] Last Admin: 07/28/18 13:38 Dose: 100 mg Metformin HCl (Glucophage Xr) 500 mg PO DAILY [facility] Last Admin: 07/28/18 10:00 Dose: Not Given Pantoprazole Sodium (Protonix Ec Tab) 40 mg PO DAILY [facility] Last Admin: 07/28/18 13:37 Dose: 40 mg - Labs Labs: 07/28/18 07:09 07/28/18 07:09 PT 11.8 SECONDS (9.7-12.2) 07/25/18 10:14 INR 1.1 07/25/18 10:14 APTT 30.7 SECONDS (21-34) 07/25/18 10:14 - Extremities Exam Additional comments: RLE: moderate swelling, moderate effusion no lesions/masses/erythema ROM: 5-90 deg sensation intact SP/DP/TN motor intact EHL/FHL/TA/G pedal pulse intact calves soft NT b/l Assessment and Plan (1) Tricompartment osteoarthritis of right knee Assessment & Plan: Pulmonology and cardiac clearance recommended Dr. Farrell recommends to plan elective R TKA appropriately as outpatient. Plan for next Wednesday/. Patient understands and agrees with plan. Patient may contact Dr. Farrell's office to plan accordingly pain control above d/w Dr. Farrell who agrees Status: Acute
--- NOTE | 2018-07-28 15:23 | CP.PCM.PCO ---
Physician Communication Note - Physician Communication Note Physician Communication Note: OK with knee replacement [facility]
--- NOTE | 2018-07-28 15:44 | CP.PCM.PN ---
Subjective - Date & Time of Evaluation Date of Evaluation: 07/28/18 Time of Evaluation: 15:00 - Subjective Subjective: patient seen today , denies any chest pain , sob, dizziness c/o knee pain severe , un able to walk secondary to pain pateitn for OR today for TKR Objective - Vital Signs/Intake and Output Vital Signs (last 24 hours): Temp Pulse Resp BP Pulse Ox 98.2 F 60 20 134/69 20 L 07/28/18 07:00 07/28/18 07:00 07/28/18 07:00 07/28/18 07:00 07/28/18 07:00 Intake and Output: 07/28/18 07/28/18 06:59 18:59 Intake Total 400 200 Balance 400 200 - Medications Medications: Current Medications Carbidopa/Levodopa (Sinemet 10/100) 1 tab PO TID [facility] Last Admin: 07/28/18 13:37 Dose: 1 tab Ergocalciferol (Drisdol 50,000 Intl Units Cap) 1 cap PO QWK [facility] Last Admin: 07/26/18 09:55 Dose: 1 cap Ferrous Sulfate (Feosol) 325 mg PO BID [facility] Last Admin: 07/28/18 13:37 Dose: 325 mg Folic Acid (Folic Acid) 1 mg PO DAILY [facility] Last Admin: 07/28/18 13:37 Dose: 1 mg Gabapentin (Neurontin) 300 mg PO BID [facility] Last Admin: 07/28/18 13:36 Dose: 300 mg Levothyroxine Sodium (Synthroid) 125 mcg PO DAILY@0630 [facility] Last Admin: 07/28/18 06:42 Dose: Not Given Losartan Potassium (Cozaar) 100 mg PO DAILY [facility] Last Admin: 07/28/18 13:38 Dose: 100 mg Metformin HCl (Glucophage Xr) 500 mg PO DAILY [facility] Last Admin: 07/28/18 10:00 Dose: Not Given Pantoprazole Sodium (Protonix Ec Tab) 40 mg PO DAILY [facility] Last Admin: 07/28/18 13:37 Dose: 40 mg - Labs Labs: 07/28/18 07:09 07/28/18 07:09 PT 11.8 SECONDS (9.7-12.2) 07/25/18 10:14 INR 1.1 07/25/18 10:14 APTT 30.7 SECONDS (21-34) 07/25/18 10:14 Assessment and Plan - Assessment and Plan (Free Text) Assessment: a/p 73 yr old female with pmhx of DM, HTN and severe knee pain admitted with severe knee pain , She has tried conservative management in the past with PT, oral medications and steroid injections without relief of symptoms and scheduled for surgery today . today surgery cancelled and re scheduled for Wed, ( need cardio, and pul. clearance ) Dr. Ventura consulted for Cardiac clearance and patient cleared for surgery from cardiology standpoint D/w Dr. mondragon, will see patient today D/w Dr. Spears cleared for discharge home today after seen by Dr. Mondragon Discussed with Matthew URIARTE , above plan he will discuss with Dr. Lacey The plan discussed with daughter over the phone
--- NOTE | 2018-07-28 17:14 | CP.PCM.CON ---
History of Present Illness - History of Present Illness History of Present Illness: Reason for consultation: Pulmonary clearance 73-year-old female admitted with severe right knee pain, surgery was canceled today for osteoarthritis of right knee. Patient denies shortness of breath, denies cough, denies fever chills, denies chest pain. Patient has no history of smoking and chest x-ray showed no infiltrate PMH: DM, HTN PSH: Hysterectomy, ventral hernia repair x 3, meds: as per med rec NKDA SH: Denies tobacco/ETOH/drug use. Lives at home with who unable to care for her due to illness, she climbs 4 steps into home which has elevator to her floor Review of Systems - Review of Systems All systems: reviewed and no additional remarkable complaints except (Right knee pain) Past Patient History - Infectious Disease Hx of Infectious Diseases: None - Past Medical History & Family History Past Medical History?: Yes Past Family History: Reviewed and not pertinent - Past Social History Smoking Status: Never Smoked - CARDIAC Hx Hypertension: Yes - PULMONARY Hx Respiratory Disorders: No - NEUROLOGICAL Hx Neurological Disorder: No - RENAL Hx Chronic Kidney Disease: Yes Hx Kidney Stones: Yes - ENDOCRINE/METABOLIC Hx Hypothyroidism: Yes - MUSCULOSKELETAL/RHEUMATOLOGICAL Hx Arthritis: Yes - PSYCHIATRIC Hx Substance Use: No - SURGICAL HISTORY Hx Surgeries: Yes Hx Herniorrhaphy: Yes Hx Thyroidectomy: Yes Other/Comment: abdl surgery. breast surgery for lump - ANESTHESIA Hx Anesthesia: Yes Hx Anesthesia Reactions: No Hx Malignant Hyperthermia: No Meds Allergies/Adverse Reactions: Allergies Allergy/AdvReac Type Severity Reaction Status Date / Time No Known Allergies Allergy Verified 07/25/18 09:10 - Medications Medications: Current Medications Carbidopa/Levodopa (Sinemet 10/100) 1 tab PO TID [facility] Last Admin: 07/28/18 13:37 Dose: 1 tab Ergocalciferol (Drisdol 50,000 Intl Units Cap) 1 cap PO QWK [facility] Last Admin: 07/26/18 09:55 Dose: 1 cap Ferrous Sulfate (Feosol) 325 mg PO BID [facility] Last Admin: 07/28/18 17:13 Dose: 325 mg Folic Acid (Folic Acid) 1 mg PO DAILY [facility] Last Admin: 07/28/18 13:37 Dose: 1 mg Gabapentin (Neurontin) 300 mg PO BID [facility] Last Admin: 07/28/18 17:13 Dose: 300 mg Levothyroxine Sodium (Synthroid) 125 mcg PO DAILY@0630 [facility] Last Admin: 07/28/18 06:42 Dose: Not Given Losartan Potassium (Cozaar) 100 mg PO DAILY [facility] Last Admin: 07/28/18 13:38 Dose: 100 mg Metformin HCl (Glucophage Xr) 500 mg PO DAILY [facility] Last Admin: 07/28/18 10:00 Dose: Not Given Pantoprazole Sodium (Protonix Ec Tab) 40 mg PO DAILY [facility] Last Admin: 07/28/18 13:37 Dose: 40 mg Physical Exam - Head Exam Head Exam: ATRAUMATIC, NORMOCEPHALIC - ENT Exam ENT Exam: Mucous Membranes Moist - Neck Exam Neck exam: Positive for: Normal Inspection - Respiratory Exam Respiratory Exam: Clear to Auscultation Bilateral - Cardiovascular Exam Cardiovascular Exam: REGULAR RHYTHM - GI/Abdominal Exam GI & Abdominal Exam: Normal Bowel Sounds, Soft - Neurological Exam Neurological exam: Alert, Oriented x3 ([employer]) Results - Vital Signs Recent Vital Signs: Last Vital Signs Temp 98.2 F 07/28/18 07:00 Pulse 60 07/28/18 07:00 Resp 20 07/28/18 07:00 BP 134/69 07/28/18 07:00 Pulse Ox 20 L 07/28/18 07:00 - Labs Result Diagrams: 07/28/18 07:09 07/28/18 07:09 Labs: Laboratory Results - last 24 hr 07/27/18 07/27/18 07/28/18 17:23 21:44 07:09 Hgb 12.3 Hct 37.6 Sodium Potassium Chloride Carbon Dioxide Anion Gap BUN Creatinine Est GFR ( Amer) Est GFR (Non-Af Amer) POC Glucose (mg/dL) 129 H Random Glucose Calcium Blood Type A POSITIVE Antibody Screen Negative 07/28/18 07/28/18 07/28/18 07:09 07:10 11:11 Hgb Hct Sodium 137 Potassium 4.2 Chloride 103 Carbon Dioxide 22 Anion Gap 16 BUN 21 H Creatinine 0.8 Est GFR ( Amer) > 60 Est GFR (Non-Af Amer) > 60 POC Glucose (mg/dL) 108 122 H Random Glucose 110 H Calcium 9.3 Blood Type Antibody Screen 07/28/18 16:05 Hgb Hct Sodium Potassium Chloride Carbon Dioxide Anion Gap BUN Creatinine Est GFR ( Amer) Est GFR (Non-Af Amer) POC Glucose (mg/dL) 152 H Random Glucose Calcium Blood Type Antibody Screen Assessment & Plan (1) Tricompartment osteoarthritis of right knee Status: Acute Comment: Patient is low risk for surgery from pulmonary standpoint
[2018-07-28 17:58] VITALS: BP 116/72; TEMP 98.3; O2SAT 96
--- NOTE | 2018-07-28 23:44 | CP.PCM.DIS ---
Provider - Provider Date of Admission: 07/26/18 17:35 Attending physician: Krystian Spears MD Consults: 07/25/18 18:01 Orthopedic Consult Routine Comment: Consulting Provider: Abhijit Farrell III Consulting Physician: Abhijit Farrell III Reason for Consult: knee pain 07/28/18 14:53 Cardiology Consult Routine Comment: notified by DIRECTOR OF MARKETING [employer] Consulting Provider: Mario Ventura Consulting Physician: Mario Ventura Reason for Consult: PRE OP CLEARANCE Physician Consult Routine Comment: Consulting Provider: Roger Mondragon Consulting Physician: Roger Mondragon Reason for Consult: PRE OP CLEARANCE Time Spent in preparation of Discharge (in minutes): 45 Hospital Course - Lab Results Lab Results: Most Recent Lab Values WBC 5.7 K/uL (4.8-10.8) 07/25/18 10:14 RBC 4.86 Mil/uL (3.80-5.20) 07/25/18 10:14 Hgb 12.3 g/dL (11.0-16.0) 07/28/18 07:09 Hct 37.6 % (34.0-47.0) 07/28/18 07:09 MCV 71.6 fL (81.0-99.0) L 07/25/18 10:14 MCH 23.5 pg (27.0-31.0) L 07/25/18 10:14 MCHC 32.8 g/dL (33.0-37.0) L 07/25/18 10:14 RDW 16.5 % (11.5-14.5) H 07/25/18 10:14 Plt Count 212 K/uL (130-400) 07/25/18 10:14 MPV 8.4 fL (7.2-11.7) 07/25/18 10:14 Neut % (Auto) 60.4 % (50.0-75.0) 07/25/18 10:14 Lymph % (Auto) 28.3 % (20.0-40.0) 07/25/18 10:14 [place] % (Auto) 8.1 % (0.0-10.0) 07/25/18 10:14 Eos % (Auto) 2.3 % (0.0-4.0) 07/25/18 10:14 Baso % (Auto) 0.9 % (0.0-2.0) 07/25/18 10:14 Neut # (Auto) 3.4 K/uL (1.8-7.0) 07/25/18 10:14 Lymph # (Auto) 1.6 K/uL (1.0-4.3) 07/25/18 10:14 [place] # (Auto) 0.5 K/uL (0.0-0.8) 07/25/18 10:14 Eos # (Auto) 0.1 K/uL (0.0-0.7) 07/25/18 10:14 Baso # (Auto) 0.1 K/uL (0.0-0.2) 07/25/18 10:14 PT 11.8 SECONDS (9.7-12.2) 07/25/18 10:14 INR 1.1 07/25/18 10:14 APTT 30.7 SECONDS (21-34) 07/25/18 10:14 Sodium 137 mmol/L (132-148) 07/28/18 07:09 Potassium 4.2 mmol/L (3.6-5.2) 07/28/18 07:09 Chloride 103 mmol/L (98-107) 07/28/18 07:09 Carbon Dioxide 22 mmol/L (22-30) 07/28/18 07:09 Anion Gap 16 (10-20) 07/28/18 07:09 BUN 21 mg/dL (7-17) H 07/28/18 07:09 Creatinine 0.8 mg/dL (0.7-1.2) 07/28/18 07:09 Est GFR ( Amer) > 60 07/28/18 07:09 Est GFR (Non-Af Amer) > 60 07/28/18 07:09 POC Glucose (mg/dL) 152 mg/dL (65-110) H 07/28/18 16:05 Random Glucose 110 mg/dL (65-105) H 07/28/18 07:09 Hemoglobin A1c 6.2 % (4.2-6.5) 07/27/18 13:49 Calcium 9.3 mg/dl (8.6-10.4) 07/28/18 07:09 Magnesium 1.9 mg/dL (1.6-2.3) 07/25/18 10:14 Total Bilirubin 0.8 mg/dL (0.2-1.3) 07/25/18 10:14 AST 18 U/L (14-36) 07/25/18 10:14 ALT 13 U/L (9-52) 07/25/18 10:14 Alkaline Phosphatase 90 U/L (38-126) 07/25/18 10:14 NT-Pro-B Natriuret Pep 340 pg/mL (0-900) 07/25/18 10:14 Total Protein 7.5 g/dL (6.3-8.3) 07/25/18 10:14 Albumin 4.1 g/dL (3.5-5.0) 07/25/18 10:14 Globulin 3.4 gm/dL (2.2-3.9) 07/25/18 10:14 Albumin/Globulin Ratio 1.2 (1.0-2.1) 07/25/18 10:14 25-OH Vitamin D Total 50.5 NG/ML (30.0-100.0) 07/27/18 06:50 Urine Color Yellow (YELLOW) 07/26/18 22:30 Urine Clarity Clear (Clear) 07/26/18 22:30 Urine pH 6.0 (5.0-8.0) 07/26/18 22:30 Ur Specific [place] 1.012 (1.003-1.030) 07/26/18 22:30 Urine Protein Negative mg/dL (NEGATIVE) 07/26/18 22:30 Urine Glucose (UA) Normal mg/dL (Normal) 07/26/18 22:30 Urine Ketones Negative mg/dL (NEGATIVE) 07/26/18 22:30 Urine Blood 1+ (NEGATIVE) H 07/26/18 22:30 Urine Nitrate Negative (NEGATIVE) 07/26/18 22:30 Urine Bilirubin Negative (NEGATIVE) 07/26/18 22:30 Urine Urobilinogen Normal mg/dL (0.2-1.0) 07/26/18 22:30 Ur Leukocyte Esterase Neg [place]/uL (Negative) 07/26/18 22:30 Urine WBC (Auto) < 1 /hpf (0-5) 07/26/18 22:30 Urine RBC (Auto) < 1 /hpf (0-3) 07/26/18 22:30 Ur Squamous Epith Cells 1 /hpf (0-5) 07/26/18 22:30 Urine Bacteria Rare (<OCC) 07/26/18 22:30 Blood Type A POSITIVE 07/27/18 17:23 Antibody Screen Negative 07/27/18 17:23 Discharge Exam - Head Exam Head Exam: ATRAUMATIC, NORMOCEPHALIC Discharge Plan - Follow Up Plan Condition: STABLE Disposition: HOME/ ROUTINE Instructions: Osteoarthritis (DC), Chronic Knee Pain (DC) Additional Instructions: Please call Dr. Lacey office for instructions for surgery on Wednesday at [facility] Please continue medications as per med. rec. Referrals: Roger Mondragon MD [Staff Provider] - Abhijit Farrell III, MD [Staff Provider] - Mario Ventura MD [Staff Provider] -
--- NOTE | 2018-07-29 01:56 | CON ---
DATE: 07/28/2018 CARDIOLOGY CONSULTATION REASON FOR CONSULTATION: Preoperative evaluation. HISTORY OF PRESENT ILLNESS: The patient is a 73-year-old [place] female who has history of hypertension, diabetes mellitus, obesity, osteoarthritis, hiatal hernia who was admitted today to undergo total right knee placement. The patient was evaluated by me last month. The patient was cleared from the cardiac point of view and recommended on my evaluation to see her and at that time, the patient was short of breath and had small left pleural effusion. At this time, the patient denies any chest pain or shortness of breath. SOCIAL HISTORY: Nonsmoker, nondrinker. MEDICATIONS: Cardizem CD 300 mg daily, Cozaar 100 mg once a day, Feosol one tablet twice a day, folic acid 1 mg once a day, Glucophage 500 mg daily, Neurontin 300 mg twice a day, Sinemet one tablet t.i.d., Synthroid 125 mcg once a day. REVIEW OF SYSTEMS: No nausea or vomiting. No dizziness or syncope. No recent history of chest pain. No shortness of breath or productive cough. PHYSICAL EXAMINATION: GENERAL: The patient is an elderly female who does not appear to be in any distress. VITAL SIGNS: Blood pressure 134/69, heart rate 68, temperature 98.2, respirations 20. HEENT: Normocephalic. NECK: No JVD. CHEST: Clear. HEART: S1, S2, regular. EXTREMITIES: Trace leg edema. LABORATORY DATA: SMA-7: Sodium 137, potassium 4.2, chloride 103, CO2 of 22, glucose 110, BUN 21, creatinine 0.8. CBC: WBC 5.7, hemoglobin 11.4, hematocrit 34.8, platelet count 112,000. PT, PTT, and INR are within normal limits. EKG revealed sinus bradycardia at the rate of 59. Chest x-ray done on 07/25/2018 revealed no active disease. No significant interval change compared to prior examination; however, my own review revealed that the small left pleural effusion noted in the June x-ray has improved significantly. Right knee x-ray, chronic degenerative changes, no acute findings. Echocardiographic study performed last month revealed normal left ventricular systolic function, normal segmental wall motion. ASSESSMENT: 1. Hypertension. 2. Diabetes mellitus. 3. Hyperlipidemia. 4. Mild sinus bradycardia. 5. Hypothyroidism. 6. Parkinsonism. RECOMMENDATIONS: Discontinue Cardizem for now. Continue Cozaar at 100 mg once a day, Sinemet one tablet t.i.d., Synthroid 125 mcg once a day. The patient can undergo total right knee replacement from the cardiac point of view with close preoperative blood pressure and with monitoring. Postoperative telemetry monitoring. Mario Ventura MD
--- NOTE | 2018-07-29 06:56 | DS ---
DISCHARGE DIAGNOSES: 1. Osteoarthritis with difficulty walking. 2. Anxiety. 3. Hypertension. 4. Diabetes. HISTORY OF PRESENT ILLNESS AND HOSPITAL COURSE: This is a 73-year-old [place] female with history of severe anxiety, Parkinson's disease, diabetes, hypertension, hyperlipidemia who is compliant with her diet, medication and followup. She came in because of inability to walk and bilateral knee pain and knee swelling. The patient was found to have osteoarthritis, and the patient is scheduled for OR. The patient's OR was canceled today because she missed her pulmonary followup, and Orthopedics postponed the procedure due to lack of scheduling. The patient is being discharged. The patient was advised to show up in the OR on the morning of next Wednesday. Krystian Spears MD
== END 2018-07-28 19:11 | disposition home or self-care (01) | DRG 554 ==
LOC: C.ER 09:00 → UNDOADMOB 10:50 → C.9E 10:50 → INTOOBSV 10:50 → C.3T 13:48 → C.9E 13:48 → C.3T 18:03 → C.9E 18:03 → OBSVTOIN 07-26 17:35
PROVIDERS: ADMIT Internal Medicine; ATTEND Internal Medicine
DX: M17.0 Bilateral primary osteoarthritis of knee (principal); R26.2 Difficulty in walking, not elsewhere classified; E11.22 Type 2 diabetes mellitus with diabetic chronic kidney disease; E89.0 Postprocedural hypothyroidism; I12.9 Hypertensive chronic kidney disease with stage 1 through stage 4 chronic kidney disease, or unspecified chronic kidney disease; N18.9 Chronic kidney disease, unspecified; K27.9 Peptic ulcer, site unspecified, unspecified as acute or chronic, without hemorrhage or perforation; E66.9 Obesity, unspecified; F41.9 Anxiety disorder, unspecified; E78.5 Hyperlipidemia, unspecified; G20 Parkinson's disease; K43.9 Ventral hernia without obstruction or gangrene; G89.29 Other chronic pain; Z53.9 Procedure and treatment not carried out, unspecified reason; Z87.442 Personal history of urinary calculi; Z90.710 Acquired absence of both cervix and uterus